=== PATIENT | male | born 1970 | race Caucasian/White ===

== ENCOUNTER 2018-02-23 18:45 | Inpatient (IN) ==
[2018-02-23] MEDS ORDERED: MethylPREDNISolone Sod Succinate Inj 125 MG/2 ML Vial IV.PUSH ONE (19:13)
--- NOTE | 2018-02-23 19:19 | ED ---
HPI General Chief complaint: Respiratory Symptoms Stated complaint: Chest Pain/SOB/Phy sent Time Seen by Provider: 02/23/18 19:09 History of Present Illness HPI narrative: 47-year-old male with history of COPD, metastatic lung cancer, hypercalcemia, history of DVT in the right lower extremity on Xarelto, presents with family, aunt who is his power of criminal defense attorney, for evaluation. For the past few weeks the patient has had worsening edema in his feet and a worsening cough. He recently completed a 10-day course of Cipro for upper respiratory infection. Today he was complaining of some substernal chest pain and this is what prompted evaluation. Symptoms are moderate with no obvious aggravating relieving factors. He has had no objective fevers. He does seem somewhat confused according to the aunt as well, she is concerned that his calcium level is high again. According to his power of criminal defense attorney and his aunt he is DNR/DNI. Oncologist is Dr. Christian, primary care physician is Dr. Gastelum. No other complaints. Related Data Home Medications Medication Instructions Recorded Confirmed ProAir HFA 2 puff INHALATION Q2-4H PRN 12/21/17 02/23/18 albuterol sulfate 1.25 mg INHALATION QID PRN 12/21/17 02/23/18 ondansetron HCl [Zofran] 4 mg PO TID PRN 12/21/17 02/23/18 oxycodone-acetaminophen [Percocet] 1 tab PO Q6H PRN 12/21/17 02/23/18 docusate sodium 100 mg PO BID 02/23/18 02/23/18 oxycodone-acetaminophen 1 tab PO Q4H PRN 02/23/18 02/23/18 budesonide-formoterol [Symbicort] 2 puff INHALATION Q12H 02/24/18 02/24/18 rivaroxaban [Xarelto] 10 mg PO DAILY 02/24/18 02/24/18 Allergies Allergy/AdvReac Type Severity Reaction Status Date / Time No Known Allergies Allergy Unverified 12/21/17 23:11 [facility] Medical History Medical History Anxiety (Acute) Emphysema lung (Acute) GERD (gastroesophageal reflux disease) (Acute) COPD (chronic obstructive pulmonary disease) (Acute) DVT (deep venous thrombosis) (Acute) Lung cancer (Acute) Port-A-Cath in place (Acute) Surgical History Surgical History H/O shoulder surgery (Acute) Family History Family History Other Alcohol abuse Depression Family history of cancer Hyperlipidemia Social History Social History Substance History: Past History (marijuana and narcotics) Second Hand Smoke Exposure: No Smoking Status: Former smoker Tobacco Type: Cigarettes Packs Per Day: 1 Cigarettes Per Day: 20.0 years: 30 How Often Do You Have a Drink Containing Alcohol: Never Recent Travel in [facility] within the Last 8 Weeks: No Recent Out of Country Travel within the Last 8 Weeks: No Immunization History Tetanus Immunization: <5 Years Exam Narrative Exam Narrative: GENERAL: This is a chronically ill-appearing male who is in no acute distress. SKIN: Warm and dry. HEAD: Atraumatic. Normocephalic. EYES: Pupils equal and round. No scleral icterus. No injection or drainage. ENT: No nasal bleeding or discharge. Mucous membranes pink and moist. NECK: Trachea midline. No JVD. CARDIOVASCULAR: Regular rate and rhythm. No murmur appreciated. RESPIRATORY: There is diffuse wheezing bilaterally with prolonged inspiratory and expiratory phases. GASTROINTESTINAL: Abdomen soft, non-tender, nondistended. Hepatic and splenic margins not palpable. MUSCULOSKELETAL: No obvious deformities. No clubbing. No cyanosis. 2-3+ pitting edema noted to both feet. NEUROLOGICAL: Awake and alert. No obvious cranial nerve deficits. Motor grossly within normal limits. Normal speech. Course Initial Documented Vital Signs Temperature 98.6 F 02/23/18 18:50 Pulse Rate 105 H 02/23/18 18:50 Respiratory Rate 30 H 02/23/18 18:50 Blood Pressure 92/55 L 02/23/18 18:50 Pulse Oximetry 100 02/23/18 18:50 Last Documented Vital Signs Temperature 97.8 F 02/25/18 00:00 Pulse Rate 100 H 02/25/18 00:00 Respiratory Rate 16 02/25/18 00:00 Blood Pressure 102/61 02/25/18 00:00 Pulse Oximetry 100 02/25/18 00:00 Medical Decision Making MDM Narrative Medical decision making narrative: The patient was placed on ECG monitoring pulse oximetry. Twelve-lead EKG was obtained. Lab work, chest x-ray, bilateral Doppler ultrasound, CT pulmonary angina gram ordered. The patient was given DuoNeb treatment and Solu-Medrol. Chest x-ray results reviewed, the patient was given vancomycin, azithromycin and Zosyn. CT pulmonary under [facility] is negative for PE. Ultrasounds were negative for PE. The patient has leukocytosis with WBC count of 15.9, 90% neutrophils, hypercalcemia with a calcium level of 12.9 1 L normal saline administered. The BNP is elevated at 1209. The patient will be admitted for further treatment. Medical Screen Exam Complete: Yes Emergency Medical Condition: Yes Differential Diagnosis Differential Diagnosis: Pneumonia, COPD exacerbation, pleural effusion, pulmonary edema, metastatic lung cancer, PE Lab Data Result diagrams: 02/25/18 06:15 02/23/18 19:54 Lab Results 02/23/18 02/23/18 02/23/18 Range/Units 19:54 19:54 19:54 WBC 15.7 H (4.0-11.0) th/mm3 RBC 3.47 L (4.50-5.90) mil/mm3 Hgb 8.4 L (13.0-17.0) gm/dL Hct 26.6 L (39.0-51.0) % MCV 76.6 L (80.0-100.0) fL MCH 24.2 L (27.0-34.0) pg MCHC 31.7 L (32.0-36.0) % RDW 20.2 H (11.6-17.2) % Plt Count 287 (150-450) th/mm3 MPV 7.6 (7.0-11.0) fL Neut % (Auto) 90.7 H (16.0-70.0) % Lymph % (Auto) 2.0 L (9.0-44.0) % [place] % (Auto) 6.9 (0.0-8.0) % Eos % (Auto) 0.1 (0.0-4.0) % Baso % (Auto) 0.3 (0.0-2.0) % Neut # (Auto) 14.2 H (1.8-7.7) th/mm3 Lymph # (Auto) 0.3 L (1.0-4.8) th/mm3 [place] # (Auto) 1.1 H (0.0-0.9) th/mm3 Eos # (Auto) 0.0 (0.0-0.4) th/mm3 Baso # (Auto) 0.1 (0.0-0.2) th/mm3 WBC Differential . Differential Comment Auto diff final PT 15.7 H (9.8-11.6) sec INR 1.6 Ratio APTT 85.6 H (23.4-31.7) sec Sodium 131 L (136-145) meq/L Potassium 4.5 (3.5-5.1) meq/L Chloride 95 L (98-107) meq/L Carbon Dioxide 26.4 (21.0-32.0) meq/L Anion Gap 10 (5-15) meq/L BUN 14 (7-18) mg/dL Creatinine 0.51 L (0.60-1.30) mg/dL Estimated GFR Greater than 89 (>89) mL/min Random Glucose 88 (74-106) mg/dL Lactic Acid (0.4-2.0) mmol/L Calcium 12.9 H* (8.5-10.1) mg/dL Prot Corrected Calcium (8.5-10.1) mg/dL Magnesium 2.0 (1.5-2.5) mg/dL Total Bilirubin 0.5 (0.2-1.0) mg/dL AST 44 H (15-37) U/L ALT 53 (12-78) U/L Alkaline Phosphatase 311 H (45-117) U/L Total Creatine Kinase 80 (39-308) U/L Troponin I 0.02 (0.02-0.05) ng/mL B-Natriuretic Peptide (0-100) pg/mL Total Protein 6.3 L (6.4-8.2) g/dL Albumin 1.8 L (3.4-5.0) g/dL Urine Color (Yellw/Straw) Urine Clarity (Clear) Urine pH (5.0-8.5) Ur Specific [place] (1.002-1.035) Urine Protein (Neg-Trace) mg/dL Urine Glucose (UA) (Negative) mg/dL Urine Ketones (Negative) mg/dL Urine Occult Blood (Negative) Urine Nitrate (Negative) Urine Bilirubin (Negative) Urine Urobilinogen (Less than 2) mg/dL Ur Leukocyte Esterase (Negative) Urine WBC (0-5) /hpf Hyaline Casts (0-3) /lpf Urine Mucus (Occasional) /lpf Micro UA Comment Ur Microscopic Review Urine Culture Comments 02/23/18 02/23/18 02/24/18 Range/Units 19:54 19:54 07:15 WBC (4.0-11.0) th/mm3 RBC (4.50-5.90) mil/mm3 Hgb (13.0-17.0) gm/dL Hct (39.0-51.0) % MCV (80.0-100.0) fL MCH (27.0-34.0) pg MCHC (32.0-36.0) % RDW (11.6-17.2) % Plt Count (150-450) th/mm3 MPV (7.0-11.0) fL Neut % (Auto) (16.0-70.0) % Lymph % (Auto) (9.0-44.0) % [place] % (Auto) (0.0-8.0) % Eos % (Auto) (0.0-4.0) % Baso % (Auto) (0.0-2.0) % Neut # (Auto) (1.8-7.7) th/mm3 Lymph # (Auto) (1.0-4.8) th/mm3 [place] # (Auto) (0.0-0.9) th/mm3 Eos # (Auto) (0.0-0.4) th/mm3 Baso # (Auto) (0.0-0.2) th/mm3 WBC Differential Differential Comment PT (9.8-11.6) sec INR Ratio APTT (23.4-31.7) sec Sodium (136-145) meq/L Potassium (3.5-5.1) meq/L Chloride (98-107) meq/L Carbon Dioxide (21.0-32.0) meq/L Anion Gap (5-15) meq/L BUN (7-18) mg/dL Creatinine (0.60-1.30) mg/dL Estimated GFR (>89) mL/min Random Glucose (74-106) mg/dL Lactic Acid 1.5 (0.4-2.0) mmol/L Calcium (8.5-10.1) mg/dL Prot Corrected Calcium (8.5-10.1) mg/dL Magnesium (1.5-2.5) mg/dL Total Bilirubin (0.2-1.0) mg/dL AST (15-37) U/L ALT (12-78) U/L Alkaline Phosphatase (45-117) U/L Total Creatine Kinase (39-308) U/L Troponin I (0.02-0.05) ng/mL B-Natriuretic Peptide 1209 H (0-100) pg/mL Total Protein (6.4-8.2) g/dL Albumin (3.4-5.0) g/dL Urine Color Straw (Yellw/Straw) Urine Clarity Clear (Clear) Urine pH 5.0 (5.0-8.5) Ur Specific [place] 1.011 (1.002-1.035) Urine Protein Negative (Neg-Trace) mg/dL Urine Glucose (UA) Negative (Negative) mg/dL Urine Ketones Negative (Negative) mg/dL Urine Occult Blood Negative (Negative) Urine Nitrate Negative (Negative) Urine Bilirubin Negative (Negative) Urine Urobilinogen Less than 2 (Less than 2) mg/dL Ur Leukocyte Esterase Negative (Negative) Urine WBC 1 (0-5) /hpf Hyaline Casts 11 (0-3) /lpf Urine Mucus Few H (Occasional) /lpf Micro UA Comment Culture not ind Ur Microscopic Review Not Reportable Urine Culture Comments Culture not ind 02/24/18 02/25/18 Range/Units 12:34 06:15 WBC 14.5 H (4.0-11.0) th/mm3 RBC 3.06 L (4.50-5.90) mil/mm3 Hgb 7.9 L (13.0-17.0) gm/dL Hct 23.5 L (39.0-51.0) % MCV 76.9 L (80.0-100.0) fL MCH 25.9 L (27.0-34.0) pg MCHC 33.7 (32.0-36.0) % RDW 21.1 H (11.6-17.2) % Plt Count 290 (150-450) th/mm3 MPV 7.4 (7.0-11.0) fL Neut % (Auto) 92.1 H (16.0-70.0) % Lymph % (Auto) 1.6 L (9.0-44.0) % [place] % (Auto) 6.1 (0.0-8.0) % Eos % (Auto) 0.1 (0.0-4.0) % Baso % (Auto) 0.1 (0.0-2.0) % Neut # (Auto) 13.3 H (1.8-7.7) th/mm3 Lymph # (Auto) 0.2 L (1.0-4.8) th/mm3 [place] # (Auto) 0.9 (0.0-0.9) th/mm3 Eos # (Auto) 0.0 (0.0-0.4) th/mm3 Baso # (Auto) 0.0 (0.0-0.2) th/mm3 WBC Differential . Differential Comment Auto diff final PT (9.8-11.6) sec INR Ratio APTT (23.4-31.7) sec Sodium (136-145) meq/L Potassium (3.5-5.1) meq/L Chloride (98-107) meq/L Carbon Dioxide (21.0-32.0) meq/L Anion Gap (5-15) meq/L BUN (7-18) mg/dL Creatinine (0.60-1.30) mg/dL Estimated GFR (>89) mL/min Random Glucose (74-106) mg/dL Lactic Acid (0.4-2.0) mmol/L Calcium (8.5-10.1) mg/dL Prot Corrected Calcium (8.5-10.1) mg/dL Magnesium (1.5-2.5) mg/dL Total Bilirubin (0.2-1.0) mg/dL AST (15-37) U/L ALT (12-78) U/L Alkaline Phosphatase (45-117) U/L Total Creatine Kinase (39-308) U/L Troponin I (0.02-0.05) ng/mL B-Natriuretic Peptide 755 H (0-100) pg/mL Total Protein (6.4-8.2) g/dL Albumin (3.4-5.0) g/dL Urine Color (Yellw/Straw) Urine Clarity (Clear) Urine pH (5.0-8.5) Ur Specific [place] (1.002-1.035) Urine Protein (Neg-Trace) mg/dL Urine Glucose (UA) (Negative) mg/dL Urine Ketones (Negative) mg/dL Urine Occult Blood (Negative) Urine Nitrate (Negative) Urine Bilirubin (Negative) Urine Urobilinogen (Less than 2) mg/dL Ur Leukocyte Esterase (Negative) Urine WBC (0-5) /hpf Hyaline Casts (0-3) /lpf Urine Mucus (Occasional) /lpf Micro UA Comment Ur Microscopic Review Urine Culture Comments Imaging Data Radiologist's impression: Chest X-Ray 02/23/18 19:12 CONCLUSION: 3.5 cm mass in the right lung and complete opacification of the left hemithorax , similar to prior CT 01/20/2018. Venous Doppler Study 02/23/18 19:12 CONCLUSION: 1. The study is negative for bilateral lower extremity deep venous thrombosis. Head CT 02/23/18 19:19 CONCLUSION: 1. Stable area of encephalomalacia involving the right frontal lobe. 2. No acute intracranial abnormality. . Chest CTA 02/23/18 21:06 CONCLUSION: 1. No pulmonary emboli. 2. Progression in the patient's metastatic disease involving the chest. 3. Suspected low-density mass arising from the pancreas only partially seen on this exam. 4. Left adrenal gland metastasis. 5. Bilateral pleural effusions which are stable. Discharge Plan Discharge Disposition Patient Disposition: 30 Still Patient Discharge Condition Condition: Stable Discharge Details Diagnosis: Pneumonia, Hypercalcemia, Sepsis, Elevated brain natriuretic peptide (BNP) level Physicians Team ED Provider: Kasia French ED Midlevel Provider: Pietro Marsh Primary Care Provider: Chepe Gastelum Attending Provider: Gabriela Dasilva Other Providers: Boo Christian ; Juarez Brown Status ED Status: Left Department Discharge Information Discharge Date/Time: 02/24/18 02:16
--- NOTE | 2018-02-23 19:47 | XR ---
EXAM DATE: 02/23/2018 7:28 PM EST AGE/SEX: 47 years / Male INDICATIONS: Cough, wheezing, shortness of breath and chest pain. CLINICAL DATA: This is the patient's initial encounter. Patient reports that signs and symptoms have been present for 3 days and indicates a pain score of 8/10. MEDICAL/SURGICAL HISTORY: Carcinoma, lung. Chronic obstructive pulmonary disease. . Infusaport . COMPARISON: [facility], RIBS LEFT MIN 3V W EXP CHEST, 12/22/2017. [facility], CT CHEST W/O CONTRAST, 8. . FINDINGS: There is complete opacification of the left hemithorax. In the lateral right lung, there is a 3.5 cm masslike opacity similar to recently performed on patient's CT. The right hemidiaphragm remains well delineated. Zfrtip-b-Zcko catheter tip projects over the cavoatrial junction. Osseous structures are grossly intact. CONCLUSION: 3.5 cm mass in the right lung and complete opacification of the left hemithorax, similar to prior CT 01/20/2018. Electronically signed by: Chucky Koo MD 02/23/2018 7:46 PM EST
[2018-02-23] MEDS ORDERED: Piperacil/Tazo 4.5 GM Premix 4.5 GM/100 ML BAG IV.SIG STA (19:56)
[2018-02-23] MEDS ORDERED: Vancomycin Inj 1,000 MG in Sodium Chlor 0.9% Inj 250 ML IV.SIG ONE (19:56)
[2018-02-23] MEDS ORDERED: Azithromycin Inj 500 MG in Sodium Chlor 0.9% Inj 250 ML IV.SIG STA (19:56)
--- NOTE | 2018-02-23 20:22 | CT ---
EXAM DATE: 02/23/2018 8:10 PM EST AGE/SEX: 47 years / Male INDICATIONS: Altered mental status. CLINICAL DATA: This is the patient's initial encounter. Patient reports that signs and symptoms have been present for 1 day and indicates a pain score of 0/10. MEDICAL/SURGICAL HISTORY: Carcinoma, lung. Chronic obstructive pulmonary disease. Deep venous thr ombosis. None. RADIATION DOSE: 35.45 CTDI (mGy) COMPARISON: [facility] [place], CT BRAIN W & W/O CONTRAST, 05/18/2015. . TECHNIQUE: CT of the head without contrast. Using automated exposure control and adjustment of the mA and/or kV according to patient size, radiation dose was kept as low as reasonably achievable to ob tain optimal diagnostic quality images. DICOM format image data is available electronically for revi ew and comparison. FINDINGS: Cerebrum: A focal area of decreased density involving the right frontal lobe cortex and underlying c ortical white matter is long-term stable. The ventricles are normal for age. No evidence of midline shift, mass lesion, hemorrhage or acute infarction. No extraaxial fluid collections are seen. Posterior Fossa: The cerebellum and brainstem are intact. The 4th ventricle is midline. The cerebe llopontine angle is unremarkable. Extracranial: The visualized portion of the orbits is intact. Skull: The calvaria is intact. No evidence of skull fracture. CONCLUSION: 1. Stable area of encephalomalacia involving the right frontal lobe. 2. No acute intracranial abnormality. . Electronically signed by: Chucky Tse MD 02/23/2018 8:20 PM EST
[2018-02-23 20:38] LABS: Baso # (Auto) 0.1 th/mm3 (0.0-0.2); Baso % (Auto) 0.3 % (0.0-2.0); Eos % (Auto) 0.1 % (0.0-4.0); Hematocrit 26.6 % (39.0-51.0); Hemoglobin 8.4 gm/dL (13.0-17.0); Lymph # (Auto) 0.3 th/mm3 (1.0-4.8); Mean Corpuscular HGB Conc 31.7 % (32.0-36.0); Mean Corpuscular Hemoglobin 24.2 pg (27.0-34.0); Mean Corpuscular Volume 76.6 fL (80.0-100.0); Mean Platelet Volume 7.6 fL (7.0-11.0); Mono # (Auto) 1.1 th/mm3 (0.0-0.9); Mono % (Auto) 6.9 % (0.0-8.0); Neut # (Auto) 14.2 th/mm3 (1.8-7.7); Neut % (Auto) 90.7 % (16.0-70.0); Platelet Count 287 th/mm3 (150-450); Red Blood Count 3.47 mil/mm3 (4.50-5.90); Red Cell Distribution Width 20.2 % (11.6-17.2); White Blood Count 15.7 th/mm3 (4.0-11.0)
[2018-02-23 20:48] LABS: Activated Partial Thrombo Time 85.6 sec (23.4-31.7); INR 1.6 Ratio; Prothrombin Time 15.7 sec (9.8-11.6)
[2018-02-23 21:00] LABS: Albumin 1.8 g/dL (3.4-5.0); Anion Gap 10 meq/L (5-15); Aspartate Aminotransferase 44 U/L (15-37); Blood Urea Nitrogen 14 mg/dL (7-18); Calcium 12.9 mg/dL (8.5-10.1); Carbon Dioxide 26.4 meq/L (21.0-32.0); Chloride 95 meq/L (98-107); Glomerular Filtration Rate Greater Than 89 mL/min (>89); Glucose,Random 88 mg/dL (74-106); Potassium 4.5 meq/L (3.5-5.1); Sodium 131 meq/L (136-145)
[2018-02-23 21:07] LABS: Alanine Aminotransferase 53 U/L (12-78); Alkaline Phosphatase 311 U/L (45-117); Creatine Kinase 80 U/L (39-308); Total Protein 6.3 g/dL (6.4-8.2); Troponin I 0.02 ng/mL (0.02-0.05)
[2018-02-23] MEDS ORDERED: Sod Chloride 0.9% Inj 1,000 ML IV.SIG SCH (21:15)
--- NOTE | 2018-02-23 21:34 | US ---
EXAM DATE: 02/23/2018 9:31 PM EST AGE/SEX: 47 years / Male INDICATIONS: Bilateral leg swelling. CLINICAL DATA: This is the patient's initial encounter. Patient reports that signs and symptoms have been present for 1 week and indicates a pain score of 3/10. MEDICAL/SURGICAL HISTORY: Chronic obstructive pulmonary disease. Deep venous thrombosis. Carc inoma, lung. . Port a catheter in place. COMPARISON: . TECHNIQUE: Venous ultrasound of both lower extremities was performed from the inguinal ligament to t he proximal calf. Real-time, color Doppler and spectral tracing, compression and augmentation techni ques were used. FINDINGS: Right Leg: Normal compression of the deep venous system from the inguinal region to the proximal arelis f. No echogenic clot is seen. Normal response of the venous system to augmentation and respiration. Left Leg: Normal compression of the deep venous system from the inguinal region to the proximal calf . No echogenic clot is seen. Normal response of the venous system to augmentation and respiration. Other: None. CONCLUSION: 1. The study is negative for bilateral lower extremity deep venous thrombosis. Electronically signed by: Chucky Koo MD 02/23/2018 9:32 PM EST
--- NOTE | 2018-02-23 22:03 | CT ---
EXAM DATE: 02/23/2018 9:52 PM EST AGE/SEX: 47 years / Male INDICATIONS: Stage 4 lung cancer. Evaluate for emboli. CLINICAL DATA: This is the patient's initial encounter. Patient reports that signs and symptoms have been present for 1 day and indicates a pain score of 5/10. MEDICAL/SURGICAL HISTORY: Carcinoma, lung. Chronic obstructive pulmonary disease. Metastatic dise ase. DVT . Power Port RADIATION DOSE: 21.29 CTDI (mGy) COMPARISON: [facility], CT CHEST W/O CONTRAST, 01/20/2018. . TECHNIQUE: Volumetric scanning was performed using a multi-row detector CT scanner during bolus infu kelly of 50 ml Omnipaque 350 (iohexol) nonionic water-soluble contrast as a single exam dose. The damaris a was post processed with a variety of visualization algorithms including full volume maximum intensi ty projection and sliding thin slab reformation. Using automated exposure control and adjustment of t he mA and/or kV according to patient size, radiation dose was kept as low as reasonably achievable to obtain optimal diagnostic quality images. DICOM format image data is available electronically for r eview and comparison. FINDINGS: Pulmonary Arteries: No filling defects are seen in the pulmonary arteries out to the subsegmental ve ssels. The left and right pulmonary arteries are normal in diameter. Lung: A large mass occupies the vast majority of the left hemithorax. This measures 13.9 x 12.2 x 11 .2 cm and is larger from the prior study proximally 1 month ago where it measured 12.2 x 11.2 x 11.3 cm. This mass circumferentially surrounds the left pulmonary artery causing some narrowing the pulmon janneth artery remains patent. The right upper lobe pulmonary mass is larger from the prior study. It cur rently measures 3.4 x 2.4 cm where previously measured 2.7 x 1.8 cm. Right lower lobe pulmonary nodul e measures 15 mm in diameter where previously measured 9 mm. Pronounced emphysematous changes within the visualized right lung.. Effusion: A small posterior layering pleural effusion on the right and a tiny pleural effusion on th e left. These are stable.. Mediastinum: No evidence of mediastinal or hilar adenopathy. Other: The visualized portions of the abdomen reveal a low-density masslike structure within the epi gastrium measuring 8.6 x 4.1 cm. This is only partially visualized on this study. It is felt to be ar ising from the pancreas. A 4.6 cm left adrenal gland mass consistent with a metastatic focus is noted . A small amount of ascitic fluid is seen within the visualized portions of the upper abdomen. The ax illa is unremarkable. CONCLUSION: 1. No pulmonary emboli. 2. Progression in the patient's metastatic disease involving the chest. 3. Suspected low-density mass arising from the pancreas only partially seen on this exam. 4. Left adrenal gland metastasis. 5. Bilateral pleural effusions which are stable. Electronically signed by: Chucky Tse MD 02/23/2018 10:01 PM EST
[2018-02-24] MEDS ORDERED: Bisacodyl 10 MG Supp RECTAL PRN (00:31)
[2018-02-24] MEDS ORDERED: Acetaminophen 325 MG Tablet PO PRN ×2 (00:31→01:04)
[2018-02-24] MEDS ORDERED: Morphine Inj 4 MG/ML Vial IV.PUSH PRN ×2 (01:04→10:01)
[2018-02-24] MEDS ORDERED: Naloxone Inj 0.4 MG/ML Vial IV.PUSH PRN (01:04)
[2018-02-24] MEDS ORDERED: Vancomycin Consult Pharmacy OTHER PRN (01:18)
[2018-02-24] MEDS: Sod Chloride 0.9% Inj 1,000 ML IV.CONT SCH ×5 (01:40→21:07)
--- NOTE | 2018-02-24 01:53 | P.HPFP ---
History of Present Illness Primary Care Physician: Chepe Gastelum MD Chief Complaint: Confusion and fatigue History of Present Illness: 47-year-old male with history of metastatic lung cancer, history of hypercalcemia, COPD, history of DVT presented to the emergency room for fatigue , confusion and productive cough. Patient is accompanied by his mother, aunt ( who is power of employee benefits attorney). Majority of history is provided by the aunt as the patient has difficulty speaking and feels very ill. Patient does answer questions appropriately when prompted. Patient has had several week history of progressive fatigue/confusion, worsening edema in his bilateral lower extremities, and worsening cough. Patient was seen by his PCP (Dr. Gastelum) and recently completed a 10-day course of Cipro for a suspected upper respiratory infection. His aunt states that his cough is only mildly improved and he continues to have green sputum production as well as wheezing and has requiring increased supplemental oxygen (up to 2-3 L). What prompted the family to bring him in today is that he complained of chest discomfort which is new for him. He had a fever of 102 2 weeks ago but has not had any objective fevers of late per family. - Diagnosis (1) Sepsis (2) Stage 4 lung cancer (3) Hypercalcemia (4) Pancreatic mass (5) Chronic pain (6) Elevated brain natriuretic peptide (BNP) level (7) COPD (chronic obstructive pulmonary disease) (8) History of DVT (deep vein thrombosis) (9) Nutrition, metabolism, and development symptoms Inpatient Certification: I certify that the inpatient services were ordered in accordance with Medicare regulations governing the order. This includes certification that hospital inpatient services are reasonable and necessary and in the case of services not specified as inpatient-only under 42 CFR 419.22(n), that they are appropriately provided as inpatient services in accordance to with the 2-midnight benchmark under 43 CFR 412.3(e) Estimated Total Length of Stay (Days): 3 Plans for Post Hospital Care: Home Review of Systems All other systems reviewed negative except as stated in HPI PMFSH - History History Provided By: Patient - Medical History Medical History: Medical History (Last Updated 02/24/18 @ 01:49 by Jackson Vargas MD, R2) COPD (chronic obstructive pulmonary disease) DVT (deep venous thrombosis) Lung cancer Port-A-Cath in place - Surgical History Surgical History: Surgical History (Last Updated 02/24/18 @ 01:49 by Jackson Vargas MD, R2) H/O shoulder surgery - Family History Family History: Family History (Last Updated 02/24/18 @ 02:04 by Jackson Vargas MD, R2) Other Alcohol abuse Depression Family history of cancer - Tobacco History Second Hand Smoke Exposure: Yes Tobacco Use In Past 30 Days: Yes Smoking Status: Never smoker Tobacco Type: Cigarettes - Alcohol History How Often Do You Have a Drink Containing Alcohol: Never - Substance Use History Substance History: No History of Abuse - Travel History Recent Travel in the [place] Within the Last 8 Weeks: No Recent Travel Out of the Country Within the Last 8 Weeks: No - Immunization History Tetanus Immunization: <5 Years Medications and Allergies Active Medications: Active Medications Acetaminophen (Tylenol) 650 mg PO Q4H PRN PRN Reason: Temp > 100.4 Acetaminophen (Tylenol) 650 mg PO Q6HR PRN PRN Reason: PAIN SCALE 1 TO 2 Al Hydroxide/Mg Hydroxide (Milk Of Magnesia Liq) 30 ml PO Q12H PRN PRN Reason: Mild Constipation Albuterol (Duoneb Neb (Prn)) 1 ampul NEB Q4HR NEB PRN PRN Reason: SHORTNESS OF BREATH Bisacodyl (Dulcolax Supp) 10 mg RECTAL DAILY PRN PRN Reason: SEVERE CONSITIPATION Budesonide/Formoterol Fumarate (Symbicort 160/4.5 Mcg Inh) 2 puff INH Q12H NBA Sodium Chloride (Ns Inj) 1,000 mls @ 100 mls/hr IV.CONT .Q10H NBA Zoledronic Acid 4 mg/ Sodium (Chloride) 155 mls @ 155 mls/hr IV.SIG ONCE ONE Stop: 02/24/18 02:14 Piperacillin/Tazobactam/Dextrose (Zosyn 4.5 Gm Premix) 4.5 gm in 100 mls @ 200 mls/hr IV.SIG Q8H NBA Azithromycin 500 mg/ Sodium (Chloride) 250 mls @ 250 mls/hr IV.SIG Q24H NBA Lactobacillus Acidophilus (Lactinex Pkt) 1 gm PO TID NBA Lactulose (Lactulose Liq) 30 ml PO DAILY PRN PRN Reason: SEVERE CONSITIPATION Morphine Sulfate (Morphine Inj) 2 mg IV.PUSH Q3H PRN PRN Reason: BREAKTHROUGH PAIN Naloxone HCl (Narcan Inj) 0.4 mg IV.PUSH UNSCH PRN PRN Reason: SEE LABEL COMMENTS Ondansetron HCl (Zofran Inj) 4 mg IV.PUSH Q6H PRN PRN Reason: NAUSEA OR VOMITING Oxycodone/Acetaminophen (Percocet 10/325 Mg) 1 tab PO Q6H PRN PRN Reason: PAIN SCALE 6 TO 10 Oxycodone/Acetaminophen (Percocet 5/325 Mg) 1 tab PO Q6H PRN PRN Reason: PAIN SCALE 3 TO 5 Pharmacy Profile Note (Vancomycin Consult Pharmacy) 1 each OTHER UNSCH PRN PRN Reason: Pharmacy to dose Rivaroxaban (Xarelto) 10 mg PO DAILY NBA Senna/Docusate Sodium (Donna-Colace) 1 tab PO BID NBA Sennosides (Senokot) 17.2 mg PO Q12H PRN PRN Reason: Moderate Constipation Allergies Allergy/AdvReac Type Severity Reaction Status Date / Time No Known Allergies Allergy Unverified 12/21/17 23:11 Home Medications Medication Instructions Recorded Confirmed Type ProAir HFA 2 puff INHALATION Q2-4H PRN 12/21/17 02/23/18 History albuterol sulfate 1.25 mg INHALATION QID PRN 12/21/17 02/23/18 History ondansetron HCl [Zofran] 4 mg PO TID PRN 12/21/17 02/23/18 History oxycodone-acetaminophen [Percocet] 1 tab PO Q6H PRN 12/21/17 02/23/18 History docusate sodium 100 mg PO BID 02/23/18 02/23/18 History oxycodone-acetaminophen 1 tab PO Q4H PRN 02/23/18 02/23/18 History budesonide-formoterol [Symbicort] 2 puff INHALATION Q12H 02/24/18 02/24/18 History rivaroxaban [Xarelto] 10 mg PO DAILY 02/24/18 02/24/18 History Exam Vital signs: Vital Signs 02/23/18 18:50 02/23/18 18:54 02/23/18 20:18 Temperature 98.6 F Pulse Rate 105 H 106 H 111 H Respiratory Rate 30 H 20 20 Blood Pressure 92/55 L 115/65 Pulse Oximetry 100 100 02/23/18 20:30 02/24/18 01:31 Temperature 97.9 F Pulse Rate 106 H Respiratory Rate 18 Blood Pressure 109/55 L Pulse Oximetry 96 100 Intake & Output 02/23/18 02/23/18 02/24/18 06:59 18:59 06:59 Intake Total 1600 / 1600 Balance 1600 / 1600 Weight 56.699 kg Intake: IV 1600 / 1600 Azithromycin Inj 500 MG In NS 250 / 250 Inj 250 ML @ 250 mls/hr IV.SIG STAT STA Rx#:[id number] Zosyn 4.5 GM Premix 4.5 gm In 100 / 100 100 ml @ 200 mls/hr IV.SIG STAT STA Rx#:[id number] NS Inj 1,000 ML @ 1000 mls/hr 1000 / 1000 IV.SIG BOLUS NBA Rx#:[id number] Vancomycin Inj 1,000 MG In NS 250 / 250 Inj 250 ML @ 250 mls/hr IV.SIG ONCE ONE Rx#:[id number] Narrative: GENERAL: Frail appearing male sitting upright in bed. Frequently coughing. Unable to elaborate but does answer questions appropriately SKIN: Warm and dry. HEAD: Atraumatic. Normocephalic. EYES: Pupils equal and round. No scleral icterus. No injection or drainage. ENT: No nasal bleeding or discharge. Mucous membranes pink and moist. NECK: Trachea midline. No JVD. CARDIOVASCULAR: Difficult to auscultate due to breath sounds but sounded regular RESPIRATORY: No accessory muscle use. Diffuse rhonchi transmitted throughout the lung van[place]. GASTROINTESTINAL: Abdomen mildly distended, nontender. Hepatic and splenic margins not palpable. MUSCULOSKELETAL: Extremities without clubbing, cyanosis. No obvious deformities. NEUROLOGICAL: Awake and alert. No obvious cranial nerve deficits. Motor grossly within normal limits. Five out of 5 muscle strength in the arms and legs. Normal speech. Results - Labs Result diagrams: 02/23/18 19:54 02/23/18 19:54 Abnormal lab results 02/23/18 02/23/18 02/23/18 Range/Units 19:54 19:54 19:54 WBC 15.7 H (4.0-11.0) th/mm3 RBC 3.47 L (4.50-5.90) mil/mm3 Hgb 8.4 L (13.0-17.0) gm/dL Hct 26.6 L (39.0-51.0) % MCV 76.6 L (80.0-100.0) fL MCH 24.2 L (27.0-34.0) pg MCHC 31.7 L (32.0-36.0) % RDW 20.2 H (11.6-17.2) % Neut % (Auto) 90.7 H (16.0-70.0) % Lymph % (Auto) 2.0 L (9.0-44.0) % Neut # (Auto) 14.2 H (1.8-7.7) th/mm3 Lymph # (Auto) 0.3 L (1.0-4.8) th/mm3 [place] # (Auto) 1.1 H (0.0-0.9) th/mm3 PT 15.7 H (9.8-11.6) sec APTT 85.6 H (23.4-31.7) sec Sodium 131 L (136-145) meq/L Chloride 95 L (98-107) meq/L Creatinine 0.51 L (0.60-1.30) mg/dL Calcium 12.9 H* (8.5-10.1) mg/dL AST 44 H (15-37) U/L Alkaline Phosphatase 311 H (45-117) U/L B-Natriuretic Peptide (0-100) pg/mL Total Protein 6.3 L (6.4-8.2) g/dL Albumin 1.8 L (3.4-5.0) g/dL 02/23/18 Range/Units 19:54 WBC (4.0-11.0) th/mm3 RBC (4.50-5.90) mil/mm3 Hgb (13.0-17.0) gm/dL Hct (39.0-51.0) % MCV (80.0-100.0) fL MCH (27.0-34.0) pg MCHC (32.0-36.0) % RDW (11.6-17.2) % Neut % (Auto) (16.0-70.0) % Lymph % (Auto) (9.0-44.0) % Neut # (Auto) (1.8-7.7) th/mm3 Lymph # (Auto) (1.0-4.8) th/mm3 [place] # (Auto) (0.0-0.9) th/mm3 PT (9.8-11.6) sec APTT (23.4-31.7) sec Sodium (136-145) meq/L Chloride (98-107) meq/L Creatinine (0.60-1.30) mg/dL Calcium (8.5-10.1) mg/dL AST (15-37) U/L Alkaline Phosphatase (45-117) U/L B-Natriuretic Peptide 1209 H (0-100) pg/mL Total Protein (6.4-8.2) g/dL Albumin (3.4-5.0) g/dL Short CBC 02/23/18 Range/Units 19:54 WBC 15.7 H (4.0-11.0) th/mm3 Hgb 8.4 L (13.0-17.0) gm/dL Hct 26.6 L (39.0-51.0) % Plt Count 287 (150-450) th/mm3 BMP 02/23/18 19:54 Sodium 131 L Potassium 4.5 Chloride 95 L Carbon Dioxide 26.4 BUN 14 Creatinine 0.51 L Calcium 12.9 H* Cardiac Enzymes 02/23/18 Range/Units 19:54 Total Creatine Kinase 80 (39-308) U/L Troponin I 0.02 (0.02-0.05) ng/mL Liver Function 02/23/18 Range/Units 19:54 Total Bilirubin 0.5 (0.2-1.0) mg/dL AST 44 H (15-37) U/L ALT 53 (12-78) U/L Alkaline Phosphatase 311 H (45-117) U/L Albumin 1.8 L (3.4-5.0) g/dL - Imaging Impressions Chest X-Ray 02/23/18 19:12 CONCLUSION: 3.5 cm mass in the right lung and complete opacification of the left hemithorax , similar to prior CT 01/20/2018. Venous Doppler Study 02/23/18 19:12 CONCLUSION: 1. The study is negative for bilateral lower extremity deep venous thrombosis. Head CT 02/23/18 19:19 CONCLUSION: 1. Stable area of encephalomalacia involving the right frontal lobe. 2. No acute intracranial abnormality. . Chest CTA 02/23/18 21:06 CONCLUSION: 1. No pulmonary emboli. 2. Progression in the patient's metastatic disease involving the chest. 3. Suspected low-density mass arising from the pancreas only partially seen on this exam. 4. Left adrenal gland metastasis. 5. Bilateral pleural effusions which are stable. Caprini VTE Risk Assessment Caprini VTE Risk Assessment: Moderate/High Risk (score >= 2) Caprini Risk Assessment Model: Point Value = 1 Point Value = 2 Point Value = 3 Point Value = 5 Age 41-60 Minor surgery BMI > 25 kg/m2 Swollen legs Varicose veins or History of unexplained or recurrent spontaneous Oral contraceptives or hormone replacement Sepsis (< 1 month) Serious lung disease, including pneumonia (< 1 month) Abnormal pulmonary function Acute myocardial infarction Congestive heart failure (< 1 month) History of inflammatory bowel disease Medical patient at bed rest Age 61-74 Arthroscopic surgery Major open surgery (> 45 min) Laparoscopic surgery (> 45 min) Malignancy Confined to bed (> 72 hours) Immobilizing plaster cast Central venous access Age >= 75 History of VTE Family history of VTE Factor V Leiden Prothrombin [id number] Lupus anticoagulant Anticardiolipin antibodies Elevated serum homocysteine Heparin-induced thrombocytopenia Other congenital or acquired thrombophilia Stroke (< 1 month) Elective arthroplasty Hip, pelvis, or leg fracture Acute spinal cord injury (< 1 month) Prophylaxis Regimen: Total Risk Factor Score Risk Level Prophylaxis Regimen 0-1 Low Early ambulation 2 Moderate Order ONE of the following: *Sequential Compression Device (SCD) *Heparin 5000 units SQ BID 3-4 Higher Order ONE of the following medications: *Heparin 5000 units SQ TID *Enoxaparin/Lovenox 40 mg SQ daily (WT < 150 kg, CrCl > 30 mL/min) *Enoxaparin/Lovenox 30 mg SQ daily (WT < 150 kg, CrCl > 10-29 mL/min) *Enoxaparin/Lovenox 30 mg SQ BID (WT < 150 kg, CrCl > 30 mL/min) AND/OR *Sequential Compression Device (SCD) 5 or more Highest Order ONE of the following medications: *Heparin 5000 units SQ TID (Preferred with Epidurals) *Enoxaparin/Lovenox 40 mg SQ daily (WT < 150 kg, CrCl > 30 mL/min) *Enoxaparin/Lovenox 30 mg SQ daily (WT < 150 kg, CrCl > 10-29 mL/min) *Enoxaparin/Lovenox 30 mg SQ BID (WT < 150 kg, CrCl > 30 mL/min) AND *Sequential Compression Device (SCD) Assessment and Plan - Assessment (1) Sepsis Code(s): A41.9 - Sepsis, unspecified organism Status: Acute Plan: Patient is septic on admission with tachycardia, leukocytosis WBC 15.7, left shift. Heart rate in the 100s Lactic acid 1.5 on admission Chest x-ray on admission with 3.5 cm mass in the right lung and complete opacification of the left hemithorax UA pending Blood cultures pending Patient received azithromycin, vancomycin and Zosyn in the emergency room to treat possible pneumonia Continuing antibiotics on admission Repeat CBC in the morning (2) Stage 4 lung cancer Code(s): C34.90 - Malignant neoplasm of unspecified part of unspecified bronchus or lung Status: Acute Plan: Known history of stage IV lung cancer. Patient is DNR CT on admission showed no pulmonary emboli, progression in his metastatic disease involving the chest CT head on admission showing stable area of encephalomalacia involving the right frontal lobe, no acute intracranial abnormalities Oncology consulted on admission May need to consider palliative consult (3) Hypercalcemia Code(s): E83.52 - Hypercalcemia Status: Acute Plan: Patient with a history of hypercalcemia secondary to metastatic cancer Patient with confusion, constipation, peripheral edema Calcium of 12.9 falls into the moderate category Historically has been treated with zoledronic acid Received 1 L normal saline bolus in the ED We will continue normal saline at 100 mL/h, will consider higher rate if not for his pulmonary disease Ordering zoledronic acid In the setting of his peripheral edema, increased oxygen demand and elevated BNP - ordering Lasix 40 mg IV x1 Repeat CMP in the morning (4) Pancreatic mass Code(s): K86.9 - Disease of pancreas, unspecified Status: Acute Plan: CTA was ordered to evaluate for possible emboli and incidentally found a low density mass arising from the pancreas it was only partially seen May need to consider further imaging pending the clinical course (5) Chronic pain Code(s): G89.29 - Other chronic pain Status: Acute Plan: Patient has a history of chronic pain secondary to his metastatic lung cancer Takes Percocet at home Continuing Percocet pain scale with IV morphine for breakthrough pain (6) Elevated brain natriuretic peptide (BNP) level Code(s): R79.89 - Other specified abnormal findings of blood chemistry Status : Acute Plan: Elevated BNP on admission of 1209 Patient has no known history of CHF but has significant pulmonary pathology with his metastatic lung cancer Ordering Lasix 40mg IV x1 Repeat BNP in the morning (7) COPD (chronic obstructive pulmonary disease) Code(s): J44.9 - Chronic obstructive pulmonary disease, unspecified Status: Acute Plan: Known history of COPD Received 1 dose of Solu-Medrol 125 mg IV once in the ED Uses Symbicort, albuterol as needed at home Continuing Symbicort, DuoNeb's every 4 hours as needed, albuterol nebs every 2 hours as needed (8) History of DVT (deep vein thrombosis) Code(s): Z86.718 - Personal history of other venous thrombosis and embolism Status: Acute Plan: Known history of DVT Oncologist recently decrease his Xarelto from 20 mg to 10 mg p.o. daily Patient with bilateral lower extremity edema on admission, venous Doppler was negative for DVT Continuing Xarelto 10 mg p.o. daily (9) Nutrition, metabolism, and development symptoms Code(s): R63.8 - Other symptoms and signs concerning food and fluid intake Status: Acute Plan: Regular diet Xarelto for DVT prophylaxis Zofran as needed for nausea - Assessment and Plan 47-year-old male with a history of stage IV lung cancer, history of hypercalcemia, chronic pain, COPD and history of DVT presented to the emergency room with confusion, fatigue, weakness and shortness of breath. Patient is septic on admission with a suspected source of pneumonia. Blood cultures pending. Started on azithromycin, vancomycin and Zosyn on admission. Patient also found to be hypercalcemic on admission. Treating with IV fluids and zoledronic acid as well as 1 dose of Lasix. Consulting oncology on admission
[2018-02-24] MEDS: Budesonide-Formoterol 160/4.5 MCG 6 GM Inhaler INH SCH ×2 (01:55→14:07)
[2018-02-24] MEDS ORDERED: Vancomycin Inj 500 MG in Sodium Chlor 0.9% Inj 100 ML IV.SIG ONE (04:00)
[2018-02-24] MEDS: Piperacil/Tazo 4.5 GM Premix 4.5 GM/100 ML BAG IV.SIG SCH ×3 (04:31→21:05)
[2018-02-24 07:42] LABS: Bilirubin,Urine Negative (Negative); Clarity,Urine Clear (Clear); Color,Urine Straw (Yellw/Straw); Glucose,Urine (UA) Negative (Negative); Hyaline Casts,Urine 11 /lpf (0-3); Leukocyte Esterase,Urine Negative (Negative); Mucus,Urine Few /lpf (Occasional); Nitrite,Urine Negative (Negative); Specific Gravity,Urine 1.011 (1.002-1.035)
[2018-02-24] MEDS ORDERED: Zoledronic Acid Inj 4 MG in Sodium Chlor 0.9% Inj 150 ML IV.SIG ONE (08:00)
[2018-02-24] MEDS: Rivaroxaban 10 MG Tablet PO SCH (09:34)
--- NOTE | 2018-02-24 11:01 | P.CONPAL ---
Consult Service: Palliative Care Requesting Physician: Ray Martini Reason for Consult: a. To assist with evaluation and management of symptoms including: Pain and dyspnea b. To assist medical decision maker(s) with: better understanding of current medical conditions; weighing benefits/burdens of medical treatment options; making medical treatment decisions. Primary Care Provider: Chepe Gastelum MD History of Present Illness History of Present Illness: This is a 47-year-old male who was brought to the emergency room by his aunt who is his power of claims attorney. Prior to coming to the emergency room he was having substernal chest pain, also reports of worsening cough and edema in his lower extremities. 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 At that time he was found to have multiple satellite pulmonary nodules, direct invasion of of the tumor into the mediastinum as well as the hilar region, left-sided lung mass was wrapped around the main bronchus and vascular structures. He was also found to have lesions on the liver suspicious for metastatic disease. . * May 2015 He was initially treated by Dr. Carey Carrillo. Per Dr. Carrillo records, original diagnosis was poorly differentiated squamous cell carcinoma of the lung , and was planned for palliative systemic chemotherapy followed by consolidative radiation to manage his large central left lung mass which was encircling the left main bronchus. * January 2016 patient was not having any response to carboplatin and Taxol, had no response to second line treatment of Nivolumab, and had further progression of the disease. It was recommended that he follow-up with his thoracic oncology expert at [facility] * Patient had pericardial window done at [facility] 02/07/16 and was also found to have DVT. * April 2016, CT thorax and abdomen revealed 1.4 cm subpleural left apical nodule, pleural effusion, and a 2 cm periaortic lymph node and lesion in the right liver. At that time he was under consideration for further treatment, required a new biopsy to confirm malignancy, but was unable to undergo biopsy secondary to inability to access an area where tissue could be obtained. * August 2016 CAT scan shows near resolution of large primary tumor that was radiated with palliative dose of radiation with decrease in size of multiple other metastatic lesions. He was recommended for follow-up every 3 months. * As of December 2017, patient was found to have recurrence of disease, enlarging pericardial mass measuring 2.7 cm, a mass situated between the aorta and pulmonary artery 2.3 cm, another pericardial mass measuring 4.7 cm, left pericardial mass, loculated collection of left pericardial effusion, mass in the left hilum measuring 9.5 cm occluding the left upper lobe of the bronchus, posterior epicardial mass measuring 2.5 cm, enlarging cystic mass in the gastrohepatic region measuring 9 cm, and enlarging left retroperitoneal mass measuring 3.7 cm. He has had ongoing malignant hypercalcemia.. Current ED course: CXR essentially unchanged, 3.5 cm mass in the right lung and complete opacification of the left hemithorax. Venous Doppler study unremarkable. Head CT unremarkable. Chest CTA remarkable for stable bilateral pleural effusions, negative for PE, progression of metastatic disease in the chest, suspected low-density mass arising from the pancreas, left adrenal gland metastasis. * Labs: WBC 15.7, hemoglobin 8.4, hematocrit 26.6, platelets 287, PT/INR 15.7/ 1.6 APTT 85.7, sodium 131 potassium 4.5, chloride carbon dioxide 26.4, BUN 14, creatinine 0.51, GFR 89, glucose 88, lactic acid 1.5, calcium 12.9, protein corrected calcium pending, BNP 1209, protein 6.3, albumin 1.8, AST 44, ALT 53, alkaline phosphatase 311 Additional history: Patient was seen in the emergency room in December for hypercalcemia, was brought in by his aunt who apparently was very upset with staff and was making care difficult. At that time, and had advised they were goals were comfort oriented, they were seeking homeopathic treatments. Patient eventually left AMA without being treated. Palliative care was consulted to assist with symptom management and goals of care. Patient seen and examined in the emergency room. No family at bedside. He is initially dyspneic, restless, and agitated but recovers after several minutes. He reports "I was having an attack." He seems to be mostly oriented, however answers some questions with delayed responses and sometimes nonsensical answers. He is able to report majority of his prior treatments for cancer. He reports he does not want any further treatment, "I am ready to go be with God, I am tired of suffering." Explored plans for future treatment, likelihood of inability to start those treatments. Patient gets quite irritable, reports that a family member/visitor is at fault for his current sickness. He reports he does not feel that antibiotics are treating his symptoms. He reports continues to cough up green sputum. He is requiring higher flow oxygen (2-3 L) on a continuous basis versus as needed. Function/Cognitive Trajectory: Patient has been living with his aunt who helps provide care for him. Patient has been progressively weak over the past few months secondary to disease progression, worsening dyspnea, current upper respiratory infection. Per brain imaging patient also has some encephalomalacia. Given severity of his dyspnea, ongoing disease progression, it is likely he will likely be incapacitated at some point. At this time he remains capacitated but would be best supported by his aunt and decision making. At this time, no healthcare surrogate or proxy paperwork on file. Patient verbalizes that he would want his aunt to make decisions for him. Review of Systems Constitutional: Reports fatigue, Reports fever(s), Reports lack of energy, Reports weakness, Reports weight loss Eyes: Denies change in vision Ears, Nose, Mouth, and Throat: Denies abnormal hearing, Denies neck pain, Denies tongue swelling Cardiovascular: Reports chest pain, Reports fast heart rate, Reports rapid, pounding, or irregular heartbeat, Reports shortness of breath Respiratory: Reports change in phlegm color, Reports chest congestion, Reports cough, Reports coughing up blood, Reports excessive phlegm production, Reports pain with cough, Reports shortness of breath, Reports wheezing Gastrointestinal: Denies nausea, Denies vomiting Genitourinary: Denies urinary urgency Musculoskeletal: Reports decreased muscle mass, Denies deformity, Denies joint pain Skin/Breast: Denies rash, Denies sores, Denies wounds Neurologic: Reports confusion Psychiatric: Reports anxiety, Reports confusion, Reports irritability Endocrine: Denies cold intolerance, Denies heat intolerance Hematologic/Lymphatic: Reports easy bleeding, Reports easy bruising (on Xeralto) Allergic/Immunologic: Reports wheezing, Denies GI upset with certain foods PMFSH - History History Provided By: Patient, Family Member - Medical History Medical History: Medical History (Last Updated 02/24/18 @ 11:11 by RASHMI Barber) Anxiety Emphysema lung GERD (gastroesophageal reflux disease) COPD (chronic obstructive pulmonary disease) DVT (deep venous thrombosis) Lung cancer Port-A-Cath in place - Surgical History Surgical History: Surgical History (Last Updated 02/24/18 @ 01:49 by Jackson Vargas MD, R2) H/O shoulder surgery - Family History Family History: Family History (Last Updated 02/24/18 @ 11:08 by RASHMI Barber) Other Alcohol abuse Depression Family history of cancer Hyperlipidemia - Social History I have reviewed the patient's Social History: Yes - Tobacco History Second Hand Smoke Exposure: No Tobacco Use In Past 30 Days: Yes Smoking Status: Former smoker Tobacco Type: Cigarettes Packs Per Day: 1 years: 30 - Alcohol History How Often Do You Have a Drink Containing Alcohol: Never - Substance Use History Substance History: Past History (marijuana and narcotics) - Travel History Recent Travel in the [place] Within the Last 8 Weeks: No Recent Travel Out of the Country Within the Last 8 Weeks: No - Immunization History Tetanus Immunization: <5 Years Medications and Allergies Active Medications: Active Medications Acetaminophen (Tylenol) 650 mg PO Q4H PRN PRN Reason: Temp > 100.4 Acetaminophen (Tylenol) 650 mg PO Q6HR PRN PRN Reason: PAIN SCALE 1 TO 2 Al Hydroxide/Mg Hydroxide (Milk Of Jarad Liremberto) 30 ml PO Q12H PRN PRN Reason: Mild Constipation Albuterol (Albuterol Neb (Prn)) 2.5 mg NEB Q2HR NEB PRN PRN Reason: SHORTNESS OF BREATH Albuterol (Duoneb Neb (Santana)) 1 ampul NEB Q4HR NEB SANTANA Last Admin: 02/24/18 07:50 Dose: 1 ampul Bisacodyl (Dulcolax Supp) 10 mg RECTAL DAILY PRN PRN Reason: SEVERE CONSITIPATION Budesonide/Formoterol Fumarate (Symbicort 160/4.5 Mcg Inh) 2 puff INH Q12H [facility] Last Admin: 02/24/18 01:55 Dose: 2 puff Furosemide (Lasix Inj) 40 mg IV.PUSH BID@0900,1800 [facility] Sodium Chloride (Ns Inj) 1,000 mls @ 100 mls/hr IV.CONT .Q10H [facility] Last Admin: 02/24/18 01:40 Dose: 100 mls/hr Piperacillin/Tazobactam/Dextrose (Zosyn 4.5 Gm Premix) 4.5 gm in 100 mls @ 200 mls/hr IV.SIG Q8H [facility] Last Infusion: 02/24/18 05:55 Dose: Infused Azithromycin 500 mg/ Sodium (Chloride) 250 mls @ 250 mls/hr IV.SIG Q24H [facility] Sodium Chloride (Ns Inj) 1,000 mls @ 100 mls/hr IV.CONT .Q10H [facility] Lactobacillus Acidophilus (Lactinex Pkt) 1 gm PO TID [facility] Last Admin: 02/24/18 09:34 Dose: 1 gm Lactulose (Lactulose Liq) 30 ml PO DAILY PRN PRN Reason: SEVERE CONSITIPATION Morphine Sulfate (Morphine Inj) 1 mg IV.PUSH Q3H PRN PRN Reason: Shortness of Breath/Pain Naloxone HCl (Narcan Inj) 0.4 mg IV.PUSH UNSCH PRN PRN Reason: SEE LABEL COMMENTS Ondansetron HCl (Zofran Inj) 4 mg IV.PUSH Q6H PRN PRN Reason: NAUSEA OR VOMITING Oxycodone/Acetaminophen (Percocet 10/325 Mg) 1 tab PO Q6H PRN PRN Reason: PAIN SCALE 6 TO 10 Oxycodone/Acetaminophen (Percocet 5/325 Mg) 1 tab PO Q6H PRN PRN Reason: PAIN SCALE 3 TO 5 Pharmacy Profile Note (Vancomycin Consult Pharmacy) 1 each OTHER UNSCH PRN PRN Reason: Pharmacy to dose Prednisone (Deltasone) 50 mg PO DAILY [facility] Rivaroxaban (Xarelto) 10 mg PO DAILY [facility] Last Admin: 02/24/18 09:34 Dose: 10 mg Senna/Docusate Sodium (Donna-Colace) 1 tab PO BID [facility] Sennosides (Senokot) 17.2 mg PO Q12H PRN PRN Reason: Moderate Constipation Allergies Allergy/AdvReac Type Severity Reaction Status Date / Time No Known Allergies Allergy Unverified 12/21/17 23:11 Home Medications Medication Instructions Recorded Confirmed Type ProAir HFA 2 puff INHALATION Q2-4H PRN 12/21/17 02/23/18 History albuterol sulfate 1.25 mg INHALATION QID PRN 12/21/17 02/23/18 History ondansetron HCl [Zofran] 4 mg PO TID PRN 12/21/17 02/23/18 History oxycodone-acetaminophen [Percocet] 1 tab PO Q6H PRN 12/21/17 02/23/18 History docusate sodium 100 mg PO BID 02/23/18 02/23/18 History oxycodone-acetaminophen 1 tab PO Q4H PRN 02/23/18 02/23/18 History budesonide-formoterol [Symbicort] 2 puff INHALATION Q12H 02/24/18 02/24/18 History rivaroxaban [Xarelto] 10 mg PO DAILY 02/24/18 02/24/18 History Advance Directives Living Will: No Physical Exam Vital Signs: Vital Signs - 24 hr 02/23/18 18:50 02/23/18 18:54 02/23/18 20:18 Temperature 98.6 F Pulse Rate 105 H 106 H 111 H Respiratory Rate 30 H 20 20 Blood Pressure 92/55 L 115/65 Pulse Oximetry 100 100 02/23/18 20:30 02/24/18 01:31 02/24/18 03:05 Temperature 97.9 F Pulse Rate 106 H 100 H Respiratory Rate 18 22 Blood Pressure 109/55 L Pulse Oximetry 96 100 96 02/24/18 07:37 02/24/18 07:51 Temperature 97.4 F L Pulse Rate 96 H 101 H Respiratory Rate 20 20 Blood Pressure 84/53 L Pulse Oximetry 100 96 I&O: Intake & Output 02/22/18 02/23/18 02/24/18 02/25/18 06:59 06:59 06:59 06:59 Intake Total 1700 / 1700 100 / 100 Balance 1700 / 1700 100 / 100 Weight 56.699 kg Physical Exam: CONSTITUTIONAL/GENERAL: Frail cachectic male, dyspneic with audible wheezes. TUBES/LINES/DRAINS: Peripheral IV SKIN: No jaundice, rashes, or lesions. Ecchymoses on upper extremities. No wounds seen anteriorly. Skin temperature appropriate. Not diaphoretic. HEAD: Atraumatic. Normocephalic. EYES: Pupils equal and round and reactive. Extraocular motions intact. No scleral icterus. No injection or drainage. Fundi not examined. ENT: Hearing grossly normal. Nose without bleeding or purulent drainage. Throat without visible erythema, exudates, masses, or lesions. NECK: Trachea midline. Supple, nontender. No palpable thyroid enlargement or nodularity. CARDIOVASCULAR: Regular rate and rhythm without murmurs, gallops, or rubs. No JVD. Peripheral pulses symmetric. RESPIRATORY/CHEST: Breath sounds auscultated in right lower lobe, posterior only. Use of accessory muscles GASTROINTESTINAL: Abdomen soft, non-tender, nondistended. No hepato-splenomegaly , or palpable masses. No guarding. Bowel sounds present. GENITOURINARY: Without palpable bladder distension. MUSCULOSKELETAL: Lower extremity edema. Use of accessory muscles with respirations. LYMPHATICS: No palpable cervical or supraclavicular adenopathy. NEUROLOGICAL: Awake and alert. Motor and sensory grossly within normal limits. Follows commands. Has some delayed responses to questions. Somewhat irritable.. Moves all extremities. PSYCHIATRIC: Irritable, anxiety Diagnostic Tests Laboratory: Laboratory Results - last 72 hr 02/23/18 02/23/18 02/23/18 19:54 19:54 19:54 WBC 15.7 H RBC 3.47 L Hgb 8.4 L Hct 26.6 L MCV 76.6 L MCH 24.2 L MCHC 31.7 L RDW 20.2 H Plt Count 287 MPV 7.6 Neut % (Auto) 90.7 H Lymph % (Auto) 2.0 L Ballard % (Auto) 6.9 Eos % (Auto) 0.1 Baso % (Auto) 0.3 Neut # (Auto) 14.2 H Lymph # (Auto) 0.3 L Ballard # (Auto) 1.1 H Eos # (Auto) 0.0 Baso # (Auto) 0.1 WBC Differential . Differential Comment Auto diff final PT 15.7 H INR 1.6 APTT 85.6 H Sodium 131 L Potassium 4.5 Chloride 95 L Carbon Dioxide 26.4 Anion Gap 10 BUN 14 Creatinine 0.51 L Estimated GFR Greater than 89 Random Glucose 88 Lactic Acid Calcium 12.9 H* Prot Corrected Calcium Magnesium 2.0 Total Bilirubin 0.5 AST 44 H ALT 53 Alkaline Phosphatase 311 H Total Creatine Kinase 80 Troponin I 0.02 B-Natriuretic Peptide Total Protein 6.3 L Albumin 1.8 L Urine Color Urine Clarity Urine pH Ur Specific [place] Urine Protein Urine Glucose (UA) Urine Ketones Urine Occult Blood Urine Nitrate Urine Bilirubin Urine Urobilinogen Ur Leukocyte Esterase Urine WBC Hyaline Casts Urine Mucus Micro UA Comment Ur Microscopic Review Urine Culture Comments 02/23/18 02/23/18 02/24/18 19:54 19:54 07:15 WBC RBC Hgb Hct MCV MCH MCHC RDW Plt Count MPV Neut % (Auto) Lymph % (Auto) Ballard % (Auto) Eos % (Auto) Baso % (Auto) Neut # (Auto) Lymph # (Auto) Ballard # (Auto) Eos # (Auto) Baso # (Auto) WBC Differential Differential Comment PT INR APTT Sodium Potassium Chloride Carbon Dioxide Anion Gap BUN Creatinine Estimated GFR Random Glucose Lactic Acid 1.5 Calcium Prot Corrected Calcium Magnesium Total Bilirubin AST ALT Alkaline Phosphatase Total Creatine Kinase Troponin I B-Natriuretic Peptide 1209 H Total Protein Albumin Urine Color Straw Urine Clarity Clear Urine pH 5.0 Ur Specific [place] 1.011 Urine Protein Negative Urine Glucose (UA) Negative Urine Ketones Negative Urine Occult Blood Negative Urine Nitrate Negative Urine Bilirubin Negative Urine Urobilinogen Less than 2 Ur Leukocyte Esterase Negative Urine WBC 1 Hyaline Casts 11 Urine Mucus Few H Micro UA Comment Culture not ind Ur Microscopic Review Not Reportable Urine Culture Comments Culture not ind Result Diagrams: 02/25/18 06:15 02/25/18 06:15 Microbiology: Microbiology 02/23/18 19:54 Aerobic Blood Culture - Preliminary Blood - Peripheral No growth in 1 day Anaerobic Blood Culture - Preliminary No growth in 1 day 02/23/18 19:54 Aerobic Blood Culture - Preliminary Blood - Peripheral No growth in 1 day Anaerobic Blood Culture - Preliminary No growth in 1 day Imaging: Impressions Chest X-Ray 02/23/18 19:12 CONCLUSION: 3.5 cm mass in the right lung and complete opacification of the left hemithorax , similar to prior CT 01/20/2018. Venous Doppler Study 02/23/18 19:12 CONCLUSION: 1. The study is negative for bilateral lower extremity deep venous thrombosis. Head CT 02/23/18 19:19 CONCLUSION: 1. Stable area of encephalomalacia involving the right frontal lobe. 2. No acute intracranial abnormality. . Chest CTA 02/23/18 21:06 CONCLUSION: 1. No pulmonary emboli. 2. Progression in the patient's metastatic disease involving the chest. 3. Suspected low-density mass arising from the pancreas only partially seen on this exam. 4. Left adrenal gland metastasis. 5. Bilateral pleural effusions which are stable. Patient/Family Conference Present at Family Conference: Spoke with aunt via phone Family Conference Location: Telephone Issues Discussed: * Palliative care role, purpose, approach * Additional medical, psychosocial, and spiritual history * Patients general health, functional status, and cognitive changes in the months leading up to the current hospitalization * Patient/family understanding of the current medical problems * Patient/family understanding of prognosis * Patients goals of care as best understood from advance directives and/or conversations and/or values * Current medical treatment options and benefits/burdens of those options * Likely scenarios comparing ongoing aggressive care with a transition to comfort measures only * Questions answered to the best of my ability * Palliative care contact information provided * Code status, DNR * Receptive to hospice visit, consult placed Assessment and Plan - Symptom Scale (1) Pain 0-10 Scale: Unable to quantify (2) Dyspnea 0-10 Scale: Unable to quantify (3) Weakness 0-10 Scale: Unable to quantify Pertinent Non-Medical Issues: Psychosocial: Patient was living with his aunt prior to coming to the hospital. She and her are his main caregivers. Aunt reports she is power of claims attorney, she will bring paperwork to the hospital. Spiritual: God plays an important role in the patient's life, he states he is ready to go be with God. Legal: Patient appears capacitated to make his own decisions at this time, however is best supported by his aunt to assist in decision making. Aunt to bring power of claims attorney paperwork to the hospital. Ethical issues impacting care: None Important Contacts: AuntIgnacia: [phone] (cell) [phone] (home) Prognosis: Given patient's poor functional status, numerous thoracic nodules and metastasis , poor response to previous treatments, poor functional status , weight loss, worsening respiratory status, and current respiratory infection. Patient likely will continue to decline. Patient and his aunt both state comfort oriented goals. Patient has signed DNR. He states "I am dying, I know that." Briefly explored hospice with aunt, she is receptive to visit for information. Code Status: No Code DNR Plan: Legal decision maker: Patient is capacitated to make his own decision however often defers to his aunt who is reportedly POA. There is no paperwork on file at this time, she states she will bring copies to the hospital this evening. Goals: Appear to be somewhat comfort oriented at this time, receptive to hospice visit for information. Patient reports he wants to at home. Hospice to follow-up, consult placed CODE STATUS: DNR SYMPTOMS: --Dyspnea secondary to pleural effusions, numerous lung masses, emphysema in the right lung space. Is somewhat dyspneic initially, however recovered after several minutes. Aunt is resistant to patient receiving morphine for shortness of breath. We will need to reassess and readdress in the near future when she is available. She reports oxycodone was effective in both pain and shortness of breath when he was at home --Pain secondary to disease process. Patient has numerous thoracic masses. Initially presented with some substernal chest pain likely due to mediastinal masses. Currently denies any pain. We will continue to reassess. Palliative care will continue to follow during hospital course as condition evolves, to assist patient/decision-maker with understanding of medical conditions, weighing benefits/burdens of treatment options, for clarification of goals of treatment. Additionally will assist with any symptoms of palliative concern This is a 47-year-old male with widely metastatic squamous cell carcinoma of the left lung, with metastases to the mediastinum, pericardial mass, epicardial mass, left hilum. He has failed multiple treatments, and has had recurrence. He and his aunt both state comfort oriented goals. Briefly explored hospice, they are receptive to visit from hospice representative government relations to discuss services. Appreciation Thank you for the opportunity to participate in the care of Derrick Vigil. Attestation Attestation: To help prompt me to consider important information that might be impacting today's encounter and assessment, information from prior notes written by myself or my colleagues may have been "brought forward" into today's note. My signature on this note, however, is an attestation that I personally performed the exam, history, and/or decision-making noted today, and, unless otherwise indicated, the interactions with patient, family, and staff as well as the review of records all occurred today. I also attest that the listed assessment and stated plan reflect my best clinical judgment today based on the combination of historical information, prior notes, and today's exam/ interactions. When time spent is documented, it refers only to time spent today by the signer, or if indicated, combined time spent today by collaborating physician/nurse practitioner.
[2018-02-24] MEDS: Senna/Docusate Sodium 8.6/50 MG Tablet PO SCH ×2 (11:05→21:06)
--- NOTE | 2018-02-24 11:38 | ECG ---
Date Performed: 02/23/2018 Time Performed: 22:17:31 PTAGE: 47 years EKG: SINUS TACHYCARDIA POSSIBLE LEFT ATRIAL ENLARGEMENT LOW QRS VOLTAGE IN EXTREMITY LEADS ST DE VIATION AND MODERATE T-WAVE ABNORMALITY, CONSIDER LATERAL ISCHEMIA ABNORMAL ECG NO PREVIOUS TRACING DOCTOR: Suhas Treadwell Interpretating Date/Time 02/24/2018 11:35:48
--- NOTE | 2018-02-24 15:30 | P.PNFP ---
Subjective Interval history: Patient seen and examined this morning by medical team. Patient currently in mild respiratory distress on 3 L nasal cannula. He is able to communicate with medical team and short, abbreviated sentences and is oriented with proper judgment. We briefly discussed his history. Patient states that he feels "slightly "better since being admitted to the hospital. Continues to be short of breath does state that it is worsened if he lies flat. We discussed thoroughly his goals of care which she is agreeable to palliative care consult at this time. We also discussed the possibility of hospice consult, but he declined at that time. He was on to state that his pain is adequately controlled and has no other complaints at this time. <Ray Martini H - 02/24/18 18:22> Results - Labs Result diagrams: 02/25/18 06:15 02/25/18 06:15 <Gabriela Dasilva M - 02/25/18 10:46> Abnormal lab results 02/24/18 02/25/18 02/25/18 Range/Units 12:34 06:15 06:15 WBC 14.5 H (4.0-11.0) th/mm3 RBC 3.06 L (4.50-5.90) mil/mm3 Hgb 7.9 L (13.0-17.0) gm/dL Hct 23.5 L (39.0-51.0) % MCV 76.9 L (80.0-100.0) fL MCH 25.9 L (27.0-34.0) pg RDW 21.1 H (11.6-17.2) % Neut % (Auto) 92.1 H (16.0-70.0) % Lymph % (Auto) 1.6 L (9.0-44.0) % Neut # (Auto) 13.3 H (1.8-7.7) th/mm3 Lymph # (Auto) 0.2 L (1.0-4.8) th/mm3 BUN 19 H (7-18) mg/dL Random Glucose 114 H (74-106) mg/dL Calcium 11.4 H D (8.5-10.1) mg/dL Alkaline Phosphatase 255 H (45-117) U/L B-Natriuretic Peptide 755 H (0-100) pg/mL Total Protein 6.1 L (6.4-8.2) g/dL Albumin 1.8 L (3.4-5.0) g/dL Short CBC 02/25/18 Range/Units 06:15 WBC 14.5 H (4.0-11.0) th/mm3 Hgb 7.9 L (13.0-17.0) gm/dL Hct 23.5 L (39.0-51.0) % Plt Count 290 (150-450) th/mm3 BMP 02/25/18 06:15 Sodium 136 Potassium 4.4 Chloride 100 Carbon Dioxide 27.3 BUN 19 H Creatinine 0.60 Calcium 11.4 H D Liver Function 02/25/18 Range/Units 06:15 Total Bilirubin 0.4 (0.2-1.0) mg/dL AST 37 (15-37) U/L ALT 52 (12-78) U/L Alkaline Phosphatase 255 H (45-117) U/L Albumin 1.8 L (3.4-5.0) g/dL <Gabriela Dasilva - 02/25/18 10:46> Abnormal lab results 02/23/18 02/23/18 02/23/18 Range/Units 19:54 19:54 19:54 WBC 15.7 H (4.0-11.0) th/mm3 RBC 3.47 L (4.50-5.90) mil/mm3 Hgb 8.4 L (13.0-17.0) gm/dL Hct 26.6 L (39.0-51.0) % MCV 76.6 L (80.0-100.0) fL MCH 24.2 L (27.0-34.0) pg MCHC 31.7 L (32.0-36.0) % RDW 20.2 H (11.6-17.2) % Neut % (Auto) 90.7 H (16.0-70.0) % Lymph % (Auto) 2.0 L (9.0-44.0) % Neut # (Auto) 14.2 H (1.8-7.7) th/mm3 Lymph # (Auto) 0.3 L (1.0-4.8) th/mm3 [place] # (Auto) 1.1 H (0.0-0.9) th/mm3 PT 15.7 H (9.8-11.6) sec APTT 85.6 H (23.4-31.7) sec Sodium 131 L (136-145) meq/L Chloride 95 L (98-107) meq/L Creatinine 0.51 L (0.60-1.30) mg/dL Calcium 12.9 H* (8.5-10.1) mg/dL AST 44 H (15-37) U/L Alkaline Phosphatase 311 H (45-117) U/L B-Natriuretic Peptide (0-100) pg/mL Total Protein 6.3 L (6.4-8.2) g/dL Albumin 1.8 L (3.4-5.0) g/dL Urine Mucus (Occasional) /lpf 02/23/18 02/24/18 02/24/18 Range/Units 19:54 07:15 12:34 WBC (4.0-11.0) th/mm3 RBC (4.50-5.90) mil/mm3 Hgb (13.0-17.0) gm/dL Hct (39.0-51.0) % MCV (80.0-100.0) fL MCH (27.0-34.0) pg MCHC (32.0-36.0) % RDW (11.6-17.2) % Neut % (Auto) (16.0-70.0) % Lymph % (Auto) (9.0-44.0) % Neut # (Auto) (1.8-7.7) th/mm3 Lymph # (Auto) (1.0-4.8) th/mm3 [place] # (Auto) (0.0-0.9) th/mm3 PT (9.8-11.6) sec APTT (23.4-31.7) sec Sodium (136-145) meq/L Chloride (98-107) meq/L Creatinine (0.60-1.30) mg/dL Calcium (8.5-10.1) mg/dL AST (15-37) U/L Alkaline Phosphatase (45-117) U/L B-Natriuretic Peptide 1209 H 755 H (0-100) pg/mL Total Protein (6.4-8.2) g/dL Albumin (3.4-5.0) g/dL Urine Mucus Few H (Occasional) /lpf Short CBC 02/23/18 Range/Units 19:54 WBC 15.7 H (4.0-11.0) th/mm3 Hgb 8.4 L (13.0-17.0) gm/dL Hct 26.6 L (39.0-51.0) % Plt Count 287 (150-450) th/mm3 BMP 02/23/18 19:54 Sodium 131 L Potassium 4.5 Chloride 95 L Carbon Dioxide 26.4 BUN 14 Creatinine 0.51 L Calcium 12.9 H* Cardiac Enzymes 02/23/18 Range/Units 19:54 Total Creatine Kinase 80 (39-308) U/L Troponin I 0.02 (0.02-0.05) ng/mL Liver Function 02/23/18 Range/Units 19:54 Total Bilirubin 0.5 (0.2-1.0) mg/dL AST 44 H (15-37) U/L ALT 53 (12-78) U/L Alkaline Phosphatase 311 H (45-117) U/L Albumin 1.8 L (3.4-5.0) g/dL Urine 02/24/18 Range/Units 07:15 Urine Color Straw (Yellw/Straw) Urine Clarity Clear (Clear) Urine pH 5.0 (5.0-8.5) Ur Specific [place] 1.011 (1.002-1.035) Urine Protein Negative (Neg-Trace) mg/dL Urine Glucose (UA) Negative (Negative) mg/dL <Ray Martini H - 02/24/18 15:30> - Imaging Impressions Chest X-Ray 02/23/18 19:12 CONCLUSION: 3.5 cm mass in the right lung and complete opacification of the left hemithorax , similar to prior CT 01/20/2018. Venous Doppler Study 02/23/18 19:12 CONCLUSION: 1. The study is negative for bilateral lower extremity deep venous thrombosis. Head CT 02/23/18 19:19 CONCLUSION: 1. Stable area of encephalomalacia involving the right frontal lobe. 2. No acute intracranial abnormality. . Chest CTA 02/23/18 21:06 CONCLUSION: 1. No pulmonary emboli. 2. Progression in the patient's metastatic disease involving the chest. 3. Suspected low-density mass arising from the pancreas only partially seen on this exam. 4. Left adrenal gland metastasis. 5. Bilateral pleural effusions which are stable. <Ray Martini H - 02/24/18 15:30> Physical Exam Vital signs: Vital Signs 02/24/18 11:29 02/24/18 14:10 02/24/18 15:51 Temperature 98.6 F Pulse Rate 77 104 H 104 H Respiratory Rate 18 20 20 Blood Pressure 91/54 L Pulse Oximetry 98 02/24/18 17:36 02/24/18 20:00 02/24/18 21:22 Temperature 98.5 F 97.4 F L Pulse Rate 102 H 100 H 103 H Respiratory Rate 18 16 18 Blood Pressure 94/57 L 90/55 L Pulse Oximetry 99 99 02/24/18 23:37 02/25/18 00:00 02/25/18 08:00 Temperature 97.8 F 97.4 F L Pulse Rate 100 H 100 H 92 H Respiratory Rate 24 16 20 Blood Pressure 102/61 88/55 L Pulse Oximetry 100 100 02/25/18 09:35 02/25/18 10:40 Temperature Pulse Rate Respiratory Rate Blood Pressure 82/55 L 98/60 L Pulse Oximetry Intake & Output 02/24/18 02/25/18 02/25/18 18:59 06:59 18:59 Intake Total 2105 / 2105 2780 / 2780 400 / 400 Balance 2105 / 2105 2780 / 2780 400 / 400 Weight 56.6 kg Intake: IV 2105 / 2105 2300 / 2300 400 / 400 NS Inj 1,000 ML @ 100 mls/hr IV 1500 / 1500 1600 / 1600 400 / 400 .CONT .Q10H NBA Rx#:[id number] Azithromycin Inj 500 MG In NS 250 / 250 Inj 250 ML @ 250 mls/hr IV.SIG Q24H NBA Rx#:[id number] Zosyn 4.5 GM Premix 4.5 gm In 100 / 100 200 / 200 100 ml @ 200 mls/hr IV.SIG Q8H NBA Rx#:[id number] Vancomycin Inj 1,000 MG In NS 250 / 250 250 / 250 Inj 250 ML @ 250 mls/hr IV.SIG Q12H NBA Rx#:[id number] Vancomycin Inj 500 MG In NS Inj 100 / 100 100 ML @ 200 mls/hr IV.SIG ONCE ONE Rx#:[id number] Zometa Inj 4 MG In NS Inj 150 155 / 155 ML @ 155 mls/hr IV.SIG ONCE ONE Rx#:[id number] Oral 480 / 480 Other: # Voids 2 Date of Last Bowel Movement 02/23/18 # Bowel Movements 2 <Gabriela Dasilva M - 02/25/18 10:46> Vital Signs 02/23/18 18:50 02/23/18 18:54 02/23/18 20:18 Temperature 98.6 F Pulse Rate 105 H 106 H 111 H Respiratory Rate 30 H 20 20 Blood Pressure 92/55 L 115/65 Pulse Oximetry 100 100 02/23/18 20:30 02/24/18 01:31 02/24/18 03:05 Temperature 97.9 F Pulse Rate 106 H 100 H Respiratory Rate 18 22 Blood Pressure 109/55 L Pulse Oximetry 96 100 96 02/24/18 07:37 02/24/18 07:51 02/24/18 11:29 Temperature 97.4 F L Pulse Rate 96 H 101 H 77 Respiratory Rate 20 20 18 Blood Pressure 84/53 L Pulse Oximetry 100 96 02/24/18 14:10 Temperature 98.6 F Pulse Rate 104 H Respiratory Rate 20 Blood Pressure 91/54 L Pulse Oximetry 98 Intake & Output 02/23/18 02/24/18 02/24/18 18:59 06:59 18:59 Intake Total 1700 / 1700 855 / 855 Balance 1700 / 1700 855 / 855 Weight 56.699 kg 56.699 kg Intake: IV 1700 / 1700 855 / 855 NS Inj 1,000 ML @ 100 mls/hr IV 500 / 500 .CONT .Q10H NBA Rx#:[id number] Azithromycin Inj 500 MG In NS 250 / 250 Inj 250 ML @ 250 mls/hr IV.SIG STAT STA Rx#:[id number] Zosyn 4.5 GM Premix 4.5 gm In 200 / 200 100 / 100 100 ml @ 200 mls/hr IV.SIG Q8H NBA Rx#:[id number] NS Inj 1,000 ML @ 1000 mls/hr 1000 / 1000 IV.SIG BOLUS NBA Rx#:[id number] Vancomycin Inj 1,000 MG In NS 250 / 250 Inj 250 ML @ 250 mls/hr IV.SIG ONCE ONE Rx#:[id number] Vancomycin Inj 500 MG In NS Inj 100 / 100 100 ML @ 200 mls/hr IV.SIG ONCE ONE Rx#:[id number] Zometa Inj 4 MG In NS Inj 150 155 / 155 ML @ 155 mls/hr IV.SIG ONCE ONE Rx#:[id number] Other: Date of Last Bowel Movement 02/23/18 Weight On Admission 56.699 kg <Ray Martini H - 02/24/18 15:30> Narrative: GENERAL: Frail, older than his apparent age appearing male lying in bed eating breakfast in mild respiratory distress. SKIN: Warm and dry. No rash. HEENT: Atraumatic, normocephalic with extraocular motions intact. No rhinorrhea. No visible lymphadenopathy or jugulovenous distension appreciated. CARDIOVASCULAR: Tachycardic rate and regular rhythm with possible S3. No obvious murmur. RESPIRATORY: Completely absent breath sounds to the left lung. Poor aeration of right lung with obvious wheezes/crackles. Patient in mild respiratory distress currently patient only able to communicate in short sentences while using his accessory muscles and belly breathing. GASTROINTESTINAL: Abdomen soft, non-tender, nondistended with positive bowel sounds. No masses appreciated. MUSCULOSKELETAL: No cyanosis or calf tenderness. 2-3+ pitting edema bilaterally on the lower extremities. NEURO/PSYCH: Afocal. Awake, alert, and oriented x3. Normal speech and judgement. <Ray Martini H - 02/24/18 19:37> Assessment and Plan - Assessment (1) Pneumonia Code(s): J18.9 - Pneumonia, unspecified organism Status: Acute (2) Sepsis Code(s): A41.9 - Sepsis, unspecified organism Status: Acute (3) Stage 4 lung cancer Code(s): C34.90 - Malignant neoplasm of unspecified part of unspecified bronchus or lung Status: Acute (4) Dyspnea Code(s): R06.00 - Dyspnea, unspecified Status: Acute (5) Hypercalcemia Code(s): E83.52 - Hypercalcemia Status: Acute (6) Pancreatic mass Code(s): K86.9 - Disease of pancreas, unspecified Status: Acute (7) Chronic pain Code(s): G89.29 - Other chronic pain Status: Acute (8) Elevated brain natriuretic peptide (BNP) level Code(s): R79.89 - Other specified abnormal findings of blood chemistry Status : Acute (9) COPD (chronic obstructive pulmonary disease) Code(s): J44.9 - Chronic obstructive pulmonary disease, unspecified Status: Acute (10) History of DVT (deep vein thrombosis) Code(s): Z86.718 - Personal history of other venous thrombosis and embolism Status: Acute (11) Hypoalbuminemia Code(s): E88.09 - Other disorders of plasma-protein metabolism, not elsewhere classified Status: Acute (12) Nutrition, metabolism, and development symptoms Code(s): R63.8 - Other symptoms and signs concerning food and fluid intake Status: Acute <Gabriela Dasilva - 02/25/18 10:46> (1) Pneumonia Code(s): J18.9 - Pneumonia, unspecified organism Status: Acute Plan: Critically ill patient admitted meeting sepsis criteria with possible site of infection being pneumonia versus bronchial obstructive pneumonia secondary to metastatic disease. Per chart review patient has been chronically hypotensive in office since August/2017. CBC 02/23/18: White blood cell count 15.7 with 90.7% neutrophils Lactic acid: 1.5 UA: Negative Chest x-ray: 3.5 cm mass in the right lung and complete opacification of the left hemithorax similar to prior CT on 01/20/18. Chest CTA: No pulmonary emboli, progression in metastatic disease involving the chest, suspected low density mass arising from the pancreas only seen partially on exam, left adrenal gland metastasis, bilateral pleural effusions ( stable) Blood cultures: Pending Medications: Vancomycin 1 g twice daily (03/25/18), pharmacy consulted for assistance Zosyn 4.5 g every 8 hours (03/25/18) Azithromycin 500 mg daily (03/25/18) Normal saline at 100 mL/h (2) Sepsis Code(s): A41.9 - Sepsis, unspecified organism Status: Acute Plan: Patient admitted meeting sepsis criteria with tachycardia, leukocytosis with suspected site of infection being a possible pneumonia. Plan as above (3) Stage 4 lung cancer Code(s): C34.90 - Malignant neoplasm of unspecified part of unspecified bronchus or lung Status: Acute Plan: Patient with known stage IV lung cancer. Discussed patient's goals of care with thorough education on DNR/DNI of which patient is agreeable to. DNR form completed and placed on chart. Chest CTA: No pulmonary emboli, progression in metastatic disease involving the chest, suspected low density mass arising from the pancreas only seen partially on exam, left adrenal gland metastasis, bilateral pleural effusions ( stable) CT head: Stable area of encephalomalacia in the right frontal lobe, otherwise no acute abnormality Hematology oncology consulted Palliative care consulted (4) Dyspnea Code(s): R06.00 - Dyspnea, unspecified Status: Acute Plan: Patient with dyspnea requiring 3 L nasal cannula. Unclear etiology at this time due to multiple factors including but not limited to tumor burden, possible pneumonia, possible heart failure secondary to metastatic disease/ primary failure. Imaging as above Nasal cannula as needed Currently treating for possible infectious source with vancomycin, Zosyn, and azithromycin Patient requiring IV fluids with Lasix at this time due to hypercalcemia (5) Hypercalcemia Code(s): E83.52 - Hypercalcemia Status: Acute Plan: Patient with hypercalcemia of malignancy with previous hospitalizations due to hypercalcemia CMP: Calcium 12.9 (as high as 13.1 on 02/08/18) Medications: Normal saline at 100 mL/h Lasix 40 mg twice daily Zoledronic acid ordered (6) Pancreatic mass Code(s): K86.9 - Disease of pancreas, unspecified Status: Acute Plan: Patient with metastatic disease found to have new pancreatic mass CT as above (7) Chronic pain Code(s): G89.29 - Other chronic pain Status: Acute Plan: Patient has a history of chronic pain secondary to his metastatic lung cancer Takes Percocet at home Continuing Percocet pain scale with IV morphine for breakthrough pain Patient with chronic pain secondary to metastatic disease tumor burden Medications: Continue home Percocet Morphine as needed for breakthrough pain/shortness of breath (8) Elevated brain natriuretic peptide (BNP) level Code(s): R79.89 - Other specified abnormal findings of blood chemistry Status : Acute Plan: Elevated BNP on admission of 1209 Patient has no known history of CHF but has significant pulmonary pathology with his metastatic lung cancer Ordering Lasix 40mg IV x1 Repeat BNP in the morning Patient with elevated BNP on admission without diagnosis of previous CHF. BNP likely elevated due to metastatic disease. Management as above (9) COPD (chronic obstructive pulmonary disease) Code(s): J44.9 - Chronic obstructive pulmonary disease, unspecified Status: Acute Plan: Patient with history of COPD Medications: Solu-Medrol 125 mg IV once in the ED Prednisone 50 mg daily Continue Symbicort Duo nebs scheduled every 4 hours with albuterol nebs as needed every 2 hours (10) History of DVT (deep vein thrombosis) Code(s): Z86.718 - Personal history of other venous thrombosis and embolism Status: Acute Plan: Known history of DVT Oncologist recently decrease his Xarelto from 20 mg to 10 mg p.o. daily Patient with bilateral lower extremity edema on admission, venous Doppler was negative for DVT Continuing Xarelto 10 mg p.o. daily Patient with history of DVT with recent decrease in Xarelto from 20-10 mg daily per oncologist CTA as above Lower extremity venous Doppler negative for DVT Medications: Continue Xarelto 10 mg daily (11) Hypoalbuminemia Code(s): E88.09 - Other disorders of plasma-protein metabolism, not elsewhere classified Status: Acute Plan: Patient found to have hypoalbuminemia with 2-3+ edema likely secondary to nutritional deficiency. CMP: Albumin 1.8 (2.3-2.8 previous baseline) Regular diet as tolerated Caloric supplements to be added to diet (12) Nutrition, metabolism, and development symptoms Code(s): R63.8 - Other symptoms and signs concerning food and fluid intake Status: Acute Plan: Diet: Regular diet as tolerated Electrolytes: Hypocalcemia as above, continue to monitor Fluids: Normal saline at 100 mL/h for hypercalcemia treatment Prophylaxis: Percocet/morphine as needed for pain, morphine as needed for shortness of breath, albuterol/DuoNeb nebulizer treatments as needed for shortness of breath, lactobacillus daily, constipation protocol DVT prophylaxis: Anticoagulated on Xarelto 10 mg daily per oncology <Ray Martini - 02/24/18 18:42> - Assessment and Plan 47-year-old male with a history of stage IV lung cancer, history of hypercalcemia, chronic pain, COPD and history of DVT presented to the emergency room with confusion, fatigue, weakness and shortness of breath. Patient is septic on admission with a suspected source of pneumonia. He was started on azithromycin, vancomycin and Zosyn on admission. Patient also found to be hypercalcemic and was treated with IV fluids, lasix bid, and zoledronic acid. Palliative care and hematology-oncology consulted <Ray Martini - 02/24/18 19:37> - Attending Attestation The exam, history, and the medical decision-making described in the above note were completed with the assistance of the resident physician. I reviewed and agree with the findings presented. I attest that I had a [id number] encounter with the patient on the same day, and personally performed and documented my assessment and findings in the medical record. he is able to make decisions and knows he is very end stage with his cancer. he wants comfort care only and to go home if possible but his Aunt has not wanted hospice. will continue to address this as he cannot have any more cancer treatments <Gabriela Dasilva - 02/25/18 10:46>
[2018-02-24] MEDS: Vancomycin Inj 1,000 MG in Sodium Chlor 0.9% Inj 250 ML IV.SIG SCH (16:08)
[2018-02-24] MEDS ORDERED: Azithromycin Inj 500 MG in Sodium Chlor 0.9% Inj 250 ML IV.SIG SCH (20:00)
--- NOTE | 2018-02-24 23:34 | MB ---
cc: Boo Christian MD DATE: 02/24/2018 REASON FOR CONSULTATION: Hypercalcemia and progressive non-small cell lung cancer. PATIENT PROFILE: The patient is single. He lives with his aunt. He stopped smoking a year ago and had smoked a pack of cigarettes per day for 30 years. He has no children. When he was well, he did maintenance. HISTORY OF PRESENT ILLNESS: The patient is a 47-year-old male whose history dates back to May 2015 when he was found to have an 8.5 cm mass in the left perihilar region involving the mediastinum as well as multiple satellite lesions involving the lung. He was found to have a squamous cell carcinoma of the lung. He was treated with 6 cycles of carboplatin and Taxol completed in September 2015. He developed progressive disease and was treated with nivolumab. In January 2016, he required a pericardial window. He received palliative radiation to the left lung and mediastinum completed in February 2016 and following this went to the [facility]. He has received radiation to the chest on at least 2 occasions. He developed progressive disease in the left chest and was treated with nivolumab for a second time. In fact, several weeks ago, I gave him nivolumab reluctantly. He wanted to try one more time and I felt that he probably had progressive disease at the time of his treatment. I told him that if he did not respond, I would not give him any more therapy as he had failed extensive radiation, chemotherapy and immunotherapy. He has a history of deep vein thrombosis and for this reason takes Xarelto. He has had severe recurrent hypercalcemia related to his squamous cell cancer. He was hospitalized this time because of increasing confusion and shortness of breath. He underwent a number of studies, which include a chest CTA on 02/23/2018. There is no evidence of pulmonary emboli. There is progression in the patient's metastatic disease involving the left hemithorax, now measuring 13.9 x 12.2 x 11.2 cm. There is a low density mass arising from the pancreas. There is left adrenal metastases and bilateral effusions. These are compared with the films of 01/20/2018. He was also found to be anemic with a hemoglobin of 8.4, white count 15,000, and platelets of 287,000. He has hypercalcemia with a calcium of 12.9 and an albumin of 1.8. He was given Zometa this morning. He is feeling a little better. He is less short of breath. PAST SURGICAL HISTORY: 1. Bronchoscopy with endobronchial biopsy May 2015. 2. CT-guided biopsy of left lung mass May 2015. 3. Infusaport placement for pericardial window 02/07/2016. PAST MEDICAL HISTORY: Diagnosis of squamous cell carcinoma of the lung, now stage IV, treated with chemotherapy, radiation therapy, and immunotherapy with nivolumab. ALLERGIES: NO KNOWN ALLERGIES. FAMILY HISTORY: His parents are alive. His 2 brothers and 1 sister are alive. REVIEW OF SYSTEMS: Progressive weakness, fatigue, confusion. No problems with vision or hearing. No bruising. No adenopathy. No breast masses. He is short of breath at rest. He has discomfort in the left chest area. He has nausea, poor appetite, constipation. He has polyuria. He has some joint pain. No skin problems. He has lightheadedness, difficulty concentrating, generalized weakness. He has depression and anxiety. PHYSICAL EXAMINATION: GENERAL: Reveals a chronically ill-appearing gentleman. VITAL SIGNS: Blood pressure is 100/60, respiratory rate is 20, pulse is 100, afebrile, O2 saturation 99% on 3 liters. HEENT: Head is normocephalic. Sclerae and conjunctivae normal. Oropharynx unremarkable. NECK: No adenopathy. HEART: Regular rate and rhythm. LUNGS: Left lung sounds markedly absent. Right sounds, decreased at the bases. There is rhonchi bilaterally. ABDOMEN: Without hepatosplenomegaly. EXTREMITIES: +1 edema bilaterally. MUSCULOSKELETAL: No bone pain. NEUROLOGIC: Generalized but not focal weakness. LABORATORY DATA: Additional studies include a CT of the brain on 02/23/2018 shows stable areas of encephalomalacia involving the right frontal lobe. Lower extremity ultrasounds are negative for clot. MEDICATIONS: His current medicines are Zithromax, Symbicort, Lasix, lactulose, morphine p.r.n., Zosyn, prednisone, Xarelto 10 mg a day. ASSESSMENT: The patient is a 47-year-old male. He has progressive squamous cell carcinoma of the lung with hypercalcemia. He has failed chemotherapy, multiple radiation treatments and nivolumab. There are no further treatments available, which are likely to help him. I do not think he is a candidate for additional chemotherapy. RECOMMENDATIONS: 1. I spoke to him about CPR. He does not want CPR and this has already been written for, 2. He spoke with hospice this morning, but declined participation. I spoke with him about hospice. I believe it is appropriate and the quality of his life will be better with hospice. He is agreeable. 3. Hypercalcemia. Would recommend continuing the IV fluid and expect that it will take about 2 days for the Zometa to correct his hypercalcemia. Hopefully, he will be able to go home in about 2 or 3 days. Thank you very much for the consult. MD YOKASTA Ochoa/sv , 10:24 PM , 10:38 PM MTDIrena
[2018-02-25] MEDS: Budesonide-Formoterol 160/4.5 MCG 6 GM Inhaler INH SCH ×2 (00:02→12:42)
[2018-02-25] MEDS: oxyCODONE/Acetaminophen 10/325 Tablet PO PRN ×4 (00:02→18:56)
[2018-02-25] MEDS: Piperacil/Tazo 4.5 GM Premix 4.5 GM/100 ML BAG IV.SIG SCH (03:39)
[2018-02-25] MEDS: Vancomycin Inj 1,000 MG in Sodium Chlor 0.9% Inj 250 ML IV.SIG SCH (03:39)
[2018-02-25] MEDS: Sod Chloride 0.9% Inj 1,000 ML IV.CONT SCH ×5 (05:57→17:36)
[2018-02-25 06:35] LABS: Baso % (Auto) 0.1 % (0.0-2.0); Eos % (Auto) 0.1 % (0.0-4.0); Hematocrit 23.5 % (39.0-51.0); Hemoglobin 7.9 gm/dL (13.0-17.0); Lymph # (Auto) 0.2 th/mm3 (1.0-4.8); Lymph % (Auto) 1.6 % (9.0-44.0); Mean Corpuscular HGB Conc 33.7 % (32.0-36.0); Mean Corpuscular Hemoglobin 25.9 pg (27.0-34.0); Mean Corpuscular Volume 76.9 fL (80.0-100.0); Mean Platelet Volume 7.4 fL (7.0-11.0); Mono # (Auto) 0.9 th/mm3 (0.0-0.9); Mono % (Auto) 6.1 % (0.0-8.0); Neut # (Auto) 13.3 th/mm3 (1.8-7.7); Neut % (Auto) 92.1 % (16.0-70.0); Platelet Count 290 th/mm3 (150-450); Red Blood Count 3.06 mil/mm3 (4.50-5.90); Red Cell Distribution Width 21.1 % (11.6-17.2); White Blood Count 14.5 th/mm3 (4.0-11.0)
[2018-02-25 07:05] LABS: Alanine Aminotransferase 52 U/L (12-78); Albumin 1.8 g/dL (3.4-5.0); Alkaline Phosphatase 255 U/L (45-117); Anion Gap 9 meq/L (5-15); Aspartate Aminotransferase 37 U/L (15-37); Blood Urea Nitrogen 19 mg/dL (7-18); Calcium 11.4 mg/dL (8.5-10.1); Carbon Dioxide 27.3 meq/L (21.0-32.0); Chloride 100 meq/L (98-107); Glomerular Filtration Rate Greater Than 89 mL/min (>89); Glucose,Random 114 mg/dL (74-106); Potassium 4.4 meq/L (3.5-5.1); Sodium 136 meq/L (136-145); Total Protein 6.1 g/dL (6.4-8.2)
--- NOTE | 2018-02-25 08:49 | P.PNFP ---
Subjective Interval history: Patient seen and examined by medical team this morning. Overnight, patient remained hypotensive which is his baseline per chart review. His nighttime Lasix was held due to hypotension. Otherwise there were no acute events. Patient is very fatigued this morning and is awakened from sleep multiple times during interview. We again briefly discussed the possibility of hospice which she is open to at this time. He currently has no complaints and states that his pain is well controlled. He continues to require 3 L nasal cannula oxygen, but his respiratory effort has improved since admission. Otherwise he has no acute complaints and all questions were answered. Medical team then called the patient's POA, Ignacia Torres [phone], to discuss patient's care and possibility of hospice placement. She states that her goals are to care for the patient "as best as possible." She is agreeable to discussing hospice placement at this time, but has multiple questions. We discussed the possibility of continuing IV fluids, antibiotics, and steroid therapy as she believes all of these are improving his health. We thoroughly discussed that his condition is critical and that these measures show only slight symptomatic improvement and the patient continues to deteriorate. She states that she is aware of this and all questions were answered. She is open to discussing hospice placement at home versus care center with the hospice team later today. She states that she plans on returning to the hospital and discussing the patient's care with the hospice care team at that time. <Ray Martini H - 02/25/18 11:32> Results - Labs Result diagrams: 02/26/18 06:50 02/26/18 06:50 <Gabriela Dasilva M - 03/01/18 09:36> Abnormal lab results 02/24/18 02/25/18 02/25/18 Range/Units 12:34 06:15 06:15 WBC 14.5 H (4.0-11.0) th/mm3 RBC 3.06 L (4.50-5.90) mil/mm3 Hgb 7.9 L (13.0-17.0) gm/dL Hct 23.5 L (39.0-51.0) % MCV 76.9 L (80.0-100.0) fL MCH 25.9 L (27.0-34.0) pg RDW 21.1 H (11.6-17.2) % Neut % (Auto) 92.1 H (16.0-70.0) % Lymph % (Auto) 1.6 L (9.0-44.0) % Neut # (Auto) 13.3 H (1.8-7.7) th/mm3 Lymph # (Auto) 0.2 L (1.0-4.8) th/mm3 BUN 19 H (7-18) mg/dL Random Glucose 114 H (74-106) mg/dL Calcium 11.4 H D (8.5-10.1) mg/dL Alkaline Phosphatase 255 H (45-117) U/L B-Natriuretic Peptide 755 H (0-100) pg/mL Total Protein 6.1 L (6.4-8.2) g/dL Albumin 1.8 L (3.4-5.0) g/dL Short CBC 02/25/18 Range/Units 06:15 WBC 14.5 H (4.0-11.0) th/mm3 Hgb 7.9 L (13.0-17.0) gm/dL Hct 23.5 L (39.0-51.0) % Plt Count 290 (150-450) th/mm3 BMP 02/25/18 06:15 Sodium 136 Potassium 4.4 Chloride 100 Carbon Dioxide 27.3 BUN 19 H Creatinine 0.60 Calcium 11.4 H D Liver Function 02/25/18 Range/Units 06:15 Total Bilirubin 0.4 (0.2-1.0) mg/dL AST 37 (15-37) U/L ALT 52 (12-78) U/L Alkaline Phosphatase 255 H (45-117) U/L Albumin 1.8 L (3.4-5.0) g/dL <Ray Martini H - 02/25/18 08:49> Physical Exam Vital signs: Vital Signs 02/28/18 20:00 03/01/18 00:00 03/01/18 01:23 Temperature 97.3 F L 97.2 F L Pulse Rate 94 H 95 H 96 H Respiratory Rate 18 18 20 Blood Pressure 113/57 L 94/59 L Pulse Oximetry 100 99 98 03/01/18 08:00 Temperature 97.6 F Pulse Rate 95 H Respiratory Rate 15 Blood Pressure 91/58 L Pulse Oximetry 98 Intake & Output 02/28/18 03/01/18 03/01/18 18:59 06:59 18:59 Intake Total 1700 / 1700 480 / 480 Balance 1700 / 1700 480 / 480 Weight 69.5 kg Intake: IV 1000 / 1000 NS Inj 1,000 ML @ 100 mls/hr IV 1000 / 1000 .CONT .Q10H [facility] Rx#:[id number] Oral 700 / 700 480 / 480 Other: # Voids 2 3 <Gabriela Dasilva M - 03/01/18 09:36> Vital Signs 02/24/18 11:29 02/24/18 14:10 02/24/18 15:51 Temperature 98.6 F Pulse Rate 77 104 H 104 H Respiratory Rate 18 20 20 Blood Pressure 91/54 L Pulse Oximetry 98 02/24/18 17:36 02/24/18 20:00 02/24/18 21:22 Temperature 98.5 F 97.4 F L Pulse Rate 102 H 100 H 103 H Respiratory Rate 18 16 18 Blood Pressure 94/57 L 90/55 L Pulse Oximetry 99 99 02/24/18 23:37 02/25/18 00:00 Temperature 97.8 F Pulse Rate 100 H 100 H Respiratory Rate 24 16 Blood Pressure 102/61 Pulse Oximetry 100 Intake & Output 02/24/18 02/25/18 02/25/18 18:59 06:59 18:59 Intake Total 2105 / 2105 2780 / 2780 Balance 2105 / 2105 2780 / 2780 Weight 56.6 kg Intake: IV 2105 / 2105 2300 / 2300 NS Inj 1,000 ML @ 100 mls/hr IV 1500 / 1500 1600 / 1600 .CONT .Q10H [facility] Rx#:[id number] Azithromycin Inj 500 MG In NS 250 / 250 Inj 250 ML @ 250 mls/hr IV.SIG Q24H [facility] Rx#:[id number] Zosyn 4.5 GM Premix 4.5 gm In 100 / 100 200 / 200 100 ml @ 200 mls/hr IV.SIG Q8H [facility] Rx#:[id number] Vancomycin Inj 1,000 MG In NS 250 / 250 250 / 250 Inj 250 ML @ 250 mls/hr IV.SIG Q12H NBA Rx#:[id number] Vancomycin Inj 500 MG In NS Inj 100 / 100 100 ML @ 200 mls/hr IV.SIG ONCE ONE Rx#:[id number] Zometa Inj 4 MG In NS Inj 150 155 / 155 ML @ 155 mls/hr IV.SIG ONCE ONE Rx#:[id number] Oral 480 / 480 Other: # Voids 2 Date of Last Bowel Movement 02/23/18 # Bowel Movements 2 <Ray Martini H - 02/25/18 08:49> Narrative: GENERAL: Frail, older than his apparent age appearing male lying in bed asleep upon entering the room mild respiratory distress, however is slightly improved from SKIN: Warm and dry. No rash. HEENT: Atraumatic, normocephalic with extraocular motions intact. No rhinorrhea. No visible lymphadenopathy or jugulovenous distension appreciated. CARDIOVASCULAR: Tachycardic rate and regular rhythm with possible S3. No obvious murmur. RESPIRATORY: Completely absent breath sounds to the left lung. Poor aeration of right lung with obvious wheezes/crackles. Patient in mild respiratory distress currently patient only able to communicate in short sentences. Overall patient's respiratory rate has decreased, however he remains in slight distress. GASTROINTESTINAL: Abdomen soft, non-tender, nondistended with positive bowel sounds. No masses appreciated. MUSCULOSKELETAL: No cyanosis or calf tenderness. 2+ pitting edema bilaterally on the lower extremities at the ankle, improved from previous exams. NEURO/PSYCH: Afocal. Awake, alert, and oriented x3. Patient frequently falls asleep during interview and appears weaker from previous exam. When patient does communicate he displays normal judgment and speech. <Ray Martini H - 02/25/18 11:32> Assessment and Plan - Assessment (1) Pneumonia Code(s): J18.9 - Pneumonia, unspecified organism Status: Acute (2) Sepsis Code(s): A41.9 - Sepsis, unspecified organism Status: Acute (3) Stage 4 lung cancer Code(s): C34.90 - Malignant neoplasm of unspecified part of unspecified bronchus or lung Status: Acute (4) Dyspnea Code(s): R06.00 - Dyspnea, unspecified Status: Acute (5) Hypercalcemia Code(s): E83.52 - Hypercalcemia Status: Acute (6) Pancreatic mass Code(s): K86.9 - Disease of pancreas, unspecified Status: Acute (7) Chronic pain Code(s): G89.29 - Other chronic pain Status: Acute (8) Elevated brain natriuretic peptide (BNP) level Code(s): R79.89 - Other specified abnormal findings of blood chemistry Status : Acute (9) COPD (chronic obstructive pulmonary disease) Code(s): J44.9 - Chronic obstructive pulmonary disease, unspecified Status: Acute (10) History of DVT (deep vein thrombosis) Code(s): Z86.718 - Personal history of other venous thrombosis and embolism Status: Acute (11) Hypoalbuminemia Code(s): E88.09 - Other disorders of plasma-protein metabolism, not elsewhere classified Status: Acute (12) Nutrition, metabolism, and development symptoms Code(s): R63.8 - Other symptoms and signs concerning food and fluid intake Status: Acute <Gabriela Dasilva - 03/01/18 09:36> (1) Pneumonia Code(s): J18.9 - Pneumonia, unspecified organism Status: Acute Plan: Critically ill patient admitted meeting sepsis criteria with possible site of infection being pneumonia versus bronchial obstructive pneumonia secondary to metastatic disease. Per chart review patient has been chronically hypotensive in office since August/2017. Plan to discontinue IV antibiotic at this time as patient's blood cultures are negative for 48 hours with goals of care transitioning to comfort measures at this time. CBC 02/23/18: White blood cell count 15.7 with 90.7% neutrophils CBC 02/24/18: WBC 14.5 with 92% neutrophils Lactic acid: 1.5 UA: Negative Chest x-ray: 3.5 cm mass in the right lung and complete opacification of the left hemithorax similar to prior CT on 01/20/18. Chest CTA: No pulmonary emboli, progression in metastatic disease involving the chest, suspected low density mass arising from the pancreas only seen partially on exam, left adrenal gland metastasis, bilateral pleural effusions ( stable) Blood cultures: Negative to date -Sputum cultures: Pending Medications: Vancomycin 1 g twice daily (04/25/1810), pharmacy consulted for assistance Zosyn 4.5 g every 8 hours (02/23/1811/14/18) Azithromycin 500 mg daily (02/23/18), plan to treat for a total of 5 days Levaquin 750 mg daily (02/24/18), plan to treat for a total of 14 days Normal saline at 100 mL/h (2) Sepsis Code(s): A41.9 - Sepsis, unspecified organism Status: Acute Plan: Patient admitted meeting sepsis criteria with tachycardia, tachypnea, and leukocytosis with suspected site of infection being a possible pneumonia. Plan as above (3) Stage 4 lung cancer Code(s): C34.90 - Malignant neoplasm of unspecified part of unspecified bronchus or lung Status: Acute Plan: Patient with known stage IV lung cancer. Discussed patient's goals of care with thorough education on DNR/DNI of which patient is agreeable to. DNR form completed and placed on chart. Chest CTA: No pulmonary emboli, progression in metastatic disease involving the chest, suspected low density mass arising from the pancreas only seen partially on exam, left adrenal gland metastasis, bilateral pleural effusions ( stable) CT head: Stable area of encephalomalacia in the right frontal lobe, otherwise no acute abnormality Hematology oncology consulted Palliative care consulted Per discussion with patient and POA, agreeable to hospice consult at this time. Discussed with hospice care team planned family meeting this afternoon. (4) Dyspnea Code(s): R06.00 - Dyspnea, unspecified Status: Acute Plan: Patient with dyspnea requiring 3 L nasal cannula. Unclear etiology at this time due to multiple factors including but not limited to tumor burden, possible pneumonia, possible heart failure secondary to metastatic disease/ primary failure. Imaging as above Nasal cannula as needed Currently treating for possible infectious source with Levaquin and azithromycin Patient requiring IV fluids with Lasix at this time due to hypercalcemia, Lasix held overnight 02/24/18 due to hypotension (5) Hypercalcemia Code(s): E83.52 - Hypercalcemia Status: Acute Plan: Patient with hypercalcemia of malignancy with previous hospitalizations due to hypercalcemia CMP: Calcium 12.9 (as high as 13.1 on 02/08/18) BMP: Calcium decreased to 11.4 Medications: Normal saline at 100 mL/h Lasix 40 mg twice daily, held 02/24/18 due to hypotension Zoledronic acid ordered (6) Pancreatic mass Code(s): K86.9 - Disease of pancreas, unspecified Status: Acute Plan: Patient with metastatic disease found to have new pancreatic mass CT as above (7) Chronic pain Code(s): G89.29 - Other chronic pain Status: Acute Plan: Patient has a history of chronic pain secondary to his metastatic lung cancer Takes Percocet at home Continuing Percocet pain scale with IV morphine for breakthrough pain Patient with chronic pain secondary to metastatic disease tumor burden Medications: Continue home Percocet Morphine as needed for breakthrough pain/shortness of breath (8) Elevated brain natriuretic peptide (BNP) level Code(s): R79.89 - Other specified abnormal findings of blood chemistry Status : Acute Plan: Elevated BNP on admission of 1209 Patient has no known history of CHF but has significant pulmonary pathology with his metastatic lung cancer Ordering Lasix 40mg IV x1 Repeat BNP in the morning Patient with elevated BNP on admission without diagnosis of previous CHF. BNP likely elevated due to metastatic disease. Management as above (9) COPD (chronic obstructive pulmonary disease) Code(s): J44.9 - Chronic obstructive pulmonary disease, unspecified Status: Acute Plan: Patient with history of COPD Medications: Solu-Medrol 125 mg IV once in the ED Prednisone 50 mg daily Continue Symbicort Duo nebs scheduled every 4 hours with albuterol nebs as needed every 2 hours Azithromycin and Levaquin as above (10) History of DVT (deep vein thrombosis) Code(s): Z86.718 - Personal history of other venous thrombosis and embolism Status: Acute Plan: Known history of DVT Oncologist recently decrease his Xarelto from 20 mg to 10 mg p.o. daily Patient with bilateral lower extremity edema on admission, venous Doppler was negative for DVT Continuing Xarelto 10 mg p.o. daily Patient with history of DVT with recent decrease in Xarelto from 20-10 mg daily per oncologist CTA as above Lower extremity venous Doppler negative for DVT Medications: Continue Xarelto 10 mg daily (11) Hypoalbuminemia Code(s): E88.09 - Other disorders of plasma-protein metabolism, not elsewhere classified Status: Acute Plan: Patient found to have hypoalbuminemia with 2-3+ edema likely secondary to nutritional deficiency. CMP: Albumin 1.8 (2.3-2.8 previous baseline) Regular diet as tolerated Caloric supplements to be added to diet (12) Nutrition, metabolism, and development symptoms Code(s): R63.8 - Other symptoms and signs concerning food and fluid intake Status: Acute Plan: Diet: Regular diet as tolerated with boost supplementation Electrolytes: Hypocalcemia as above, continue to monitor Fluids: Normal saline at 100 mL/h for hypercalcemia treatment Prophylaxis: Percocet/morphine as needed for pain, morphine as needed for shortness of breath, albuterol/DuoNeb nebulizer treatments as needed for shortness of breath, lactobacillus daily, constipation protocol DVT prophylaxis: Anticoagulated on Xarelto 10 mg daily per oncology <Ray Martini - 02/25/18 11:59> - Assessment and Plan 47-year-old male with a history of stage IV lung cancer, history of hypercalcemia, chronic pain, COPD and history of DVT presented to the emergency room with confusion, fatigue, weakness and shortness of breath. Patient is septic on admission with a suspected source of pneumonia. He was started on azithromycin, vancomycin and Zosyn on admission. Patient also found to be hypercalcemic and was treated with IV fluids, lasix bid, and zoledronic acid. Oncology was consulted and believes that the patient is not a candidate for further treatments as he has failed multiple chemotherapy and radiation treatments. Palliative care was consulted who recommended hospice, as did the oncology service. <Ray Martini - 02/25/18 11:32> - Attending Attestation The exam, history, and the medical decision-making described in the above note were completed with the assistance of the resident physician. I reviewed and agree with the findings presented. I attest that I had a [id number] encounter with the patient on the same day, and personally performed and documented my assessment and findings in the medical record. talking to pt and family about hospice <Gabriela Dasilva - 03/01/18 09:36>
[2018-02-25] MEDS: Senna/Docusate Sodium 8.6/50 MG Tablet PO SCH ×2 (09:09→20:28)
[2018-02-25] MEDS: Rivaroxaban 10 MG Tablet PO SCH (09:09)
[2018-02-25] MEDS: Azithromycin 250 MG Tablet PO SCH (12:43)
[2018-02-25] MEDS: levoFLOXacin 750 MG Tablet PO SCH (12:43)
[2018-02-25] MEDS ORDERED: Pharmacy Ordered Lab Info OTHER ONE (14:45)
--- NOTE | 2018-02-25 19:57 | P.PNONC ---
Subjective Interval history: He is doing better. He is less short of breath and comfortable. Objective Vital Signs/Intake & Output: Vital Signs 02/24/18 20:00 02/24/18 21:22 02/24/18 23:37 Temperature 97.4 F L Pulse Rate 100 H 103 H 100 H Respiratory Rate 16 18 24 Blood Pressure 90/55 L Pulse Oximetry 99 99 02/25/18 00:00 02/25/18 08:00 02/25/18 09:09 Temperature 97.8 F 97.4 F L Pulse Rate 100 H 92 H Respiratory Rate 16 20 Blood Pressure 102/61 88/55 L Pulse Oximetry 100 100 100 02/25/18 09:35 02/25/18 10:40 02/25/18 12:00 Temperature 97.2 F L Pulse Rate 98 H Respiratory Rate 20 Blood Pressure 82/55 L 98/60 L 94/55 L Pulse Oximetry 99 02/25/18 12:05 02/25/18 16:00 Temperature 97.2 F L Pulse Rate 98 H 91 H Respiratory Rate 22 20 Blood Pressure 92/53 L Pulse Oximetry 99 99 Intake & Output 02/25/18 02/25/18 02/26/18 06:59 18:59 06:59 Intake Total 2780 / 2780 1482 / 1482 Balance 2780 / 2780 1482 / 1482 Weight 56.6 kg Intake: IV 2300 / 2300 1002 / 1002 NS Inj 1,000 ML @ 100 mls/hr IV 1600 / 1600 1002 / 1002 .CONT .Q10H [facility] Rx#:[id number] Azithromycin Inj 500 MG In NS 250 / 250 Inj 250 ML @ 250 mls/hr IV.SIG Q24H [facility] Rx#:[id number] Zosyn 4.5 GM Premix 4.5 gm In 200 / 200 100 ml @ 200 mls/hr IV.SIG Q8H [facility] Rx#:[id number] Vancomycin Inj 1,000 MG In NS 250 / 250 Inj 250 ML @ 250 mls/hr IV.SIG Q12H [facility] Rx#:[id number] Oral 480 / 480 480 / 480 Other: # Voids 2 Date of Last Bowel Movement 02/23/18 02/24/18 # Bowel Movements 2 Result Diagrams: 02/25/18 06:15 02/25/18 06:15 Laboratory Results: Laboratory Results - last 24 hr 02/25/18 02/25/18 06:15 06:15 WBC 14.5 H RBC 3.06 L Hgb 7.9 L Hct 23.5 L MCV 76.9 L MCH 25.9 L MCHC 33.7 RDW 21.1 H Plt Count 290 MPV 7.4 Neut % (Auto) 92.1 H Lymph % (Auto) 1.6 L [place] % (Auto) 6.1 Eos % (Auto) 0.1 Baso % (Auto) 0.1 Neut # (Auto) 13.3 H Lymph # (Auto) 0.2 L [place] # (Auto) 0.9 Eos # (Auto) 0.0 Baso # (Auto) 0.0 WBC Differential . Differential Comment Auto diff final Sodium 136 Potassium 4.4 Chloride 100 Carbon Dioxide 27.3 Anion Gap 9 BUN 19 H Creatinine 0.60 Estimated GFR Greater than 89 Random Glucose 114 H Calcium 11.4 H D Total Bilirubin 0.4 AST 37 ALT 52 Alkaline Phosphatase 255 H Total Protein 6.1 L Albumin 1.8 L Culture Results: Microbiology 02/25/18 06:20 Gram Stain - Final Sputum - Expectorated Sputum 02/23/18 19:54 Aerobic Blood Culture - Preliminary Blood - Peripheral No growth in 2 days Anaerobic Blood Culture - Preliminary No growth in 2 days 02/23/18 19:54 Aerobic Blood Culture - Preliminary Blood - Peripheral No growth in 2 days Anaerobic Blood Culture - Preliminary No growth in 2 days Medications: Active Medications Generic Name Dose Route Start Last Admin Trade Name Freq PRN Reason Stop Dose Admin Albuterol 1 ampul 02/24/18 07:30 02/25/18 16:23 Duoneb Neb ([facility]ana) NEB Not Given Q4HR NEB SANTANA Azithromycin 500 mg 02/25/18 13:00 02/25/18 12:43 Zithromax PO 500 mg DAILY SANTANA Administration Budesonide/Formoterol Fumarate 2 puff 02/24/18 01:00 02/25/18 12:42 Symbicort 160/4.5 Mcg Inh INH 2 puff Q12H SANTANA Administration Furosemide 40 mg 02/24/18 18:00 02/25/18 17:31 Lasix Inj IV.PUSH 40 mg BID@0900,1800 SANTANA Administration Sodium Chloride 1,000 mls @ 100 mls/hr 02/24/18 01:11 02/25/18 17:36 Ns Inj IV.CONT Not Given .Q10H SANTANA Sodium Chloride 1,000 mls @ 100 mls/hr 02/24/18 10:15 02/25/18 17:32 Ns Inj IV.CONT 100 mls/hr .Q10H S[facility]ANA Administration Lactobacillus Acidophilus 1 gm 02/24/18 09:00 02/25/18 17:31 Lactinex Pkt PO 1 gm TID SANTANA Administration Levofloxacin 750 mg 02/25/18 13:00 02/25/18 12:43 Levaquin PO 750 mg DAILY SANTANA Administration Morphine Sulfate 1 mg 02/24/18 10:01 02/24/18 11:13 Morphine Inj IV.PUSH 1 mg Q3H PRN Administration Shortness of Breath/Pain Oxycodone/Acetaminophen 1 tab 02/24/18 01:04 02/25/18 18:56 Percocet 10/325 Mg PO 1 tab Q6H PRN Administration PAIN SCALE 6 TO 10 Prednisone 50 mg 02/24/18 10:15 02/25/18 09:09 Deltasone PO 50 mg DAILY SANTANA Administration Rivaroxaban 10 mg 02/24/18 09:00 02/25/18 09:09 Xarelto PO 10 mg DAILY SANTANA Administration Senna/Docusate Sodium 1 tab 02/24/18 09:00 02/25/18 09:09 Donna-Colace PO 1 tab BID SANTANA Administration Objective Remarks: GENERAL: More comfortable and peaceful. Not short of breath at rest SKIN: Warm and dry. HEAD: Normocephalic. EYES: No scleral icterus. No injection or drainage. NECK: Supple, trachea midline. No JVD or lymphadenopathy. LYMPHATIC: No adenopathy. CARDIOVASCULAR: Regular rate and rhythm without murmurs. RESPIRATORY: Wheezes less. Markedly decreased breath sounds left lung and right base GASTROINTESTINAL: Abdomen soft, non-tender, nondistended. EXTREMITIES: +1 edema MUSCULOSKELETAL: Muscle wasting NEUROLOGICAL: No obvious focal deficit. Awake, alert, and oriented x3. PSYCHIATRIC: Appropriate mood and affect; insight and judgment normal. Assessment/Plan - Plan He is more alert and comfortable since he was treated for hypercalcemia, given antibiotics and steroids. I spoke with his mother as well as Ignacia who has been his wallpaper cleaner. They are interested in the care center at [facility] and Ignacia feels that this would serve him well as she is not sure that she can provide for all his needs at home. He seems to be willing to pursue this. Under the circumstances it would be reasonable to send him to the care center. I would recommend a course of oral antibiotics and continued steroid use with prednisone 10-20 mg a day indefinitely as this seems to help with his breathing , wheezing and appetite. He may want to have his hypercalcemia treated again. One could use Zometa or Aredia with the latter being readily available, effective and less costly if this is an issue.
[2018-02-26] MEDS: oxyCODONE/Acetaminophen 10/325 Tablet PO PRN ×4 (00:35→19:11)
[2018-02-26] MEDS: Budesonide-Formoterol 160/4.5 MCG 6 GM Inhaler INH SCH ×2 (00:38→12:09)
[2018-02-26] MEDS: Sod Chloride 0.9% Inj 1,000 ML IV.CONT SCH ×4 (04:18→17:00)
[2018-02-26 07:19] LABS: Hematocrit 24.7 % (39.0-51.0); Hemoglobin 7.9 gm/dL (13.0-17.0); Lymph # (Auto) 0.4 th/mm3 (1.0-4.8); Lymph % (Auto) 3.7 % (9.0-44.0); Mean Corpuscular HGB Conc 31.8 % (32.0-36.0); Mean Corpuscular Hemoglobin 25.1 pg (27.0-34.0); Mean Corpuscular Volume 78.9 fL (80.0-100.0); Mean Platelet Volume 7.4 fL (7.0-11.0); Mono # (Auto) 0.7 th/mm3 (0.0-0.9); Mono % (Auto) 6.6 % (0.0-8.0); Neut # (Auto) 9.6 th/mm3 (1.8-7.7); Neut % (Auto) 89.7 % (16.0-70.0); Platelet Count 272 th/mm3 (150-450); Red Blood Count 3.13 mil/mm3 (4.50-5.90); Red Cell Distribution Width 21.3 % (11.6-17.2); White Blood Count 10.7 th/mm3 (4.0-11.0)
[2018-02-26 07:45] LABS: Anion Gap 8 meq/L (5-15); Blood Urea Nitrogen 18 mg/dL (7-18); Calcium 10.4 mg/dL (8.5-10.1); Chloride 101 meq/L (98-107); Glomerular Filtration Rate Greater Than 89 mL/min (>89); Glucose,Random 85 mg/dL (74-106); Potassium 3.6 meq/L (3.5-5.1); Sodium 138 meq/L (136-145)
--- NOTE | 2018-02-26 09:02 | P.PNONC ---
Subjective Interval history: Patient feeling for the most part well. He is looking forward to going to the hospice care center. I explained to him he will have the opportunity of going outside of the building as there is a sitting area. He understands a have medicines to keep him more comfortable. His caregiver Ignacia was present and she is very supportive of the decision. Objective Vital Signs/Intake & Output: Vital Signs 02/25/18 09:09 02/25/18 09:35 02/25/18 10:40 Temperature Pulse Rate Respiratory Rate Blood Pressure 82/55 L 98/60 L Pulse Oximetry 100 02/25/18 12:00 02/25/18 12:05 02/25/18 16:00 Temperature 97.2 F L 97.2 F L Pulse Rate 98 H 98 H 91 H Respiratory Rate 20 22 20 Blood Pressure 94/55 L 92/53 L Pulse Oximetry 99 99 99 02/25/18 20:00 02/25/18 21:36 02/26/18 00:00 Temperature 97.1 F L 97.2 F L Pulse Rate 98 H 90 101 H Respiratory Rate 14 17 14 Blood Pressure 92/54 L 98/49 L Pulse Oximetry 99 98 99 02/26/18 03:43 02/26/18 04:46 02/26/18 04:51 Temperature 97.7 F Pulse Rate 95 H 66 Respiratory Rate 14 19 Blood Pressure 89/52 L Pulse Oximetry 100 97 02/26/18 08:00 02/26/18 08:29 Temperature 97.5 F L Pulse Rate 99 H 98 H Respiratory Rate 18 16 Blood Pressure 89/56 L Pulse Oximetry 100 93 L Intake & Output 02/25/18 02/26/18 02/26/18 18:59 06:59 18:59 Intake Total 1482 / 1482 1000 / 1000 Balance 1482 / 1482 1000 / 1000 Weight 62.9 kg Intake: IV 1002 / 1002 1000 / 1000 NS Inj 1,000 ML @ 100 mls/hr IV 1002 / 1002 1000 / 1000 .CONT .Q10H [facility] Rx#:[id number] Oral 480 / 480 Other: # Voids 1 Date of Last Bowel Movement 02/24/18 02/25/18 Result Diagrams: 02/26/18 06:50 02/26/18 06:50 Laboratory Results: Laboratory Results - last 24 hr 02/26/18 02/26/18 06:50 06:50 WBC 10.7 RBC 3.13 L Hgb 7.9 L Hct 24.7 L MCV 78.9 L MCH 25.1 L MCHC 31.8 L RDW 21.3 H Plt Count 272 MPV 7.4 Neut % (Auto) 89.7 H Lymph % (Auto) 3.7 L Vernon % (Auto) 6.6 Eos % (Auto) 0.0 Baso % (Auto) 0.0 Neut # (Auto) 9.6 H Lymph # (Auto) 0.4 L Vernon # (Auto) 0.7 Eos # (Auto) 0.0 Baso # (Auto) 0.0 WBC Differential . Differential Comment Auto diff final Sodium 138 Potassium 3.6 D Chloride 101 Carbon Dioxide 29.0 Anion Gap 8 BUN 18 Creatinine 0.55 L Estimated GFR Greater than 89 Random Glucose 85 Calcium 10.4 H D Culture Results: Microbiology 02/25/18 06:20 Gram Stain - Final Sputum - Expectorated Sputum 02/23/18 19:54 Aerobic Blood Culture - Preliminary Blood - Peripheral No growth in 2 days Anaerobic Blood Culture - Preliminary No growth in 2 days 02/23/18 19:54 Aerobic Blood Culture - Preliminary Blood - Peripheral No growth in 2 days Anaerobic Blood Culture - Preliminary No growth in 2 days Medications: Active Medications Generic Name Dose Route Start Last Admin Trade Name Freq PRN Reason Stop Dose Admin Albuterol 2.5 mg 02/24/18 05:30 02/26/18 04:42 Albuterol Neb (Prn) NEB 2.5 mg Q2HR NEB PRN Administration SHORTNESS OF BREATH Albuterol 1 ampul 02/24/18 07:30 02/26/18 08:27 Duoneb Neb ([facility]) NEB 1 ampul Q4HR NEB [facility] Administration Azithromycin 500 mg 02/25/18 13:00 02/25/18 12:43 Zithromax PO 500 mg DAILY [facility] Administration Budesonide/Formoterol Fumarate 2 puff 02/24/18 01:00 02/26/18 00:38 Symbicort 160/4.5 Mcg Inh INH 2 puff Q12H [facility] Administration Furosemide 40 mg 02/24/18 18:00 02/25/18 17:31 Lasix Inj IV.PUSH 40 mg BID@0900,1800 [facility] Administration Sodium Chloride 1,000 mls @ 100 mls/hr 02/24/18 01:11 02/26/18 04:18 Ns Inj IV.CONT 100 mls/hr .Q10H [facility] Administration Sodium Chloride 1,000 mls @ 100 mls/hr 02/24/18 10:15 02/26/18 04:50 Ns Inj IV.CONT Not Given .Q10H [facility] Lactobacillus Acidophilus 1 gm 02/24/18 09:00 02/25/18 17:31 Lactinex Pkt PO 1 gm TID [facility] Administration Levofloxacin 750 mg 02/25/18 13:00 02/25/18 12:43 Levaquin PO 750 mg DAILY [facility] Administration Morphine Sulfate 1 mg 02/24/18 10:01 02/24/18 11:13 Morphine Inj IV.PUSH 1 mg Q3H PRN Administration Shortness of Breath/Pain Oxycodone/Acetaminophen 1 tab 02/24/18 01:04 02/26/18 06:44 Percocet 10/325 Mg PO 1 tab Q6H PRN Administration PAIN SCALE 6 TO 10 Prednisone 50 mg 02/24/18 10:15 02/25/18 09:09 Deltasone PO 50 mg DAILY [facility] Administration Rivaroxaban 10 mg 02/24/18 09:00 02/25/18 09:09 Xarelto PO 10 mg DAILY [facility] Administration Senna/Docusate Sodium 1 tab 02/24/18 09:00 02/25/18 20:28 Donna-Colace PO Not Given BID [facility] Objective Remarks: GENERAL: Chronically ill but comfortable at rest SKIN: Warm and dry. HEAD: Normocephalic. EYES: No scleral icterus. No injection or drainage. NECK: Supple, trachea midline. No JVD or lymphadenopathy. LYMPHATIC: No adenopathy. CARDIOVASCULAR: Regular rate and rhythm without murmurs. RESPIRATORY: Absent sounds left lung decreased sounds right base, rhonchi on expiration GASTROINTESTINAL: Abdomen soft, non-tender, nondistended. EXTREMITIES: +1 edema, improved since admission. MUSCULOSKELETAL: Poor muscle tone NEUROLOGICAL: No obvious focal deficit. Awake, alert, and oriented x3. PSYCHIATRIC: Appropriate mood and affect; insight and judgment normal. Assessment/Plan - Plan He is more alert and comfortable since he was treated for hypercalcemia, given antibiotics and steroids. I spoke with his mother as well as Ignacia who has been his grit removal operator. Everyone is agreeable with the care center in [place]. Under the circumstances it would be reasonable to send him to the care center. I would recommend a course of oral antibiotics and continued steroid use with prednisone 10-20 mg a day indefinitely as this seems to help with his breathing , wheezing and appetite. He may want to have his hypercalcemia treated again. One could use Zometa or Aredia with the latter being readily available, effective and less costly if this is an issue. I spoke with Dr. Martini who is his primary care physician. The plan will be to transfer to the [facility] care center when a bed is available. I very much appreciate all the help that has been extended to my patient during this hospitalization.
[2018-02-26] MEDS: Rivaroxaban 10 MG Tablet PO SCH (09:23)
[2018-02-26] MEDS: Azithromycin 250 MG Tablet PO SCH (09:23)
[2018-02-26] MEDS: levoFLOXacin 750 MG Tablet PO SCH (09:25)
[2018-02-26] MEDS: Senna/Docusate Sodium 8.6/50 MG Tablet PO SCH ×2 (09:25→20:42)
--- NOTE | 2018-02-26 10:55 | P.PNFP ---
Subjective Interval history: Patient seen and examined this morning by medical team.. Patient remains hypotensive with mild respiratory distress. He is now requiring 4 L of nasal cannula oxygen. Overall patient does look more 80s and is currently eating breakfast during interview and exam which is an improvement per patient's report. His POA, Ignacia Torres, was at the bedside. Medical team had thorough discussion of transition to hospice care with patient and his POA. They are both in agreement at this time and feel that it will be best for him. Medical team discussed patient's case with Dr. Christian, oncology, who agrees. Currently patient has no acute complaints. Medical team contacted hospice care team to be notified of patient's desire for discharge to hospice care center. <Ray Martini H - 02/26/18 10:55> Results - Labs Result diagrams: 02/26/18 06:50 02/26/18 06:50 <Gabriela Dasilva - 03/01/18 09:40> Abnormal lab results 02/26/18 02/26/18 Range/Units 06:50 06:50 RBC 3.13 L (4.50-5.90) mil/mm3 Hgb 7.9 L (13.0-17.0) gm/dL Hct 24.7 L (39.0-51.0) % MCV 78.9 L (80.0-100.0) fL MCH 25.1 L (27.0-34.0) pg MCHC 31.8 L (32.0-36.0) % RDW 21.3 H (11.6-17.2) % Neut % (Auto) 89.7 H (16.0-70.0) % Lymph % (Auto) 3.7 L (9.0-44.0) % Neut # (Auto) 9.6 H (1.8-7.7) th/mm3 Lymph # (Auto) 0.4 L (1.0-4.8) th/mm3 Creatinine 0.55 L (0.60-1.30) mg/dL Calcium 10.4 H D (8.5-10.1) mg/dL Short CBC 02/26/18 Range/Units 06:50 WBC 10.7 (4.0-11.0) th/mm3 Hgb 7.9 L (13.0-17.0) gm/dL Hct 24.7 L (39.0-51.0) % Plt Count 272 (150-450) th/mm3 BMP 02/26/18 06:50 Sodium 138 Potassium 3.6 D Chloride 101 Carbon Dioxide 29.0 BUN 18 Creatinine 0.55 L Calcium 10.4 H D <ViniRay H - 02/26/18 10:55> Physical Exam Vital signs: Vital Signs 02/28/18 20:00 03/01/18 00:00 03/01/18 01:23 Temperature 97.3 F L 97.2 F L Pulse Rate 94 H 95 H 96 H Respiratory Rate 18 18 20 Blood Pressure 113/57 L 94/59 L Pulse Oximetry 100 99 98 03/01/18 08:00 Temperature 97.6 F Pulse Rate 95 H Respiratory Rate 15 Blood Pressure 91/58 L Pulse Oximetry 98 Intake & Output 02/28/18 03/01/18 03/01/18 18:59 06:59 18:59 Intake Total 1700 / 1700 480 / 480 Balance 1700 / 1700 480 / 480 Weight 69.5 kg Intake: IV 1000 / 1000 NS Inj 1,000 ML @ 100 mls/hr IV 1000 / 1000 .CONT .Q10H [facility] Rx#:[id number] Oral 700 / 700 480 / 480 Other: # Voids 2 3 <Gabriela Dasilva M - 03/01/18 09:40> Vital Signs 02/25/18 12:00 02/25/18 12:05 02/25/18 16:00 Temperature 97.2 F L 97.2 F L Pulse Rate 98 H 98 H 91 H Respiratory Rate 20 22 20 Blood Pressure 94/55 L 92/53 L Pulse Oximetry 99 99 99 02/25/18 20:00 02/25/18 21:36 02/26/18 00:00 Temperature 97.1 F L 97.2 F L Pulse Rate 98 H 90 101 H Respiratory Rate 14 17 14 Blood Pressure 92/54 L 98/49 L Pulse Oximetry 99 98 99 02/26/18 03:43 02/26/18 04:46 02/26/18 04:51 Temperature 97.7 F Pulse Rate 95 H 66 Respiratory Rate 14 19 Blood Pressure 89/52 L Pulse Oximetry 100 97 02/26/18 08:00 02/26/18 08:29 Temperature 97.5 F L Pulse Rate 99 H 98 H Respiratory Rate 18 16 Blood Pressure 89/56 L Pulse Oximetry 100 93 L Intake & Output 02/25/18 02/26/18 02/26/18 18:59 06:59 18:59 Intake Total 1482 / 1482 1000 / 1000 Balance 1482 / 1482 1000 / 1000 Weight 62.9 kg Intake: IV 1002 / 1002 1000 / 1000 NS Inj 1,000 ML @ 100 mls/hr IV 1002 / 1002 1000 / 1000 .CONT .Q10H [facility] Rx#:[id number] Oral 480 / 480 Other: # Voids 1 Date of Last Bowel Movement 02/24/18 02/25/18 <Ray Martini H - 02/26/18 10:55> Narrative: GENERAL: Frail, older than his apparent age appearing male sitting up in bed eating breakfast in mild respiratory distress. Patient's aunt/POA, Ignacia Torres, at the bedside. SKIN: Cool and dry. No rash. HEENT: Atraumatic, normocephalic with extraocular motions intact. No rhinorrhea. No visible lymphadenopathy or jugulovenous distension appreciated. CARDIOVASCULAR: Tachycardic rate and regular rhythm with possible S3. No obvious murmur. RESPIRATORY: Completely absent breath sounds to the left lung. Slightly improved aeration of right lung with continued wheezes/crackles. Patient in mild respiratory distress currently patient only able to communicate in short sentences. Overall patient's respiratory rate has decreased, however he remains in slight distress. Currently requiring 4 L nasal cane GASTROINTESTINAL: Abdomen soft, non-tender, nondistended with positive bowel sounds. No masses appreciated. MUSCULOSKELETAL: No cyanosis or calf tenderness. 2+ pitting edema bilaterally on the lower extremities (right greater than left). NEURO/PSYCH: Afocal. Awake, alert, and oriented x3. Slowed, but normal speech and judgment. <Ray Martini H - 02/26/18 10:55> Assessment and Plan - Assessment (1) Pneumonia Code(s): J18.9 - Pneumonia, unspecified organism Status: Acute (2) Sepsis Code(s): A41.9 - Sepsis, unspecified organism Status: Acute (3) Stage 4 lung cancer Code(s): C34.90 - Malignant neoplasm of unspecified part of unspecified bronchus or lung Status: Acute (4) Dyspnea Code(s): R06.00 - Dyspnea, unspecified Status: Acute (5) Hypercalcemia Code(s): E83.52 - Hypercalcemia Status: Acute (6) Pancreatic mass Code(s): K86.9 - Disease of pancreas, unspecified Status: Acute (7) Chronic pain Code(s): G89.29 - Other chronic pain Status: Acute (8) Elevated brain natriuretic peptide (BNP) level Code(s): R79.89 - Other specified abnormal findings of blood chemistry Status : Acute (9) COPD (chronic obstructive pulmonary disease) Code(s): J44.9 - Chronic obstructive pulmonary disease, unspecified Status: Acute (10) History of DVT (deep vein thrombosis) Code(s): Z86.718 - Personal history of other venous thrombosis and embolism Status: Acute (11) Hypoalbuminemia Code(s): E88.09 - Other disorders of plasma-protein metabolism, not elsewhere classified Status: Acute (12) Nutrition, metabolism, and development symptoms Code(s): R63.8 - Other symptoms and signs concerning food and fluid intake Status: Acute <Gabriela Dasilva - 03/01/18 09:40> (1) Pneumonia Code(s): J18.9 - Pneumonia, unspecified organism Status: Acute Plan: Critically ill patient admitted meeting sepsis criteria with possible site of infection being pneumonia versus bronchial obstructive pneumonia secondary to metastatic disease. Per chart review patient has been chronically hypotensive in office since August/2017. Plan to discontinue IV antibiotic at this time as patient's blood cultures are negative for 48 hours with goals of care transitioning to comfort measures at this time. CBC 02/23/18: White blood cell count 15.7 with 90.7% neutrophils CBC 02/24/18: WBC 14.5 with 92% neutrophils Lactic acid: 1.5 UA: Negative Chest x-ray: 3.5 cm mass in the right lung and complete opacification of the left hemithorax similar to prior CT on 01/20/18. Chest CTA: No pulmonary emboli, progression in metastatic disease involving the chest, suspected low density mass arising from the pancreas only seen partially on exam, left adrenal gland metastasis, bilateral pleural effusions ( stable) Blood cultures: Negative to date -Sputum cultures: Gram stain showing budding yeast with pseudohyphae with moderate white blood cells Medications: Vancomycin 1 g twice daily (04/25/1810), pharmacy consulted for assistance Zosyn 4.5 g every 8 hours (02/23/1811/14/18) Azithromycin 500 mg daily (02/23/1811/18/18), plan to treat for a total of 5 days Levaquin 750 mg daily (02/24/1811/27/18), plan to treat for a total of 14 days Normal saline at 100 mL/h Diflucan 400 mg daily for 14 days to cover for yeast in his sputum culture (2) Sepsis Code(s): A41.9 - Sepsis, unspecified organism Status: Acute Plan: Patient admitted meeting sepsis criteria with tachycardia, tachypnea, and leukocytosis with suspected site of infection being a possible pneumonia. Plan as above (3) Stage 4 lung cancer Code(s): C34.90 - Malignant neoplasm of unspecified part of unspecified bronchus or lung Status: Acute Plan: Patient with known stage IV lung cancer. Discussed patient's goals of care with thorough education on DNR/DNI of which patient is agreeable to. DNR form completed and placed on chart. Chest CTA: No pulmonary emboli, progression in metastatic disease involving the chest, suspected low density mass arising from the pancreas only seen partially on exam, left adrenal gland metastasis, bilateral pleural effusions ( stable) CT head: Stable area of encephalomalacia in the right frontal lobe, otherwise no acute abnormality Hematology oncology consulted Palliative care consulted Per discussion with patient and POA, agreeable to hospice consult at this time. Hospice contacted and is aware patients and POA's desires for discharge to hospice care center. (4) Dyspnea Code(s): R06.00 - Dyspnea, unspecified Status: Acute Plan: Patient with dyspnea requiring 3 L nasal cannula. Unclear etiology at this time due to multiple factors including but not limited to tumor burden, possible pneumonia, possible heart failure secondary to metastatic disease/ primary failure. Imaging as above Nasal cannula as needed Currently treating for possible infectious source with Levaquin and azithromycin Patient requiring IV fluids with Lasix at this time due to hypercalcemia, Lasix held overnight 02/24/18 due to hypotension (5) Hypercalcemia Code(s): E83.52 - Hypercalcemia Status: Acute Plan: Patient with hypercalcemia of malignancy with previous hospitalizations due to hypercalcemia CMP: Calcium 12.9 (as high as 13.1 on 02/08/18) BMP: Calcium decreased to 10.4 Medications: Normal saline at 100 mL/h Lasix 40 mg twice daily, held 02/24/18 due to hypotension Zoledronic acid ordered 02/23/18 Discussed with oncology for treatment who recommends use of Zometa or Aredia at hospice care center should treatment be required (6) Pancreatic mass Code(s): K86.9 - Disease of pancreas, unspecified Status: Acute Plan: Patient with metastatic disease found to have new pancreatic mass CT as above (7) Chronic pain Code(s): G89.29 - Other chronic pain Status: Acute Plan: Patient has a history of chronic pain secondary to his metastatic lung cancer Takes Percocet at home Continuing Percocet pain scale with IV morphine for breakthrough pain Patient with chronic pain secondary to metastatic disease tumor burden Medications: Continue home Percocet Morphine as needed for breakthrough pain/shortness of breath (8) Elevated brain natriuretic peptide (BNP) level Code(s): R79.89 - Other specified abnormal findings of blood chemistry Status : Acute Plan: Elevated BNP on admission of 1209 Patient has no known history of CHF but has significant pulmonary pathology with his metastatic lung cancer Ordering Lasix 40mg IV x1 Repeat BNP in the morning Patient with elevated BNP on admission without diagnosis of previous CHF. BNP likely elevated due to metastatic disease. Management as above (9) COPD (chronic obstructive pulmonary disease) Code(s): J44.9 - Chronic obstructive pulmonary disease, unspecified Status: Acute Plan: Patient with history of COPD Medications: Solu-Medrol 125 mg IV once in the ED Prednisone 50 mg daily Continue Symbicort Duo nebs scheduled every 4 hours with albuterol nebs as needed every 2 hours Azithromycin and Levaquin as above Acapella ordered Mucomyst 4 times daily to assist with congestion (10) History of DVT (deep vein thrombosis) Code(s): Z86.718 - Personal history of other venous thrombosis and embolism Status: Acute Plan: Known history of DVT Oncologist recently decrease his Xarelto from 20 mg to 10 mg p.o. daily Patient with bilateral lower extremity edema on admission, venous Doppler was negative for DVT Continuing Xarelto 10 mg p.o. daily Patient with history of DVT with recent decrease in Xarelto from 20-10 mg daily per oncologist CTA as above Lower extremity venous Doppler negative for DVT Medications: Continue Xarelto 10 mg daily (11) Hypoalbuminemia Code(s): E88.09 - Other disorders of plasma-protein metabolism, not elsewhere classified Status: Acute Plan: Patient found to have hypoalbuminemia with 2-3+ edema likely secondary to nutritional deficiency. CMP: Albumin 1.8 (2.3-2.8 previous baseline) Regular diet as tolerated Caloric supplements to be added to diet (12) Nutrition, metabolism, and development symptoms Code(s): R63.8 - Other symptoms and signs concerning food and fluid intake Status: Acute Plan: Diet: Regular diet as tolerated with boost supplementation Electrolytes: Hypocalcemia as above, continue to monitor Fluids: Normal saline at 100 mL/h for hypercalcemia treatment Prophylaxis: Percocet/morphine as needed for pain, morphine as needed for shortness of breath, albuterol/DuoNeb nebulizer treatments as needed for shortness of breath, lactobacillus daily, constipation protocol DVT prophylaxis: Anticoagulated on Xarelto 10 mg daily per oncology <Ray Martini H - 02/26/18 13:40> - Assessment and Plan 47-year-old male with a history of stage IV lung cancer, history of hypercalcemia, chronic pain, COPD and history of DVT presented to the emergency room with confusion, fatigue, weakness and shortness of breath. Patient is septic on admission with a suspected source of pneumonia. He was started on azithromycin, vancomycin and Zosyn on admission. He was then transition to oral Levaquin after 48 hours of being afebrile with negative blood cultures. Patient also found to be hypercalcemic and was treated with IV fluids, lasix bid , and zoledronic acid. Oncology was consulted and believes that the patient is not a candidate for further treatments as he has failed multiple chemotherapy and radiation treatments. Palliative care was consulted who recommended hospice , as did the oncology service. <Ray Martini H - 02/26/18 10:55> - Attending Attestation The exam, history, and the medical decision-making described in the above note were completed with the assistance of the resident physician. I reviewed and agree with the findings presented. I attest that I had a [id number] encounter with the patient on the same day, and personally performed and documented my assessment and findings in the medical record. he can respond to steroids and increase his overall condition <Gabriela Dasilva - 03/01/18 09:40>
--- NOTE | 2018-02-26 14:00 | P.DIET ---
Nutritional Evaluation Type of nutrition evaluation: initial Nutrition screening: Weight Loss > 10 lbs Subjective Subjective Comments: Nursing Admission Screening: recent wt loss due to Cancer Objective - Diagnosis hypercalcemia - Objective Body Weight Used for Calculations: Actual (56.7 kg) Energy Needs - Lower Range (kCal/kg): 33 Energy Needs - Upper Range (kCal/kg): 38 Lower Limit kCal/kg (kCals): 1,871 Upper Limit kCal/kg (kCals): 2,155 Lower Limit Protein Factor (Grams per Kg): 1.1 Upper Limit Protein Factor (Grams per Kg): 1.4 Lower Protein Needs (Protein): 62 Upper Protein Needs (Protein): 79 Dietitian Reviewed in Medical Record: Current diet, Curent medications, Intake & Output, Labs, Medical history Diet Order: Regular Oral Diet Intake Amount: Fair 50-75% Objective Comments: PMH includes: Anxiety, COPD, Emphysema, DVT, GERD, Lung Cancer -Stage IV Assessment Assessment: Pt is at nutritional risk r/t recent unintentional wt loss. Pt w/Stage IV Lung Cancer. Plan for pt to transition to hospice care. MD order for Boost supplement TID. Ensure is Boost "in-house" equivalent supplement here. Dietitian to follow as needed. Recommendations: 1. Plan for pt to transition to hospice care 2. MD order for Boost supplement TID: Ensure is Boost "in-house" equivalent supplement here 3. Dietitian to follow as needed
[2018-02-27] MEDS: oxyCODONE/Acetaminophen 10/325 Tablet PO PRN ×4 (00:47→20:22)
[2018-02-27] MEDS: Budesonide-Formoterol 160/4.5 MCG 6 GM Inhaler INH SCH ×2 (00:50→12:43)
[2018-02-27] MEDS: Sod Chloride 0.9% Inj 1,000 ML IV.CONT SCH ×6 (00:53→20:21)
[2018-02-27] MEDS: Rivaroxaban 10 MG Tablet PO SCH (08:48)
[2018-02-27] MEDS: levoFLOXacin 750 MG Tablet PO SCH (08:48)
[2018-02-27] MEDS: Senna/Docusate Sodium 8.6/50 MG Tablet PO SCH ×2 (08:48→20:22)
[2018-02-27] MEDS: Azithromycin 250 MG Tablet PO SCH (08:48)
--- NOTE | 2018-02-27 09:28 | P.PNFP ---
Subjective Interval history: Patient was seen and examined this morning. He has no acute concerns. Duonebs help with air hunger when it occurs. Tolerating ambulation with assistance to bathroom. Aunt has been looking at hospice facilities and will hopefully make decision today regarding hospice discharge. <Valery King L - 02/27/18 09:28> Results - Labs Result diagrams: 02/26/18 06:50 02/26/18 06:50 <Gabriela Dasilva M - 03/01/18 09:43> Physical Exam Vital signs: Vital Signs 02/28/18 20:00 03/01/18 00:00 03/01/18 01:23 Temperature 97.3 F L 97.2 F L Pulse Rate 94 H 95 H 96 H Respiratory Rate 18 18 20 Blood Pressure 113/57 L 94/59 L Pulse Oximetry 100 99 98 03/01/18 08:00 Temperature 97.6 F Pulse Rate 95 H Respiratory Rate 15 Blood Pressure 91/58 L Pulse Oximetry 98 Intake & Output 02/28/18 03/01/18 03/01/18 18:59 06:59 18:59 Intake Total 1700 / 1700 480 / 480 1000 / 1000 Balance 1700 / 1700 480 / 480 1000 / 1000 Weight 69.5 kg Intake: IV 1000 / 1000 1000 / 1000 NS Inj 1,000 ML @ 100 mls/hr IV 1000 / 1000 1000 / 1000 .CONT .Q10H [facility] Rx#:[id number] Oral 700 / 700 480 / 480 Other: # Voids 2 3 <Gabriela Dasilva M - 03/01/18 09:43> Vital Signs 02/26/18 11:33 02/26/18 11:56 02/26/18 16:00 Temperature 98.2 F 97.4 F L Pulse Rate 109 H 104 H 97 H Respiratory Rate 20 18 18 Blood Pressure 88/54 L 83/53 L Pulse Oximetry 99 99 02/26/18 16:30 02/26/18 21:02 02/26/18 21:16 Temperature Pulse Rate 93 H Respiratory Rate 18 18 Blood Pressure Pulse Oximetry 98 02/27/18 00:00 02/27/18 00:48 02/27/18 04:16 Temperature 97.1 F L Pulse Rate 97 H 90 98 H Respiratory Rate 20 20 20 Blood Pressure 87/50 L Pulse Oximetry 99 02/27/18 08:00 Temperature 97.7 F Pulse Rate 104 H Respiratory Rate 19 Blood Pressure 88/51 L Pulse Oximetry 99 Intake & Output 02/26/18 02/27/18 02/27/18 18:59 06:59 18:59 Intake Total 1720 / 1720 1000 / 1000 Output Total 350 / 350 Balance 1370 / 1370 1000 / 1000 Weight 69 kg Intake: IV 1000 / 1000 1000 / 1000 NS Inj 1,000 ML @ 100 mls/hr IV 1000 / 1000 1000 / 1000 .CONT .Q10H [facility] Rx#:[id number] Oral 720 / 720 Output: Urine 350 / 350 Other: # Voids 2 Date of Last Bowel Movement 02/25/18 # Bowel Movements 0 <FernandoValery L - 02/27/18 09:28> Narrative: GENERAL: Frail, older than his apparent age appearing male sitting up in bed receiving breathing treatment. Tachypneic moderately but otherwise appears comfortable. Male relative at bedside assisting patient with needs. SKIN: Cool and dry. No rash. HEENT: Atraumatic, normocephalic with extraocular motions intact. No rhinorrhea. No visible lymphadenopathy or JVD appreciated. CARDIOVASCULAR: Tachycardic rate and regular rhythm with possible S3. No obvious murmur. RESPIRATORY: Completely absent breath sounds to the left lung. Slightly improved aeration of right lung with continued wheezes/crackles. Patient in mild respiratory distress currently patient only able to communicate in short sentences. Overall patient's respiratory rate has decreased, however he remains in slight distress. Currently requiring 4 L nasal cannula GASTROINTESTINAL: Abdomen soft, non-tender, nondistended with positive bowel sounds. No masses appreciated. MUSCULOSKELETAL: No cyanosis or calf tenderness. 2+ pitting edema bilaterally on the lower extremities (right greater than left), nontender. NEURO/PSYCH: Afocal. Awake, alert, and oriented x3. Slowed, but normal speech and judgment. <Valery King - 02/27/18 09:28> Assessment and Plan - Assessment (1) Pneumonia Code(s): J18.9 - Pneumonia, unspecified organism Status: Acute (2) Sepsis Code(s): A41.9 - Sepsis, unspecified organism Status: Acute (3) Stage 4 lung cancer Code(s): C34.90 - Malignant neoplasm of unspecified part of unspecified bronchus or lung Status: Acute (4) Dyspnea Code(s): R06.00 - Dyspnea, unspecified Status: Acute (5) Hypercalcemia Code(s): E83.52 - Hypercalcemia Status: Acute (6) Pancreatic mass Code(s): K86.9 - Disease of pancreas, unspecified Status: Acute (7) Chronic pain Code(s): G89.29 - Other chronic pain Status: Acute (8) Elevated brain natriuretic peptide (BNP) level Code(s): R79.89 - Other specified abnormal findings of blood chemistry Status : Acute (9) COPD (chronic obstructive pulmonary disease) Code(s): J44.9 - Chronic obstructive pulmonary disease, unspecified Status: Acute (10) History of DVT (deep vein thrombosis) Code(s): Z86.718 - Personal history of other venous thrombosis and embolism Status: Acute (11) Hypoalbuminemia Code(s): E88.09 - Other disorders of plasma-protein metabolism, not elsewhere classified Status: Acute (12) Nutrition, metabolism, and development symptoms Code(s): R63.8 - Other symptoms and signs concerning food and fluid intake Status: Acute <Gabriela Dasilva Aamir - 03/01/18 09:43> (1) Pneumonia Code(s): J18.9 - Pneumonia, unspecified organism Status: Acute Plan: Critically ill patient admitted meeting sepsis criteria with possible site of infection being pneumonia versus bronchial obstructive pneumonia secondary to metastatic disease. Per chart review patient has been chronically hypotensive in office since August/2017. Plan to discontinue IV antibiotic at this time as patient's blood cultures are negative for 48 hours with goals of care transitioning to comfort measures at this time. CBC 02/23/18: White blood cell count 15.7 with 90.7% neutrophils CBC 02/24/18: WBC 14.5 with 92% neutrophils Lactic acid: 1.5 UA: Negative Chest x-ray: 3.5 cm mass in the right lung and complete opacification of the left hemithorax similar to prior CT on 01/20/18. Chest CTA: No pulmonary emboli, progression in metastatic disease involving the chest, suspected low density mass arising from the pancreas only seen partially on exam, left adrenal gland metastasis, bilateral pleural effusions ( stable) Blood cultures: Negative to date -Sputum cultures: Gram stain showing budding yeast with pseudohyphae with moderate white blood cells Medications: Vancomycin 1 g twice daily (04/25/1810), pharmacy consulted for assistance Zosyn 4.5 g every 8 hours (02/23/1811/14/18) Azithromycin 500 mg daily (02/23/1811/18/18), plan to treat for a total of 5 days Levaquin 750 mg daily (02/24/1811/27/18), plan to treat for a total of 14 days Normal saline at 100 mL/h Diflucan 400 mg daily for 14 days to cover for yeast in his sputum culture (2) Sepsis Code(s): A41.9 - Sepsis, unspecified organism Status: Acute Plan: Patient admitted meeting sepsis criteria with tachycardia, tachypnea, and leukocytosis with suspected site of infection being a possible pneumonia. Plan as above (3) Stage 4 lung cancer Code(s): C34.90 - Malignant neoplasm of unspecified part of unspecified bronchus or lung Status: Acute Plan: Patient with known stage IV lung cancer. Discussed patient's goals of care with thorough education on DNR/DNI of which patient is agreeable to. DNR form completed and placed on chart. Chest CTA: No pulmonary emboli, progression in metastatic disease involving the chest, suspected low density mass arising from the pancreas only seen partially on exam, left adrenal gland metastasis, bilateral pleural effusions ( stable) CT head: Stable area of encephalomalacia in the right frontal lobe, otherwise no acute abnormality Hematology oncology consulted Palliative care consulted Hospice consulted 02/26 with aunt who is POA reviewing facilities near home for patient, expect discharge to hospice soon (possibly 02/27) (4) Dyspnea Code(s): R06.00 - Dyspnea, unspecified Status: Acute Plan: Patient with dyspnea requiring 3 L nasal cannula. Unclear etiology at this time due to multiple factors including but not limited to tumor burden, possible pneumonia, possible heart failure secondary to metastatic disease/ primary failure. Imaging as above Nasal cannula as needed Currently treating for possible infectious source with Levaquin and azithromycin (start date 02/25/18) Patient requiring IV fluids with Lasix at this time due to hypercalcemia, with calcium noted to have improved on labs 02/26. Lasix held overnight 02/24/18 due to hypotension (5) Hypercalcemia Code(s): E83.52 - Hypercalcemia Status: Acute Plan: Patient with hypercalcemia of malignancy with previous hospitalizations due to hypercalcemia Calcium 10.4 (as high as 13.1 on 02/08/18) Medications: Normal saline at 100 mL/h Lasix 40 mg twice daily, held 02/24/18 due to hypotension Zoledronic acid ordered 02/23/18 Discussed with oncology for treatment who recommends use of Zometa or Aredia at hospice care center should treatment be required (6) Pancreatic mass Code(s): K86.9 - Disease of pancreas, unspecified Status: Acute Plan: Patient with metastatic disease found to have new pancreatic mass CT as above (7) Chronic pain Code(s): G89.29 - Other chronic pain Status: Acute Plan: Patient has a history of chronic pain secondary to his metastatic lung cancer Takes Percocet at home Continuing Percocet pain scale with IV morphine for breakthrough pain Patient with chronic pain secondary to metastatic disease tumor burden Medications: Continue home Percocet Morphine as needed for breakthrough pain/shortness of breath (8) Elevated brain natriuretic peptide (BNP) level Code(s): R79.89 - Other specified abnormal findings of blood chemistry Status : Acute Plan: Elevated BNP on admission of 1209 Patient has no known history of CHF but has significant pulmonary pathology with his metastatic lung cancer Ordering Lasix 40mg IV x1 Repeat BNP 755 on 02/24 Patient with elevated BNP on admission without diagnosis of previous CHF. BNP likely elevated due to metastatic disease. Management as above (9) COPD (chronic obstructive pulmonary disease) Code(s): J44.9 - Chronic obstructive pulmonary disease, unspecified Status: Acute Plan: Patient with history of COPD Medications: Solu-Medrol 125 mg IV once in the ED Prednisone 50 mg daily Continue Symbicort Duo nebs scheduled every 4 hours with albuterol nebs as needed every 2 hours Azithromycin and Levaquin as above Acapella ordered Mucomyst 4 times daily to assist with congestion (10) History of DVT (deep vein thrombosis) Code(s): Z86.718 - Personal history of other venous thrombosis and embolism Status: Acute Plan: Known history of DVT Oncologist recently decrease his Xarelto from 20 mg to 10 mg p.o. daily Patient with bilateral lower extremity edema on admission, venous Doppler was negative for DVT Continuing Xarelto 10 mg p.o. daily Patient with history of DVT with recent decrease in Xarelto from 20-10 mg daily per oncologist CTA as above Lower extremity venous Doppler negative for DVT Medications: Continue Xarelto 10 mg daily (11) Hypoalbuminemia Code(s): E88.09 - Other disorders of plasma-protein metabolism, not elsewhere classified Status: Acute Plan: Patient found to have hypoalbuminemia with 2-3+ edema likely secondary to nutritional deficiency. CMP: Albumin 1.8 (2.3-2.8 previous baseline) Regular diet as tolerated Caloric supplements to be added to diet (12) Nutrition, metabolism, and development symptoms Code(s): R63.8 - Other symptoms and signs concerning food and fluid intake Status: Acute Plan: Diet: Regular diet as tolerated with boost supplementation Electrolytes: Hypocalcemia as above, continue to monitor Fluids: Normal saline at 100 mL/h for hypercalcemia treatment Prophylaxis: Percocet/morphine as needed for pain, morphine as needed for shortness of breath, albuterol/DuoNeb nebulizer treatments as needed for shortness of breath, lactobacillus daily, constipation protocol DVT prophylaxis: Anticoagulated on Xarelto 10 mg daily per oncology <Valery King - 02/27/18 09:18> - Assessment and Plan 47-year-old male with a history of stage IV lung cancer, history of hypercalcemia, chronic pain, COPD and history of DVT presented to the emergency room with confusion, fatigue, weakness and shortness of breath. Patient is septic on admission with a suspected source of pneumonia. He was started on azithromycin, vancomycin and Zosyn on admission. He was then transition to oral Levaquin after 48 hours of being afebrile with negative blood cultures. Patient also found to be hypercalcemic and was treated with IV fluids, lasix bid , and zoledronic acid. Oncology was consulted and believes that the patient is not a candidate for further treatments as he has failed multiple chemotherapy and radiation treatments. Palliative care was consulted who recommended hospice , as did the oncology service. Hospice consulted 02/26/18 and expect discharge to inpatient facility on or around 02/27/18. <Valery King - 02/27/18 09:28> Discussed Condition With: Dr. Gabriela Dasilva, attending physician <Valery King - 02/27/18 09:28> - Attending Attestation The exam, history, and the medical decision-making described in the above note were completed with the assistance of the resident physician. I reviewed and agree with the findings presented. I attest that I had a [id number] encounter with the patient on the same day, and personally performed and documented my assessment and findings in the medical record. will put in his discharge as he is ready for hospice <Gabriela Dasilva - 03/01/18 09:43>
[2018-02-28] MEDS: oxyCODONE/Acetaminophen 10/325 Tablet PO PRN ×4 (02:18→20:58)
[2018-02-28] MEDS: Budesonide-Formoterol 160/4.5 MCG 6 GM Inhaler INH SCH ×2 (02:19→12:58)
[2018-02-28] MEDS: Sod Chloride 0.9% Inj 1,000 ML IV.CONT SCH ×4 (04:27→17:30)
[2018-02-28] MEDS: levoFLOXacin 750 MG Tablet PO SCH (08:36)
[2018-02-28] MEDS: Senna/Docusate Sodium 8.6/50 MG Tablet PO SCH ×2 (08:36→20:17)
[2018-02-28] MEDS: Rivaroxaban 10 MG Tablet PO SCH (08:36)
[2018-02-28] MEDS: Azithromycin 250 MG Tablet PO SCH (08:36)
--- NOTE | 2018-02-28 09:16 | P.PNFP ---
Subjective Interval history: Patient was seen and examined this morning. No acute overnight events reported. Symptoms stable. Per patient's uncle, new plan is to transition to home hospice and then transfer to [facility] in the coming days (bed availability concerns). Questions answered. <Valery King L - 02/28/18 09:44> Results - Labs Result diagrams: 02/26/18 06:50 02/26/18 06:50 <Gabriela Dasilva M - 03/01/18 09:47> Physical Exam Vital signs: Vital Signs 02/28/18 20:00 03/01/18 00:00 03/01/18 01:23 Temperature 97.3 F L 97.2 F L Pulse Rate 94 H 95 H 96 H Respiratory Rate 18 18 20 Blood Pressure 113/57 L 94/59 L Pulse Oximetry 100 99 98 03/01/18 08:00 Temperature 97.6 F Pulse Rate 95 H Respiratory Rate 15 Blood Pressure 91/58 L Pulse Oximetry 98 Intake & Output 02/28/18 03/01/18 03/01/18 18:59 06:59 18:59 Intake Total 1700 / 1700 480 / 480 1000 / 1000 Balance 1700 / 1700 480 / 480 1000 / 1000 Weight 69.5 kg Intake: IV 1000 / 1000 1000 / 1000 NS Inj 1,000 ML @ 100 mls/hr IV 1000 / 1000 1000 / 1000 .CONT .Q10H NBA Rx#:[id number] Oral 700 / 700 480 / 480 Other: # Voids 2 3 <Gabriela Dasilva M - 03/01/18 09:47> Vital Signs 02/27/18 11:32 02/27/18 15:43 02/27/18 19:17 Temperature Pulse Rate 102 H Respiratory Rate 18 14 Blood Pressure Pulse Oximetry 93 L 02/27/18 20:00 02/28/18 00:00 02/28/18 07:23 Temperature 97.2 F L 97.1 F L Pulse Rate 107 H 97 H 96 H Respiratory Rate 20 18 16 Blood Pressure 102/58 L 87/51 L Pulse Oximetry 100 98 100 02/28/18 08:00 Temperature 98.1 F Pulse Rate 95 H Respiratory Rate 18 Blood Pressure 86/53 L Pulse Oximetry 97 Intake & Output 02/27/18 02/28/18 02/28/18 18:59 06:59 18:59 Intake Total 1600 / 1600 1999 Output Total 600 / 600 Balance 1600 / 1600 1400 / 1400 Weight 69.5 kg Intake: IV 1000 / 1000 1999 NS Inj 1,000 ML @ 100 mls/hr IV 1000 / 1000 1999 .CONT .Q10H NBA Rx#:[id number] Oral 600 / 600 Output: Urine 600 / 600 Other: # Voids 4 1 <Valery King - 02/28/18 09:15> Narrative: GENERAL: Frail, older than his apparent age appearing male sitting up in bed receiving breathing treatment. Tachypneic moderately but otherwise appears comfortable. Male relative at bedside assisting patient with needs. SKIN: Cool and dry. No rash. HEENT: Atraumatic, normocephalic with extraocular motions intact. No rhinorrhea. No visible lymphadenopathy or JVD appreciated. CARDIOVASCULAR: Tachycardic rate and regular rhythm with possible S3. No obvious murmur. RESPIRATORY: Completely absent breath sounds to the left lung. Slightly improved aeration of right lung with continued wheezes/crackles. Patient in mild respiratory distress currently patient only able to communicate in short sentences. Overall patient's respiratory rate has decreased, however he remains in slight distress. Currently requiring 4 L nasal cannula GASTROINTESTINAL: Abdomen soft, non-tender, nondistended with positive bowel sounds. No masses appreciated. MUSCULOSKELETAL: No cyanosis or calf tenderness. 2+ pitting edema bilaterally on the lower extremities (right greater than left), nontender. NEURO/PSYCH: Afocal. Awake, alert, and oriented x3. Slowed, but normal speech and judgment. <Valery King L - 02/28/18 09:15> Assessment and Plan - Assessment (1) Pneumonia Code(s): J18.9 - Pneumonia, unspecified organism Status: Acute (2) Sepsis Code(s): A41.9 - Sepsis, unspecified organism Status: Acute (3) Stage 4 lung cancer Code(s): C34.90 - Malignant neoplasm of unspecified part of unspecified bronchus or lung Status: Acute (4) Dyspnea Code(s): R06.00 - Dyspnea, unspecified Status: Acute (5) Hypercalcemia Code(s): E83.52 - Hypercalcemia Status: Acute (6) Pancreatic mass Code(s): K86.9 - Disease of pancreas, unspecified Status: Acute (7) Chronic pain Code(s): G89.29 - Other chronic pain Status: Acute (8) Elevated brain natriuretic peptide (BNP) level Code(s): R79.89 - Other specified abnormal findings of blood chemistry Status : Acute (9) COPD (chronic obstructive pulmonary disease) Code(s): J44.9 - Chronic obstructive pulmonary disease, unspecified Status: Acute (10) History of DVT (deep vein thrombosis) Code(s): Z86.718 - Personal history of other venous thrombosis and embolism Status: Acute (11) Hypoalbuminemia Code(s): E88.09 - Other disorders of plasma-protein metabolism, not elsewhere classified Status: Acute (12) Nutrition, metabolism, and development symptoms Code(s): R63.8 - Other symptoms and signs concerning food and fluid intake Status: Acute <Gabriela Dasilva - 03/01/18 09:47> (1) Pneumonia Code(s): J18.9 - Pneumonia, unspecified organism Status: Acute Plan: Critically ill patient admitted meeting sepsis criteria with possible site of infection being pneumonia versus bronchial obstructive pneumonia secondary to metastatic disease. Per chart review patient has been chronically hypotensive in office since August/2017. Plan to discontinue IV antibiotic at this time as patient's blood cultures are negative for 48 hours with goals of care transitioning to comfort measures at this time. CBC 02/23/18: White blood cell count 15.7 with 90.7% neutrophils CBC 02/24/18: WBC 14.5 with 92% neutrophils Lactic acid: 1.5 UA: Negative Chest x-ray: 3.5 cm mass in the right lung and complete opacification of the left hemithorax similar to prior CT on 01/20/18. Chest CTA: No pulmonary emboli, progression in metastatic disease involving the chest, suspected low density mass arising from the pancreas only seen partially on exam, left adrenal gland metastasis, bilateral pleural effusions ( stable) Blood cultures: Negative to date -Sputum cultures: Gram stain showing budding yeast with pseudohyphae with moderate white blood cells Medications: Vancomycin 1 g twice daily (04/25/1810), pharmacy consulted for assistance Zosyn 4.5 g every 8 hours (02/23/1811/14/18) Azithromycin 500 mg daily (02/23/1811/18/18), plan to treat for a total of 5 days Levaquin 750 mg daily (02/24/1811/27/18), plan to treat for a total of 14 days Normal saline at 100 mL/h Diflucan 400 mg daily for 14 days to cover for yeast in his sputum culture (2) Sepsis Code(s): A41.9 - Sepsis, unspecified organism Status: Acute Plan: Patient admitted meeting sepsis criteria with tachycardia, tachypnea, and leukocytosis with suspected site of infection being a possible pneumonia. Plan as above (3) Stage 4 lung cancer Code(s): C34.90 - Malignant neoplasm of unspecified part of unspecified bronchus or lung Status: Acute Plan: Patient with known stage IV lung cancer. Discussed patient's goals of care with thorough education on DNR/DNI of which patient is agreeable to. DNR form completed and placed on chart. Chest CTA: No pulmonary emboli, progression in metastatic disease involving the chest, suspected low density mass arising from the pancreas only seen partially on exam, left adrenal gland metastasis, bilateral pleural effusions ( stable) CT head: Stable area of encephalomalacia in the right frontal lobe, otherwise no acute abnormality Hematology oncology consulted Palliative care consulted Hospice consulted 02/26 with aunt who is POA reviewing facilities near home for patient, expect discharge to hospice soon (possibly 02/27) (4) Dyspnea Code(s): R06.00 - Dyspnea, unspecified Status: Acute Plan: Patient with dyspnea requiring 3 L nasal cannula. Unclear etiology at this time due to multiple factors including but not limited to tumor burden, possible pneumonia, possible heart failure secondary to metastatic disease/ primary failure. Imaging as above Nasal cannula as needed Currently treating for possible infectious source with Levaquin and azithromycin (start date 02/25/18) Patient requiring IV fluids with Lasix at this time due to hypercalcemia, with calcium noted to have improved on labs 02/26. Lasix held overnight 02/24/18 due to hypotension (5) Hypercalcemia Code(s): E83.52 - Hypercalcemia Status: Acute Plan: Patient with hypercalcemia of malignancy with previous hospitalizations due to hypercalcemia Calcium 10.4 (as high as 13.1 on 02/08/18) Medications: Normal saline at 100 mL/h Lasix 40 mg twice daily, held 02/24/18 due to hypotension Zoledronic acid ordered 02/23/18 Discussed with oncology for treatment who recommends use of Zometa or Aredia at hospice care center should treatment be required (6) Pancreatic mass Code(s): K86.9 - Disease of pancreas, unspecified Status: Acute Plan: Patient with metastatic disease found to have new pancreatic mass CT as above (7) Chronic pain Code(s): G89.29 - Other chronic pain Status: Acute Plan: Patient has a history of chronic pain secondary to his metastatic lung cancer Takes Percocet at home Continuing Percocet pain scale with IV morphine for breakthrough pain Patient with chronic pain secondary to metastatic disease tumor burden Medications: Continue home Percocet Morphine as needed for breakthrough pain/shortness of breath (8) Elevated brain natriuretic peptide (BNP) level Code(s): R79.89 - Other specified abnormal findings of blood chemistry Status : Acute Plan: Elevated BNP on admission of 1209 Patient has no known history of CHF but has significant pulmonary pathology with his metastatic lung cancer Ordering Lasix 40mg IV x1 Repeat BNP 755 on 02/24 Patient with elevated BNP on admission without diagnosis of previous CHF. BNP likely elevated due to metastatic disease. Management as above (9) COPD (chronic obstructive pulmonary disease) Code(s): J44.9 - Chronic obstructive pulmonary disease, unspecified Status: Acute Plan: Patient with history of COPD Medications: Solu-Medrol 125 mg IV once in the ED Prednisone 50 mg daily Continue Symbicort Duo nebs scheduled every 4 hours with albuterol nebs as needed every 2 hours Azithromycin and Levaquin as above Acapella ordered Mucomyst 4 times daily to assist with congestion (10) History of DVT (deep vein thrombosis) Code(s): Z86.718 - Personal history of other venous thrombosis and embolism Status: Acute Plan: Known history of DVT Oncologist recently decrease his Xarelto from 20 mg to 10 mg p.o. daily Patient with bilateral lower extremity edema on admission, venous Doppler was negative for DVT Continuing Xarelto 10 mg p.o. daily Patient with history of DVT with recent decrease in Xarelto from 20-10 mg daily per oncologist CTA as above Lower extremity venous Doppler negative for DVT Medications: Continue Xarelto 10 mg daily (11) Hypoalbuminemia Code(s): E88.09 - Other disorders of plasma-protein metabolism, not elsewhere classified Status: Acute Plan: Patient found to have hypoalbuminemia with 2-3+ edema likely secondary to nutritional deficiency. CMP: Albumin 1.8 (2.3-2.8 previous baseline) Regular diet as tolerated Caloric supplements to be added to diet (12) Nutrition, metabolism, and development symptoms Code(s): R63.8 - Other symptoms and signs concerning food and fluid intake Status: Acute Plan: Diet: Regular diet as tolerated with boost supplementation Electrolytes: Hypocalcemia as above, continue to monitor Fluids: Normal saline at 100 mL/h for hypercalcemia treatment Prophylaxis: Percocet/morphine as needed for pain, morphine as needed for shortness of breath, albuterol/DuoNeb nebulizer treatments as needed for shortness of breath, lactobacillus daily, constipation protocol DVT prophylaxis: Anticoagulated on Xarelto 10 mg daily per oncology <Valery King - 02/28/18 09:43> - Assessment and Plan 47-year-old male with a history of stage IV lung cancer, history of hypercalcemia, chronic pain, COPD and history of DVT presented to the emergency room with confusion, fatigue, weakness and shortness of breath. Admit date 02/23. LE doppler studies negative for DVT. Head CT showing no acute changes. Chest CTA negative for PE, notable for lung mass with mets to pancreas and left adrenal, along with bilateral pleural effusions. Patient is septic on admission with a suspected source of pneumonia. He was started on azithromycin, vancomycin and Zosyn on admission. He was then transition to oral Levaquin after 48 hours of being afebrile with negative blood cultures. Patient also found to be hypercalcemic and was treated with IV fluids, Lasix bid, and zoledronic acid. Oncology was consulted and believes that the patient is not a candidate for further treatments as he has failed multiple chemotherapy and radiation treatments. Apartment Groundskeeper recommended added Boost supplementation to diet. Palliative care was consulted who recommended hospice, as did the oncology service. Hospice consulted 02/26/18 and expect discharge to inpatient facility on or around 02/27/18. <Valery King - 02/28/18 09:15> - Attending Attestation The exam, history, and the medical decision-making described in the above note were completed with the assistance of the resident physician. I reviewed and agree with the findings presented. I attest that I had a [id number] encounter with the patient on the same day, and personally performed and documented my assessment and findings in the medical record. his Aunt is wavering about hospice and has been uncertain about it <Gabriela Dasilva - 03/01/18 09:47>
--- NOTE | 2018-02-28 09:46 | P.DS ---
Date of admission: 02/23/18 23:39 Primary care physician: Chepe Gastelum MD Attending physician on discharge: Gabriela Dasilva Anticipated date of discharge: 02/28/18 Brief History from admission: 47-year-old male with history of metastatic lung cancer, history of hypercalcemia, COPD, history of DVT presented to the emergency room for fatigue , confusion and productive cough. Patient is accompanied by his mother, aunt ( who is power of gis mapping technician). Majority of history is provided by the aunt as the patient has difficulty speaking and feels very ill. Patient does answer questions appropriately when prompted. Patient has had several week history of progressive fatigue/confusion, worsening edema in his bilateral lower extremities, and worsening cough. Patient was seen by his PCP (Dr. Gastelum) and recently completed a 10-day course of Cipro for a suspected upper respiratory infection. His aunt states that his cough is only mildly improved and he continues to have green sputum production as well as wheezing and has requiring increased supplemental oxygen (up to 2-3 L). What prompted the family to bring him in today is that he complained of chest discomfort which is new for him. He had a fever of 102 2 weeks ago but has not had any objective fevers of late per family. Patient update on day of discharge: Patient was seen and examined this morning. No acute overnight events reported. Symptoms stable. Per patient's uncle, new plan is to transition to home hospice and then transfer to [facility] facility in the coming days (bed availability concerns). Questions answered. DS: Diagnosis - Discharge Diagnosis (1) Pneumonia Status: Acute (2) Sepsis Status: Acute (3) Stage 4 lung cancer Status: Acute (4) Dyspnea Status: Acute (5) Hypercalcemia Status: Acute (6) Pancreatic mass Status: Acute (7) Chronic pain Status: Acute (8) Elevated brain natriuretic peptide (BNP) level Status: Acute (9) COPD (chronic obstructive pulmonary disease) Status: Acute (10) History of DVT (deep vein thrombosis) Status: Acute (11) Hypoalbuminemia Status: Acute (12) Nutrition, metabolism, and development symptoms Status: Acute DS: Summary Hospital Course: 47-year-old male with a history of stage IV lung cancer, history of hypercalcemia, chronic pain, COPD and history of DVT presented to the emergency room with confusion, fatigue, weakness and shortness of breath. Admit date 02/23. LE doppler studies negative for DVT. Head CT showing no acute changes. Chest CTA negative for PE, notable for lung mass with mets to pancreas and left adrenal, along with bilateral pleural effusions. Patient is septic on admission with a suspected source of pneumonia. He was started on azithromycin, vancomycin and Zosyn on admission. He was then transition to oral Levaquin after 48 hours of being afebrile with negative blood cultures. Patient also found to be hypercalcemic and was treated with IV fluids, Lasix bid, and zoledronic acid. Oncology was consulted and believes that the patient is not a candidate for further treatments as he has failed multiple chemotherapy and radiation treatments. Professor Of Environmental Science recommended added Boost supplementation to diet. Palliative care was consulted who recommended hospice, as did the oncology service. Hospice consulted 02/26/18 and expect discharge to inpatient facility on or around 02/27/18. - Time Spent with Patient Total time spent providing and/or coordinating discharge services: Less than 30 minutes - Quality: AMI Clinical Trial Participant: No - Quality: Stroke Symptom Onset Unknown: No - Quality: VTE Deep Vein Thrombosis/Pulmonary Embolism Present on Admission: No Exam Vital signs: Vital Signs 02/27/18 11:32 02/27/18 15:43 02/27/18 19:17 Temperature Pulse Rate 102 H Respiratory Rate 18 14 Blood Pressure Pulse Oximetry 93 L 02/27/18 20:00 02/28/18 00:00 02/28/18 07:23 Temperature 97.2 F L 97.1 F L Pulse Rate 107 H 97 H 96 H Respiratory Rate 20 18 16 Blood Pressure 102/58 L 87/51 L Pulse Oximetry 100 98 100 02/28/18 08:00 Temperature 98.1 F Pulse Rate 95 H Respiratory Rate 18 Blood Pressure 86/53 L Pulse Oximetry 97 Intake & Output 02/27/18 02/28/18 02/28/18 18:59 06:59 18:59 Intake Total 1600 / 1600 1999 / 1999 Output Total 600 / 600 Balance 1600 / 1600 1400 / 1400 Weight 69.5 kg Intake: IV 1000 / 1000 1999 / 1999 NS Inj 1,000 ML @ 100 mls/hr IV 1000 / 1000 1999 / 1999 .CONT .Q10H NBA Rx#:[id number] Oral 600 / 600 Output: Urine 600 / 600 Other: # Voids 4 1 Narrative: GENERAL: Frail, older than his apparent age appearing male sitting up in bed receiving breathing treatment. Tachypneic moderately but otherwise appears comfortable. Male relative at bedside assisting patient with needs. SKIN: Cool and dry. No rash. HEENT: Atraumatic, normocephalic with extraocular motions intact. No rhinorrhea. No visible lymphadenopathy or JVD appreciated. CARDIOVASCULAR: Tachycardic rate and regular rhythm with possible S3. No obvious murmur. RESPIRATORY: Completely absent breath sounds to the left lung. Slightly improved aeration of right lung with continued wheezes/crackles. Patient in mild respiratory distress currently patient only able to communicate in short sentences. Overall patient's respiratory rate has decreased, however he remains in slight distress. Currently requiring 4 L nasal cannula GASTROINTESTINAL: Abdomen soft, non-tender, nondistended with positive bowel sounds. No masses appreciated. MUSCULOSKELETAL: No cyanosis or calf tenderness. 2+ pitting edema bilaterally on the lower extremities (right greater than left), nontender. NEURO/PSYCH: Afocal. Awake, alert, and oriented x3. Slowed, but normal speech and judgment. Results Procedures completed during hospitalization: None Pending studies at discharge: None Labs on day of discharge: Preliminary micro results at discharge 02/23/18 19:54 Aerobic Blood Culture - Preliminary Blood - Peripheral No growth in 4 days Anaerobic Blood Culture - Preliminary No growth in 4 days 02/23/18 19:54 Aerobic Blood Culture - Preliminary Blood - Peripheral No growth in 4 days Anaerobic Blood Culture - Preliminary No growth in 4 days - Impressions ITS Impressions Chest X-Ray 02/23/18 19:12 CONCLUSION: 3.5 cm mass in the right lung and complete opacification of the left hemithorax , similar to prior CT 01/20/2018. Venous Doppler Study 02/23/18 19:12 CONCLUSION: 1. The study is negative for bilateral lower extremity deep venous thrombosis. Head CT 02/23/18 19:19 CONCLUSION: 1. Stable area of encephalomalacia involving the right frontal lobe. 2. No acute intracranial abnormality. . Chest CTA 02/23/18 21:06 CONCLUSION: 1. No pulmonary emboli. 2. Progression in the patient's metastatic disease involving the chest. 3. Suspected low-density mass arising from the pancreas only partially seen on this exam. 4. Left adrenal gland metastasis. 5. Bilateral pleural effusions which are stable. Discharge Plan - Discharge Disposition Patient Disposition: [facility] Hospice/Med Facility - Discharge Condition Condition: Stable - Discharge Order Discharge Orders: Discharge Order (Routine); Ordered 02/27/18 Ordered By: Gabriela Dasilva - Discharge Details Anticipated Discharge Date: 02/27/18 Discharge Comment: Discharge to home with hospice vs inpatient hospice facility - Physicians Team Primary Care Provider: Chepe Gastelum Attending Provider: Gabriela Dasilva Other Providers: Boo Christian MD ; Juarez Brown MD
[2018-03-01] MEDS: Budesonide-Formoterol 160/4.5 MCG 6 GM Inhaler INH SCH (01:13)
[2018-03-01] MEDS: Sod Chloride 0.9% Inj 1,000 ML IV.CONT SCH ×5 (01:19→12:32)
[2018-03-01] MEDS: oxyCODONE/Acetaminophen 10/325 Tablet PO PRN ×2 (03:04→09:55)
[2018-03-01 08:58] VITALS: TEMP 97.6
[2018-03-01] MEDS: levoFLOXacin 750 MG Tablet PO SCH (09:27)
[2018-03-01] MEDS: Senna/Docusate Sodium 8.6/50 MG Tablet PO SCH (09:32)
[2018-03-01] MEDS: Rivaroxaban 10 MG Tablet PO SCH (09:32)
[2018-03-01] MEDS: Azithromycin 250 MG Tablet PO SCH (09:32)
--- NOTE | 2018-03-01 09:50 | P.PNFP ---
Subjective Interval history: Patient seen and examined this morning by medical team. No acute events overnight per nursing staff. Patient is accompanied by his uncle during interview and informs medical team that both the patient and his POA/Aunt, Ignacia Torres, are deferring hospice at this time. They plan on being discharged home for Thanksgiving and then consulting hospice shortly after. We thoroughly discussed that they may consult the hospice care team at any time and that there will likely be availability at the care center when that time comes. Both the patient and his uncle stated they understood and all questions were answered. Patient states he has no acute complaints at this time. <Ray Martini H - 03/01/18 12:18> Results - Labs Result diagrams: 02/26/18 06:50 02/26/18 06:50 <Gabriela Dasilva M - 03/02/18 09:33> Physical Exam Vital signs: Vital Signs 03/01/18 10:48 03/01/18 12:00 03/01/18 12:03 Temperature 97.6 F Pulse Rate 115 H 113 H Respiratory Rate 20 16 Blood Pressure 128/76 Pulse Oximetry 85 L Pulse Oximetry [Resting on Room Air] 82 L Pulse Oximetry [Resting with Oxygen] 100 Intake & Output 03/01/18 03/02/18 03/02/18 18:59 06:59 18:59 Intake Total 1300 / 1300 Balance 1300 / 1300 Intake: IV 1300 / 1300 NS Inj 1,000 ML @ 100 mls/hr IV 1300 / 1300 .CONT .Q10H [facility] Rx#:[id number] Other: Date of Last Bowel Movement 02/28/18 <Gabriela Dasilva M - 03/02/18 09:33> Vital Signs 02/28/18 20:00 03/01/18 00:00 03/01/18 01:23 Temperature 97.3 F L 97.2 F L Pulse Rate 94 H 95 H 96 H Respiratory Rate 18 18 20 Blood Pressure 113/57 L 94/59 L Pulse Oximetry 100 99 98 03/01/18 08:00 Temperature 97.6 F Pulse Rate 95 H Respiratory Rate 15 Blood Pressure 91/58 L Pulse Oximetry 98 Intake & Output 02/28/18 03/01/18 03/01/18 18:59 06:59 18:59 Intake Total 1700 / 1700 480 / 480 1000 / 1000 Balance 1700 / 1700 480 / 480 1000 / 1000 Weight 69.5 kg Intake: IV 1000 / 1000 1000 / 1000 NS Inj 1,000 ML @ 100 mls/hr IV 1000 / 1000 1000 / 1000 .CONT .Q10H [facility] Rx#:[id number] Oral 700 / 700 480 / 480 Other: # Voids 2 3 <Ray Martini H - 03/01/18 09:50> Narrative: GENERAL: Frail, older than his apparent age appearing male sitting up in his chair watching television with his uncle at the bedside. Patient in mild respiratory distress with 4 L of nasal oxygen applied. SKIN: Cool and dry. No rash. HEENT: Atraumatic, normocephalic with extraocular motions intact. No rhinorrhea. No visible lymphadenopathy or JVD appreciated. CARDIOVASCULAR: Tachycardic rate and regular rhythm with possible S3. No obvious murmur. RESPIRATORY: Completely absent breath sounds to the left lung. Continued wheezes/crackles of the R lung. Patient in mild respiratory distress currently patient only able to communicate in short sentences. Overall patient's respiratory rate has decreased, however he remains in slight distress. Currently requiring 4 L nasal cannula GASTROINTESTINAL: Abdomen non-tender, nondistended with positive bowel sounds. No masses appreciated. MUSCULOSKELETAL: No cyanosis or calf tenderness. 2+ pitting edema bilaterally on the lower extremities (right greater than left; baseline), nontender. NEURO/PSYCH: Afocal. Awake, alert, and oriented x3. Slowed, but normal speech and judgment. <Ray Martini H - 03/01/18 12:18> Assessment and Plan - Assessment (1) Pneumonia Code(s): J18.9 - Pneumonia, unspecified organism Status: Acute (2) Sepsis Code(s): A41.9 - Sepsis, unspecified organism Status: Resolved (3) Stage 4 lung cancer Code(s): C34.90 - Malignant neoplasm of unspecified part of unspecified bronchus or lung Status: Acute (4) Dyspnea Code(s): R06.00 - Dyspnea, unspecified Status: Acute (5) Hypercalcemia Code(s): E83.52 - Hypercalcemia Status: Acute (6) Pancreatic mass Code(s): K86.9 - Disease of pancreas, unspecified Status: Acute (7) Chronic pain Code(s): G89.29 - Other chronic pain Status: Acute (8) Elevated brain natriuretic peptide (BNP) level Code(s): R79.89 - Other specified abnormal findings of blood chemistry Status : Acute (9) COPD (chronic obstructive pulmonary disease) Code(s): J44.9 - Chronic obstructive pulmonary disease, unspecified Status: Acute (10) History of DVT (deep vein thrombosis) Code(s): Z86.718 - Personal history of other venous thrombosis and embolism Status: Acute (11) Hypoalbuminemia Code(s): E88.09 - Other disorders of plasma-protein metabolism, not elsewhere classified Status: Acute (12) Nutrition, metabolism, and development symptoms Code(s): R63.8 - Other symptoms and signs concerning food and fluid intake Status: Acute <Gabriela Dasilva Aamir - 03/02/18 09:33> (1) Pneumonia Code(s): J18.9 - Pneumonia, unspecified organism Status: Acute Plan: Critically ill patient admitted meeting sepsis criteria with possible site of infection being pneumonia versus bronchial obstructive pneumonia secondary to metastatic disease. Per chart review patient has been chronically hypotensive in office since August/2017. Plan to discontinue IV antibiotic at this time as patient's blood cultures are negative for 48 hours with goals of care transitioning to comfort measures at this time. CBC 02/23/18: White blood cell count 15.7 with 90.7% neutrophils CBC 02/24/18: WBC 14.5 with 92% neutrophils Lactic acid: 1.5 UA: Negative Chest x-ray: 3.5 cm mass in the right lung and complete opacification of the left hemithorax similar to prior CT on 01/20/18. Chest CTA: No pulmonary emboli, progression in metastatic disease involving the chest, suspected low density mass arising from the pancreas only seen partially on exam, left adrenal gland metastasis, bilateral pleural effusions ( stable) Blood cultures: Negative to date -Sputum cultures: Gram stain showing budding yeast with pseudohyphae with moderate white blood cells Medications: Vancomycin 1 g twice daily (04/25/1810), pharmacy consulted for assistance Zosyn 4.5 g every 8 hours (02/23/1811/14/18) Azithromycin 500 mg daily (02/23/1811/18/18), plan to treat for a total of 5 days Levaquin 750 mg daily (02/24/1811/22/18), plan to treat for a total of 10 days Diflucan 400 mg daily for 10 (03/04/18) days to cover for yeast in his sputum culture (2) Sepsis Code(s): A41.9 - Sepsis, unspecified organism Status: Resolved Plan: Patient admitted meeting sepsis criteria with tachycardia, tachypnea, and leukocytosis with suspected site of infection being a possible pneumonia. Plan as above (3) Stage 4 lung cancer Code(s): C34.90 - Malignant neoplasm of unspecified part of unspecified bronchus or lung Status: Acute Plan: Patient with known stage IV lung cancer. Discussed patient's goals of care with thorough education on DNR/DNI of which patient is agreeable to. DNR form completed and placed on chart. Chest CTA: No pulmonary emboli, progression in metastatic disease involving the chest, suspected low density mass arising from the pancreas only seen partially on exam, left adrenal gland metastasis, bilateral pleural effusions ( stable) CT head: Stable area of encephalomalacia in the right frontal lobe, otherwise no acute abnormality Hematology oncology consulted Palliative care consulted Hospice consulted 02/26 with aunt who is POA reviewing facilities near home for patient On 03/01/18, patient and family informed medical team the desire to be discharged home for Thanksgi and then will consult hospice care team for continued care shortly after the holiday (4) Dyspnea Code(s): R06.00 - Dyspnea, unspecified Status: Acute Plan: Patient with dyspnea requiring 3 L nasal cannula. Unclear etiology at this time due to multiple factors including but not limited to tumor burden, possible pneumonia, possible heart failure secondary to metastatic disease/ primary failure. Imaging as above Nasal cannula as needed Currently treating for possible infectious source with Levaquin and azithromycin (start date 02/25/18) Patient requiring IV fluids with Lasix at this time due to hypercalcemia, with calcium noted to have improved on labs 02/26. Lasix held overnight 02/24/18 due to hypotension Discontinue Lasix and IV fluid upon discharge Home walk test ordered for high flow nasal oxygen as needed (5) Hypercalcemia Code(s): E83.52 - Hypercalcemia Status: Acute Plan: Patient with hypercalcemia of malignancy with previous hospitalizations due to hypercalcemia Calcium 10.4 (as high as 13.1 on 02/08/18) Medications: Normal saline at 100 mL/h Lasix 40 mg twice daily, held 02/24/18 due to hypotension Zoledronic acid ordered 02/23/18 Discussed with oncology for treatment who recommends use of Zometa or Aredia at hospice care center should treatment be required (6) Pancreatic mass Code(s): K86.9 - Disease of pancreas, unspecified Status: Acute Plan: Patient with metastatic disease found to have new pancreatic mass CT as above (7) Chronic pain Code(s): G89.29 - Other chronic pain Status: Acute Plan: Patient has a history of chronic pain secondary to his metastatic lung cancer Takes Percocet at home Continuing Percocet pain scale with IV morphine for breakthrough pain Patient with chronic pain secondary to metastatic disease tumor burden Medications: Continue home Percocet Morphine as needed for breakthrough pain/shortness of breath (8) Elevated brain natriuretic peptide (BNP) level Code(s): R79.89 - Other specified abnormal findings of blood chemistry Status : Acute Plan: Elevated BNP on admission of 1209 Patient has no known history of CHF but has significant pulmonary pathology with his metastatic lung cancer Ordering Lasix 40mg IV x1 Repeat BNP 755 on 02/24 Patient with elevated BNP on admission without diagnosis of previous CHF. BNP likely elevated due to metastatic disease. Management as above (9) COPD (chronic obstructive pulmonary disease) Code(s): J44.9 - Chronic obstructive pulmonary disease, unspecified Status: Acute Plan: Patient with history of COPD Medications: Solu-Medrol 125 mg IV once in the ED Prednisone 50 mg daily Continue Symbicort Duo nebs scheduled every 4 hours with albuterol nebs as needed every 2 hours Azithromycin and Levaquin as above Acapella ordered Mucomyst 4 times daily to assist with congestion (10) History of DVT (deep vein thrombosis) Code(s): Z86.718 - Personal history of other venous thrombosis and embolism Status: Acute Plan: Known history of DVT Oncologist recently decrease his Xarelto from 20 mg to 10 mg p.o. daily Patient with bilateral lower extremity edema on admission, venous Doppler was negative for DVT Continuing Xarelto 10 mg p.o. daily Patient with history of DVT with recent decrease in Xarelto from 20-10 mg daily per oncologist CTA as above Lower extremity venous Doppler negative for DVT Medications: Continue Xarelto 10 mg daily (11) Hypoalbuminemia Code(s): E88.09 - Other disorders of plasma-protein metabolism, not elsewhere classified Status: Acute Plan: Patient found to have hypoalbuminemia with 2-3+ edema likely secondary to nutritional deficiency. CMP: Albumin 1.8 (2.3-2.8 previous baseline) Regular diet as tolerated Caloric supplements to be added to diet (12) Nutrition, metabolism, and development symptoms Code(s): R63.8 - Other symptoms and signs concerning food and fluid intake Status: Acute Plan: Diet: Regular diet as tolerated with boost supplementation Electrolytes: Hypocalcemia as above, continue to monitor Fluids: Normal saline at 100 mL/h for hypercalcemia treatment Prophylaxis: Percocet/morphine as needed for pain, morphine as needed for shortness of breath, albuterol/DuoNeb nebulizer treatments as needed for shortness of breath, lactobacillus daily, constipation protocol DVT prophylaxis: Anticoagulated on Xarelto 10 mg daily per oncology <Ray Martini H - 03/01/18 11:56> - Assessment and Plan 47-year-old male with a history of stage IV lung cancer, history of hypercalcemia, chronic pain, COPD and history of DVT presented to the emergency room with confusion, fatigue, weakness and shortness of breath. Admit date 02/23. LE doppler studies negative for DVT. Head CT showing no acute changes. Chest CTA negative for PE, notable for lung mass with mets to pancreas and left adrenal, along with bilateral pleural effusions. Patient is septic on admission with a suspected source of pneumonia. He was started on azithromycin, vancomycin and Zosyn on admission. He was then transition to oral Levaquin after 48 hours of being afebrile with negative blood cultures. Patient also found to be hypercalcemic and was treated with IV fluids, Lasix bid, and zoledronic acid. Oncology was consulted and believes that the patient is not a candidate for further treatments as he has failed multiple chemotherapy and radiation treatments. Drug Safety Assistant recommended added Boost supplementation to diet. Palliative care was consulted who recommended hospice, as did the oncology service. Hospice consulted 02/26/18 and expect discharge to inpatient facility on or around 02/27/18. Patient and family has decided to defer hospice care until after the hol. Per their report, they plan on consulting hospice for continued care shortly after the holiday with likely transport to care facility versus home hospice. Patient to follow-up with PCP within 1 week. Patient to continue fluconazole, levofloxacin for 3 days (10- day treatment) as well as prednisone 50 mg daily. Otherwise all home medications continued upon discharge. <Ray Martini H - 03/01/18 12:18> Discussed Condition With: Dr. Dasilva <Ray Martini H - 03/01/18 12:18> - Attending Attestation The exam, history, and the medical decision-making described in the above note were completed with the assistance of the resident physician. I reviewed and agree with the findings presented. I attest that I had a [id number] encounter with the patient on the same day, and personally performed and documented my assessment and findings in the medical record. some difficulty with deciding placement. his Aunt is not quite ready for hospice <Gabriela Dasilva M - 03/02/18 09:33> Progress Note: Quality - AMI Clinical Trial Participant: No <Ray Martini H - 03/01/18 09:50>
[2018-03-01 13:19] VITALS: BP 128/76; PULSE 113; RESP 16; O2SAT 85
== END 2018-03-01 14:44 | disposition home or self-care (01) ==
LOC: NEPE 18:45 → NEDA 23:39 → NEPFCDU 02-24 02:08 → N07 02-24 19:17
PROVIDERS: ADMIT Family Medicine; ATTEND Family Medicine

== ENCOUNTER 2018-03-19 13:14 | Inpatient (IN) ==
[2018-03-19 13:38] LABS: ABG Base Excess -1.1 mmol/L (-2-2); ABG PCO2 47 mmHg (38-42); ABG PO2 275 mmHg (61-120)
[2018-03-19] MEDS ORDERED: MethylPREDNISolone Sod Succinate Inj 125 MG/2 ML Vial IV.PUSH ONE (13:41)
--- NOTE | 2018-03-19 13:41 | ED ---
HPI General Chief Complaint: Shortness of Breath/Dyspnea Stated Complaint: Emergent Time Seen by Provider: 03/19/18 13:20 Source: family (pt's father at bedside) and EMS Mode of arrival: EMS Limitations: no limitations History of Present Illness Patient is a 47-year-old male with history of progressive non-small cell lung cancer, currently followed up with Dr. Carrillo in the office. Patient presents to the emergency room with complaints of syncopal episode as well as shortness of breath. Dad reports that patient was fine all morning, reports that this afternoon, he was sitting in his chair and he passed out. Patient did not have any trauma to his head or neck. Dad reports that this morning, patient was feeling fine and was talking. Reports that he had a syncopal episode and began to complain of shortness of breath. Dad reports that patient was passed out for only a few minutes and was able to come to. Patient does use 5 L of oxygen nasal cannula at all times, reports concerns as his pulse ox dropped to 82% on 5 L and his heart rate went to 175. When EMS arrived on scene, patient was found to be in A. fib with RVR, they did give him 20 mg of IV Cardizem. Dad also reports that patient is currently being followed at the [facility] [place]. He completed radiation to his chest on 2 occasions, he has also received palliative radiation to his left lung and mediastinum which is completed February 2016. Patient has failed extensive radiation, chemotherapy as well as immunotherapy. Per prior records, patient has a history of DVT which is why take Xarelto. Patient this time request to be full code -he has signed a DNR in the past and wants to rescind this. Related Data Home Medications Medication Instructions Recorded Confirmed albuterol sulfate 1.25 mg INHALATION QID PRN 12/21/17 03/19/18 oxycodone-acetaminophen 1 tab PO Q4H PRN 02/23/18 03/19/18 budesonide-formoterol [Symbicort] 2 puff INHALATION Q12H 02/24/18 03/19/18 rivaroxaban [Xarelto] 10 mg PO DAILY 02/24/18 03/19/18 albuterol sulfate [ProAir HFA] 2 puff INHALATION Q4-6H PRN 03/19/18 03/19/18 Previous Rx's Medication Instructions Recorded prednisone 50 mg PO DAILY #30 tab 03/01/18 Allergies Allergy/AdvReac Type Severity Reaction Status Date / Time No Known Allergies Allergy Unverified 12/21/17 23:11 Review of Systems ROS: all other systems reviewed are negative FOR[facility]LY [facility] Medical History Medical History Anxiety (Acute) COPD (chronic obstructive pulmonary disease) (Acute) DVT (deep venous thrombosis) (Acute) Edema of both legs (Acute) Emphysema lung (Acute) GERD (gastroesophageal reflux disease) (Acute) Lung cancer (Acute) Pericarditis (Acute) Port-A-Cath in place (Acute) Surgical History Surgical History H/O shoulder surgery (Acute) History of lung surgery (Acute) Family History Family History Other Alcohol abuse Depression Family history of cancer Hyperlipidemia Social History Social History Substance History: No History of Abuse Second Hand Smoke Exposure: No Smoking Status: Former smoker Tobacco Type: Cigarettes Packs Per Day: 1 Cigarettes Per Day: 20.0 years: 30 How Often Do You Have a Drink Containing Alcohol: Never Recent Travel in [facility] within the Last 8 Weeks: No Recent Out of Country Travel within the Last 8 Weeks: No Immunization History Tetanus Immunization: Unsure Exam Narrative Exam Narrative: GENERAL: Moderate distress SKIN: Focused skin assessment warm/dry. HEAD: Atraumatic. Normocephalic. EYES: Pupils equal and round. No scleral icterus. No injection or drainage. ENT: No nasal bleeding or discharge. Mucous membranes pink and moist. NECK: Trachea midline. No JVD. CARDIOVASCULAR: Tachycardia. No murmur appreciated. RESPIRATORY: No accessory muscle use. Clear to auscultation. Breath sounds equal bilaterally. GASTROINTESTINAL: Abdomen soft, non-tender, nondistended. Hepatic and splenic margins not palpable. MUSCULOSKELETAL: No obvious deformities. No clubbing. No cyanosis. +3 pitting edema to b/l lower extremity. NEUROLOGICAL: Awake and alert. No obvious cranial nerve deficits. Motor grossly within normal limits. Normal speech. PSYCHIATRIC: Appropriate mood and affect; insight and judgment normal. Procedures Intubation Time Out Performed: Yes Sedative: etomidate Mg Given: 20 Paralytic: succinylcholine Mg Given: 100 Laryngoscope: other (CMAC 4.0) ET Tube Size: 8 ET Tube Uncuffed: Yes Tube Secured Depth (cm): 25 Tube Secured Location: teeth Tube Placement Confirmation: visualized tube passing through cords, equal breath sounds bilaterally, no breath sounds over epigastrium and confirmation by capnometry Patient Tolerated Procedure: well Intubation Complications: none Course Initial Documented Vital Signs Temperature 99.1 F 03/19/18 13:20 Pulse Rate 154 H 03/19/18 13:20 Respiratory Rate 28 H 03/19/18 13:20 Blood Pressure 125/69 03/19/18 13:20 Pulse Oximetry 68 L 03/19/18 13:20 Last Documented Vital Signs Temperature 99.1 F 03/19/18 13:20 Pulse Rate 126 H 03/19/18 15:33 Respiratory Rate 16 03/19/18 15:33 Blood Pressure 122/81 03/19/18 15:33 Pulse Oximetry 99 03/19/18 15:33 Critical Care Time Critical Care Time: Yes Total Critical Care Time: 45 Attestation: Aggregate critical care time was 45 minutes. Time to perform other separately billable procedures was not included in the critical care time. My time did not include minutes spent treating any other patients simultaneously or on activities that did not directly contribute to the patient's treatment. The services I provided to this patient were to treat and/or prevent clinically significant deterioration that could result in: , decompensation, deterioration I provided critical care services requiring my management, as noted below: Chart data review, documentation time, medication orders and management, vital sign assessments/reviewing monitor data, ordering and reviewing lab tests, ordering and interpreting/reviewing x-rays and diagnostic studies, care of the patient and discussion of the patient with the admitting physicians. Medical Decision Making MDM Narrative Medical decision making narrative: During the course of the patients emergency department visit, the patients history, examination, and differential diagnosis were reviewed with the patient. The patient was placed on a cosmetic sales assistant with oximetry and frequent blood pressure monitoring. The patient had an IV access obtained and blood work sent for analysis. Patient was placed on BiPAP due to his hypoxia. An ABG was ordered. Patient is actively wheezing, will give him steroids as well as neb treatments. The patients laboratory studies were reviewed and remarkable for WBC 10.9, hemoglobin 7.9, hematocrit 25.4, platelets 326 Sodium 131, potassium 4.1, BUN 15, creatinine 0.71, TSH 3.7 PH 7.33, PCO2 47, PO2 275 on a nonrebreather. X-ray of the chest shows a stable chest x-ray with near complete opacifications of the left hemithorax with left lung loss, stable right midlung pulmonary mass. cta was ordered to rule out pe - he did have a CTA on February 23, 2018 which showed no pulmonary emboli but did show progression of patient's metastatic disease involving the chest. Patient had a repeat syncopal episode while in the emergency room, it only lasted for a few minutes. Patient is currently an atrial flutter rhythm, patient was given 50 mg of IV Cardizem, he will be started on Cardizem drip. He will be given aspirin. Patient also with a lactate of 3.7, he has been pancultured, he has been given this of Zosyn as well as vancomycin. Patient will require admission to the hospital for further evaluation. Patient began to desat after he was taken off the BiPAP as he cannot tolerate the BiPAP anymore. Patient currently in A. fib with RVR, he was given a dose of Cardizem 15 mg, Cardizem drip was ordered. I talked to patient as well as his father about intubation as patient does appear very tired. Patient reports that he is tired and requested to be intubated Patient was intubated using 8.0 ET tube. After intubation, patient was stable, heart rate in the 110s case reviewed with Dr. Spangler who accepts pt to service Medical Screen Exam Complete: Yes Emergency Medical Condition: Yes Differential Diagnosis Differential Diagnosis: Hypercapnic respiratory failure, COPD exacerbation, pneumonia, electrolyte abnormality, A. fib with RVR, ACS, arrhythmia Lab Data Lab results reviewed: Yes I reviewed the patient's lab results. Result diagrams: 03/19/18 13:35 03/19/18 13:35 Lab Results 03/19/18 03/19/18 03/19/18 Range/Units 13:29 13:35 13:35 WBC 10.9 (4.0-11.0) th/mm3 RBC 3.23 L (4.50-5.90) mil/mm3 Hgb 7.9 L (13.0-17.0) gm/dL Hct 25.4 L (39.0-51.0) % MCV 78.8 L (80.0-100.0) fL MCH 24.4 L (27.0-34.0) pg MCHC 31.0 L (32.0-36.0) % RDW 21.6 H (11.6-17.2) % Plt Count 326 (150-450) th/mm3 MPV 7.1 (7.0-11.0) fL Neut % (Auto) 87.0 H (16.0-70.0) % Lymph % (Auto) 5.3 L (9.0-44.0) % [place] % (Auto) 7.6 (0.0-8.0) % Eos % (Auto) 0.1 (0.0-4.0) % Baso % (Auto) 0.0 (0.0-2.0) % Neut # (Auto) 9.4 H (1.8-7.7) th/mm3 Lymph # (Auto) 0.6 L (1.0-4.8) th/mm3 [place] # (Auto) 0.8 (0.0-0.9) th/mm3 Eos # (Auto) 0.0 (0.0-0.4) th/mm3 Baso # (Auto) 0.0 (0.0-0.2) th/mm3 WBC Differential . Differential Comment Auto diff final PT 15.5 H (9.8-11.6) sec INR 1.5 Ratio APTT 24.2 (23.4-31.7) sec Puncture Site Left radial Patient Temperature 98.6 O2 Saturation 98 (90-100) % ABG pH 7.33 L (7.380-7.420) ABG pCO2 47 H (38-42) mmHg ABG pO2 275 H (61-120) mmHg ABG HCO3 24 (22-26) mmol/L ABG O2 Content 12.8 (12.0-20.0) Vol % ABG Base Excess -1.1 (-2-2) mmol/L ABG Methemoglobin 0.3 (0-2) % Kimo Test Present Hemoglobin 8.8 L (12.0-16.0) G/DL Carboxyhemoglobin 1.6 (0-4) % O2 Delivery Device Non-rebreathing mask Liter Flow 15.00 L/M Inspired O2 100 % Critical Value No Sodium (136-145) meq/L Potassium (3.5-5.1) meq/L Chloride (98-107) meq/L Carbon Dioxide (21.0-32.0) meq/L Anion Gap (5-15) meq/L BUN (7-18) mg/dL Creatinine (0.60-1.30) mg/dL Estimated GFR (>89) mL/min POC Glucose (68-110) mg/dl Random Glucose (74-106) mg/dL Lactic Acid (0.4-2.0) mmol/L Calcium (8.5-10.1) mg/dL Magnesium (1.5-2.5) mg/dL Total Bilirubin (0.2-1.0) mg/dL AST (15-37) U/L ALT (12-78) U/L Alkaline Phosphatase (45-117) U/L Total Creatine Kinase (39-308) U/L Troponin I (0.02-0.05) ng/mL Total Protein (6.4-8.2) g/dL Albumin (3.4-5.0) g/dL 03/19/18 03/19/18 03/19/18 Range/Units 13:35 13:35 13:42 WBC (4.0-11.0) th/mm3 RBC (4.50-5.90) mil/mm3 Hgb (13.0-17.0) gm/dL Hct (39.0-51.0) % MCV (80.0-100.0) fL MCH (27.0-34.0) pg MCHC (32.0-36.0) % RDW (11.6-17.2) % Plt Count (150-450) th/mm3 MPV (7.0-11.0) fL Neut % (Auto) (16.0-70.0) % Lymph % (Auto) (9.0-44.0) % [place] % (Auto) (0.0-8.0) % Eos % (Auto) (0.0-4.0) % Baso % (Auto) (0.0-2.0) % Neut # (Auto) (1.8-7.7) th/mm3 Lymph # (Auto) (1.0-4.8) th/mm3 [place] # (Auto) (0.0-0.9) th/mm3 Eos # (Auto) (0.0-0.4) th/mm3 Baso # (Auto) (0.0-0.2) th/mm3 WBC Differential Differential Comment PT (9.8-11.6) sec INR Ratio APTT (23.4-31.7) sec Puncture Site Patient Temperature O2 Saturation (90-100) % ABG pH (7.380-7.420) ABG pCO2 (38-42) mmHg ABG pO2 (61-120) mmHg ABG HCO3 (22-26) mmol/L ABG O2 Content (12.0-20.0) Vol % ABG Base Excess (-2-2) mmol/L ABG Methemoglobin (0-2) % Kimo Test Hemoglobin (12.0-16.0) G/DL Carboxyhemoglobin (0-4) % O2 Delivery Device Liter Flow L/M Inspired O2 % Critical Value Sodium 131 L (136-145) meq/L Potassium 4.1 (3.5-5.1) meq/L Chloride 99 (98-107) meq/L Carbon Dioxide 25.9 (21.0-32.0) meq/L Anion Gap 6 (5-15) meq/L BUN 15 (7-18) mg/dL Creatinine 0.71 (0.60-1.30) mg/dL Estimated GFR Greater than 89 (>89) mL/min POC Glucose 131 H (68-110) mg/dl Random Glucose 124 H (74-106) mg/dL Lactic Acid 3.7 H (0.4-2.0) mmol/L Calcium 11.5 H (8.5-10.1) mg/dL Magnesium 2.4 (1.5-2.5) mg/dL Total Bilirubin 0.6 (0.2-1.0) mg/dL AST 24 (15-37) U/L ALT 53 (12-78) U/L Alkaline Phosphatase 293 H (45-117) U/L Total Creatine Kinase 100 (39-308) U/L Troponin I 0.04 (0.02-0.05) ng/mL Total Protein 6.4 (6.4-8.2) g/dL Albumin 1.9 L (3.4-5.0) g/dL Imaging Data Attestation: I personally reviewed and interpreted this imaging study as follows : Radiologist's impression: Chest X-Ray 03/19/18 13:27 CONCLUSION: 1. Stable chest x-ray with near complete opacification left hemithorax with left lung volume loss. 2. Stable right midlung zone pulmonary mass. ECG Data EKG Prior to Arrival: Yes Attestation: I personally reviewed and interpreted this ECG as follows: Interpretation: EKG at 1319 shows atrial tachycardia at 135 bpm, QT/QTc 243/322 Discharge Plan Discharge Disposition Patient Disposition: ED Admit(ED Internal Use Only) Discharge Condition Condition: Critical Discharge Details Diagnosis: A-fib, Hypoxia, COPD with acute exacerbation, Acidosis, lactic Physicians Team ED Provider: Tayla Lizarraga Primary Care Provider: Chepe Gastelum Rxs /Orders / Referrals /Forms Prescriptions: No Action albuterol sulfate 1.25 mg/3 mL Solution For Nebulization 1.25 mg INHALATION QID PRN (Reason: Shortness Of Breath Or Wheezing) RF: 0 oxycodone-acetaminophen 10-325 mg Tablet 1 tab PO Q4H PRN (Reason: Pain) RF: 0 budesonide-formoterol [Symbicort] 160-4.5 mcg/actuation Hfa Aerosol Inhaler 2 puff INHALATION Q12H RF: 0 rivaroxaban [Xarelto] 10 mg Tablet 10 mg PO DAILY RF: 0 prednisone 50 mg Tablet 50 mg PO DAILY Qty: 30 RF: 0 albuterol sulfate [ProAir HFA] 90 mcg/actuation Hfa Aerosol Inhaler 2 puff INHALATION Q4-6H PRN (Reason: Shortness Of Breath) RF: 0 Status ED Status: With Doctor
[2018-03-19 13:54] LABS: Eos % (Auto) 0.1 % (0.0-4.0); Hematocrit 25.4 % (39.0-51.0); Hemoglobin 7.9 gm/dL (13.0-17.0); Lymph # (Auto) 0.6 th/mm3 (1.0-4.8); Lymph % (Auto) 5.3 % (9.0-44.0); Mean Corpuscular Hemoglobin 24.4 pg (27.0-34.0); Mean Corpuscular Volume 78.8 fL (80.0-100.0); Mean Platelet Volume 7.1 fL (7.0-11.0); Mono # (Auto) 0.8 th/mm3 (0.0-0.9); Mono % (Auto) 7.6 % (0.0-8.0); Neut # (Auto) 9.4 th/mm3 (1.8-7.7); Platelet Count 326 th/mm3 (150-450); Red Blood Count 3.23 mil/mm3 (4.50-5.90); Red Cell Distribution Width 21.6 % (11.6-17.2); White Blood Count 10.9 th/mm3 (4.0-11.0)
[2018-03-19] MEDS ORDERED: Sodium Chlor 0.9% Inj 500 ML IV.SIG SCH ×2 (14:00→15:00)
[2018-03-19 14:02] LABS: Activated Partial Thrombo Time 24.2 sec (23.4-31.7); INR 1.5 Ratio; Prothrombin Time 15.5 sec (9.8-11.6)
[2018-03-19 14:07] LABS: Albumin 1.9 g/dL (3.4-5.0); Anion Gap 6 meq/L (5-15); Aspartate Aminotransferase 24 U/L (15-37); Blood Urea Nitrogen 15 mg/dL (7-18); Calcium 11.5 mg/dL (8.5-10.1); Carbon Dioxide 25.9 meq/L (21.0-32.0); Chloride 99 meq/L (98-107); Glomerular Filtration Rate Greater Than 89 mL/min (>89); Glucose,Random 124 mg/dL (74-106); Magnesium 2.4 mg/dL (1.5-2.5); Potassium 4.1 meq/L (3.5-5.1); Sodium 131 meq/L (136-145)
[2018-03-19 14:09] LABS: Alanine Aminotransferase 53 U/L (12-78)
[2018-03-19 14:12] LABS: Alkaline Phosphatase 293 U/L (45-117); Total Protein 6.4 g/dL (6.4-8.2); Troponin I 0.04 ng/mL (0.02-0.05)
[2018-03-19 14:15] LABS: Creatine Kinase 100 U/L (39-308)
--- NOTE | 2018-03-19 14:25 | XR ---
EXAM DATE: 03/19/2018 2:14 PM EST AGE/SEX: 47 years / Male INDICATIONS: Shortness of breath and tachycardia. CLINICAL DATA: This is the patient's initial encounter. Patient reports that signs and symptoms have been present for 1 day and indicates a pain score of Nonresponsive. MEDICAL/SURGICAL HISTORY: . Chronic obstructive pulmonary disease. Deep venous thrombosis. Carc inoma, lung. . Infusaport. COMPARISON: [facility] [place], CTA PULMONARY W CONTRAST W 3D, 02/23/2018. [facility] [place], CHEST 1V SINGLE AP, 02/23/2018 . . FINDINGS: Portable AP view of the chest demonstrates near complete opacification of the left hemithorax with si gns of volume loss including elevated left hemidiaphragm and leftward shift of the trachea. Cardiac s ilhouette size is obscured but is not grossly enlarged. Right chest wall [id number] remains presen t. There is stable right midlung zone airspace opacity. No pneumothorax is identified. The bones and soft tissues demonstrate no acute abnormality. CONCLUSION: 1. Stable chest x-ray with near complete opacification left hemithorax with left lung volume loss. 2. Stable right midlung zone pulmonary mass. Electronically signed by: Carlos Pop MD 03/19/2018 2:24 PM EST
[2018-03-19] MEDS ORDERED: Adenosine Inj 6 MG/2 ML Syringe IV.PUSH ONE (14:31)
[2018-03-19] MEDS ORDERED: Piperacil/Tazo 3.375 GM Premix 50 ML IV.SIG ONE (14:40)
[2018-03-19] MEDS ORDERED: Vancomycin Inj 1,000 MG in Sodium Chlor 0.9% Inj 250 ML IV.SIG ONE (14:40)
[2018-03-19] MEDS ORDERED: Etomidate Inj 40 MG/20 ML Vial IV.PUSH ONE (15:13)
[2018-03-19] MEDS ORDERED: Propofol 1000 mg/100 ml Inj 1,000 MG/100 ML BOTTLE ONE (15:23)
[2018-03-19] MEDS ORDERED: Succinylcholine Inj 100 MG/5 ML Syringe IV.PUSH ONE (15:24)
[2018-03-19] MEDS ORDERED: Etomidate Inj 20 MG/10 ML Ampul IV.PUSH ONE (15:24)
[2018-03-19] MEDS: Propofol 1000 mg/100 ml Inj 1,000 MG/100 ML BOTTLE IV.CONT PRN ×2 (15:30→21:21)
[2018-03-19] MEDS: dilTIAZem Inj 125 MG in Sodium Chlor 0.9% Inj 100 ML IV.CONT PRN (15:35)
[2018-03-19] MEDS ORDERED: Bisacodyl 10 MG Supp RECTAL PRN (16:02)
--- NOTE | 2018-03-19 16:09 | CT ---
EXAM DATE: 03/19/2018 4:04 PM EST AGE/SEX: 47 years / Male INDICATIONS: Syncopal episode, altered mental status. CLINICAL DATA: This is the patient's initial encounter. Patient reports that signs and symptoms have been present for 1 day and indicates a pain score of Nonresponsive. MEDICAL/SURGICAL HISTORY: Carcinoma, lung. Deep venous thrombosis. Chronic obstructive pulmonary disease. . Left lung removed. RADIATION DOSE: 66.34 CTDI (mGy) ; Patient motion [place] [facility] [place]. . TECHNIQUE: CT of the head without contrast. Using automated exposure control and adjustment of the mA and/or kV according to patient size, radiation dose was kept as low as reasonably achievable to ob tain optimal diagnostic quality images. DICOM format image data is available electronically for revi ew and comparison. FINDINGS: Cerebrum: The ventricles are normal for age. No evidence of midline shift, mass lesion, hemorrhage or acute infarction. No extraaxial fluid collections are seen. Minimal periventricular ischemic delgado ges with encephalomalacia right frontal lobe. Posterior Fossa: The cerebellum and brainstem are intact. The 4th ventricle is midline. The cerebe llopontine angle is unremarkable. Extracranial: The visualized portion of the orbits is intact. Skull: The calvaria is intact. No evidence of skull fracture. CONCLUSION: 1. Stable CT scan of the head without contrast with minimal periventricular presumed ischemic change s and encephalomalacia right frontal lobe. . Electronically signed by: Matt Eldridge MD 03/19/2018 4:08 PM EST
--- NOTE | 2018-03-19 16:17 | CT ---
EXAM DATE: 03/19/2018 4:08 PM EST AGE/SEX: 47 years / Male INDICATIONS: Shortness of breath, then became unresponsive. CLINICAL DATA: This is the patient's initial encounter. Patient reports that signs and symptoms have been present for 1 day and indicates a pain score of Nonresponsive. MEDICAL/SURGICAL HISTORY: Carcinoma, lung. Chronic obstructive pulmonary disease. Deep venous thr ombosis. Pericarditis. . Left lung removed. RADIATION DOSE: 9.78 CTDI (mGy) COMPARISON: [facility], CTA PULMONARY W CONTRAST W 3D, 02/23/2018. . TECHNIQUE: Volumetric scanning was performed using a multi-row detector CT scanner during bolus infu kelly of 73 ml Omnipaque 350 (iohexol) nonionic water-soluble contrast as a single exam dose. The damaris a was post processed with a variety of visualization algorithms including full volume maximum intensi ty projection and sliding thin slab reformation. Using automated exposure control and adjustment of t he mA and/or kV according to patient size, radiation dose was kept as low as reasonably achievable to obtain optimal diagnostic quality images. DICOM format image data is available electronically for r eview and comparison. FINDINGS: There is near complete opacification of the left hemithorax combination of drowned lung, tumor in the fluid. There is no pulmonary emboli. Large right pleural effusion is evident. ET tube is in good pos ition. Enlarging parenchymal mass is seen anteriorly in the right lung. There is no pericardial effus ion. Left adrenal metastasis is again noted. Low-density mass is again seen arising from the head of the pancreas pancreas with progression but po tirso evaluated on today's exam. CONCLUSION: 1. Negative for central pulmonary emboli 2. Noted complete opacification of the left hemithorax. There is direct invasion of the mediastinum from apparent tumor. This Tumor is compressing the right ventricle Electronically signed by: Matt Eldridge MD 03/19/2018 4:16 PM EST
--- NOTE | 2018-03-19 16:40 | XR ---
EXAM DATE: 03/19/2018 4:33 PM EST AGE/SEX: 47 years / Male INDICATIONS: ET tube/OG tube placement CLINICAL DATA: This is the patient's initial encounter. Patient reports that signs and symptoms have been present for 1 day and indicates a pain score of Nonresponsive. MEDICAL/SURGICAL HISTORY: . Chronic obstructive pulmonary disease. Deep venous thrombosis. Carc inoma, lung. . Infusaport COMPARISON: [facility], CHEST 1V SINGLE AP, 03/19/2018. . FINDINGS: The endotracheal tube, nasogastric tube are in good position. There is a right-sided infusion port ca theter in good position. There is near complete opacification of the left lung. Left hemidiaphragm is markedly elevated. There is some airspace disease right midlung zone. There is diffuse pulmonary vas cular congestion. Marked osteoarthritis right shoulder. CONCLUSION: ET tube and NG tube both in good position. Again near-complete opacification left hemithorax with a l arge pleural effusion and volume loss. Diffuse perihilar vascular congestion with a stable infiltrate right midlung zone Electronically signed by: Suhas Law MD 03/19/2018 4:39 PM EST
[2018-03-19 16:45] LABS: Bilirubin,Urine Negative (Negative); Clarity,Urine Cloudy (Clear); Glucose,Urine (UA) 50 mg/dL (Negative); Hyaline Casts,Urine 15 /lpf (0-3); Leukocyte Esterase,Urine Negative (Negative); Mucus,Urine Few /lpf (Occasional); Nitrite,Urine Negative (Negative); Specific Gravity,Urine 1.021 (1.002-1.035); Squamous Epithelial Cell,Urine 1 /hpf (0-5)
[2018-03-19 16:52] LABS: Color,Urine Yellow (Yellw/Straw)
--- NOTE | 2018-03-19 17:01 | P.HPCC ---
History of Present Illness Service: ICU Primary Care Physician: Chepe Gastelum MD Chief Complaint: Dyspnea History of Present Illness: This is a 47-year-old male that earlier this afternoon at home had increasing shortness of breath and a syncopal episode. Of note the patient is normally on 5 L nasal cannula but as he became short of breath O2 saturation remained in the 80s heart rate was in the 170s when EMS arrived. The patient received 20 mg of Cardizem IV and was placed on BiPAP and transported to [facility] emergency room. Upon arrival the patient was noted to still be in what appeared to be A. fib RVR and received 15 mg Cardizem IV and was placed on a Cardizem drip. In the ED ,the patient was noted to have 2 additional syncopal episodes and increased work of breathing and tiring out. The patient requested to be intubated. Of note ,the patient's past medical history is significant for non-small cell carcinoma being followed by Dr. Lorena green the patient subsequently has metastatic disease and failed palliative radiation 02/26/2018 on hospital discharge the patient had agreed to hospice care and was looking forward to it,however today the patient changed CODE STATUS from DNR to full code in the emergency room. The patient's past medical history is significant for stage IV lung cancer, pancreatic mass, hypercalcemia, COPD, and a history of DVT currently on Xarelto. Critical care medicine was consulted. - Diagnosis (1) Pleural effusion (2) Protein-calorie malnutrition (3) Hypoxia (4) Lung cancer (5) Lactic acid blood increased (6) COPD exacerbation (7) Atrial fibrillation with RVR Inpatient Certification: I certify that the inpatient services were ordered in accordance with Medicare regulations governing the order. This includes certification that hospital inpatient services are reasonable and necessary and in the case of services not specified as inpatient-only under 42 CFR 419.22(n), that they are appropriately provided as inpatient services in accordance to with the 2-midnight benchmark under 43 CFR 412.3(e) Estimated Total Length of Stay (Days): 5 Plans for Post Hospital Care: Not yet determined Review of Systems unobtainable due to endotracheal tube PMFSH - History History Provided By: Patient - Medical History Medical History: Medical History (Last Reviewed 03/19/18 @ 13:40 by Tayla Lizarraga) Edema of both legs Pericarditis Anxiety COPD (chronic obstructive pulmonary disease) DVT (deep venous thrombosis) Emphysema lung GERD (gastroesophageal reflux disease) Lung cancer Port-A-Cath in place - Surgical History Surgical History: Surgical History (Last Reviewed 03/19/18 @ 13:40 by Tayla Lizarraga) History of lung surgery H/O shoulder surgery - Family History Family History: Family History (Last Reviewed 03/19/18 @ 13:40 by Tayla Lizarraga) Other Alcohol abuse Depression Family history of cancer Hyperlipidemia - Tobacco History Second Hand Smoke Exposure: No Smoking Status: Former smoker Tobacco Type: Cigarettes Packs Per Day: 1 years: 30 - Alcohol History How Often Do You Have a Drink Containing Alcohol: Never - Substance Use History Substance History: No History of Abuse - Travel History Recent Travel in the [place] Within the Last 8 Weeks: No Recent Travel Out of the Country Within the Last 8 Weeks: No - Immunization History Tetanus Immunization: Unsure Medications and Allergies Active Medications: Active Medications Al Hydroxide/Mg Hydroxide (Milk Of [place] Liq) 30 ml PO Q12H PRN PRN Reason: Mild Constipation Albuterol (Duoneb Neb (Santana)) 1 ampul NEB Q4HR NEB SANTANA Albuterol (Duoneb Neb (Prn)) 1 ampul NEB Q2HR NEB PRN PRN Reason: SHORTNESS OF BREATH Bisacodyl (Dulcolax Supp) 10 mg RECTAL DAILY PRN PRN Reason: SEVERE CONSITIPATION Chlorhexidine Gluconate (Peridex 0.12% Oral Kit) 15 ml OROPHARYNG BID@0800, 2000 [facility] Chlorhexidine Gluconate (Chlorhexidine 2% Cloth) 3 pack TOPICAL DAILY@0400 SANTANA Stop: 03/25/18 03:59 Chlorhexidine Gluconate (Chlorhexidine 2% Cloth) 3 pack TOPICAL DAILY@0400 PRN PRN Reason: Extra cloth needed Stop: 03/25/18 03:59 Famotidine (Pepcid) 20 mg PO BID [facility] Famotidine (Pepcid Pf Inj) 20 mg IV.PUSH Q12HR [facility] Diltiazem HCl 125 mg/ Sodium (Chloride) 125 mls @ 5 mls/hr IV.CONT TITRATE PRN ; Protocol PRN Reason: Per Protocol Last Admin: 03/19/18 15:35 Dose: 5 mg/hr, 5 mls/hr Propofol (Diprivan 1000 Mg/100 Ml Inj) 1,000 mg in 100 mls @ 2.041 mls/hr IV.CONT TITRATE PRN; Protocol PRN Reason: Per Protocol Last Titration: 03/19/18 16:16 Dose: 15 mcg/kg/min, 6.12 mls/hr Sodium Chloride (Ns Inj) 1,000 mls @ 84 mls/hr IV.CONT .[id number] SANTANA Lactulose (Lactulose Liq) 30 ml PO DAILY PRN PRN Reason: SEVERE CONSITIPATION Miscellaneous Medication () 1 each OROPHARYNG 0000,0400,1200,1600 SANTANA Ondansetron HCl (Zofran Inj) 4 mg IV.PUSH Q6H PRN PRN Reason: NAUSEA OR VOMITING Senna/Docusate Sodium (Donna-Colace) 1 tab PO BID SANTANA Sennosides (Senokot) 17.2 mg PO Q12H PRN PRN Reason: Moderate Constipation Sodium Chloride (Ns Flush) 2 ml IV.FLUSH BID SANTANA Sodium Chloride (Ns Flush) 2 ml IV.FLUSH UNSCH PRN PRN Reason: FLUSH AFTER USING IV ACCESS Allergies Allergy/AdvReac Type Severity Reaction Status Date / Time No Known Allergies Allergy Unverified 12/21/17 23:11 Home Medications Medication Instructions Recorded Confirmed Type albuterol sulfate 1.25 mg INHALATION QID PRN 12/21/17 03/19/18 History oxycodone-acetaminophen 1 tab PO Q4H PRN 02/23/18 03/19/18 History budesonide-formoterol [Symbicort] 2 puff INHALATION Q12H 02/24/18 03/19/18 History rivaroxaban [Xarelto] 10 mg PO DAILY 02/24/18 03/19/18 History albuterol sulfate [ProAir HFA] 2 puff INHALATION Q4-6H PRN 03/19/18 03/19/18 History Results - Labs CBC & Chem 7: 03/19/18 13:35 03/19/18 13:35 Labs: Short CBC 03/19/18 Range/Units 13:35 WBC 10.9 (4.0-11.0) th/mm3 Hgb 7.9 L (13.0-17.0) gm/dL Hct 25.4 L (39.0-51.0) % Plt Count 326 (150-450) th/mm3 BMP 03/19/18 13:35 Sodium 131 L Potassium 4.1 Chloride 99 Carbon Dioxide 25.9 BUN 15 Creatinine 0.71 Calcium 11.5 H Cardiac Enzymes 03/19/18 Range/Units 13:35 Total Creatine Kinase 100 (39-308) U/L Troponin I 0.04 (0.02-0.05) ng/mL Liver Function 03/19/18 Range/Units 13:35 Total Bilirubin 0.6 (0.2-1.0) mg/dL AST 24 (15-37) U/L ALT 53 (12-78) U/L Alkaline Phosphatase 293 H (45-117) U/L Albumin 1.9 L (3.4-5.0) g/dL Urine 03/19/18 Range/Units 16:00 Urine Color Yellow (Yellw/Straw) Urine Clarity Cloudy H (Clear) Urine pH 6.0 (5.0-8.5) Ur Specific [place] 1.021 (1.002-1.035) Urine Protein 100 H (Neg-Trace) mg/dL Urine Glucose (UA) 50 (Negative) mg/dL - Imaging Impressions Chest CTA 03/19/18 13:27 CONCLUSION: 1. Negative for central pulmonary emboli 2. Noted complete opacification of the left hemithorax. There is direct invasion of the mediastinum from apparent tumor. This Tumor is compressing the right ventricle Chest X-Ray 03/19/18 13:27 CONCLUSION: 1. Stable chest x-ray with near complete opacification left hemithorax with left lung volume loss. 2. Stable right midlung zone pulmonary mass. Chest X-Ray 03/19/18 15:24 CONCLUSION: ET tube and NG tube both in good position. Again near-complete opacification left hemithorax with a large pleural effusion and volume loss. Diffuse perihilar vascular congestion with a stable infiltrate right midlung zone Head CT 03/19/18 15:35 CONCLUSION: 1. Stable CT scan of the head without contrast with minimal periventricular presumed ischemic changes and encephalomalacia right frontal lobe. . Exam Vital signs: Vital Signs 03/19/18 13:20 03/19/18 13:30 03/19/18 13:35 Temperature 99.1 F Pulse Rate 154 H 154 H 154 H Respiratory Rate 28 H 24 Blood Pressure 125/69 125/69 Pulse Oximetry 68 L 100 100 03/19/18 13:40 03/19/18 13:54 03/19/18 13:55 Temperature Pulse Rate 126 H 156 H Respiratory Rate Blood Pressure 104/59 L Pulse Oximetry 100 100 100 03/19/18 13:56 03/19/18 14:00 03/19/18 14:11 Temperature Pulse Rate 114 H 154 H 156 H Respiratory Rate 35 H Blood Pressure 92/59 L Pulse Oximetry 100 100 03/19/18 14:35 03/19/18 14:43 03/19/18 15:15 Temperature Pulse Rate 150 H 112 H 93 H Respiratory Rate 26 H Blood Pressure 95/54 L 92/51 L 127/56 L Pulse Oximetry 99 95 80 L 03/19/18 15:20 03/19/18 15:33 03/19/18 15:53 Temperature Pulse Rate 126 H 126 H 111 H Respiratory Rate 18 16 Blood Pressure 122/69 122/81 103/58 L Pulse Oximetry 100 99 03/19/18 16:16 03/19/18 16:44 Temperature Pulse Rate 113 H Respiratory Rate 16 25 H Blood Pressure 104/61 Pulse Oximetry 99 97 Intake & Output 03/18/18 03/19/18 03/19/18 18:59 06:59 18:59 Intake Total 550 / 550 Balance 550 / 550 Weight 68.039 kg Intake: IV 550 / 550 Zosyn 3.375 GM Premix 50 ML @ 50 / 50 100 mls/hr IV.SIG ONCE ONE Rx#: [id number] NS Inj 500 ML @ 1000 mls/hr IV. 500 / 500 SIG BOLUS SANTANA Rx#:[id number] - Constitutional chronically ill appearing - Routine HEENT Exam Head: Present: normocephalic Eye: Present: PERRL ENT: Present: mucous membranes moist, dentition normal, nares patent, external ear normal - Routine Respiratory Exam Present: patient mechanically ventilated, decreased breath sounds - Routine Cardiovascular Exam Present: S1, S2, irregularly irregular - Routine Abdominal Exam Present: soft, normoactive bowel sounds - Routine Extremities Exam Present: full ROM, pulses intact - Routine Skin Exam Present: intact, normal turgor Caprini VTE Risk Assessment Caprini VTE Risk Assessment: No/Low Risk (score <= 1) VTE Pharmacological Exception Reason: Coagulopathy,INR elevated Caprini Risk Assessment Model: Point Value = 1 Point Value = 2 Point Value = 3 Point Value = 5 Age 41-60 Minor surgery BMI > 25 kg/m2 Swollen legs Varicose veins or History of unexplained or recurrent spontaneous Oral contraceptives or hormone replacement Sepsis (< 1 month) Serious lung disease, including pneumonia (< 1 month) Abnormal pulmonary function Acute myocardial infarction Congestive heart failure (< 1 month) History of inflammatory bowel disease Medical patient at bed rest Age 61-74 Arthroscopic surgery Major open surgery (> 45 min) Laparoscopic surgery (> 45 min) Malignancy Confined to bed (> 72 hours) Immobilizing plaster cast Central venous access Age >= 75 History of VTE Family history of VTE Factor V Leiden Prothrombin [id number] Lupus anticoagulant Anticardiolipin antibodies Elevated serum homocysteine Heparin-induced thrombocytopenia Other congenital or acquired thrombophilia Stroke (< 1 month) Elective arthroplasty Hip, pelvis, or leg fracture Acute spinal cord injury (< 1 month) Prophylaxis Regimen: Total Risk Factor Score Risk Level Prophylaxis Regimen 0-1 Low Early ambulation 2 Moderate Order ONE of the following: *Sequential Compression Device (SCD) *Heparin 5000 units SQ BID 3-4 Higher Order ONE of the following medications: *Heparin 5000 units SQ TID *Enoxaparin/Lovenox 40 mg SQ daily (WT < 150 kg, CrCl > 30 mL/min) *Enoxaparin/Lovenox 30 mg SQ daily (WT < 150 kg, CrCl > 10-29 mL/min) *Enoxaparin/Lovenox 30 mg SQ BID (WT < 150 kg, CrCl > 30 mL/min) AND/OR *Sequential Compression Device (SCD) 5 or more Highest Order ONE of the following medications: *Heparin 5000 units SQ TID (Preferred with Epidurals) *Enoxaparin/Lovenox 40 mg SQ daily (WT < 150 kg, CrCl > 30 mL/min) *Enoxaparin/Lovenox 30 mg SQ daily (WT < 150 kg, CrCl > 10-29 mL/min) *Enoxaparin/Lovenox 30 mg SQ BID (WT < 150 kg, CrCl > 30 mL/min) AND *Sequential Compression Device (SCD) Assessment and Plan - Problem List (1) Pleural effusion Code(s): J90 - Pleural effusion, not elsewhere classified Status: Acute (2) Protein-calorie malnutrition Code(s): E46 - Unspecified protein-calorie malnutrition Status: Acute (3) Hypoxia Code(s): R09.02 - Hypoxemia Status: Acute (4) Lung cancer Code(s): C34.90 - Malignant neoplasm of unspecified part of unspecified bronchus or lung Status: Acute (5) Lactic acid blood increased Code(s): R79.89 - Other specified abnormal findings of blood chemistry Status : Acute (6) COPD exacerbation Code(s): J44.1 - Chronic obstructive pulmonary disease with (acute) exacerbation Status: Acute (7) Atrial fibrillation with RVR Code(s): I48.91 - Unspecified atrial fibrillation Status: Acute - Assessment and Plan Plan: Assessment: This is a 47-year old male with metastatic non-small cell carcinoma with metastasis, per review of CT imaging now with mediastinal tumor invasion, and compression of tumor on the right ventricle. The patient was recently discharged 02/26 2018 to hospice. Upon entering the emergency room today the patient changed CODE STATUS from DNR to full code and required emergent intubation. The patient is noted to have a very large right pleural effusion in addition to the above-stated comorbidities. The patient is critically ill. Prognosis is poor. Admit to ICU. Plan by systems: Neurologic: Pain Continue fentanyl and propofol infusions to maintain ventilator synchrony and analgesia Neuro checks per ICU protocol Daily sedation vacation Tylenol 650 mg every 6 hours as needed for pain Respiratory: Acute hypoxemic respiratory failure Metastatic lung cancer Large right pleural effusion COPD exacerbation Stage IV non-small cell lung cancer with metastasis S/P XRT Patient emergently intubated in the ED Follow-up chest x-ray Duo nebs every 4 hours scheduled ABG-7.29/52/386/24/-1, increased respiratory rate Patient has large right pleural effusion which will need thoracentesis or possible pigtail placement for malignant effusion. Patient chronically on Xarelto, last taken today. Planned reversal with Andexx (coagulation factor X a reversal ) unavailable at the hospital at this time. patient is oxygenation stable at this time. Patient will require reversal of Xarelto for placement of thoracostomy tube/and/or thoracentesis. Will require reversal with coagulation factors (PCC). Cardiovascular: Mediastinal tumor invasion Metastatic tumor compression right ventricle History of DVT A. fib RVR Obtain EKG Obtain echo Noted port right chest-we will utilize for access Maintain MAP > 65mmHG-patient may require vasopressors secondary to compression on right ventricle Continue Cardizem infusion 03/19 chest x-raydiffuse perihilar vascular congestion with a stable infiltrate right midlung 03/19 CT angiogram-negative for pulmonary embolus. Direct invasion of mediastinum from tumor. Tumor is compressing the right ventricle appear near complete opacification of left hemothorax combination with drown lung tumor in the fluid. Large right pleural effusion is evident team parenchymal mass seen anterior in the right lung. Left adrenal metastasis. Renal: Insert Major -- Strict I/Os FEN/GI: Hyponatremia Pancreatic mass Adrenal mass Maintain n.p.o. status for now Monitor BMP Place OG tube Heme/ID: Anemia of chronic disease Lactic acidemia Begin normal saline IV 84 cc an hour Obtain blood sputum and urine cultures Began prophylactic antibiotics vancomycin ,Zosyn and Zithromax Consult Ynkw-Ahd-dlsxxsug physician Dr. Carrillo Endocrine: Hyperglycemia critically illness Glucose monitoring per ICU protocol -- SSI Prophylaxis: GI Prophylaxis Famotidine DVT Prophylaxis -- SCDs. No pharmacological prophylaxis indicated at this time peer patient is normally on Xarelto at home secondary to history of DVT patient will need/ require invasive procedures Lines: Peripheral IVs providing adequate access. Right port cath in situ. Central line if indicated Dispo: My billing statement This patient remains critically ill with one or more organ systems which are or may become a threat to life. I have spent in excess of 58 minutes discontinuously in the care and management of this patient. This time is exclusive of procedures, and includes, but is not limited to, evaluation of the patient, review of the medical record, discussions with family, consultants, nursing staff, or respiratory therapy, and documentation in the medical record. This patient has multiple comorbidities with multiorgan dysfunction. He is at risk for decompensation or . Palliative care medicine has been consulted. Code Status: Full Discussed Condition With: JAVA MANAGER at bedside
[2018-03-19] MEDS: Sod Chloride 0.9% Inj 1,000 ML IV.CONT SCH (17:20)
[2018-03-19 17:21] LABS: ABG PCO2 53 mmHg (38-42); ABG PO2 386 mmHG (61-120)
[2018-03-19] MEDS: fentaNYL 10 mcg/mL Premix Drip 2,500 MCG/250 ML BAG IV.SIG PRN (17:57)
[2018-03-19] MEDS ORDERED: Vancomycin Consult Pharmacy OTHER PRN (18:01)
--- NOTE | 2018-03-19 18:12 | P.PNPAL ---
Upon review of [facility] records, the patient was NOT discharged home with hospice, notes indicate family elected to go home without hospice upon DC from [place] on 03/01/18. Hospice made contact again on 03/05/18 and family reported patient was "doing better and will call when they need hospice. " Family requested no follow up calls from hospice. Palliative care was consulted on this patient, will complete formal palliative care consult on Thursday03/22/18 as goals have been established, pt elected FULL CODE and is now on [facility].
[2018-03-19] MEDS: MethylPREDNISolone Sod Succinate Inj 40 MG/ML Vial IV.PUSH SCH ×2 (18:39→22:35)
[2018-03-19] MEDS ORDERED: Famotidine PF Inj 20 MG/2 ML Vial IV.PUSH SCH (21:00)
[2018-03-19] MEDS: Famotidine PF Inj 20 MG/2 ML Vial IV.PUSH SCH (21:24)
[2018-03-19] MEDS: Chlorhexidine 0.12% Oral Kit 15 ML UDC OROPHARYNG SCH (21:28)
[2018-03-19] MEDS: Azithromycin Inj 250 MG in Sodium Chlor 0.9% Inj 250 ML IV.SIG SCH (21:28)
[2018-03-19] MEDS: Senna/Docusate Sodium 8.6/50 MG Tablet PO SCH (21:29)
[2018-03-19] MEDS: Piperacil/Tazo 3.375 GM Premix 50 ML IV.SIG SCH (21:29)
[2018-03-19] MEDS: Famotidine 20 MG Tablet PO SCH (22:33)
--- NOTE | 2018-03-19 22:55 | MB ---
cc: Boo Christian MD DATE: 03/19/2018 PATIENT PROFILE: The patient is a 47-year-old male. He is single. He lives with his aunt Ignacia, who has looked after him for the past several years. He stopped smoking a year ago and smoked a pack of cigarettes per day for 30 years. He has no children. When he was well, he did maintenance work. HISTORY OF PRESENT ILLNESS: The patient is a 47-year-old male whose history dates back to 05/2015 when he was found to have an 8.5 cm mass in the left perihilar region involving the mediastinum as well as multiple satellite lesions. A diagnosis of squamous cell cancer of the lung was made. He was treated with 6 cycles of carboplatin and Taxol completed in 09/2015. He developed progressive disease and was treated with nivolumab, which is immunotherapy. In 01/2016, he required a pericardial window. He received radiation to the left lung and mediastinum completed in 02/2016. Following this, he went to the [facility] and received additional radiation as well as nivolumab. Several months ago, he had received further nivolumab and it became clear that he had progressive disease. He was not a candidate for additional surgery, radiation, chemotherapy, immunotherapy, or targeted therapy. He has a history of venous thrombosis and takes Xarelto 15 mg a day. He was recently hospitalized and had evidence of progression of the tumor with a 14 cm mass in the left lung, a low density mass in the pancreas, bilateral effusions, and a left adrenal metastases. At the time of hospitalization, it appeared that he would be going to the [facility]. He elected not to and he returned home. Prior to discharge from the hospital, I spoke to him about cardiopulmonary resuscitation and he decided that he did not want to be put on a ventilator or be resuscitated at the end of life. He was relatively stable at home and then developed acute respiratory failure and tachycardia. He was brought to [facility]. When seen in the emergency room, he changed his status in terms of his cardiopulmonary resuscitation and was intubated. I am now seeing him in the ICU. He was intubated and is currently on a ventilator. He is sedated. He had a CTA of the thorax performed on 03/19/2018. He now has a moderately large right pleural effusion. There is an enlarging mass in the right lung. He has extensive tumor occupying most of the left hemithorax. He has drowned lung with effusion and mass in the left lung. The tumor on the CTA was noted to directly invade the mediastinum and was compressing the right ventricle. LABORATORY TESTS: On 03/19/2018, hemoglobin 7.9, white count 10,900, platelets 226,000. Calcium is 11.5 with an albumin of 1.9 indicating recurrent hypercalcemia. Alkaline phosphatase is 293. PAST SURGICAL HISTORY: 1. Bronchoscopy with endobronchial biopsy 05/2015. 2. CT-guided biopsy of left lung mass. 3. Infusaport placement and pericardial window. PAST MEDICAL HISTORY: Stage IV squamous cell carcinoma of the lung, status post chemotherapy, radiation therapy, and immunotherapy with nivolumab. venous thrombolic disease MEDICATIONS PRIOR TO ADMISSION: Included 1. Xarelto 10 mg a day. 2. Prednisone. 3. Acetaminophen. 4. Percocet 10/325. 5. Albuterol. ALLERGIES: NO KNOWN ALLERGIES. FAMILY HISTORY: Noncontributory. PHYSICAL EXAMINATION: GENERAL: terminally ill male. He is on a ventilator. VITAL SIGNS: Blood pressure 90/57, respiratory rate is 28, pulse 100, afebrile. HEENT: Normocephalic. Sclerae and conjunctivae were normal. NECK: No adenopathy. HEART: Regular rhythm. LUNGS: Left lung: No breath sounds. Right lung: Diminished sounds. ABDOMEN: I believe liver is 3-4 cm below right costal margin. EXTREMITIES: Plus 1 edema. MUSCULOSKELETAL: Muscle wasting. NEUROLOGIC: Can move all extremities, but heavily sedated. ASSESSMENT AND PLAN: The patient is a 47-year-old male. He has a squamous cell cancer of the left lung. He has end-stage disease. He has progression of disease in the right lung with an enlarging mass and pleural effusion. The left lung is nonfunctional with tumor and effusion. He has compression of the right ventricle. He has a history of venous thromboembolic disease for which he takes Xarelto 10 mg a day. Until today, he wanted no cardiopulmonary resuscitation. When he arrived at the ER he became anxious and fearful and revoked his code status. RECOMMENDATIONS: I spent a great deal of time with Ignacia, who has the power of senior attorney and has lovingly looked after him for the past several years. The plan is that an attempt will be made to extubate him. If this is not successful, then rather than leave him on the ventilator to linger until , she will make the decision to remove him from the ventilator and provide comfort measures. The family will have several days to get a handle on how likely it is that he will be successfully extubated. Palliative care will return Thursday. There is consideration to doing a right thoracentesis. It would not be helpful to do a thoracentesis on the left side as there is primarily tumor. A right thoracentesis might provide transient benefit and, if it appears that this is going to result in extubation, then it would be reasonable. If it is not likely to result in extubation, then I would not recommend it. He has been taking Xarelto 10 mg a day. He did not take Xarelto today, Thursday. When he has been off Xarelto for 48 hours, it should be safe to do whatever procedure is necessary. In the meantime, would continue to keep him comfortable. Even if he is extubated, he has very little time remaining. I spoke with Ignacia. If he is extubated, she is agreeable with hospice and trying to limit this man's suffering. I cannot prolong his life by treating his cancer. I contacted Jaz Coleman from palliative care and hospice and spoke to her this evening. She will return Thursday. I spoke to Ignacia about not doing cardiac resuscitation should his heart stop and she will make a decision. MD YOKASTA Ochoa/tricia , 09:10 PM , 09:26 PM [facility]
[2018-03-19] MEDS: Oral Hygiene Kit OROPHARYNG SCH (23:15)
[2018-03-20] MEDS: Piperacil/Tazo 3.375 GM Premix 50 ML IV.SIG SCH ×4 (02:13→20:27)
[2018-03-20] MEDS: Oral Hygiene Kit OROPHARYNG SCH ×4 (03:42→23:51)
[2018-03-20] MEDS: Chlorhexidine Gluconate 2% 1 Pack (2 Cloths) TOPICAL SCH (03:42)
[2018-03-20] MEDS: Vancomycin Inj 1,000 MG in Sodium Chlor 0.9% Inj 250 ML IV.SIG SCH ×2 (03:42→16:18)
[2018-03-20] MEDS ORDERED: Chlorhexidine Gluconate 2% 1 Pack (2 Cloths) TOPICAL PRN (04:00)
[2018-03-20] MEDS: MethylPREDNISolone Sod Succinate Inj 40 MG/ML Vial IV.PUSH SCH ×3 (05:20→23:51)
[2018-03-20] MEDS: Sod Chloride 0.9% Inj 1,000 ML IV.CONT SCH ×2 (05:24→17:46)
[2018-03-20 05:27] LABS: Hematocrit 26.4 % (39.0-51.0); Hemoglobin 8.1 gm/dL (13.0-17.0); Lymph # (Auto) 0.1 th/mm3 (1.0-4.8); Lymph % (Auto) 1.1 % (9.0-44.0); Mean Corpuscular Volume 78.3 fL (80.0-100.0); Mean Platelet Volume 7.5 fL (7.0-11.0); Mono # (Auto) 0.6 th/mm3 (0.0-0.9); Neut # (Auto) 11.6 th/mm3 (1.8-7.7); Neut % (Auto) 93.9 % (16.0-70.0); Platelet Count 334 th/mm3 (150-450); Red Blood Count 3.37 mil/mm3 (4.50-5.90); Red Cell Distribution Width 21.6 % (11.6-17.2); White Blood Count 12.4 th/mm3 (4.0-11.0)
[2018-03-20 05:30] LABS: Mean Corpuscular HGB Conc 30.6 % (32.0-36.0)
[2018-03-20 06:02] LABS: Anion Gap 9 meq/L (5-15); Blood Urea Nitrogen 18 mg/dL (7-18); Calcium 10.5 mg/dL (8.5-10.1); Carbon Dioxide 26.1 meq/L (21.0-32.0); Chloride 102 meq/L (98-107); Glomerular Filtration Rate Greater Than 89 mL/min (>89); Glucose,Random 124 mg/dL (74-106); Magnesium 2.4 mg/dL (1.5-2.5); Phosphorus 3.2 mg/dL (2.5-4.9); Potassium 4.7 meq/L (3.5-5.1); Sodium 137 meq/L (136-145)
--- NOTE | 2018-03-20 06:58 | P.PNCC ---
Subjective Subjective Remarks/Hospital Course: This is a 47-year-old male that earlier this afternoon at home had increasing shortness of breath and a syncopal episode. Of note the patient is normally on 5 L nasal cannula but as he became short of breath O2 saturation remained in the 80s heart rate was in the 170s when EMS arrived. The patient received 20 mg of Cardizem IV and was placed on BiPAP and transported to [facility] emergency room. Upon arrival the patient was noted to still be in what appeared to be A. fib RVR and received 15 mg Cardizem IV and was placed on a Cardizem drip. In the ED ,the patient was noted to have 2 additional syncopal episodes and increased work of breathing and tiring out. The patient requested to be intubated. Of note ,the patient's past medical history is significant for non-small cell carcinoma being followed by Dr. Lorena green the patient subsequently has metastatic disease and failed palliative radiation 02/26/2018 on hospital discharge the patient had agreed to hospice care and was looking forward to it,however today the patient changed CODE STATUS from DNR to full code in the emergency room. The patient's past medical history is significant for stage IV lung cancer, pancreatic mass, hypercalcemia, COPD, and a history of DVT currently on Xarelto. Critical care medicine was consulted. 03/20: Patient remains intubated sedated. CT scan reviewed and discussed with on Ignacia. I explained to her only benefit of draining the right large effusion would be this may help him wean off the ventilator. His overall condition is terminal with tumor appearing to be invading mediastinum and compressing the right ventricle. Objective Vital Signs / I&O: Vital Signs 03/19/18 13:20 03/19/18 13:30 03/19/18 13:35 Temperature 99.1 F Pulse Rate 154 H 154 H 154 H Respiratory Rate 28 H 24 Blood Pressure 125/69 125/69 Pulse Oximetry 68 L 100 100 03/19/18 13:40 03/19/18 13:54 03/19/18 13:55 Temperature Pulse Rate 126 H 156 H Respiratory Rate Blood Pressure 104/59 L Pulse Oximetry 100 100 100 03/19/18 13:56 03/19/18 14:00 03/19/18 14:11 Temperature Pulse Rate 114 H 154 H 156 H Respiratory Rate 35 H Blood Pressure 92/59 L Pulse Oximetry 100 100 03/19/18 14:35 03/19/18 14:43 03/19/18 15:15 Temperature Pulse Rate 150 H 112 H 93 H Respiratory Rate 26 H Blood Pressure 95/54 L 92/51 L 127/56 L Pulse Oximetry 99 95 80 L 03/19/18 15:20 03/19/18 15:33 03/19/18 15:53 Temperature Pulse Rate 126 H 126 H 111 H Respiratory Rate 16 16 Blood Pressure 122/69 122/81 103/58 L Pulse Oximetry 100 99 03/19/18 16:16 03/19/18 16:44 03/19/18 17:00 Temperature 98.3 F Pulse Rate 113 H 100 H Respiratory Rate 16 25 H 28 H Blood Pressure 104/61 90/57 L Pulse Oximetry 99 97 98 03/19/18 20:00 03/19/18 20:10 03/19/18 20:15 Temperature 97.6 F Pulse Rate 88 87 Respiratory Rate 20 20 Blood Pressure 88/54 L Pulse Oximetry 100 100 100 03/19/18 20:20 03/19/18 20:30 03/19/18 20:45 Temperature Pulse Rate 89 90 90 Respiratory Rate 20 19 18 Blood Pressure 90/57 L 91/56 L Pulse Oximetry 100 100 03/19/18 21:00 03/19/18 21:15 03/19/18 21:30 Temperature Pulse Rate 90 90 91 H Respiratory Rate 15 17 18 Blood Pressure 89/56 L 93/58 L 89/54 L Pulse Oximetry 100 100 99 03/19/18 21:45 03/19/18 22:00 03/19/18 22:15 Temperature Pulse Rate 90 88 88 Respiratory Rate 17 15 15 Blood Pressure 89/56 L 84/56 L 80/54 L Pulse Oximetry 100 100 100 03/19/18 22:22 03/19/18 22:30 03/19/18 22:40 Temperature Pulse Rate 88 87 Respiratory Rate 15 13 20 Blood Pressure 81/53 L 82/51 L Pulse Oximetry 100 100 100 03/19/18 22:45 03/19/18 22:47 03/19/18 23:00 Temperature Pulse Rate 87 87 87 Respiratory Rate 13 11 L 16 Blood Pressure 80/53 L 82/54 L 83/54 L Pulse Oximetry 100 100 100 12/07/18 23:06 03/19/18 23:15 03/19/18 23:30 Temperature Pulse Rate 86 86 Respiratory Rate 16 16 Blood Pressure 80/52 L 80/52 L Pulse Oximetry 100 100 100 03/19/18 23:31 03/19/18 23:40 03/19/18 23:45 Temperature Pulse Rate 86 87 87 Respiratory Rate 15 20 17 Blood Pressure 81/52 L 86/55 L Pulse Oximetry 100 100 03/20/18 00:00 03/20/18 00:15 03/20/18 00:30 Temperature 97.9 F Pulse Rate 86 87 87 Respiratory Rate 18 15 16 Blood Pressure 84/54 L 83/54 L 84/55 L Pulse Oximetry 100 100 100 03/20/18 00:45 03/20/18 00:50 03/20/18 00:55 Temperature Pulse Rate 86 86 86 Respiratory Rate 15 18 15 Blood Pressure 83/52 L 79/52 L 85/56 L Pulse Oximetry 100 100 100 03/20/18 01:00 03/20/18 01:15 03/20/18 01:25 Temperature Pulse Rate 86 87 Respiratory Rate 16 17 18 Blood Pressure 85/53 L 83/53 L Pulse Oximetry 100 100 100 03/20/18 01:30 03/20/18 01:45 03/20/18 02:00 Temperature Pulse Rate 86 86 89 Respiratory Rate 17 20 15 Blood Pressure 86/55 L 87/55 L 94/58 L Pulse Oximetry 100 100 100 03/20/18 02:15 03/20/18 02:30 03/20/18 02:45 Temperature Pulse Rate 87 89 91 H Respiratory Rate 16 17 17 Blood Pressure 91/57 L 92/55 L 87/51 L Pulse Oximetry 100 100 98 03/20/18 03:00 03/20/18 03:15 03/20/18 03:30 Temperature Pulse Rate 90 90 90 Respiratory Rate 15 15 16 Blood Pressure 91/55 L 90/54 L 91/59 L Pulse Oximetry 99 99 99 03/20/18 03:45 03/20/18 03:58 03/20/18 04:00 Temperature 98.2 F Pulse Rate 90 111 H 113 H Respiratory Rate 16 30 H 17 Blood Pressure 92/54 L 123/76 Pulse Oximetry 99 100 03/20/18 04:13 03/20/18 04:15 03/20/18 04:30 Temperature Pulse Rate 105 H 105 H 101 H Respiratory Rate 24 25 H 24 Blood Pressure 104/66 105/65 97/60 L Pulse Oximetry 97 96 95 03/20/18 04:39 03/20/18 04:45 03/20/18 05:00 Temperature Pulse Rate 101 H 103 H Respiratory Rate 20 22 19 Blood Pressure 97/61 L 98/59 L Pulse Oximetry 99 95 94 L 03/20/18 05:15 03/20/18 05:30 03/20/18 05:45 Temperature Pulse Rate 105 H 105 H 106 H Respiratory Rate 24 19 20 Blood Pressure 98/62 L 98/63 L 96/63 L Pulse Oximetry 94 L 93 L 93 L 03/20/18 06:00 Temperature Pulse Rate 106 H Respiratory Rate 20 Blood Pressure 98/64 L Pulse Oximetry 93 L Intake & Output 03/19/18 03/19/18 03/20/18 06:59 18:59 06:59 Intake Total 550 / 550 1400 / 1400 Output Total 550 / 550 Balance 550 / 550 850 / 850 Weight 68.039 kg 70 kg Intake: IV 550 / 550 1400 / 1400 Diprivan 1000 mg/100 ml Inj 1, 100 / 100 000 mg In 100 ml @ 5 MCG/KG/MIN 2.041 mls/hr IV.CONT TITRATE PRN Rx#:[id number] NS Inj 1,000 ML @ 84 mls/hr IV. 1000 / 1000 CONT .[id number] NBA Rx#:[id number] Azithromycin Inj 250 MG In NS 250 / 250 Inj 250 ML @ 250 mls/hr IV.SIG Q24H NBA Rx#:[id number] Zosyn 3.375 GM Premix 50 ML @ 50 / 50 50 / 50 100 mls/hr IV.SIG Q6H NBA Rx#: [id number] NS Inj 500 ML @ 1000 mls/hr IV. 500 / 500 SIG BOLUS NBA Rx#:[id number] Output: Urine Amount (Catheter) 550 / 550 Indwelling Urethral Catheter 550 / 550 Other: # Bowel Movements 0 Result Diagrams: 03/20/18 05:10 03/20/18 05:10 Objective Remarks: - Constitutional chronically ill appearing, intubated sedated on the vent - Routine HEENT Exam Head: normocephalic Eye: PERRL ENT: Orotracheally intubated - Routine Respiratory Exam Present: patient mechanically ventilated, decreased breath sounds bilaterally with coarse rhonchi bilaterally. Breath sounds are markedly diminished on the left - Routine Cardiovascular Exam Present: S1, S2, irregularly irregular - Routine Abdominal Exam Present: soft, normoactive bowel sounds - Routine Extremities Exam Present: pulses intact - Routine Skin Exam Present: intact, normal turgor - Neuro: Intubated sedated for ventilator synchrony. On sedation lightening moves all 4 extremities appears to have no focal deficits Assessment and Plan - Problem List (1) Pleural effusion Code(s): J90 - Pleural effusion, not elsewhere classified Status: Acute (2) Protein-calorie malnutrition Code(s): E46 - Unspecified protein-calorie malnutrition Status: Acute (3) Hypoxia Code(s): R09.02 - Hypoxemia Status: Acute (4) Lung cancer Code(s): C34.90 - Malignant neoplasm of unspecified part of unspecified bronchus or lung Status: Acute (5) Lactic acid blood increased Code(s): R79.89 - Other specified abnormal findings of blood chemistry Status : Acute (6) COPD exacerbation Code(s): J44.1 - Chronic obstructive pulmonary disease with (acute) exacerbation Status: Acute (7) Atrial fibrillation with RVR Code(s): I48.91 - Unspecified atrial fibrillation Status: Acute - Assessment and Plan Plan: Assessment: This is a 47-year old male with metastatic non-small cell carcinoma with metastasis, per review of CT imaging now with mediastinal tumor invasion, and compression of tumor on the right ventricle. The patient was recently discharged 02/26 2018 to hospice. Upon entering the emergency room today the patient changed CODE STATUS from DNR to full code and required emergent intubation. The patient is noted to have a very large right pleural effusion in addition to the above-stated comorbidities. The patient is critically ill. Prognosis is poor. Admit to ICU. Plan by systems: Neurologic: Pain Continue fentanyl and propofol infusions to maintain ventilator synchrony and analgesia Neuro checks per ICU protocol Daily sedation vacation Tylenol 650 mg every 6 hours as needed for pain Respiratory: Acute hypoxemic respiratory failure Metastatic lung cancer Large right pleural effusion COPD exacerbation Stage IV non-small cell lung cancer with metastasis S/P XRT Patient emergently intubated in the ED Follow-up chest x-ray Duo nebs every 4 hours scheduled ABG-7.29/52/386/24/-1, increased respiratory rate Patient has large right pleural effusion which will need pigtail placement for malignant effusion. Patient chronically on Xarelto, last taken 03/18. If family agreeable will proceed with right pigtail today I explained to POA aunt Ignacia that only benefit of draining is a possibility of weaning of the ventilator, we will not change overall prognosis Cardiovascular: Mediastinal tumor invasion Metastatic tumor compression right ventricle History of DVT A. fib RVR F/U echo Noted port right chest-utilize for access Maintain MAP > 65mmH Cardizem infusion for rate control 03/19 chest x-raydiffuse perihilar vascular congestion with a stable infiltrate right midlung 03/19 CT angiogram-negative for pulmonary embolus. Direct invasion of mediastinum from tumor. Tumor is compressing the right ventricle appear near complete opacification of left hemothorax combination with drown lung tumor in the fluid. Large right pleural effusion is evident team parenchymal mass seen anterior in the right lung. Left adrenal metastasis. Renal: - Strict I/Os FEN/GI: Hyponatremia Pancreatic mass Adrenal mass Maintain n.p.o. status for now Monitor BMP OG tube Heme/ID: Anemia of chronic disease Lactic acidemia Begin normal saline IV 84 cc an hour Obtain blood sputum and urine cultures Began prophylactic antibiotics vancomycin ,Zosyn and Zithromax Heme-Onc-Dr. Christian Endocrine: Hyperglycemia critically illness Glucose monitoring per ICU protocol -- SSI Prophylaxis: GI Prophylaxis Famotidine DVT Prophylaxis -- SCDs. No pharmacological prophylaxis indicated at this time as patient may need invasive procedures Lines: Peripheral IVs providing adequate access. Right port cath in situ. Central line if indicated Dispo: My billing statement This patient remains critically ill with one or more organ systems which are or may become a threat to life. I have spent in excess of 40 minutes discontinuously in the care and management of this patient. This time is exclusive of procedures, and includes, but is not limited to, evaluation of the patient, review of the medical record, discussions with family, consultants, nursing staff, or respiratory therapy, and documentation in the medical record. This patient has multiple comorbidities with multiorgan dysfunction. He is at risk for decompensation or . His tumor is invading the mediastinum compressing the right ventricle. He is at risk of imminent despite full supportive care. Draining the right pleural effusion may temporarily help weaning Code Status: ALT CODE INTUBATION ONLY Discussed Condition With: Ignacia (aunt) who is POA and bedside RN
[2018-03-20] MEDS: Famotidine PF Inj 20 MG/2 ML Vial IV.PUSH SCH ×2 (08:36→20:27)
[2018-03-20] MEDS: Chlorhexidine 0.12% Oral Kit 15 ML UDC OROPHARYNG SCH ×2 (08:38→20:25)
[2018-03-20] MEDS: Senna/Docusate Sodium 8.6/50 MG Tablet PO SCH ×2 (08:38→20:27)
[2018-03-20] MEDS: Famotidine 20 MG Tablet PO SCH ×2 (08:39→20:27)
[2018-03-20] MEDS: Propofol 1000 mg/100 ml Inj 1,000 MG/100 ML BOTTLE IV.CONT PRN ×2 (12:19→20:28)
[2018-03-20] MEDS: dilTIAZem Inj 125 MG in Sodium Chlor 0.9% Inj 100 ML IV.CONT PRN ×2 (13:29→13:30)
--- NOTE | 2018-03-20 13:50 | P.PCN ---
Date of procedure: 03/20/18 Pre-op diagnosis: Acute hypoxia, large right pl effusion Post-op diagnosis: same Procedure: Right pigtail chest tube placement, ultrasound-guided Details of procedure: Consent obtained. The patient was laid in left lateral decubitus position. The lateral chest wall was cleaned with ChloraPrep twice. Regional sterile drapes were applied. 1% lidocaine was used for local anesthesia and injected into the subcutaneous and deep muscle tissues at the site marked by ultrasound. A 0.25 cm skin incision was made with a scalpel blade. Insertion needle was placed angled superiorly and posteriorly and the insertion needle was entered into the pleural space superior to the rib and straw colored pleural fluid was obtained. Guidewire was placed and track was dilated. A size 10 Estonian chest tube was inserted into the pleural cavity using Seldinger technique with initial output of approximately 1050 mL of clear straw-colored pleural fluid. 3.0 silk was used to to secure the chest tube along with StayFix fixation device. The chest tube was connected to a Pleur-evac drainage system via vinyl connecting tube. Postprocedure chest x-ray is pending Anesthesia: local Surgeon: Chidi Gonzalez Estimated blood loss (mL): 1 Pathology: other Condition: critical Disposition: ICU (Fluid studies)
[2018-03-20] MEDS ORDERED: Albumin Human 25% Inj 100 ML IV.SIG ONE (14:00)
--- NOTE | 2018-03-20 14:15 | XR ---
EXAM DATE: 03/20/2018 2:08 PM EST AGE/SEX: 47 years / Male INDICATIONS: S/P right sided chest tube placement. CLINICAL DATA: This is the patient's initial encounter. Patient reports that signs and symptoms have been present for 1 day and indicates a pain score of Nonresponsive. MEDICAL/SURGICAL HISTORY: . Chronic obstructive pulmonary disease. Deep venous thrombosis. Carc inoma, lung. . Infusaport . COMPARISON: [facility] – [place], CHEST 1V SINGLE AP, 03/19/2018. . FINDINGS: Portable supine AP view of the chest demonstrates near complete opacification of the left hemithorax, unchanged from the prior study. ETT and nasogastric tube remain present. Right chest tube is been pl aced and tip is located medially in the right mid hemithorax. Some of the hazy opacity previously pre sent on the right has resolved. There is a stable consolidative mass in the peripheral right midlung zone. No pneumothorax is identified. CONCLUSION: 1. Right chest tube is in place with tip in the medial right hemithorax. No pneumothorax is present. There is decreased right pleural-based opacity likely representing decreased pleural fluid. 2. Stable near-complete opacification left hemithorax and stable right peripheral midlung zone mass. Electronically signed by: Carlos Pop MD 03/20/2018 2:14 PM EST
[2018-03-20] MEDS: fentaNYL 10 mcg/mL Premix Drip 2,500 MCG/250 ML BAG IV.SIG PRN (15:00)
[2018-03-20 16:30] LABS: RBC,Pleural Fluid 390 /mm3 (0-0)
[2018-03-20 16:32] LABS: Lymphocytes,Pleural Fluid 40 %; Mesothelial,Pleural Fluid 18 %; Neutrophils,Pleural Fluid 42 %
[2018-03-20 16:36] LABS: Total Protein,Pleural Fluid 2.1 gm/dL
[2018-03-20] MEDS: Azithromycin Inj 250 MG in Sodium Chlor 0.9% Inj 250 ML IV.SIG SCH (20:24)
--- NOTE | 2018-03-20 21:12 | ECG ---
Date Performed: 03/19/2018 Time Performed: 14:36:43 PTAGE: 47 years EKG: ATRIAL FIBRILLATION WITH RAPID VENTRICULAR RESPONSE BASELINE ARTIFACT NONSPECIFIC T WAVE CH ANGES Compared to previous tracing, atrial fibrillation is new ABNORMAL ECG PREVIOUS TRACING : 03/19/2018 14.34 DOCTOR: Michael Pinedo Interpretating Date/Time 03/20/2018 21:11:43
--- NOTE | 2018-03-20 21:12 | ECG ---
Date Performed: 03/19/2018 Time Performed: 13:19:01 PTAGE: 47 years EKG: ATRIAL FIBRILLATION WITH RAPID VENTRICULAR RESPONSE BASELINE ARTIFACT NONSPECIFIC T WAVE CH ANGES Since the previous tracing, no significant change noted ABNORMAL ECG PREVIOUS TRACING : 02/23/2018 22.17 DOCTOR: Michael Pinedo Interpretating Date/Time 03/20/2018 21:12:01
[2018-03-21] MEDS ORDERED: Pharmacy Ordered Lab Info OTHER ONE (03:45)
[2018-03-21] MEDS: Piperacil/Tazo 3.375 GM Premix 50 ML IV.SIG SCH ×4 (04:33→22:01)
[2018-03-21] MEDS: Oral Hygiene Kit OROPHARYNG SCH ×3 (04:34→17:24)
[2018-03-21] MEDS: Chlorhexidine Gluconate 2% 1 Pack (2 Cloths) TOPICAL SCH (04:34)
--- NOTE | 2018-03-21 04:50 | XR ---
EXAM DATE: 03/21/2018 4:39 AM EST AGE/SEX: 47 years / Male INDICATIONS: Shortness of breath, possible pulmonary disease. CLINICAL DATA: This is the patient's subsequent encounter. Patient reports that signs and symptoms h ave been present for 3 days and indicates a pain score of Nonresponsive. MEDICAL/SURGICAL HISTORY: Chronic obstructive pulmonary disease. Deep venous thrombosis. Carc inoma, lung. . [id number]. [place] [facility] [place]. . FINDINGS: There is complete opacification of the left hemithorax. Endotracheal tube and enteric tube are again noted. Right-sided portacatheter is seen. There is a stable opacity in the right midlung laterally an d patchy airspace disease is seen at the right base. Right-sided chest tube is noted. CONCLUSION: Stable appearance of the chest. Electronically signed by: Jake Persaud MD 03/21/2018 4:48 AM EST
[2018-03-21 05:05] LABS: Hematocrit 25.6 % (39.0-51.0); Hemoglobin 8.1 gm/dL (13.0-17.0); Mean Corpuscular HGB Conc 31.4 % (32.0-36.0); Mean Corpuscular Hemoglobin 24.1 pg (27.0-34.0); Mean Corpuscular Volume 76.6 fL (80.0-100.0); Mean Platelet Volume 7.5 fL (7.0-11.0); Platelet Count 366 th/mm3 (150-450); Red Blood Count 3.34 mil/mm3 (4.50-5.90); Red Cell Distribution Width 21.1 % (11.6-17.2); White Blood Count 12.5 th/mm3 (4.0-11.0)
[2018-03-21 05:44] LABS: Alanine Aminotransferase 1228 U/L (12-78); Albumin 1.8 g/dL (3.4-5.0); Alkaline Phosphatase 195 U/L (45-117); Anion Gap 10 meq/L (5-15); Aspartate Aminotransferase 793 U/L (15-37); Blood Urea Nitrogen 31 mg/dL (7-18); Calcium 9.4 mg/dL (8.5-10.1); Carbon Dioxide 22.7 meq/L (21.0-32.0); Chloride 104 meq/L (98-107); Glomerular Filtration Rate 78 mL/min (>89); Glucose,Random 148 mg/dL (74-106); Magnesium 2.4 mg/dL (1.5-2.5); Potassium 4.8 meq/L (3.5-5.1); Sodium 137 meq/L (136-145); Total Protein 5.9 g/dL (6.4-8.2)
[2018-03-21] MEDS: Vancomycin Inj 1,000 MG in Sodium Chlor 0.9% Inj 250 ML IV.SIG SCH ×2 (06:18→17:40)
[2018-03-21] MEDS: Sod Chloride 0.9% Inj 1,000 ML IV.CONT SCH ×2 (06:19→18:58)
[2018-03-21] MEDS: MethylPREDNISolone Sod Succinate Inj 40 MG/ML Vial IV.PUSH SCH ×3 (06:20→22:01)
[2018-03-21] MEDS: Famotidine PF Inj 20 MG/2 ML Vial IV.PUSH SCH (08:21)
[2018-03-21] MEDS: Senna/Docusate Sodium 8.6/50 MG Tablet PO SCH ×2 (08:21→22:02)
[2018-03-21] MEDS: Chlorhexidine 0.12% Oral Kit 15 ML UDC OROPHARYNG SCH ×2 (08:22→22:02)
[2018-03-21] MEDS: Famotidine 20 MG Tablet PO SCH (09:31)
[2018-03-21] MEDS: Propofol 1000 mg/100 ml Inj 1,000 MG/100 ML BOTTLE IV.CONT PRN ×2 (10:00→20:00)
--- NOTE | 2018-03-21 11:58 | P.PNCC ---
Subjective Subjective Remarks/Hospital Course: This is a 47-year-old male that earlier this afternoon at home had increasing shortness of breath and a syncopal episode. Of note the patient is normally on 5 L nasal cannula but as he became short of breath O2 saturation remained in the 80s heart rate was in the 170s when EMS arrived. The patient received 20 mg of Cardizem IV and was placed on BiPAP and transported to [facility] emergency room. Upon arrival the patient was noted to still be in what appeared to be A. fib RVR and received 15 mg Cardizem IV and was placed on a Cardizem drip. In the ED ,the patient was noted to have 2 additional syncopal episodes and increased work of breathing and tiring out. The patient requested to be intubated. Of note ,the patient's past medical history is significant for non-small cell carcinoma being followed by Dr. Lorena green the patient subsequently has metastatic disease and failed palliative radiation 02/26/2018 on hospital discharge the patient had agreed to hospice care and was looking forward to it,however today the patient changed CODE STATUS from DNR to full code in the emergency room. The patient's past medical history is significant for stage IV lung cancer, pancreatic mass, hypercalcemia, COPD, and a history of DVT currently on Xarelto. Critical care medicine was consulted. 03/20: Patient remains intubated sedated. CT scan reviewed and discussed with on Ignacia. I explained to her only benefit of draining the right large effusion would be this may help him wean off the ventilator. His overall condition is terminal with tumor appearing to be invading mediastinum and compressing the right ventricle. Subjective 03/21: Currently resting in bed in no acute distress. Attempting to wean off ventilator. Currently afebrile. Noted elevated transaminases. Right-sided pigtail catheter with 1375 cc output Objective Vital Signs / I&O: Vital Signs 03/20/18 12:00 03/20/18 14:50 03/20/18 15:00 Temperature Pulse Rate 96 H 78 79 Respiratory Rate 10 L 17 16 Blood Pressure 93/52 L 97/56 L Pulse Oximetry 97 100 03/20/18 15:05 03/20/18 15:10 03/20/18 15:15 Temperature Pulse Rate 79 80 80 Respiratory Rate 9 L 8 L 10 L Blood Pressure 98/56 L 99/55 L 98/55 L Pulse Oximetry 100 100 100 03/20/18 15:20 03/20/18 15:25 03/20/18 15:26 Temperature Pulse Rate 80 81 Respiratory Rate 12 10 L 16 Blood Pressure 98/55 L 97/55 L Pulse Oximetry 100 100 100 03/20/18 15:30 03/20/18 15:35 03/20/18 15:40 Temperature Pulse Rate 83 82 83 Respiratory Rate 11 L 8 L 10 L Blood Pressure 97/55 L 100/56 L 97/52 L Pulse Oximetry 100 100 100 03/20/18 15:45 03/20/18 15:50 03/20/18 15:55 Temperature Pulse Rate 83 82 83 Respiratory Rate 9 L 9 L 9 L Blood Pressure 95/53 L 96/55 L 94/54 L Pulse Oximetry 100 100 100 03/20/18 16:00 03/20/18 16:05 03/20/18 16:10 Temperature Pulse Rate 83 83 84 Respiratory Rate 11 L 8 L 10 L Blood Pressure 95/53 L 96/54 L 96/55 L Pulse Oximetry 100 100 100 03/20/18 16:15 03/20/18 16:20 03/20/18 16:25 Temperature Pulse Rate 83 83 83 Respiratory Rate 13 11 L 9 L Blood Pressure 95/56 L 95/53 L 96/55 L Pulse Oximetry 100 100 100 03/20/18 16:30 03/20/18 16:35 03/20/18 16:40 Temperature Pulse Rate 83 83 82 Respiratory Rate 14 15 14 Blood Pressure 96/54 L 96/56 L 95/54 L Pulse Oximetry 100 100 100 03/20/18 16:45 03/20/18 16:50 03/20/18 16:55 Temperature Pulse Rate 83 83 83 Respiratory Rate 14 17 15 Blood Pressure 92/55 L 97/56 L 98/57 L Pulse Oximetry 100 100 100 03/20/18 17:00 03/20/18 17:05 03/20/18 17:10 Temperature Pulse Rate 83 82 83 Respiratory Rate 14 12 13 Blood Pressure 96/58 L 98/55 L 96/58 L Pulse Oximetry 100 100 100 03/20/18 17:15 03/20/18 17:20 03/20/18 17:25 Temperature Pulse Rate 84 83 82 Respiratory Rate 10 L 15 15 Blood Pressure 95/54 L 96/57 L 98/55 L Pulse Oximetry 100 100 100 03/20/18 17:30 03/20/18 17:35 03/20/18 17:40 Temperature Pulse Rate 82 82 82 Respiratory Rate 15 14 14 Blood Pressure 96/56 L 94/54 L 94/53 L Pulse Oximetry 100 100 100 03/20/18 17:45 03/20/18 17:50 03/20/18 17:55 Temperature Pulse Rate 84 83 84 Respiratory Rate 14 12 11 L Blood Pressure 95/56 L 95/56 L 97/55 L Pulse Oximetry 100 100 100 03/20/18 18:00 03/20/18 18:05 03/20/18 18:10 Temperature Pulse Rate 84 83 83 Respiratory Rate 15 15 15 Blood Pressure 98/55 L 99/55 L 98/57 L Pulse Oximetry 100 100 100 03/20/18 18:15 03/20/18 18:20 03/20/18 18:25 Temperature Pulse Rate 83 83 83 Respiratory Rate 17 15 15 Blood Pressure 97/54 L 95/54 L 96/58 L Pulse Oximetry 100 100 100 03/20/18 18:30 03/20/18 18:35 03/20/18 18:40 Temperature Pulse Rate 83 84 84 Respiratory Rate 15 15 16 Blood Pressure 92/55 L 93/56 L 97/54 L Pulse Oximetry 100 100 100 03/20/18 18:45 03/20/18 18:50 03/20/18 18:55 Temperature Pulse Rate 84 85 85 Respiratory Rate 14 16 14 Blood Pressure 95/56 L 96/56 L 98/58 L Pulse Oximetry 100 100 100 03/20/18 19:00 03/20/18 19:05 03/20/18 19:10 Temperature Pulse Rate 85 85 84 Respiratory Rate 15 11 L 14 Blood Pressure 97/54 L 93/54 L 97/57 L Pulse Oximetry 100 100 100 03/20/18 19:15 03/20/18 19:20 03/20/18 19:25 Temperature Pulse Rate 84 84 84 Respiratory Rate 15 Blood Pressure 99/55 L 99/57 L 97/55 L Pulse Oximetry 100 100 100 03/20/18 19:28 03/20/18 19:30 03/20/18 19:32 Temperature Pulse Rate 84 84 Respiratory Rate 18 18 Blood Pressure 100/56 L Pulse Oximetry 100 100 03/20/18 19:35 03/20/18 19:40 03/20/18 19:45 Temperature Pulse Rate 85 86 86 Respiratory Rate Blood Pressure 101/62 95/57 L 94/53 L Pulse Oximetry 100 100 100 03/20/18 19:50 03/20/18 19:55 03/20/18 20:00 Temperature 98.2 F Pulse Rate 87 88 90 Respiratory Rate Blood Pressure 96/56 L 95/57 L 95/55 L Pulse Oximetry 100 100 100 03/20/18 20:05 03/20/18 20:10 03/20/18 20:15 Temperature Pulse Rate 90 89 89 Respiratory Rate Blood Pressure 95/54 L 94/55 L 95/56 L Pulse Oximetry 100 100 100 03/20/18 20:20 03/20/18 20:25 03/20/18 20:30 Temperature Pulse Rate 89 90 89 Respiratory Rate Blood Pressure 94/55 L 95/55 L 97/59 L Pulse Oximetry 100 100 100 03/20/18 20:35 03/20/18 20:45 03/20/18 21:00 Temperature Pulse Rate 89 90 89 Respiratory Rate Blood Pressure 95/53 L 95/55 L 96/57 L Pulse Oximetry 100 100 100 03/20/18 21:15 03/20/18 21:30 03/20/18 21:45 Temperature Pulse Rate 91 H 92 H 92 H Respiratory Rate Blood Pressure 95/56 L 91/58 L 96/57 L Pulse Oximetry 100 99 98 03/20/18 22:00 03/20/18 22:15 03/20/18 22:30 Temperature Pulse Rate 91 H 91 H 92 H Respiratory Rate Blood Pressure 95/60 L 87/53 L 91/57 L Pulse Oximetry 98 95 96 03/20/18 22:45 03/20/18 23:00 03/20/18 23:10 Temperature Pulse Rate 91 H 89 88 Respiratory Rate 19 Blood Pressure 89/58 L 92/55 L Pulse Oximetry 98 98 03/20/18 23:15 03/20/18 23:30 03/20/18 23:45 Temperature Pulse Rate 87 90 91 H Respiratory Rate Blood Pressure 90/55 L 92/58 L 91/54 L Pulse Oximetry 100 100 100 03/21/18 00:00 03/21/18 00:05 03/21/18 00:15 Temperature 97.7 F Pulse Rate 92 H 93 H Respiratory Rate 18 Blood Pressure 92/56 L 92/54 L Pulse Oximetry 100 99 100 03/21/18 00:30 03/21/18 00:45 03/21/18 01:00 Temperature Pulse Rate 93 H 92 H 92 H Respiratory Rate Blood Pressure 93/56 L 93/56 L 93/57 L Pulse Oximetry 100 100 100 03/21/18 01:15 03/21/18 01:30 03/21/18 01:55 Temperature Pulse Rate 92 H 91 H 91 H Respiratory Rate Blood Pressure 94/58 L 101/61 96/59 L Pulse Oximetry 100 100 100 03/21/18 02:00 03/21/18 02:15 03/21/18 02:30 Temperature Pulse Rate 91 H 91 H 90 Respiratory Rate Blood Pressure 96/57 L 95/56 L 95/56 L Pulse Oximetry 100 100 100 03/21/18 02:45 03/21/18 02:55 03/21/18 03:00 Temperature Pulse Rate 90 90 89 Respiratory Rate 17 18 Blood Pressure 94/57 L 99/59 L Pulse Oximetry 100 100 100 03/21/18 03:15 03/21/18 03:30 03/21/18 03:45 Temperature Pulse Rate 92 H 93 H 96 H Respiratory Rate Blood Pressure 99/56 L 98/59 L 97/60 L Pulse Oximetry 100 100 100 03/21/18 04:00 03/21/18 04:15 03/21/18 04:30 Temperature 98.0 F Pulse Rate 94 H 95 H 101 H Respiratory Rate Blood Pressure 97/59 L 97/56 L 96/58 L Pulse Oximetry 100 99 89 L 03/21/18 04:45 03/21/18 05:00 03/21/18 05:15 Temperature Pulse Rate 104 H 107 H 107 H Respiratory Rate Blood Pressure 99/61 L 98/65 L 97/60 L Pulse Oximetry 90 L 90 L 90 L 03/21/18 05:30 03/21/18 05:45 03/21/18 06:00 Temperature Pulse Rate 106 H 105 H 104 H Respiratory Rate Blood Pressure 91/56 L 95/58 L 99/59 L Pulse Oximetry 94 L 94 L 95 03/21/18 06:15 03/21/18 06:30 03/21/18 06:45 Temperature Pulse Rate 102 H 100 H 98 H Respiratory Rate Blood Pressure 96/60 L 98/60 L 96/59 L Pulse Oximetry 100 100 100 03/21/18 07:00 03/21/18 07:15 03/21/18 07:30 Temperature Pulse Rate 98 H 99 H 98 H Respiratory Rate Blood Pressure 98/59 L 97/59 L 96/59 L Pulse Oximetry 100 100 100 03/21/18 07:45 03/21/18 07:50 03/21/18 08:00 Temperature Pulse Rate 97 H 99 H 101 H Respiratory Rate 20 Blood Pressure 96/58 L 98/61 L Pulse Oximetry 100 99 96 03/21/18 08:15 03/21/18 08:30 03/21/18 08:45 Temperature Pulse Rate 107 H 104 H 104 H Respiratory Rate Blood Pressure 99/62 L 99/60 L 98/61 L Pulse Oximetry 96 99 100 03/21/18 09:00 03/21/18 09:15 03/21/18 09:30 Temperature Pulse Rate 108 H 112 H 112 H Respiratory Rate Blood Pressure 100/64 99/67 L 97/66 L Pulse Oximetry 92 L 91 L 92 L 03/21/18 09:45 03/21/18 11:07 Temperature Pulse Rate 112 H 105 H Respiratory Rate 20 Blood Pressure 96/60 L Pulse Oximetry 94 L 100 Intake & Output 03/20/18 03/21/18 03/21/18 18:59 06:59 18:59 Intake Total 2450 / 2450 1650 / 1650 300 / 300 Output Total 1325 / 1325 270 / 270 Balance 1125 / 1125 1380 / 1380 300 / 300 Weight 73 kg Intake: IV 2450 / 2450 1650 / 1650 300 / 300 Diprivan 1000 mg/100 ml Inj 1, 100 / 100 000 mg In 100 ml @ 5 MCG/KG/MIN 2.041 mls/hr IV.CONT TITRATE PRN Rx#:[id number] NS Inj 1,000 ML @ 84 mls/hr IV. 1000 / 1000 1000 / 1000 CONT .[id number] [facility] Rx#:[id number] Cardizem Inj 125 MG In NS Inj 250 / 250 100 ML @ 5 MG/HR 5 mls/hr IV. CONT TITRATE PRN Rx#:[id number] Flexbumin 25% Inj 100 ML @ 60 100 / 100 mls/hr IV.SIG NOW ONE Rx#: [id number] Azithromycin Inj 250 MG In NS 250 / 250 Inj 250 ML @ 250 mls/hr IV.SIG Q24H [facility] Rx#:[id number] Levophed-Dextrose 4 mg/250 ml 250 / 250 Drip 4 mg In 250 ml @ 2 MCG/MIN 7.5 mls/hr IV.SIG TITRATE PRN Rx#:[id number] Zosyn 3.375 GM Premix 50 ML @ 100 / 100 50 / 50 50 / 50 100 mls/hr IV.SIG Q6H [facility] Rx#: [id number] Vancomycin Inj 1,000 MG In NS 500 / 500 250 / 250 Inj 250 ML @ 250 mls/hr IV.SIG Q12H [facility] Rx#:[id number] fentaNYL 10 mcg/mL Premix Drip 250 / 250 2,500 mcg In 250 ml @ 50 MCG/HR 5 mls/hr IV.SIG TITRATE PRN Rx #:[id number] Output: Urine Amount (Catheter) 225 / 225 0 / 0 Condom 0 / 0 Indwelling Urethral Catheter 225 / 225 0 / 0 Chest Tube Drainage 1100 / 1100 270 / 270 Right Anterior 1100 / 1100 270 / 270 Other: # Bowel Movements 0 Result Diagrams: 03/21/18 04:41 03/21/18 04:41 Other Results: Microbiology 03/19/18 13:30 Blood - Peripheral Aerobic Blood Culture - Preliminary Staphylococcus epidermidis 03/19/18 13:30 Blood - Peripheral Anaerobic Blood Culture - Preliminary No growth in 2 days 03/19/18 13:35 Blood - Peripheral Aerobic Blood Culture - Preliminary No growth in 2 days 03/19/18 13:35 Blood - Peripheral Anaerobic Blood Culture - Preliminary No growth in 2 days 03/19/18 16:00 Catheterized Urine Urine Culture - Final No growth in 48 hours 03/19/18 17:00 Sputum - Tracheal Aspirate Gram Stain - Final 03/19/18 17:00 Sputum - Tracheal Aspirate Sputum Culture - Preliminary Rare growth normal respiratory jose at 24 hours 03/19/18 16:00 Urine - Catheterized Urine Streptococcus pneumoniae Antigen ( M - Final Presumptive negative for streptococcus pneumoniae antigen, suggesting no current or recent infection. Infection due to Streptococcus pneumoniae cannot be ruled out since the antigen present in the sample may be below the detection limit of the test. 03/19/18 16:00 Urine - Catheterized Urine Legionella Antigen - Final Presumptive negative for Legionella pneumophila serogroup 1 antigen in urine, suggesting no recent or recurrent infection. Infection due to Legionella cannot be ruled out since other serogroups and species may cause disease, antigen may not be present in urine in early infection, and the level of antigen present in the urine may be below the detection limit of the test. 03/19/18 13:45 Nasal Wash Influenza Types A,B Antigen - Final Negative for FLU A and B antigen Infection due to influenza A or B cannot be ruled out since the antigen present in the sample may be below the detection limit of the test. Imaging: Chest CTA 03/19/18 13:27 CONCLUSION: 1. Negative for central pulmonary emboli 2. Noted complete opacification of the left hemithorax. There is direct invasion of the mediastinum from apparent tumor. This Tumor is compressing the right ventricle Chest X-Ray 03/19/18 13:27 CONCLUSION: 1. Stable chest x-ray with near complete opacification left hemithorax with left lung volume loss. 2. Stable right midlung zone pulmonary mass. Chest X-Ray 03/19/18 15:24 CONCLUSION: ET tube and NG tube both in good position. Again near-complete opacification left hemithorax with a large pleural effusion and volume loss. Diffuse perihilar vascular congestion with a stable infiltrate right midlung zone Head CT 03/19/18 15:35 CONCLUSION: 1. Stable CT scan of the head without contrast with minimal periventricular presumed ischemic changes and encephalomalacia right frontal lobe. . Chest X-Ray 03/20/18 00:00 CONCLUSION: 1. Right chest tube is in place with tip in the medial right hemithorax. No pneumothorax is present. There is decreased right pleural-based opacity likely representing decreased pleural fluid. 2. Stable near-complete opacification left hemithorax and stable right peripheral midlung zone mass. Chest X-Ray 03/21/18 06:00 CONCLUSION: Stable appearance of the chest. Objective Remarks: Constitutional 47-year-old chronically ill appearing male, intubated sedated on the [facility] Exam Head: normocephalic Eye: PERRL ENT: Orotracheally intubated Respiratory Exam patient mechanically ventilated, decreased breath sounds bilaterally with coarse rhonchi bilaterally. Breath sounds are markedly diminished on the left Cardiovascular Exam No murmur present: S1, S2, irregularly irregular Abdominal Exam soft, normoactive bowel sounds Extremities Exam Present: pulses intact Skin Exam Present: intact, normal turgor Neuro: Intubated sedated for ventilator synchrony. On sedation lightening moves all 4 extremities appears to have no focal deficits Assessment and Plan - Problem List (1) Pleural effusion Code(s): J90 - Pleural effusion, not elsewhere classified Status: Acute (2) Protein-calorie malnutrition Code(s): E46 - Unspecified protein-calorie malnutrition Status: Acute (3) Hypoxia Code(s): R09.02 - Hypoxemia Status: Acute (4) Lung cancer Code(s): C34.90 - Malignant neoplasm of unspecified part of unspecified bronchus or lung Status: Acute (5) Lactic acid blood increased Code(s): R79.89 - Other specified abnormal findings of blood chemistry Status : Acute (6) COPD exacerbation Code(s): J44.1 - Chronic obstructive pulmonary disease with (acute) exacerbation Status: Acute (7) Atrial fibrillation with RVR Code(s): I48.91 - Unspecified atrial fibrillation Status: Acute - Assessment and Plan Plan: Neuro/Psych: Chronic malignant pain Continue fentanyl and propofol infusions to maintain ventilator synchrony and analgesia Neuro checks per ICU protocol Daily sedation vacation Holding 650 mg every 6 hours as needed for fever with elevated transaminases Respiratory: Acute hypoxemic respiratory failure Metastatic lung cancer Large right pleural effusion COPD exacerbation Stage IV non-small cell lung cancer with metastasis S/P XRT Patient emergently intubated in the ED Follow-up chest x-ray PRVC ventilation Ventilator bundle Head of bed at 30 degrees Albuterol/ipratropium aerosols every 4 hours scheduled with albuterol aerosols every 2 hours as needed Patient has large right pleural effusion status post pigtail placement for malignant effusion 03/20. I explained to POA aunt Ignacia that only benefit of draining is a possibility of weaning of the ventilator, we will not change overall prognosis Cardiovascular: Mediastinal tumor invasion Metastatic tumor compression right ventricle History of DVT A. fib RVR F/U echo pending 03/21 Noted port right chest-utilize for access Maintain MAP > 65mmH Cardizem infusion for rate control 03/19 chest x-raydiffuse perihilar vascular congestion with a stable infiltrate right midlung 03/19 CT angiogram-negative for pulmonary embolus. Direct invasion of mediastinum from tumor. Tumor is compressing the right ventricle appear near complete opacification of left hemothorax combination with drown lung tumor in the fluid. Large right pleural effusion is evident team parenchymal mass seen anterior in the right lung. Left adrenal metastasis. Renal: - Strict I/Os FEN/GI: Hyponatremia Pancreatic mass Adrenal mass Elevated transaminases Hypoalbuminemia Start tube feedings with neutral hep goal 50 cc an hour Monitor BMP OG tube Lansoprazole for GI prophylaxis Heme/ID: Anemia of chronic disease/microcytic Leukocytosis Lactic acidemia Chronic rivaroxaban use Squamous cell carcinoma of the lung Continue normal saline IV 84 cc an hour Follow-up blood sputum and urine cultures Began prophylactic antibiotics vancomycin , piperacillin/tazobactam and azithromycin Heme-Onc-Dr. Christian Continue with Lorazepam 10 mg daily Endocrine: Hyperglycemia critically illness Glucose monitoring per ICU protocol -- SSI Prophylaxis: GI Prophylaxis Lansoprazole DVT Prophylaxis -- SCDs. No pharmacological prophylaxis indicated at this time as patient may need invasive procedures Lines: Peripheral IVs providing adequate access. Right port cath in situ. Central line if indicated Level 3 follow-up (2) Protein-calorie malnutrition Qualifiers: Protein-calorie malnutrition severity: unspecified severity Qualified Code(s) : E46 - Unspecified protein-calorie malnutrition (4) Lung cancer Qualifiers: Laterality: right Lung location: unspecified part of lung Qualified Code(s) : C34.91 - Malignant neoplasm of unspecified part of right bronchus or lung
--- NOTE | 2018-03-21 14:37 | P.DIET ---
Nutritional Evaluation Type of nutrition evaluation: initial Nutrition consult regarding: Tube Feeding Screening comments: 03/21 TF review Objective - Diagnosis vent dependent respiratory failure - Objective Body Mass Index: 24.5 % IBW: 104 (IBW = 154lb) Body Weight Used for Calculations: Actual Energy Needs - Lower Range (kCal/kg): 28 Energy Needs - Upper Range (kCal/kg): 32 Lower Limit kCal/kg (kCals): 2,044 Upper Limit kCal/kg (kCals): 2,336 Lower Limit Protein Factor (Grams per Kg): 1.0 Upper Limit Protein Factor (Grams per Kg): 1.2 Lower Protein Needs (Protein): 73 Upper Protein Needs (Protein): 88 Dietitian Reviewed in Medical Record: Current diet, Curent medications, Intake & Output, Labs, Medical history Diet Order: TF'ing Objective Comments: PMH: COPd, DVT, edema, emphysema, GERD, pericarditis Labs: POC glucose 124 124 148, AST 793, ALT 1228 Assessment Assessment: Pt intubated, sedated, on mech vent. Pts TF currently on hold, w/ goal rate of Nutrihep @ 50mL/hr per MD. RD to recommend to increase TF'ing goal rate to Nutrihep @ 60mL/hr to provide 2160kcal, 58g of protein, 1094mL of free water to best meet pts assessed needs. Plan to restart TF when medically appropriate. Continue to monitor TF tolerance. Labs reviewed, dietitian following. Recommendations: 1. RD to recommend to increase TF'ing goal rate to Nutrihep @ 60mL/hr to best meet pts assessed needs 2. Plan to restart TF when medically appropriate 3. Continue to monitor TF tolerance 4. Dietitian following Dietitian to Monitor: Lab values, Renal labs, Liver enzymes, Intake & Output, Tube feeding tolerance, Medical course
[2018-03-21] MEDS: Budesonide-Formoterol 160/4.5 MCG 6 GM Inhaler INH SCH (15:33)
[2018-03-21] MEDS: Artificial Tears Opth Drops 15 ML Bottle EACH EYE SCH (15:34)
[2018-03-21] MEDS: Azithromycin Inj 250 MG in Sodium Chlor 0.9% Inj 250 ML IV.SIG SCH (19:57)
[2018-03-22] MEDS: Oral Hygiene Kit OROPHARYNG SCH ×4 (04:34→18:10)
[2018-03-22] MEDS: Piperacil/Tazo 3.375 GM Premix 50 ML IV.SIG SCH ×4 (04:34→20:39)
[2018-03-22] MEDS: Propofol 1000 mg/100 ml Inj 1,000 MG/100 ML BOTTLE IV.CONT PRN ×2 (04:35→13:32)
[2018-03-22] MEDS: Vancomycin Inj 1,000 MG in Sodium Chlor 0.9% Inj 250 ML IV.SIG SCH ×2 (04:35→15:24)
--- NOTE | 2018-03-22 05:00 | XR ---
EXAM DATE: 03/22/2018 4:44 AM EST AGE/SEX: 47 years / Male INDICATIONS: Shortness of breath, possible pulmonary disease. CLINICAL DATA: This is the patient's subsequent encounter. Patient reports that signs and symptoms h ave been present for 4 - 6 days and indicates a pain score of Nonresponsive. MEDICAL/SURGICAL HISTORY: Chronic obstructive pulmonary disease. Deep venous thrombosis. Carc inoma, lung. . [id number]. COMPARISON: 03/21/2018. FINDINGS: Near complete opacification of the left hemithorax again seen. Endotracheal tube, nasogastric tube, r ight-sided [id number] remain in place. Mild patchy opacity at the right lower lung zone and conflu ent rounded opacity in the right lateral midlung zone. Cardiac silhouette is enlarged but unchanged. No evidence of the thorax. CONCLUSION: No significant interval change with near complete opacification of left hemithorax and patchy opacity on the right including confluent rounded opacity in the lateral right midlung. Electronically signed by: William Georges MD 03/22/2018 4:59 AM EST
[2018-03-22 05:49] LABS: Baso % (Auto) 0.1 % (0.0-2.0); Hematocrit 25.3 % (39.0-51.0); Lymph # (Auto) 0.1 th/mm3 (1.0-4.8); Lymph % (Auto) 0.9 % (9.0-44.0); Mean Corpuscular HGB Conc 31.9 % (32.0-36.0); Mean Corpuscular Hemoglobin 24.4 pg (27.0-34.0); Mean Corpuscular Volume 76.5 fL (80.0-100.0); Mean Platelet Volume 7.2 fL (7.0-11.0); Mono # (Auto) 1.1 th/mm3 (0.0-0.9); Mono % (Auto) 8.6 % (0.0-8.0); Neut # (Auto) 11.6 th/mm3 (1.8-7.7); Neut % (Auto) 90.4 % (16.0-70.0); Platelet Count 305 th/mm3 (150-450); Red Cell Distribution Width 21.6 % (11.6-17.2); White Blood Count 12.8 th/mm3 (4.0-11.0)
[2018-03-22 06:07] LABS: Activated Partial Thrombo Time 29.2 sec (23.4-31.7); INR 1.5 Ratio; Prothrombin Time 15.4 sec (9.8-11.6)
[2018-03-22 06:31] LABS: Alanine Aminotransferase 1163 U/L (12-78); Albumin 1.7 g/dL (3.4-5.0); Alkaline Phosphatase 204 U/L (45-117); Anion Gap 11 meq/L (5-15); Aspartate Aminotransferase 494 U/L (15-37); Blood Urea Nitrogen 44 mg/dL (7-18); Calcium 9.2 mg/dL (8.5-10.1); Carbon Dioxide 20.9 meq/L (21.0-32.0); Chloride 105 meq/L (98-107); Glomerular Filtration Rate 68 mL/min (>89); Glucose,Random 203 mg/dL (74-106); Lipase 85 U/L (73-393); Magnesium 2.6 mg/dL (1.5-2.5); Phosphorus 3.6 mg/dL (2.5-4.9); Sodium 137 meq/L (136-145); Thyroid Stimulating Hormone 0.848 uIU/mL (0.358-3.740); Total Protein 5.7 g/dL (6.4-8.2)
[2018-03-22 06:34] LABS: Troponin I 4.89 ng/mL (0.02-0.05)
[2018-03-22] MEDS: Budesonide-Formoterol 160/4.5 MCG 6 GM Inhaler INH SCH ×3 (07:48→19:38)
[2018-03-22] MEDS: Chlorhexidine Gluconate 2% 1 Pack (2 Cloths) TOPICAL SCH (07:49)
[2018-03-22] MEDS: Artificial Tears Opth Drops 15 ML Bottle EACH EYE SCH ×3 (07:49→20:40)
[2018-03-22] MEDS: Sod Chloride 0.9% Inj 1,000 ML IV.CONT SCH ×2 (07:51→09:05)
[2018-03-22] MEDS: Rivaroxaban 10 MG Tablet PO SCH (09:02)
[2018-03-22] MEDS: Senna/Docusate Sodium 8.6/50 MG Tablet PO SCH ×2 (09:02→20:40)
[2018-03-22] MEDS: Chlorhexidine 0.12% Oral Kit 15 ML UDC OROPHARYNG SCH ×2 (09:03→20:39)
--- NOTE | 2018-03-22 09:55 | P.PNCC ---
Subjective Subjective Remarks/Hospital Course: This is a 47-year-old male that earlier this afternoon at home had increasing shortness of breath and a syncopal episode. Of note the patient is normally on 5 L nasal cannula but as he became short of breath O2 saturation remained in the 80s heart rate was in the 170s when EMS arrived. The patient received 20 mg of Cardizem IV and was placed on BiPAP and transported to [facility] emergency room. Upon arrival the patient was noted to still be in what appeared to be A. fib RVR and received 15 mg Cardizem IV and was placed on a Cardizem drip. In the ED ,the patient was noted to have 2 additional syncopal episodes and increased work of breathing and tiring out. The patient requested to be intubated. Of note ,the patient's past medical history is significant for non-small cell carcinoma being followed by Dr. Lorena green the patient subsequently has metastatic disease and failed palliative radiation 02/26/2018 on hospital discharge the patient had agreed to hospice care and was looking forward to it,however today the patient changed CODE STATUS from DNR to full code in the emergency room. The patient's past medical history is significant for stage IV lung cancer, pancreatic mass, hypercalcemia, COPD, and a history of DVT currently on Xarelto. Critical care medicine was consulted. 03/20: Patient remains intubated sedated. CT scan reviewed and discussed with on Ignacia. I explained to her only benefit of draining the right large effusion would be this may help him wean off the ventilator. His overall condition is terminal with tumor appearing to be invading mediastinum and compressing the right ventricle. 03/21: Currently resting in bed in no acute distress. Attempting to wean off ventilator. Currently afebrile. Noted elevated transaminases. Right-sided pigtail catheter with 1375 cc output Subjective 03/22: Low-grade temperatures overnight. Will attempt CPAP trial today. Remains on low-dose norepinephrine drip. Off diltiazem drip. Objective Vital Signs / I&O: Vital Signs 03/21/18 10:00 03/21/18 10:15 03/21/18 10:30 Temperature Pulse Rate 110 H 109 H 106 H Respiratory Rate Blood Pressure 93/61 L 96/62 L 95/58 L Pulse Oximetry 97 99 100 03/21/18 10:45 03/21/18 11:00 03/21/18 11:07 Temperature Pulse Rate 102 H 105 H 105 H Respiratory Rate 20 Blood Pressure 87/56 L 89/55 L Pulse Oximetry 100 100 100 03/21/18 11:15 03/21/18 11:30 03/21/18 11:45 Temperature Pulse Rate 105 H 105 H 105 H Respiratory Rate Blood Pressure 91/57 L 91/59 L 90/56 L Pulse Oximetry 98 98 98 03/21/18 12:00 03/21/18 12:15 03/21/18 12:30 Temperature Pulse Rate 105 H 104 H 103 H Respiratory Rate Blood Pressure 92/58 L 92/56 L 90/56 L Pulse Oximetry 98 98 98 03/21/18 12:45 03/21/18 13:00 03/21/18 13:15 Temperature Pulse Rate 102 H 101 H 100 H Respiratory Rate Blood Pressure 90/55 L 91/58 L 89/58 L Pulse Oximetry 99 99 98 03/21/18 13:30 03/21/18 13:45 03/21/18 14:00 Temperature Pulse Rate 99 H 99 H 99 H Respiratory Rate Blood Pressure 89/56 L 90/57 L 90/58 L Pulse Oximetry 99 99 99 03/21/18 14:15 03/21/18 14:30 03/21/18 14:33 Temperature Pulse Rate 100 H 99 H 98 H Respiratory Rate 16 Blood Pressure 88/56 L 89/55 L Pulse Oximetry 99 99 99 03/21/18 14:45 03/21/18 15:00 03/21/18 15:15 Temperature Pulse Rate 97 H 97 H 98 H Respiratory Rate Blood Pressure 90/57 L 89/56 L 92/57 L Pulse Oximetry 99 99 99 03/21/18 15:30 03/21/18 15:45 03/21/18 16:00 Temperature Pulse Rate 97 H 96 H 96 H Respiratory Rate Blood Pressure 91/54 L 91/57 L 91/56 L Pulse Oximetry 100 100 100 03/21/18 16:15 03/21/18 16:30 03/21/18 16:45 Temperature Pulse Rate 96 H 96 H 96 H Respiratory Rate Blood Pressure 92/59 L 91/57 L 93/60 L Pulse Oximetry 100 99 99 03/21/18 17:00 03/21/18 17:15 03/21/18 17:30 Temperature Pulse Rate 97 H 100 H 98 H Respiratory Rate Blood Pressure 94/60 L 92/61 L 94/60 L Pulse Oximetry 99 99 100 03/21/18 18:00 03/21/18 18:15 03/21/18 18:30 Temperature 98.4 F Pulse Rate 98 H 98 H 99 H Respiratory Rate Blood Pressure 97/63 L 95/61 L 95/64 L Pulse Oximetry 100 100 100 03/21/18 18:45 03/21/18 19:00 03/21/18 19:15 Temperature 98.1 F Pulse Rate 98 H 98 H 97 H Respiratory Rate 16 Blood Pressure 93/63 L 93/61 L 95/64 L Pulse Oximetry 100 100 100 03/21/18 19:29 03/21/18 19:30 03/21/18 19:45 Temperature Pulse Rate 96 H 96 H 94 H Respiratory Rate 17 Blood Pressure 99/65 L 97/61 L Pulse Oximetry 100 100 100 03/21/18 20:00 03/21/18 20:15 03/21/18 20:30 Temperature Pulse Rate 92 H 91 H 93 H Respiratory Rate 16 Blood Pressure 90/56 L 95/61 L 87/55 L Pulse Oximetry 100 100 100 03/21/18 20:45 03/21/18 21:00 03/21/18 21:15 Temperature Pulse Rate 93 H 94 H 96 H Respiratory Rate 16 Blood Pressure 86/57 L 86/58 L 81/58 L Pulse Oximetry 100 100 100 03/21/18 21:30 03/21/18 21:45 03/21/18 22:00 Temperature Pulse Rate 94 H 93 H 92 H Respiratory Rate Blood Pressure 86/59 L 88/58 L 88/56 L Pulse Oximetry 100 100 100 03/21/18 22:15 03/21/18 22:30 03/21/18 22:45 Temperature Pulse Rate 90 87 87 Respiratory Rate Blood Pressure 91/59 L 87/56 L 88/57 L Pulse Oximetry 100 100 100 03/21/18 23:00 03/21/18 23:05 03/21/18 23:15 Temperature Pulse Rate 88 88 90 Respiratory Rate 16 Blood Pressure 89/56 L 89/57 L Pulse Oximetry 100 100 100 03/21/18 23:30 03/21/18 23:45 03/22/18 00:00 Temperature Pulse Rate 86 86 87 Respiratory Rate Blood Pressure 88/55 L 87/55 L 88/56 L Pulse Oximetry 100 100 100 03/22/18 00:15 03/22/18 00:30 03/22/18 00:45 Temperature Pulse Rate 86 85 84 Respiratory Rate Blood Pressure 90/57 L 90/56 L 91/58 L Pulse Oximetry 100 100 100 03/22/18 01:00 03/22/18 01:15 03/22/18 01:30 Temperature Pulse Rate 83 84 84 Respiratory Rate Blood Pressure 90/57 L 92/57 L 93/58 L Pulse Oximetry 100 100 100 03/22/18 01:45 03/22/18 02:00 03/22/18 02:15 Temperature Pulse Rate 83 82 82 Respiratory Rate 16 Blood Pressure 93/58 L 92/58 L 91/57 L Pulse Oximetry 100 100 100 03/22/18 02:30 03/22/18 02:45 03/22/18 02:53 Temperature Pulse Rate 83 83 83 Respiratory Rate 16 Blood Pressure 91/57 L 92/58 L Pulse Oximetry 99 100 03/22/18 03:00 03/22/18 03:15 03/22/18 03:26 Temperature Pulse Rate 82 82 Respiratory Rate 16 Blood Pressure 91/58 L 92/58 L Pulse Oximetry 100 100 100 03/22/18 03:30 03/22/18 03:45 03/22/18 04:00 Temperature Pulse Rate 83 85 87 Respiratory Rate Blood Pressure 91/58 L 92/59 L 93/59 L Pulse Oximetry 100 99 99 03/22/18 04:15 03/22/18 04:30 03/22/18 04:45 Temperature Pulse Rate 87 87 87 Respiratory Rate Blood Pressure 95/61 L 96/61 L 105/63 Pulse Oximetry 100 98 100 03/22/18 05:00 03/22/18 05:15 03/22/18 05:30 Temperature Pulse Rate 94 H 91 H 90 Respiratory Rate Blood Pressure 91/60 L 92/63 L 90/60 L Pulse Oximetry 94 L 100 100 03/22/18 05:45 03/22/18 06:00 03/22/18 06:15 Temperature Pulse Rate 91 H 91 H 93 H Respiratory Rate Blood Pressure 81/52 L 99/62 L 98/65 L Pulse Oximetry 100 100 100 03/22/18 06:30 03/22/18 06:45 03/22/18 07:00 Temperature Pulse Rate 96 H 95 H 93 H Respiratory Rate Blood Pressure 98/64 L 97/65 L 96/63 L Pulse Oximetry 100 100 100 03/22/18 07:15 03/22/18 07:58 Temperature Pulse Rate 93 H 96 H Respiratory Rate 18 Blood Pressure 93/62 L Pulse Oximetry 100 100 Intake & Output 03/21/18 03/22/18 03/22/18 18:59 06:59 18:59 Intake Total 1750 / 1750 1022 / 1022 1550 / 1550 Output Total 1160 / 1160 1000 / 1000 Balance 590 / 590 22 / 22 1550 / 1550 Weight 73 kg Intake: IV 1750 / 1750 500 / 500 1550 / 1550 Diprivan 1000 mg/100 ml Inj 1, 100 / 100 200 / 200 000 mg In 100 ml @ 5 MCG/KG/MIN 2.041 mls/hr IV.CONT TITRATE PRN Rx#:[id number] NS Inj 1,000 ML @ 84 mls/hr IV. 1000 / 1000 1000 / 1000 CONT .[id number] NBA Rx#:[id number] Azithromycin Inj 250 MG In NS 250 / 250 Inj 250 ML @ 250 mls/hr IV.SIG Q24H NBA Rx#:[id number] Levophed-Dextrose 4 mg/250 ml 250 / 250 Drip 4 mg In 250 ml @ 2 MCG/MIN 7.5 mls/hr IV.SIG TITRATE PRN Rx#:[id number] Zosyn 3.375 GM Premix 50 ML @ 150 / 150 50 / 50 50 / 50 100 mls/hr IV.SIG Q6H NBA Rx#: [id number] Vancomycin Inj 1,000 MG In NS 500 / 500 250 / 250 Inj 250 ML @ 250 mls/hr IV.SIG Q12H NBA Rx#:[id number] Tube Feeding 153 / 153 Other 369 / 369 Output: Urine 650 / 650 Urine Amount (Catheter) 1000 / 1000 Straight 1000 / 1000 Chest Tube Drainage 160 / 160 350 / 350 Right Anterior 160 / 160 350 / 350 Other: # Bowel Movements 0 Result Diagrams: 03/22/18 05:40 03/22/18 05:40 Other Results: Microbiology 03/19/18 13:30 Blood - Peripheral Aerobic Blood Culture - Preliminary Staphylococcus epidermidis 03/19/18 13:30 Blood - Peripheral Anaerobic Blood Culture - Preliminary No growth in 2 days 03/20/18 14:15 Fluid - Pleural fluid Gram Stain - Final 03/20/18 14:15 Fluid - Pleural fluid Body Fluid Culture - Preliminary No growth in 24 hours 03/20/18 14:15 Fluid - Pleural fluid Fungal Smear - Final No fungal elements seen 03/19/18 17:00 Sputum - Tracheal Aspirate Gram Stain - Final 03/19/18 17:00 Sputum - Tracheal Aspirate Sputum Culture - Preliminary gram negative rods 03/19/18 13:35 Blood - Peripheral Aerobic Blood Culture - Preliminary No growth in 2 days 03/19/18 13:35 Blood - Peripheral Anaerobic Blood Culture - Preliminary No growth in 2 days 03/19/18 16:00 Catheterized Urine Urine Culture - Final No growth in 48 hours 03/19/18 16:00 Urine - Catheterized Urine Streptococcus pneumoniae Antigen ( M - Final Presumptive negative for streptococcus pneumoniae antigen, suggesting no current or recent infection. Infection due to Streptococcus pneumoniae cannot be ruled out since the antigen present in the sample may be below the detection limit of the test. 03/19/18 16:00 Urine - Catheterized Urine Legionella Antigen - Final Presumptive negative for Legionella pneumophila serogroup 1 antigen in urine, suggesting no recent or recurrent infection. Infection due to Legionella cannot be ruled out since other serogroups and species may cause disease, antigen may not be present in urine in early infection, and the level of antigen present in the urine may be below the detection limit of the test. 03/19/18 13:45 Nasal Wash Influenza Types A,B Antigen - Final Negative for FLU A and B antigen Infection due to influenza A or B cannot be ruled out since the antigen present in the sample may be below the detection limit of the test. Imaging: Chest CTA 03/19/18 13:27 CONCLUSION: 1. Negative for central pulmonary emboli 2. Noted complete opacification of the left hemithorax. There is direct invasion of the mediastinum from apparent tumor. This Tumor is compressing the right ventricle Chest X-Ray 03/19/18 13:27 CONCLUSION: 1. Stable chest x-ray with near complete opacification left hemithorax with left lung volume loss. 2. Stable right midlung zone pulmonary mass. Chest X-Ray 03/19/18 15:24 CONCLUSION: ET tube and NG tube both in good position. Again near-complete opacification left hemithorax with a large pleural effusion and volume loss. Diffuse perihilar vascular congestion with a stable infiltrate right midlung zone Head CT 03/19/18 15:35 CONCLUSION: 1. Stable CT scan of the head without contrast with minimal periventricular presumed ischemic changes and encephalomalacia right frontal lobe. . Chest X-Ray 03/20/18 00:00 CONCLUSION: 1. Right chest tube is in place with tip in the medial right hemithorax. No pneumothorax is present. There is decreased right pleural-based opacity likely representing decreased pleural fluid. 2. Stable near-complete opacification left hemithorax and stable right peripheral midlung zone mass. Chest X-Ray 03/21/18 06:00 CONCLUSION: Stable appearance of the chest. Chest X-Ray 03/22/18 06:00 CONCLUSION: No significant interval change with near complete opacification of left hemithorax and patchy opacity on the right including confluent rounded opacity in the lateral right midlung. Objective Remarks: Constitutional 47-year-old chronically ill appearing male, intubated sedated on the [facility] Exam Head: normocephalic Eye: PERRL ENT: Orotracheally intubated Respiratory Exam patient mechanically ventilated, decreased breath sounds bilaterally with coarse rhonchi bilaterally. Breath sounds are markedly diminished on the left Cardiovascular Exam No murmur present: S1, S2, irregularly irregular Abdominal Exam soft, normoactive bowel sounds Extremities Exam Present: pulses intact Skin Exam Present: intact, normal turgor Neuro: Intubated sedated for ventilator synchrony. On sedation lightening moves all 4 extremities appears to have no focal deficits Assessment and Plan - Problem List (1) Pleural effusion Code(s): J90 - Pleural effusion, not elsewhere classified Status: Acute (2) Protein-calorie malnutrition Code(s): E46 - Unspecified protein-calorie malnutrition Status: Acute (3) Hypoxia Code(s): R09.02 - Hypoxemia Status: Acute (4) Lung cancer Code(s): C34.90 - Malignant neoplasm of unspecified part of unspecified bronchus or lung Status: Acute (5) Lactic acid blood increased Code(s): R79.89 - Other specified abnormal findings of blood chemistry Status : Acute (6) COPD exacerbation Code(s): J44.1 - Chronic obstructive pulmonary disease with (acute) exacerbation Status: Acute (7) Atrial fibrillation with RVR Code(s): I48.91 - Unspecified atrial fibrillation Status: Acute - Assessment and Plan Plan: Neuro/Psych: Chronic malignant pain Continue fentanyl currently 100 mcg an hour and propofol infusions currently at 20 mg/kg/min to maintain ventilator synchrony and analgesia Neuro checks per ICU protocol Daily sedation vacation Holding 650 mg every 6 hours as needed for fever with elevated transaminases Respiratory: Acute hypoxemic respiratory failure Metastatic lung cancer Large right pleural effusion COPD exacerbation Stage IV non-small cell lung cancer with metastasis S/P XRT Patient emergently intubated in the ED Follow-up chest x-ray PRVC ventilation Ventilator bundle Head of bed at 30 degrees Albuterol/ipratropium aerosols every 4 hours scheduled with albuterol aerosols every 2 hours as needed Patient has large right pleural effusion status post pigtail placement for malignant effusion 03/20. I explained to POA aunt Ignacia that only benefit of draining is a possibility of weaning of the ventilator, we will not change overall prognosis CPap trials daily Cardiovascular: Mediastinal tumor invasion Metastatic tumor compression right ventricle History of DVT A. fib RVR F/U echo pending 03/21 Norepinephrine gtt at 1 mcg/min maintain MAP > 65 mmHg Noted port right chest-utilize for access Maintain MAP > 65mmH Cardizem infusion for rate control 03/19 chest x-raydiffuse perihilar vascular congestion with a stable infiltrate right midlung 03/19 CT angiogram-negative for pulmonary embolus. Direct invasion of mediastinum from tumor. Tumor is compressing the right ventricle appear near complete opacification of left hemothorax combination with drown lung tumor in the fluid. Large right pleural effusion is evident team parenchymal mass seen anterior in the right lung. Left adrenal metastasis. Renal: - Strict I/Os FEN/GI: Hyponatremia Pancreatic mass Adrenal mass Elevated transaminases Hypoalbuminemia Start tube feedings with neutral hep goal 60 cc an hour Monitor BMP OG tube Lansoprazole for GI prophylaxis Heme/ID: Anemia of chronic disease/microcytic Leukocytosis Lactic acidemia Chronic rivaroxaban use Squamous cell carcinoma of the lung Continue normal saline IV 84 cc an hour Follow-up blood sputum and urine cultures Began prophylactic antibiotics vancomycin , piperacillin/tazobactam and azithromycin Heme-Onc-Dr. Christian Continue with Lorazepam 10 mg daily Endocrine: Hyperglycemia critically illness Glucose monitoring per ICU protocol -- SSI Prophylaxis: GI Prophylaxis Lansoprazole DVT Prophylaxis -- SCDs. Rivaroxaban will provide pharmacological prophylaxis Lines: Peripheral IVs providing adequate access. Right port cath in situ. Central line if indicated Level 3 follow-up (2) Protein-calorie malnutrition Qualifiers: Protein-calorie malnutrition severity: unspecified severity Qualified Code(s) : E46 - Unspecified protein-calorie malnutrition (4) Lung cancer Qualifiers: Laterality: right Lung location: unspecified part of lung Qualified Code(s) : C34.91 - Malignant neoplasm of unspecified part of right bronchus or lung
[2018-03-22] MEDS: MethylPREDNISolone Sod Succinate Inj 40 MG/ML Vial IV.PUSH SCH ×3 (12:21→21:14)
[2018-03-22] MEDS: fentaNYL 10 mcg/mL Premix Drip 2,500 MCG/250 ML BAG IV.SIG PRN (15:26)
--- NOTE | 2018-03-22 17:40 | P.CONPAL ---
Consult Service: Palliative Care Requesting Physician: Nohelia Spangler Reason for Consult: a. To assist with evaluation and management of symptoms including: dyspnea, pain. b. To assist medical decision maker(s) with: better understanding of current medical conditions; weighing benefits/burdens of medical treatment options; making medical treatment decisions. Primary Care Provider: Chepe Gastelum MD History of Present Illness History of Present Illness: Mr. Vigil is an unfortunate 47 year odl male with past medical history of stage IV squamous cell carcinoma of the lung, oxygen dependent 5 L at home continuous, hypercalcemia and DVT on Xarelto. Patient was found to have an 8.5 cm mass in the left perihilar region involving the mediastinum as well as multiple satellite lesions in May 2015, biopsy confirmed squamous cell carcinoma of the lung. He was treated with 6 cycles of Taxol and carboplatin chemotherapy until September 2015. He developed progressive disease was treated with immunotherapy. In 01/2016 he required pericardial window. He also received radiation to the left lung and mediastinum completed February 2016. He then went to [facility] where he received additional radiation as well as nivolumab immunotherapy. Despite ongoing therapy patient had progressive disease. He was deemed not to be a candidate for additional surgery , radiation, chemotherapy, immunotherapy or targeted therapy. Patient was previously hospitalized 02/23/18-03/01/18 with hypercalcemia, SIRS. He was found to have disease progression with 14cm left lung mass, mass in the pancreas, bilateral effusions and left adrenal metastasis. Palliative care was consulted and patient elected DNR and was planning for DC home with hospice. However patient was feeling well enough that he went home without hospice support. Patient and family requested that [facility] stop following because he was "doing better." Patient presented to [facility] emergency department on 03/19/18 when he developed respiratory distress, syncopal episode. Family reported he passed out for a few minutes and came to. Upon EMS arrival patient rescinded his DNR. Patient was emergently intubated and placed on mechanical ventilation. Initial test results revealed: * WBC 10.9, hemoglobin 7.9, hematocrit 25.4, platelet count 326, neutrophil 87% * Sodium 131, potassium 4.1, chloride 99, carbon dioxide 25.9, anion gap 6, BUN 15, creatinine 0.71, GFR greater than 89, glucose 124 * Lactic acid 3.7 * Total bilirubin 0.6, AST 24, ALT 53, alkaline phosphatase 293 * Total creatine kinase 100, troponin 0.04 * Total protein 6.4, albumin 1.9 * CTA-negative for central pulmonary emboli, complete opacification of left hemithorax, direct invasion of the mediastinum from apparent tumor, tumor compressing the right ventricle. * Chest x-ray-near complete opacification left hemithorax with left lung volume loss, stable right midlung zone pulmonary mass. * CT head-stable CT head with minimal periventricular presumed ischemic changes and encephalomalacia right frontal lobe. * Sputum culture - capnocytophaga species. Patient was admitted to ICU with mets lung cancer, respiratory failure. Palliative care was consulted to assist with further clarification of goals of medical treatment. Discussed case with Dr. Christian on 03/19/18. Patient seen and examined in ICU. No family present. Discussed with nurse and Dr. Wiley. Spoke with aunt, medical POA via telephone. Medical update provided. I explained patient is not expected to survive this hospitalization. Reviewed test results, cardiac and respiratory issues. Patient continues to have episodes of desaturation despite increasing oxygen on vent. Hypotensive despite pressors, tachycardic. We talked about options of continued aggressive care vs continued mech vent with no further escalation of care vs transition to comfort with compassionate withdrawal of life support. She "wants patient to be comfortable," though is having a hard time committing to comfort measures. She verbalizes understanding that he is dying and that we can not fix his heart or lungs due to worsening cancer. She is going to think about "things" and let me know if she makes any further decisions. Palliative care number provided. Review of Systems unobtainable due to endotracheal tube, unobtainable due to mental status PMFSH - History History Provided By: Patient - Medical History Medical History: Medical History (Last Reviewed 03/22/18 @ 08:17 by Dhiraj Gayle) Edema of both legs Pericarditis Anxiety COPD (chronic obstructive pulmonary disease) DVT (deep venous thrombosis) Emphysema lung GERD (gastroesophageal reflux disease) Lung cancer Port-A-Cath in place - Surgical History Surgical History: Surgical History (Last Reviewed 03/22/18 @ 17:44 by Kathy Coleman) History of lung surgery H/O shoulder surgery Port-A-Cath in place - Family History Family History: Family History (Last Reviewed 03/19/18 @ 13:40 by Tayla Lizarraga) Other Alcohol abuse Depression Family history of cancer Hyperlipidemia - Social History I have reviewed the patient's Social History: Yes - Tobacco History Second Hand Smoke Exposure: No Smoking Status: Former smoker Tobacco Type: Cigarettes Packs Per Day: 1 years: 30 - Alcohol History How Often Do You Have a Drink Containing Alcohol: Never - Substance Use History Substance History: No History of Abuse - Travel History Recent Travel in the [place] Within the Last 8 Weeks: No Recent Travel Out of the Country Within the Last 8 Weeks: No - Immunization History Tetanus Immunization: Unsure Medications and Allergies Active Medications: Active Medications Al Hydroxide/Mg Hydroxide (Milk Of Jarad Liq) 30 ml PO Q12H PRN PRN Reason: Mild Constipation Albuterol (Duoneb Neb (Santana)) 1 ampul NEB Q4HR NEB [facility] Last Admin: 03/22/18 15:36 Dose: 1 ampul Albuterol (Albuterol Neb (Prn)) 2.5 mg NEB Q2HR NEB PRN PRN Reason: DYSPNEA Artificial Tears (Tears Naturale Opth Drops) 1 drop EACH EYE Q8H [facility] Last Admin: 03/22/18 13:32 Dose: 1 drop Bisacodyl (Dulcolax Supp) 10 mg RECTAL DAILY PRN PRN Reason: SEVERE CONSITIPATION Budesonide/Formoterol Fumarate (Symbicort 160/4.5 Mcg Inh) 2 puff INH Q12HR [facility] Last Admin: 03/22/18 09:03 Dose: Not Given Chlorhexidine Gluconate (Peridex 0.12% Oral Kit) 15 ml OROPHARYNG BID@0800, 2000 [facility] Last Admin: 03/22/18 09:03 Dose: 15 ml Chlorhexidine Gluconate (Chlorhexidine 2% Cloth) 3 pack TOPICAL DAILY@0400 [facility] Stop: 03/25/18 03:59 Last Admin: 03/22/18 07:49 Dose: 3 pack Chlorhexidine Gluconate (Chlorhexidine 2% Cloth) 3 pack TOPICAL DAILY@0400 PRN PRN Reason: Extra cloth needed Stop: 03/25/18 03:59 Propofol (Diprivan 1000 Mg/100 Ml Inj) 1,000 mg in 100 mls @ 2.041 mls/hr IV.CONT TITRATE PRN; Protocol PRN Reason: Per Protocol Last Admin: 03/22/18 13:32 Dose: 30 mcg/kg/min, 12.25 mls/hr Sodium Chloride (Ns Inj) 1,000 mls @ 84 mls/hr IV.CONT .[id number] [facility] Last Infusion: 03/22/18 09:00 Dose: Infused Fentanyl (Fentanyl 10 Mcg/Ml Premix Drip) 2,500 mcg in 250 mls @ 5 mls/hr IV.SIG TITRATE PRN; Protocol PRN Reason: Per Protocol Last Admin: 03/22/18 15:26 Dose: 200 mcg/hr, 20 mls/hr Piperacillin/Tazobactam/Dextrose (Zosyn 3.375 Gm Premix) 50 mls @ 100 mls/hr IV.SIG Q6H [facility] Last Admin: 03/22/18 15:25 Dose: 50 mls/hr Azithromycin 250 mg/ Sodium (Chloride) 250 mls @ 250 mls/hr IV.SIG Q24H [facility] Last Infusion: 03/22/18 07:00 Dose: Infused Vancomycin HCl 1,000 mg/ (Sodium Chloride) 250 mls @ 250 mls/hr IV.SIG Q12H [facility] Last Admin: 03/22/18 15:24 Dose: 250 mls/hr Norepinephrine Bitartrate (Levophed-Dextrose 4 Mg/250 Ml Drip) 4 mg in 250 mls @ 7.5 mls/hr IV.SIG TITRATE PRN; Protocol PRN Reason: Per Protocol Last Titration: 03/22/18 15:30 Dose: 10 mcg/min, 37.5 mls/hr Lactulose (Lactulose Liq) 30 ml PO DAILY PRN PRN Reason: SEVERE CONSITIPATION Lansoprazole (Prevacid Solutab) 30 mg NG/OG DAILY [facility] Last Admin: 03/22/18 09:02 Dose: 30 mg Methylprednisolone Sodium Succinate (Solumedrol Inj) 40 mg IV.PUSH Q8HR [facility] Last Admin: 03/22/18 13:32 Dose: 40 mg Miscellaneous Information ([facility] Ordered Lab Info) 0 each OTHER ONCE ONE Stop: 03/23/18 03:46 Miscellaneous Medication () 1 each OROPHARYNG 0000,0400,1200,1600 [facility] Last Admin: 03/22/18 12:21 Dose: 1 each Ondansetron HCl (Zofran Inj) 4 mg IV.PUSH Q6H PRN PRN Reason: NAUSEA OR VOMITING Pharmacy Profile Note (Vancomycin Consult Pharmacy) 1 each OTHER UNSCH PRN PRN Reason: Pharmacy to dose Rivaroxaban (Xarelto) 10 mg PO DAILY [facility] Last Admin: 03/22/18 09:02 Dose: 10 mg Senna/Docusate Sodium (Donna-Colace) 1 tab PO BID [facility] Last Admin: 03/22/18 09:02 Dose: 1 tab Sennosides (Senokot) 17.2 mg PO Q12H PRN PRN Reason: Moderate Constipation Sodium Chloride (Ns Flush) 2 ml IV.FLUSH BID [facility] Last Admin: 03/22/18 09:03 Dose: 2 ml Sodium Chloride (Ns Flush) 2 ml IV.FLUSH UNSCH PRN PRN Reason: FLUSH AFTER USING IV ACCESS Terbutaline Sulfate (Brethine Inj) 1 mg SQ UNSCH PRN PRN Reason: For Extravasation Allergies Allergy/AdvReac Type Severity Reaction Status Date / Time No Known Allergies Allergy Unverified 12/21/17 23:11 Home Medications Medication Instructions Recorded Confirmed Type albuterol sulfate 1.25 mg INHALATION QID PRN 12/21/17 03/19/18 History oxycodone-acetaminophen 1 tab PO Q4H PRN 02/23/18 03/19/18 History budesonide-formoterol [Symbicort] 2 puff INHALATION Q12H 02/24/18 03/19/18 History rivaroxaban [Xarelto] 10 mg PO DAILY 02/24/18 03/19/18 History albuterol sulfate [ProAir HFA] 2 puff INHALATION Q4-6H PRN 03/19/18 03/19/18 History Advance Directives Living Will: No Healthcare Surrogate: Yes Health Care Surrogate Name and Number: Ignacia Torres, aunt: [phone] Today's verbally stated goals: Patient is not capacitated to make his own health care decisions. Family/friends goals: Desires continued aggressive care for now, but also verbalizes desire that patient be comfortable when it is his time to go with God. Physical Exam Vital Signs: Vital Signs - 24 hr 03/21/18 16:30 03/21/18 16:45 03/21/18 17:00 Temperature Pulse Rate 96 H 96 H 97 H Respiratory Rate Blood Pressure 91/57 L 93/60 L 94/60 L Pulse Oximetry 99 99 99 03/21/18 17:15 03/21/18 17:30 03/21/18 18:00 Temperature 98.4 F Pulse Rate 100 H 98 H 98 H Respiratory Rate Blood Pressure 92/61 L 94/60 L 97/63 L Pulse Oximetry 99 100 100 03/21/18 18:15 03/21/18 18:30 03/21/18 18:45 Temperature Pulse Rate 98 H 99 H 98 H Respiratory Rate Blood Pressure 95/61 L 95/64 L 93/63 L Pulse Oximetry 100 100 100 03/21/18 19:00 03/21/18 19:15 03/21/18 19:29 Temperature 98.1 F Pulse Rate 98 H 97 H 96 H Respiratory Rate 16 17 Blood Pressure 93/61 L 95/64 L Pulse Oximetry 100 100 100 03/21/18 19:30 03/21/18 19:45 03/21/18 20:00 Temperature Pulse Rate 96 H 94 H 92 H Respiratory Rate 16 Blood Pressure 99/65 L 97/61 L 90/56 L Pulse Oximetry 100 100 100 03/21/18 20:15 03/21/18 20:30 03/21/18 20:45 Temperature Pulse Rate 91 H 93 H 93 H Respiratory Rate Blood Pressure 95/61 L 87/55 L 86/57 L Pulse Oximetry 100 100 100 03/21/18 21:00 03/21/18 21:15 03/21/18 21:30 Temperature Pulse Rate 94 H 96 H 94 H Respiratory Rate 16 Blood Pressure 86/58 L 81/58 L 86/59 L Pulse Oximetry 100 100 100 03/21/18 21:45 03/21/18 22:00 03/21/18 22:15 Temperature Pulse Rate 93 H 92 H 90 Respiratory Rate Blood Pressure 88/58 L 88/56 L 91/59 L Pulse Oximetry 100 100 100 03/21/18 22:30 03/21/18 22:45 03/21/18 23:00 Temperature Pulse Rate 87 87 88 Respiratory Rate Blood Pressure 87/56 L 88/57 L 89/56 L Pulse Oximetry 100 100 100 03/21/18 23:05 03/21/18 23:15 03/21/18 23:30 Temperature Pulse Rate 88 90 86 Respiratory Rate 16 Blood Pressure 89/57 L 88/55 L Pulse Oximetry 100 100 100 03/21/18 23:45 03/22/18 00:00 03/22/18 00:15 Temperature Pulse Rate 86 87 86 Respiratory Rate Blood Pressure 87/55 L 88/56 L 90/57 L Pulse Oximetry 100 100 100 03/22/18 00:30 03/22/18 00:45 03/22/18 01:00 Temperature Pulse Rate 85 84 83 Respiratory Rate Blood Pressure 90/56 L 91/58 L 90/57 L Pulse Oximetry 100 100 100 03/22/18 01:15 03/22/18 01:30 03/22/18 01:45 Temperature Pulse Rate 84 84 83 Respiratory Rate Blood Pressure 92/57 L 93/58 L 93/58 L Pulse Oximetry 100 100 100 03/22/18 02:00 03/22/18 02:15 03/22/18 02:30 Temperature Pulse Rate 82 82 83 Respiratory Rate 16 Blood Pressure 92/58 L 91/57 L 91/57 L Pulse Oximetry 100 100 99 03/22/18 02:45 03/22/18 02:53 03/22/18 03:00 Temperature Pulse Rate 83 83 82 Respiratory Rate 16 Blood Pressure 92/58 L 91/58 L Pulse Oximetry 100 100 03/22/18 03:15 03/22/18 03:26 03/22/18 03:30 Temperature Pulse Rate 82 83 Respiratory Rate 16 Blood Pressure 92/58 L 91/58 L Pulse Oximetry 100 100 100 03/22/18 03:45 03/22/18 04:00 03/22/18 04:15 Temperature Pulse Rate 85 87 87 Respiratory Rate Blood Pressure 92/59 L 93/59 L 95/61 L Pulse Oximetry 99 99 100 03/22/18 04:30 03/22/18 04:45 03/22/18 05:00 Temperature Pulse Rate 87 87 94 H Respiratory Rate Blood Pressure 96/61 L 105/63 91/60 L Pulse Oximetry 98 100 94 L 03/22/18 05:15 03/22/18 05:30 03/22/18 05:45 Temperature Pulse Rate 91 H 90 91 H Respiratory Rate Blood Pressure 92/63 L 90/60 L 81/52 L Pulse Oximetry 100 100 100 03/22/18 06:00 03/22/18 06:15 03/22/18 06:30 Temperature Pulse Rate 91 H 93 H 96 H Respiratory Rate Blood Pressure 99/62 L 98/65 L 98/64 L Pulse Oximetry 100 100 100 03/22/18 06:45 03/22/18 07:00 03/22/18 07:15 Temperature Pulse Rate 95 H 93 H 93 H Respiratory Rate Blood Pressure 97/65 L 96/63 L 93/62 L Pulse Oximetry 100 100 100 03/22/18 07:58 03/22/18 08:00 03/22/18 10:00 Temperature 98.8 F Pulse Rate 96 H 96 H 116 H Respiratory Rate 18 20 Blood Pressure 88/60 L Pulse Oximetry 100 99 03/22/18 11:32 03/22/18 12:00 03/22/18 15:37 Temperature 98.3 F Pulse Rate 128 H 129 H 116 H Respiratory Rate 22 20 16 Blood Pressure 79/57 L Pulse Oximetry 100 92 L 95 I&O: Intake & Output 03/20/18 03/21/18 03/22/18 03/23/18 06:59 06:59 06:59 06:59 Intake Total 2100 / 2100 4100 / 4100 2772 / 2772 1949 Output Total 550 / 550 1595 / 1595 2160 / 2160 Balance 1550 / 1550 2505 / 2505 612 / 612 1949 Weight 70 kg 73 kg 73 kg Physical Exam: CONSTITUTIONAL/GENERAL: This is a thin, critically ill patient, sedated on mech vent. TUBES/LINES/DRAINS:ETT, OG, PIV, right pigtail chest tube, Major, bilateral soft wrist restraints. SKIN: No jaundice, rashes, or lesions. Ecchymoses on upper extremities. No wounds seen anteriorly. Skin temperature appropriate. Not diaphoretic. Extremities cool to touch. HEAD: Atraumatic. Normocephalic. EYES: Eyes closed. ENT: Unable to assess hearing. Nose without bleeding or purulent drainage. Throat difficult to visualize due to tubes. NECK: Trachea midline. CARDIOVASCULAR: tachycardic. RESPIRATORY/CHEST: Labored respirations on mech vent, using accessory muscles to breath. Coarse breath sounds. Right chest tube. GASTROINTESTINAL: Abdomen soft, nondistended. No guarding. Bowel sounds present. GENITOURINARY: Without palpable bladder distension. Major catheter in place, scant dark urine. MUSCULOSKELETAL: Extremities with 2+ edema. + mottling bilateral feet and knees. LYMPHATICS: not examined. NEUROLOGICAL: Sedated. PSYCHIATRIC: Sedated. Diagnostic Tests Laboratory: Laboratory Results - last 72 hr 03/19/18 03/19/18 03/19/18 16:00 17:15 17:20 WBC RBC Hgb Hct MCV MCH MCHC RDW Plt Count MPV Neut % (Auto) Lymph % (Auto) [place] % (Auto) Eos % (Auto) Baso % (Auto) Neut # (Auto) Lymph # (Auto) [place] # (Auto) Eos # (Auto) Baso # (Auto) WBC Differential Differential Comment PT INR APTT Fibrinogen Puncture Site Left radial Patient Temperature 98.6 O2 Saturation 97 ABG pH 7.29 L* ABG pCO2 53 H* ABG pO2 386 H ABG HCO3 25 ABG O2 Content 11.6 L ABG Base Excess -1.0 ABG Methemoglobin 1.3 Kimo Test Present Hemoglobin 7.7 L* Carboxyhemoglobin 1.4 O2 Delivery Device Ventilator Vent Setting Prvc16/350/0.9/+5 Inspired O2 50 Critical Value Yes Sodium Potassium Chloride Carbon Dioxide Anion Gap BUN Creatinine Estimated GFR POC Glucose Random Glucose Lactic Acid 2.5 H Calcium Phosphorus Magnesium Total Bilirubin AST ALT Alkaline Phosphatase Ammonia Troponin I Total Protein Albumin Lipase TSH Urine Color Yellow Urine Clarity Cloudy H Urine pH 6.0 Ur Specific [place] 1.021 Urine Protein 100 H Urine Glucose (UA) 50 Urine Ketones Negative Urine Occult Blood Negative Urine Nitrate Negative Urine Bilirubin Negative Urine Urobilinogen Less than 2 Ur Leukocyte Esterase Negative Urine WBC 1 Ur Squamous Epith Cells 1 Hyaline Casts 15 Granular Casts 4 Urine Mucus Few H Micro UA Comment Cath-culture not ind Ur Microscopic Review Not Reportable Urine Culture Comments Cath-cult not ind Pleural pH Pleural RBC Pleural Nuc Cells Pleural Neutrophils Pleural Lymphocytes Pleural Mesothelial Pleural Fluid Comment Pleural Total Protein Pleural LDH Pleural Glucose Pleural Amylase Nasal Screen MRSA (PCR) Vancomycin Trough 03/19/18 03/19/18 03/19/18 17:20 22:05 23:35 WBC RBC Hgb Hct MCV MCH MCHC RDW Plt Count MPV Neut % (Auto) Lymph % (Auto) [place] % (Auto) Eos % (Auto) Baso % (Auto) Neut # (Auto) Lymph # (Auto) [place] # (Auto) Eos # (Auto) Baso # (Auto) WBC Differential Differential Comment PT INR APTT Fibrinogen Puncture Site Patient Temperature O2 Saturation ABG pH ABG pCO2 ABG pO2 ABG HCO3 ABG O2 Content ABG Base Excess ABG Methemoglobin Kimo Test Hemoglobin Carboxyhemoglobin O2 Delivery Device Vent Setting Inspired O2 Critical Value Sodium Potassium Chloride Carbon Dioxide Anion Gap BUN Creatinine Estimated GFR POC Glucose Random Glucose Lactic Acid Calcium Phosphorus Magnesium Total Bilirubin AST ALT Alkaline Phosphatase Ammonia Troponin I 0.05 0.04 Total Protein Albumin Lipase TSH Urine Color Urine Clarity Urine pH Ur Specific [place] Urine Protein Urine Glucose (UA) Urine Ketones Urine Occult Blood Urine Nitrate Urine Bilirubin Urine Urobilinogen Ur Leukocyte Esterase Urine WBC Ur Squamous Epith Cells Hyaline Casts Granular Casts Urine Mucus Micro UA Comment Ur Microscopic Review Urine Culture Comments Pleural pH Pleural RBC Pleural Nuc Cells Pleural Neutrophils Pleural Lymphocytes Pleural Mesothelial Pleural Fluid Comment Pleural Total Protein Pleural LDH Pleural Glucose Pleural Amylase Nasal Screen MRSA (PCR) Not detected Vancomycin Trough 03/20/18 03/20/18 03/20/18 05:10 05:10 05:10 WBC 12.4 H RBC 3.37 L Hgb 8.1 L Hct 26.4 L MCV 78.3 L MCH 24.0 L MCHC 30.6 L RDW 21.6 H Plt Count 334 MPV 7.5 Neut % (Auto) 93.9 H Lymph % (Auto) 1.1 L [place] % (Auto) 5.0 Eos % (Auto) 0.0 Baso % (Auto) 0.0 Neut # (Auto) 11.6 H Lymph # (Auto) 0.1 L [place] # (Auto) 0.6 Eos # (Auto) 0.0 Baso # (Auto) 0.0 WBC Differential . Differential Comment Auto diff final PT INR APTT Fibrinogen Puncture Site Patient Temperature O2 Saturation ABG pH ABG pCO2 ABG pO2 ABG HCO3 ABG O2 Content ABG Base Excess ABG Methemoglobin Kimo Test Hemoglobin Carboxyhemoglobin O2 Delivery Device Vent Setting Inspired O2 Critical Value Sodium 137 Potassium 4.7 Chloride 102 Carbon Dioxide 26.1 Anion Gap 9 BUN 18 Creatinine 0.61 Estimated GFR Greater than 89 POC Glucose Random Glucose 124 H Lactic Acid 2.5 H Calcium 10.5 H D Phosphorus 3.2 Magnesium 2.4 Total Bilirubin AST ALT Alkaline Phosphatase Ammonia Troponin I Total Protein Albumin Lipase TSH Urine Color Urine Clarity Urine pH Ur Specific [place] Urine Protein Urine Glucose (UA) Urine Ketones Urine Occult Blood Urine Nitrate Urine Bilirubin Urine Urobilinogen Ur Leukocyte Esterase Urine WBC Ur Squamous Epith Cells Hyaline Casts Granular Casts Urine Mucus Micro UA Comment Ur Microscopic Review Urine Culture Comments Pleural pH Pleural RBC Pleural Nuc Cells Pleural Neutrophils Pleural Lymphocytes Pleural Mesothelial Pleural Fluid Comment Pleural Total Protein Pleural LDH Pleural Glucose Pleural Amylase Nasal Screen MRSA (PCR) Vancomycin Trough 03/20/18 03/20/18 03/21/18 14:15 14:15 04:41 WBC RBC Hgb Hct MCV MCH MCHC RDW Plt Count MPV Neut % (Auto) Lymph % (Auto) [place] % (Auto) Eos % (Auto) Baso % (Auto) Neut # (Auto) Lymph # (Auto) [place] # (Auto) Eos # (Auto) Baso # (Auto) WBC Differential Differential Comment PT INR APTT Fibrinogen Puncture Site Patient Temperature O2 Saturation ABG pH ABG pCO2 ABG pO2 ABG HCO3 ABG O2 Content ABG Base Excess ABG Methemoglobin Kimo Test Hemoglobin Carboxyhemoglobin O2 Delivery Device Vent Setting Inspired O2 Critical Value Sodium 137 Potassium 4.8 Chloride 104 Carbon Dioxide 22.7 Anion Gap 10 BUN 31 H Creatinine 1.02 Estimated GFR 78 L POC Glucose Random Glucose 148 H Lactic Acid Calcium 9.4 D Phosphorus Magnesium 2.4 Total Bilirubin 0.8 AST 793 H ALT 1228 H Alkaline Phosphatase 195 H Ammonia Troponin I Total Protein 5.9 L Albumin 1.8 L Lipase TSH Urine Color Urine Clarity Urine pH Ur Specific [place] Urine Protein Urine Glucose (UA) Urine Ketones Urine Occult Blood Urine Nitrate Urine Bilirubin Urine Urobilinogen Ur Leukocyte Esterase Urine WBC Ur Squamous Epith Cells Hyaline Casts Granular Casts Urine Mucus Micro UA Comment Ur Microscopic Review Urine Culture Comments Pleural pH 8.5 Pleural RBC 390 H Pleural Nuc Cells 55 H Pleural Neutrophils 42 Pleural Lymphocytes 40 Pleural Mesothelial 18 Pleural Fluid Comment Pleural Total Protein 2.1 Pleural LDH 170 Pleural Glucose 116 Pleural Amylase 9 Nasal Screen MRSA (PCR) Vancomycin Trough 18.0 H 03/21/18 03/22/18 03/22/18 04:41 05:40 05:40 WBC 12.5 H 12.8 H RBC 3.34 L 3.30 L Hgb 8.1 L 8.0 L Hct 25.6 L 25.3 L MCV 76.6 L 76.5 L MCH 24.1 L 24.4 L MCHC 31.4 L 31.9 L RDW 21.1 H 21.6 H Plt Count 366 305 MPV 7.5 7.2 Neut % (Auto) 90.4 H Lymph % (Auto) 0.9 L [place] % (Auto) 8.6 H Eos % (Auto) 0.0 Baso % (Auto) 0.1 Neut # (Auto) 11.6 H Lymph # (Auto) 0.1 L [place] # (Auto) 1.1 H Eos # (Auto) 0.0 Baso # (Auto) 0.0 WBC Differential . Differential Comment Auto diff final PT 15.4 H INR 1.5 APTT 29.2 Fibrinogen 528 H Puncture Site Patient Temperature O2 Saturation ABG pH ABG pCO2 ABG pO2 ABG HCO3 ABG O2 Content ABG Base Excess ABG Methemoglobin Kimo Test Hemoglobin Carboxyhemoglobin O2 Delivery Device Vent Setting Inspired O2 Critical Value Sodium Potassium Chloride Carbon Dioxide Anion Gap BUN Creatinine Estimated GFR POC Glucose Random Glucose Lactic Acid Calcium Phosphorus Magnesium Total Bilirubin AST ALT Alkaline Phosphatase Ammonia Troponin I Total Protein Albumin Lipase TSH Urine Color Urine Clarity Urine pH Ur Specific [place] Urine Protein Urine Glucose (UA) Urine Ketones Urine Occult Blood Urine Nitrate Urine Bilirubin Urine Urobilinogen Ur Leukocyte Esterase Urine WBC Ur Squamous Epith Cells Hyaline Casts Granular Casts Urine Mucus Micro UA Comment Ur Microscopic Review Urine Culture Comments Pleural pH Pleural RBC Pleural Nuc Cells Pleural Neutrophils Pleural Lymphocytes Pleural Mesothelial Pleural Fluid Comment Pleural Total Protein Pleural LDH Pleural Glucose Pleural Amylase Nasal Screen MRSA (PCR) Vancomycin Trough 03/22/18 03/22/18 03/22/18 05:40 05:40 09:14 WBC RBC Hgb Hct MCV MCH MCHC RDW Plt Count MPV Neut % (Auto) Lymph % (Auto) [place] % (Auto) Eos % (Auto) Baso % (Auto) Neut # (Auto) Lymph # (Auto) [place] # (Auto) Eos # (Auto) Baso # (Auto) WBC Differential Differential Comment PT INR APTT Fibrinogen Puncture Site Patient Temperature O2 Saturation ABG pH ABG pCO2 ABG pO2 ABG HCO3 ABG O2 Content ABG Base Excess ABG Methemoglobin Kimo Test Hemoglobin Carboxyhemoglobin O2 Delivery Device Vent Setting Inspired O2 Critical Value Sodium 137 Potassium 5.0 Chloride 105 Carbon Dioxide 20.9 L Anion Gap 11 BUN 44 H Creatinine 1.14 Estimated GFR 68 L POC Glucose 224 H Random Glucose 203 H Lactic Acid Calcium 9.2 Phosphorus 3.6 Magnesium 2.6 H Total Bilirubin 0.8 AST 494 H ALT 1163 H Alkaline Phosphatase 204 H Ammonia 46 H Troponin I 4.89 H* Total Protein 5.7 L Albumin 1.7 L Lipase 85 TSH 0.848 Urine Color Urine Clarity Urine pH Ur Specific [place] Urine Protein Urine Glucose (UA) Urine Ketones Urine Occult Blood Urine Nitrate Urine Bilirubin Urine Urobilinogen Ur Leukocyte Esterase Urine WBC Ur Squamous Epith Cells Hyaline Casts Granular Casts Urine Mucus Micro UA Comment Ur Microscopic Review Urine Culture Comments Pleural pH Pleural RBC Pleural Nuc Cells Pleural Neutrophils Pleural Lymphocytes Pleural Mesothelial Pleural Fluid Comment Pleural Total Protein Pleural LDH Pleural Glucose Pleural Amylase Nasal Screen MRSA (PCR) Vancomycin Trough Result Diagrams: 03/22/18 05:40 03/22/18 05:40 Microbiology: Microbiology 03/20/18 14:15 Acid Fast Bacilli Smear - Final Fluid - Pleural fluid No acid fast bacilli seen 03/19/18 17:00 Gram Stain - Final Sputum - Tracheal Aspirate Sputum Culture - Final Capnocytophaga species 03/19/18 13:30 Aerobic Blood Culture - Preliminary Blood - Peripheral Staphylococcus epidermidis Anaerobic Blood Culture - Preliminary No growth in 3 days 03/19/18 13:35 Aerobic Blood Culture - Preliminary Blood - Peripheral No growth in 3 days Anaerobic Blood Culture - Preliminary No growth in 3 days 03/20/18 14:15 Gram Stain - Final Fluid - Pleural fluid Body Fluid Culture - Preliminary No growth in 48 hours 03/20/18 14:15 Fungal Smear - Final Fluid - Pleural fluid No fungal elements seen 03/19/18 16:00 Urine Culture - Final Catheterized Urine No growth in 48 hours 03/19/18 16:00 Streptococcus pneumoniae Antigen (M - Final Urine - Catheterized Urine Presumptive negative for streptococcus pneumoniae antigen, suggesting no current or recent infection. Infection due to Streptococcus pneumoniae cannot be ruled out since the antigen present in the sample may be below the detection limit of the test. 03/19/18 16:00 Legionella Antigen - Final Urine - Catheterized Urine Presumptive negative for Legionella pneumophila serogroup 1 antigen in urine, suggesting no recent or recurrent infection. Infection due to Legionella cannot be ruled out since other serogroups and species may cause disease, antigen may not be present in urine in early infection, and the level of antigen present in the urine may be below the detection limit of the test. 03/19/18 13:45 Influenza Types A,B Antigen - Final Nasal Wash Negative for FLU A and B antigen Infection due to influenza A or B cannot be ruled out since the antigen present in the sample may be below the detection limit of the test. Imaging: Chest CTA 03/19/18 13:27 CONCLUSION: 1. Negative for central pulmonary emboli 2. Noted complete opacification of the left hemithorax. There is direct invasion of the mediastinum from apparent tumor. This Tumor is compressing the right ventricle Head CT 03/19/18 15:35 CONCLUSION: 1. Stable CT scan of the head without contrast with minimal periventricular presumed ischemic changes and encephalomalacia right frontal lobe. . Chest X-Ray 03/22/18 06:00 CONCLUSION: No significant interval change with near complete opacification of left hemithorax and patchy opacity on the right including confluent rounded opacity in the lateral right midlung. Procedures: * right pigtail chest tube * 03/19/18 - intubated Patient/Family Conference Issues Discussed: * Palliative care role, purpose, approach * Additional medical, psychosocial, and spiritual history * Patients general health, functional status, and cognitive changes in the months leading up to the current hospitalization * Patient/family understanding of the current medical problems * Patient/family understanding of prognosis * Patients goals of care as best understood from advance directives and/or conversations and/or values * Current medical treatment options and benefits/burdens of those options * Likely scenarios comparing ongoing aggressive care with a transition to comfort measures only * Questions answered to the best of my ability * Palliative care contact information provided Assessment and Plan - Disease Oriented Problem List (1) COPD (chronic obstructive pulmonary disease) (2) History of DVT (deep vein thrombosis) (3) Stage 4 lung cancer (4) A-fib - Symptom Scale (1) Pain 0-10 Scale: Unable to quantify (2) Dyspnea 0-10 Scale: Unable to quantify Pertinent Non-Medical Issues: Psychosocial: Patient was living with his aunt prior to coming to the hospital. She and her are his main caregivers. Aunt reports she is power of regulatory attorney, she will bring paperwork to the hospital. Spiritual: God plays an important role in the patient's life, he states he is ready to go be with God. Legal: Patient is not capacitated to make his own decisions at this time. Medical power of regulatory attorney is his aunt, Ignacia Torres, copies of paperwork requested. Ethical issues impacting care: None. . Important Contacts: * Ignacia Torres, aunt, ana maría POA: [phone] (cell) or [phone] (home) Prognosis: This is a 47-year-old male with widely metastatic squamous cell lung carcinoma, extensive tumor occupying most of the left hemithorax, invading the mediastinum and compressing the right ventricle, bilateral pleural effusions, adrenal and pancreatic metastasis. Patient has failed multiple treatments, no longer a candidate for surgery, chemotherapy, radiation, immunotherapy or other treatments. Admitted with respiratory failure on mechanical ventilation, not expected to survive this hospitalization, tachycardic, hypotensive despite aggressive care. Patient is terminal. Code Status: Alternative Code (Intubation only) Plan: * Patient is not capacitated to make his own healthcare decisions. Medical power of regulatory attorney is his aunt, Ignacia Torres, copies of paperwork requested. * Alternate Code: Intubation Only. * Patient seen and examined in ICU. No family present. Discussed with nurse and Dr. Wiley. Spoke with aunt, medical POA via telephone. Medical update provided. I explained patient is not expected to survive this hospitalization. Reviewed test results, cardiac and respiratory issues. Patient continues to have episodes of desaturation despite increasing oxygen on vent. Hypotensive despite pressors, tachycardic. We talked about options of continued aggressive care vs continued mech vent with no further escalation of care vs transition to comfort with compassionate withdrawal of life support. She "wants patient to be comfortable," though is having a hard time committing to comfort measures. She verbalizes understanding that he is dying and that we can not fix his heart or lungs due to worsening cancer. She is going to think about "things" and let me know if she makes any further decisions. * SYMPTOMS: apin due to mets lung cancer, intubation, bedbound status,etc. Currently on Fentanyl drip 200mcg/hr. Dyspnea: due to mets lung cancer, on mech vent, requiring higher oxygen needs. Right chest tube in place. Complete opacification of left lung. Not expected to be able to medically extubate due to tumor burden, failing CPAP trials. * Palliative care number provided. * Palliative care will continue to follow throughout hospital course to assist with symptom management further clarification of goals of medical treatment. Appreciation Thank you for the opportunity to participate in the care of Derrick Vigil. Attestation Attestation: To help prompt me to consider important information that might be impacting today's encounter and assessment, information from prior notes written by myself or my colleagues may have been "brought forward" into today's note. My signature on this note, however, is an attestation that I personally performed the exam, history, and/or decision-making noted today, and, unless otherwise indicated, the interactions with patient, family, and staff as well as the review of records all occurred today. I also attest that the listed assessment and stated plan reflect my best clinical judgment today based on the combination of historical information, prior notes, and today's exam/ interactions. When time spent is documented, it refers only to time spent today by the signer, or if indicated, combined time spent today by collaborating physician/nurse practitioner.
[2018-03-22] MEDS: Azithromycin Inj 250 MG in Sodium Chlor 0.9% Inj 250 ML IV.SIG SCH (20:47)
--- NOTE | 2018-03-22 21:03 | ECHRPT ---
Indication: CONCLUSIONS Technically very difficult study making assessment of left ventricular function and wall motion subo ptimal. Normal left ventricular size. Wall thickness is normal. Left ventricular systolic function may be lo w normal with an estimated ejection fraction of 50%. Small area of distal septal and apical akinesis. The right ventricle was not well visualized. The right ventricle may be mildly dilated. Right ventri cular systoilc function may be mildly decreased. The aortic valve is not well visualized. There is mild tricuspid valve regurgitation. The estimated pulmonary arterial pressure is 70 mmHg. BP: / HR: Rhythm: Sinus MEASUREMENTS (Male / Female) Normal Values Technical Quality:Fair 2D ECHO LV Diastolic Diameter PLAX 3.5 cm 4.2 - 5.9 / 3.9 - 5.3 cm LV Systolic Diameter PLAX 2.7 cm IVS Diastolic Thickness 0.8 cm 0.6 - 1.0 / 0.6 - 0.9 cm LVPW Diastolic Thickness 0.7 cm 0.6 - 1.0 / 0.6 - 0.9 cm LV Relative Wall Thickness 0.4 RV Internal Dim ED PLAX 2.3 cm LVOT Diameter 1.5 cm Aortic Root Diameter 2.2 cm LA Systolic Diameter LX 3.1 cm 3.0 - 4.0 / 2.7 - 3.8 cm M-MODE AV Cusp Separation MM 2.1 cm DOPPLER AV Peak Velocity 84.1 cm/s AV Peak Gradient 2.8 mmHg AV Mean Gradient 2.0 mmHg AV Velocity Time Integral 9.1 cm LVOT Peak Velocity 47.4 cm/s LVOT Peak Gradient 0.9 mmHg LVOT Velocity Time Integral 4.7 cm AV Area Cont Eq vti 0.9 cm AV Area Cont Eq pk 1.0 cm Mitral E Point Velocity 58.2 cm/s Mitral A Point Velocity 45.9 cm/s Mitral E to A Ratio 1.3 TR Peak Velocity 399.0 cm/s TR Peak Gradient 63.7 mmHg Right Atrial Pressure 10.0 mmHg Pulmonary Artery Systolic Pressu 73.7 mmHg Right Ventricular Systolic Press 73.7 mmHg PV Peak Velocity 89.5 cm/s PV Peak Gradient 3.2 mmHg FINDINGS LEFT VENTRICLE Technically very difficult study making assessment of left ventricular function and wall motion subo ptimal. Normal left ventricular size. Wall thickness is normal. Left ventricular systolic function may be lo w normal with an estimated ejection fraction of 50%. Small area of distal septal and apical akinesis. RIGHT VENTRICLE The right ventricle was not well visualized. The right ventricle may be mildly dilated. Right ventri cular systoilc function may be mildly decreased. LEFT ATRIUM The left atrial size is normal. RIGHT ATRIUM The right atrial size is normal. ATRIAL SEPTUM No atrial level shunt is demonstrated by color flow Doppler interrogation. AORTA The aortic root and proximal ascending aorta are not well visualized. MITRAL VALVE Structurally normal mitral valve. No mitral valve stenosis or regurgitation. AORTIC VALVE The aortic valve is not well visualized. TRICUSPID VALVE There is mild tricuspid valve regurgitation. The estimated pulmonary arterial pressure is 70 mmHg. PULMONARY VALVE The pulmonary valve is not well visualized. VESSELS There is less than 50% respiratory change in dimension of the inferior vena cava (abnormal). PERICARDIUM No pericardial effusion. Darnell Chilel MD (Electronically Signed) Final Date:22 March 2018 21:03
[2018-03-23] MEDS: Oral Hygiene Kit OROPHARYNG SCH ×3 (00:40→12:09)
[2018-03-23] MEDS: Piperacil/Tazo 3.375 GM Premix 50 ML IV.SIG SCH ×2 (03:38→08:25)
[2018-03-23] MEDS ORDERED: Pharmacy Ordered Lab Info OTHER ONE (03:45)
--- NOTE | 2018-03-23 05:36 | XR ---
EXAM DATE: 03/23/2018 5:30 AM EST AGE/SEX: 47 years / Male INDICATIONS: Short of breath. CLINICAL DATA: This is the patient's subsequent encounter. Patient reports that signs and symptoms h ave been present for 4 - 6 days and indicates a pain score of 0/10. MEDICAL/SURGICAL HISTORY: . Colostomy, AV Fistula, GJ, Left hip replacement, Partial Colectomy, Tracheostomy, PEG tube. . [id number]. COMPARISON: [facility] – [place], CHEST 1V SINGLE AP, 03/22/2018. . FINDINGS: Single AP view the chest. Endotracheal tube, nasogastric tube, right-sided [id number] remain in pl taylor. Right-sided chest tube remains in place. Persistent bilateral pulmonary opacity. Increased right mid to lower lung consolidation. Near complete opacification of the left hemithorax again seen. CONCLUSION: 1. Increased right lung opacity with most prominent consolidation in the right midlung. 2. Near complete opacification of the left hemithorax unchanged. Electronically signed by: William Georges MD 03/23/2018 5:34 AM EST
[2018-03-23] MEDS: Chlorhexidine Gluconate 2% 1 Pack (2 Cloths) TOPICAL SCH (05:42)
[2018-03-23] MEDS: Sod Chloride 0.9% Inj 1,000 ML IV.CONT SCH (05:43)
[2018-03-23] MEDS: Artificial Tears Opth Drops 15 ML Bottle EACH EYE SCH (05:44)
[2018-03-23] MEDS: MethylPREDNISolone Sod Succinate Inj 40 MG/ML Vial IV.PUSH SCH (05:46)
[2018-03-23 06:58] LABS: Baso % (Auto) 0.2 % (0.0-2.0); Eos # (Auto) 0.1 th/mm3 (0.0-0.4); Eos % (Auto) 0.4 % (0.0-4.0); Hematocrit 29.1 % (39.0-51.0); Hemoglobin 8.6 gm/dL (13.0-17.0); Lymph # (Auto) 0.1 th/mm3 (1.0-4.8); Lymph % (Auto) 0.6 % (9.0-44.0); Mean Corpuscular Hemoglobin 23.9 pg (27.0-34.0); Mean Corpuscular Volume 80.7 fL (80.0-100.0); Mean Platelet Volume 7.9 fL (7.0-11.0); Mono # (Auto) 0.6 th/mm3 (0.0-0.9); Mono % (Auto) 2.9 % (0.0-8.0); Neut # (Auto) 21.3 th/mm3 (1.8-7.7); Neut % (Auto) 95.9 % (16.0-70.0); Platelet Count 309 th/mm3 (150-450); Red Blood Count 3.61 mil/mm3 (4.50-5.90); White Blood Count 22.2 th/mm3 (4.0-11.0)
[2018-03-23 07:03] LABS: Mean Corpuscular HGB Conc 29.7 % (32.0-36.0)
[2018-03-23 07:22] LABS: Albumin 1.6 g/dL (3.4-5.0); Anion Gap 13 meq/L (5-15); Blood Urea Nitrogen 59 mg/dL (7-18); Calcium 8.6 mg/dL (8.5-10.1); Carbon Dioxide 18.6 meq/L (21.0-32.0); Chloride 103 meq/L (98-107); Glomerular Filtration Rate 38 mL/min (>89); Glucose,Random 236 mg/dL (74-106); Magnesium 2.9 mg/dL (1.5-2.5); Potassium 5.7 meq/L (3.5-5.1); Sodium 135 meq/L (136-145)
[2018-03-23 07:28] LABS: Alanine Aminotransferase 2029 U/L (12-78); Alkaline Phosphatase 286 U/L (45-117); Aspartate Aminotransferase 1959 U/L (15-37); Phosphorus 5.7 mg/dL (2.5-4.9); Total Protein 6.1 g/dL (6.4-8.2)
[2018-03-23 07:43] VITALS: RESP 22
[2018-03-23] MEDS: Budesonide-Formoterol 160/4.5 MCG 6 GM Inhaler INH SCH (08:02)
[2018-03-23] MEDS: Senna/Docusate Sodium 8.6/50 MG Tablet PO SCH (08:24)
[2018-03-23] MEDS: Rivaroxaban 10 MG Tablet PO SCH (08:24)
[2018-03-23] MEDS: Chlorhexidine 0.12% Oral Kit 15 ML UDC OROPHARYNG SCH (08:25)
[2018-03-23 08:52] LABS: Monocytes 4 % (0-8); Platelet Estimate Normal (Normal); Platelet Morphology Clumped (Normal); Tallied Nucleated RBC 1 (0-0)
[2018-03-23 08:53] LABS: Ovalocytes 1+
--- NOTE | 2018-03-23 09:34 | ECG ---
Date Performed: 03/22/2018 Time Performed: 14:22:25 PTAGE: 47 years EKG: SINUS TACHYCARDIA LOW QRS VOLTAGE POSSIBLE RIGHT VENTRICULAR CONDUCTION DELAY MARKED ST DIANA VATION, CONSIDER SEPTAL INJURY ACUTE [place] PREVIOUS TRACING : 03/19/2018 14.36 DOCTOR: Suhas Treadwell Interpretating Date/Time 03/23/2018 09:32:40
--- NOTE | 2018-03-23 10:20 | P.PNCC ---
Subjective Subjective Remarks/Hospital Course: This is a 47-year-old male that earlier this afternoon at home had increasing shortness of breath and a syncopal episode. Of note the patient is normally on 5 L nasal cannula but as he became short of breath O2 saturation remained in the 80s heart rate was in the 170s when EMS arrived. The patient received 20 mg of Cardizem IV and was placed on BiPAP and transported to [facility] emergency room. Upon arrival the patient was noted to still be in what appeared to be A. fib RVR and received 15 mg Cardizem IV and was placed on a Cardizem drip. In the ED ,the patient was noted to have 2 additional syncopal episodes and increased work of breathing and tiring out. The patient requested to be intubated. Of note ,the patient's past medical history is significant for non-small cell carcinoma being followed by Dr. Lorena green the patient subsequently has metastatic disease and failed palliative radiation 02/26/2018 on hospital discharge the patient had agreed to hospice care and was looking forward to it,however today the patient changed CODE STATUS from DNR to full code in the emergency room. The patient's past medical history is significant for stage IV lung cancer, pancreatic mass, hypercalcemia, COPD, and a history of DVT currently on Xarelto. Critical care medicine was consulted. 03/20: Patient remains intubated sedated. CT scan reviewed and discussed with tony Beth. I explained to her only benefit of draining the right large effusion would be this may help him wean off the ventilator. His overall condition is terminal with tumor appearing to be invading mediastinum and compressing the right ventricle. 03/21: Currently resting in bed in no acute distress. Attempting to wean off ventilator. Currently afebrile. Noted elevated transaminases. Right-sided pigtail catheter with 1375 cc output 03/22: Low-grade temperatures overnight. Will attempt CPAP trial today. Remains on low-dose norepinephrine drip. Off diltiazem drip. Subjective 03/23: Afebrile. Increasing vasopressor requirements. Worsening renal failure/ hepatic failure. Actively dying. Objective Vital Signs / I&O: Vital Signs 03/22/18 11:32 03/22/18 12:00 03/22/18 15:37 Temperature 98.3 F Pulse Rate 128 H 129 H 116 H Respiratory Rate 22 20 16 Blood Pressure 79/57 L Pulse Oximetry 100 92 L 95 03/22/18 16:00 03/22/18 16:30 03/22/18 16:45 Temperature 98.9 F Pulse Rate 113 H 113 H 115 H Respiratory Rate 17 Blood Pressure 90/55 L 86/52 L 83/52 L Pulse Oximetry 91 L 91 L 92 L 03/22/18 17:00 03/22/18 17:15 03/22/18 17:28 Temperature Pulse Rate 117 H 112 H Respiratory Rate Blood Pressure 87/54 L 90/56 L Pulse Oximetry 91 L 93 L 90 L 03/22/18 17:30 03/22/18 17:45 03/22/18 18:00 Temperature Pulse Rate 115 H 113 H 113 H Respiratory Rate Blood Pressure 91/53 L 87/52 L 85/52 L Pulse Oximetry 95 97 97 03/22/18 18:15 03/22/18 18:30 03/22/18 18:45 Temperature Pulse Rate 114 H 115 H 115 H Respiratory Rate Blood Pressure 84/54 L 90/51 L 83/52 L Pulse Oximetry 96 96 96 03/22/18 19:00 03/22/18 19:15 03/22/18 19:30 Temperature Pulse Rate 116 H 117 H 114 H Respiratory Rate Blood Pressure 78/53 L 88/52 L 94/61 L Pulse Oximetry 95 97 97 03/22/18 19:32 03/22/18 19:45 03/22/18 20:00 Temperature 98.2 F Pulse Rate 114 H 112 H 114 H Respiratory Rate 16 Blood Pressure 90/57 L 90/58 L Pulse Oximetry 97 98 97 03/22/18 20:15 03/22/18 20:30 03/22/18 20:45 Temperature Pulse Rate 112 H 113 H 112 H Respiratory Rate Blood Pressure 93/55 L 100/57 L 98/58 L Pulse Oximetry 98 95 96 03/22/18 21:00 03/22/18 21:15 03/22/18 21:30 Temperature Pulse Rate 112 H 112 H 111 H Respiratory Rate Blood Pressure 92/63 L 92/60 L 90/57 L Pulse Oximetry 95 95 95 03/22/18 21:45 03/22/18 22:00 03/22/18 22:15 Temperature Pulse Rate 111 H 115 H 117 H Respiratory Rate Blood Pressure 94/60 L 89/59 L 96/61 L Pulse Oximetry 95 94 L 93 L 03/22/18 22:30 03/22/18 22:46 03/22/18 23:00 Temperature Pulse Rate 117 H 118 H 117 H Respiratory Rate Blood Pressure 88/56 L 98/55 L 88/58 L Pulse Oximetry 93 L 93 L 93 L 03/22/18 23:15 03/22/18 23:19 03/22/18 23:30 Temperature Pulse Rate 117 H 117 H 117 H Respiratory Rate 18 Blood Pressure 87/57 L 83/57 L Pulse Oximetry 93 L 92 L 03/22/18 23:45 03/23/18 00:00 03/23/18 00:15 Temperature 98.8 F Pulse Rate 117 H 117 H 117 H Respiratory Rate Blood Pressure 87/56 L 88/60 L 85/60 L Pulse Oximetry 93 L 92 L 92 L 03/23/18 01:21 03/23/18 01:45 03/23/18 02:00 Temperature Pulse Rate 122 H 122 H Respiratory Rate 18 Blood Pressure Pulse Oximetry 90 L 93 L 92 L 03/23/18 02:01 03/23/18 02:15 03/23/18 02:31 Temperature Pulse Rate 122 H 122 H 122 H Respiratory Rate Blood Pressure 95/50 L 86/60 L 51/21 L Pulse Oximetry 92 L 92 L 92 L 03/23/18 02:32 03/23/18 02:37 03/23/18 02:40 Temperature Pulse Rate 122 H 122 H 122 H Respiratory Rate Blood Pressure 51/25 L 38/21 L 38/18 L Pulse Oximetry 92 L 92 L 92 L 03/23/18 02:42 03/23/18 02:45 03/23/18 02:50 Temperature Pulse Rate 123 H 125 H 123 H Respiratory Rate Blood Pressure 39/16 L 42/22 L 34/18 L Pulse Oximetry 93 L 93 L 93 L 03/23/18 03:00 03/23/18 03:09 03/23/18 03:10 Temperature Pulse Rate 121 H 121 H 121 H Respiratory Rate Blood Pressure 92/55 L 85/54 L Pulse Oximetry 92 L 92 L 92 L 03/23/18 03:20 03/23/18 03:30 03/23/18 03:47 Temperature Pulse Rate 120 H 118 H 119 H Respiratory Rate Blood Pressure 88/55 L 88/51 L 90/55 L Pulse Oximetry 92 L 93 L 93 L 03/23/18 04:00 03/23/18 04:18 03/23/18 04:31 Temperature 98.9 F Pulse Rate 118 H 117 H 116 H Respiratory Rate 18 Blood Pressure 84/54 L 89/55 L 100/63 Pulse Oximetry 94 L 93 L 94 L 03/23/18 04:45 03/23/18 04:47 03/23/18 04:58 Temperature Pulse Rate 117 H 117 H 118 H Respiratory Rate Blood Pressure 77/52 L 74/45 L 59/29 L Pulse Oximetry 93 L 94 L 93 L 03/23/18 05:00 03/23/18 05:01 03/23/18 05:15 Temperature Pulse Rate 118 H 117 H 118 H Respiratory Rate Blood Pressure 95/59 L 87/59 L Pulse Oximetry 92 L 92 L 93 L 03/23/18 05:30 03/23/18 07:40 03/23/18 08:00 Temperature 98.4 F Pulse Rate 117 H 114 H 115 H Respiratory Rate 22 Blood Pressure 87/59 L 86/55 L Pulse Oximetry 94 L 93 L 94 L 03/23/18 10:00 Temperature Pulse Rate 115 H Respiratory Rate Blood Pressure Pulse Oximetry Intake & Output 03/22/18 03/23/18 03/23/18 18:59 06:59 18:59 Intake Total 2882 / 2882 2306 / 2306 Output Total 725 / 725 75 / 75 Balance 2157 / 2157 2231 / 2231 Weight 78 kg Intake: IV 2250 / 2250 1800 / 1800 Diprivan 1000 mg/100 ml Inj 1, 100 / 100 000 mg In 100 ml @ 5 MCG/KG/MIN 2.041 mls/hr IV.CONT TITRATE PRN Rx#:[id number] NS Inj 1,000 ML @ 84 mls/hr IV. 1000 / 1000 1000 / 1000 CONT .[id number] [facility] Rx#:[id number] Azithromycin Inj 250 MG In NS 250 / 250 250 / 250 Inj 250 ML @ 250 mls/hr IV.SIG Q24H [facility] Rx#:[id number] Levophed-Dextrose 4 mg/250 ml 500 / 500 Drip 4 mg In 250 ml @ 2 MCG/MIN 7.5 mls/hr IV.SIG TITRATE PRN Rx#:[id number] Zosyn 3.375 GM Premix 50 ML @ 150 / 150 50 / 50 100 mls/hr IV.SIG Q6H [facility] Rx#: [id number] Vancomycin Inj 1,000 MG In NS 500 / 500 Inj 250 ML @ 250 mls/hr IV.SIG Q12H [facility] Rx#:[id number] fentaNYL 10 mcg/mL Premix Drip 250 / 250 2,500 mcg In 250 ml @ 50 MCG/HR 5 mls/hr IV.SIG TITRATE PRN Rx #:[id number] Tube Feeding 432 / 432 466 / 466 Tube Irrigant 40 / 40 Water Bolus Amount 200 / 200 Output: Urine 525 / 525 25 / 25 Chest Tube Drainage 200 / 200 50 / 50 Right Anterior 200 / 200 50 / 50 Result Diagrams: 03/23/18 05:00 03/23/18 05:00 Other Results: Microbiology 03/19/18 13:30 Blood - Peripheral Aerobic Blood Culture - Final Staphylococcus epidermidis 03/19/18 13:30 Blood - Peripheral Anaerobic Blood Culture - Preliminary No growth in 3 days 03/20/18 14:15 Fluid - Pleural fluid Gram Stain - Final 03/20/18 14:15 Fluid - Pleural fluid Body Fluid Culture - Final No growth in 72 hours (aerobically and anaerobically ) 03/20/18 14:15 Fluid - Pleural fluid Acid Fast Bacilli Smear - Final No acid fast bacilli seen 03/19/18 17:00 Sputum - Tracheal Aspirate Gram Stain - Final 03/19/18 17:00 Sputum - Tracheal Aspirate Sputum Culture - Final Capnocytophaga species 03/19/18 13:35 Blood - Peripheral Aerobic Blood Culture - Preliminary No growth in 3 days 03/19/18 13:35 Blood - Peripheral Anaerobic Blood Culture - Preliminary No growth in 3 days 03/20/18 14:15 Fluid - Pleural fluid Fungal Smear - Final No fungal elements seen 03/19/18 16:00 Catheterized Urine Urine Culture - Final No growth in 48 hours 03/19/18 16:00 Urine - Catheterized Urine Streptococcus pneumoniae Antigen ( M - Final Presumptive negative for streptococcus pneumoniae antigen, suggesting no current or recent infection. Infection due to Streptococcus pneumoniae cannot be ruled out since the antigen present in the sample may be below the detection limit of the test. 03/19/18 16:00 Urine - Catheterized Urine Legionella Antigen - Final Presumptive negative for Legionella pneumophila serogroup 1 antigen in urine, suggesting no recent or recurrent infection. Infection due to Legionella cannot be ruled out since other serogroups and species may cause disease, antigen may not be present in urine in early infection, and the level of antigen present in the urine may be below the detection limit of the test. 03/19/18 13:45 Nasal Wash Influenza Types A,B Antigen - Final Negative for FLU A and B antigen Infection due to influenza A or B cannot be ruled out since the antigen present in the sample may be below the detection limit of the test. Imaging: Chest CTA 03/19/18 13:27 CONCLUSION: 1. Negative for central pulmonary emboli 2. Noted complete opacification of the left hemithorax. There is direct invasion of the mediastinum from apparent tumor. This Tumor is compressing the right ventricle Chest X-Ray 03/19/18 13:27 CONCLUSION: 1. Stable chest x-ray with near complete opacification left hemithorax with left lung volume loss. 2. Stable right midlung zone pulmonary mass. Chest X-Ray 03/19/18 15:24 CONCLUSION: ET tube and NG tube both in good position. Again near-complete opacification left hemithorax with a large pleural effusion and volume loss. Diffuse perihilar vascular congestion with a stable infiltrate right midlung zone Head CT 03/19/18 15:35 CONCLUSION: 1. Stable CT scan of the head without contrast with minimal periventricular presumed ischemic changes and encephalomalacia right frontal lobe. . Chest X-Ray 03/20/18 00:00 CONCLUSION: 1. Right chest tube is in place with tip in the medial right hemithorax. No pneumothorax is present. There is decreased right pleural-based opacity likely representing decreased pleural fluid. 2. Stable near-complete opacification left hemithorax and stable right peripheral midlung zone mass. Chest X-Ray 03/21/18 06:00 CONCLUSION: Stable appearance of the chest. Chest X-Ray 03/22/18 06:00 CONCLUSION: No significant interval change with near complete opacification of left hemithorax and patchy opacity on the right including confluent rounded opacity in the lateral right midlung. Chest X-Ray 03/23/18 06:00 CONCLUSION: 1. Increased right lung opacity with most prominent consolidation in the right midlung. 2. Near complete opacification of the left hemithorax unchanged. Objective Remarks: Constitutional 47-year-old chronically ill appearing male, intubated sedated on the [facility] Exam Head: normocephalic Eye: PERRL ENT: Orotracheally intubated Respiratory Exam patient mechanically ventilated, decreased breath sounds bilaterally with coarse rhonchi bilaterally. Breath sounds are markedly diminished on the left Cardiovascular Exam No murmur present: S1, S2, irregularly irregular Abdominal Exam soft, normoactive bowel sounds Extremities Exam Present: pulses intact Skin Exam Present: intact, normal turgor Neuro: Intubated sedated for ventilator synchrony. On sedation lightening moves all 4 extremities appears to have no focal deficits Assessment and Plan - Problem List (1) Pleural effusion Code(s): J90 - Pleural effusion, not elsewhere classified Status: Acute (2) Protein-calorie malnutrition Code(s): E46 - Unspecified protein-calorie malnutrition Status: Acute (3) Hypoxia Code(s): R09.02 - Hypoxemia Status: Acute (4) Lung cancer Code(s): C34.90 - Malignant neoplasm of unspecified part of unspecified bronchus or lung Status: Acute (5) Lactic acid blood increased Code(s): R79.89 - Other specified abnormal findings of blood chemistry Status : Acute (6) COPD exacerbation Code(s): J44.1 - Chronic obstructive pulmonary disease with (acute) exacerbation Status: Acute (7) Atrial fibrillation with RVR Code(s): I48.91 - Unspecified atrial fibrillation Status: Acute - Assessment and Plan Plan: Neuro/Psych: Chronic malignant pain Continue fentanyl currently 100 mcg an hour and propofol infusions currently at 20 mg/kg/min to maintain ventilator synchrony and analgesia Neuro checks per ICU protocol Daily sedation vacation Holding acetaminophen 650 mg every 6 hours as needed for fever with elevated transaminases Respiratory: Acute hypoxemic respiratory failure Metastatic lung cancer Large right pleural effusion COPD exacerbation Stage IV non-small cell lung cancer with metastasis S/P XRT Patient emergently intubated in the ED Follow-up chest x-ray in a.m. 03/24 [facility] ventilation Ventilator bundle Head of bed at 30 degrees Albuterol/ipratropium aerosols every 4 hours scheduled with albuterol aerosols every 2 hours as needed Patient has large right pleural effusion status post pigtail placement for malignant effusion 03/20. Dr. Gonzalez explained to ERIN Beth that only benefit of draining is a possibility of weaning of the ventilator, we will not change overall prognosis CPap trials daily Cardiovascular: Mediastinal tumor invasion Metastatic tumor compression right ventricle History of DVT A. fib RVR F/U echo 03/22 EF around 50%. Right ventricle and aortic valve not well visualized. PAP 70 mmHg Norepinephrine gtt at 12 mcg/min maintain MAP > 65 mmHg Noted port right chest-utilize for access Maintain MAP > 65mmH Cardizem infusion for rate control as needed 03/19 chest x-raydiffuse perihilar vascular congestion with a stable infiltrate right midlung 03/19 CT angiogram-negative for pulmonary embolus. Direct invasion of mediastinum from tumor. Tumor is compressing the right ventricle appear near complete opacification of left hemothorax combination with drown lung tumor in the fluid. Large right pleural effusion is evident team parenchymal mass seen anterior in the right lung. Left adrenal metastasis. Renal: Acute kidney injury - Strict I/Os FEN/GI: Hyperkalemia Pancreatic mass Adrenal mass Elevated transaminases Hypoalbuminemia Start tube feedings with neutral hep goal 60 cc an hour Monitor BMP OG tube Lansoprazole for GI prophylaxis Calcium chloride, D50/insulin/bicarbonate, Kayexalate x1 now. Recheck potassium at 1500 hrs. Heme/ID: Anemia of chronic disease/microcytic Leukocytosis Lactic acidemia Chronic rivaroxaban use Squamous cell carcinoma of the lung Continue normal saline IV 84 cc an hour Follow-up blood sputum and urine cultures Began prophylactic antibiotics vancomycin , piperacillin/tazobactam and azithromycin Heme-Onc-Dr. Christian Continue with rivaroxaban 10 mg daily Endocrine: Hyperglycemia critically illness Glucose monitoring per ICU protocol -- SSI Prophylaxis: GI Prophylaxis Lansoprazole DVT Prophylaxis -- SCDs. Rivaroxaban will provide pharmacological prophylaxis Lines: Peripheral IVs providing adequate access. Right port cath in situ. Central line if indicated Level 3 follow-up (2) Protein-calorie malnutrition Qualifiers: Protein-calorie malnutrition severity: unspecified severity Qualified Code(s) : E46 - Unspecified protein-calorie malnutrition (4) Lung cancer Qualifiers: Laterality: right Lung location: unspecified part of lung Qualified Code(s) : C34.91 - Malignant neoplasm of unspecified part of right bronchus or lung
[2018-03-23 11:24] VITALS: O2SAT 88
[2018-03-23] MEDS ORDERED: RESP: Albuterol Concentrated 2.5 MG/0.5 ML Neb NEB ONE (12:00)
[2018-03-23] MEDS ORDERED: Dextrose 50% in Water 50 ML Vial IV.PUSH ONE (12:00)
[2018-03-23] MEDS ORDERED: Calcium Chloride Inj 1 GM in Sodium Chlor 0.9% Inj 100 ML IV.SIG ONE (12:30)
[2018-03-23 13:03] VITALS: BP 93/58; PULSE 0; TEMP 97.5
[2018-03-23] MEDS ORDERED: Sodium Polystyrene Sulfonate/Sorbitol Liq 15 GM/60 ML UDC PO ONE (13:15)
--- NOTE | 2018-03-23 13:18 | P.PNPAL ---
Reason for Visit Reason for visit: a. To assist with evaluation and management of symptoms including: dyspnea, pain. b. To assist medical decision maker(s) with: better understanding of current medical conditions; weighing benefits/burdens of medical treatment options; making medical treatment decisions. Subjective Subjective/Interval History: Patient seen and examined in ICU. No family at bedside. Upon my arrival patient was tachycardic rate 120s, on mech vent FiO2 100%, unable to obtain oxygen saturation. Skin cool to touch, mottling to bilateral LEs and face. Increasing peripheral edema. No urine output today. Hypotensive BP 90 systolic on Levophed 20mcg. Shortly after I left the room, I was notified of significant clinical change. Pupils now fixed and dilated. Bradycardic rate dropping from 120's to 60s. Called auntIgnacia to notify of clinical change. I advised patient appears to be actively dying with likely minutes to hours to live. I explained she should come back to the hospital and advised he may not survive until he arrives. She verbalized understanding, reviewed clinical findings and she asked if we would restart the Fentanyl drip to ensure his last moments are comfortable, which we did. Fentanyl drip restarted at 100mcg. Silverio, and I were present at time of . Patient peacefully. Dr. Wiley in to pronounce 12:32pm. Awaiting arrival of family. Fire Chief Deputy called to present when family arrives. Family/Friend Interactions: See interval note. Advance Directives Health Care Surrogate Name and Number: Ignacia Torres, suresht: [phone] Significant change in goals:: Intubation only. Family understands patient is dying now, wants him to be comfortable. Objective Vital Signs: Vital Signs 03/22/18 15:37 03/22/18 16:00 03/22/18 16:30 Temperature 98.9 F Pulse Rate 116 H 113 H 113 H Respiratory Rate 16 17 Blood Pressure 90/55 L 86/52 L Pulse Oximetry 95 91 L 91 L 03/22/18 16:45 03/22/18 17:00 03/22/18 17:15 Temperature Pulse Rate 115 H 117 H 112 H Respiratory Rate Blood Pressure 83/52 L 87/54 L 90/56 L Pulse Oximetry 92 L 91 L 93 L 03/22/18 17:28 03/22/18 17:30 12/10/18 17:45 Temperature Pulse Rate 115 H 113 H Respiratory Rate Blood Pressure 91/53 L 87/52 L Pulse Oximetry 90 L 95 97 03/22/18 18:00 03/22/18 18:15 03/22/18 18:30 Temperature Pulse Rate 113 H 114 H 115 H Respiratory Rate Blood Pressure 85/52 L 84/54 L 90/51 L Pulse Oximetry 97 96 96 03/22/18 18:45 03/22/18 19:00 03/22/18 19:15 Temperature Pulse Rate 115 H 116 H 117 H Respiratory Rate Blood Pressure 83/52 L 78/53 L 88/52 L Pulse Oximetry 96 95 97 03/22/18 19:30 03/22/18 19:32 03/22/18 19:45 Temperature Pulse Rate 114 H 114 H 112 H Respiratory Rate 16 Blood Pressure 94/61 L 90/57 L Pulse Oximetry 97 97 98 03/22/18 20:00 03/22/18 20:15 03/22/18 20:30 Temperature 98.2 F Pulse Rate 114 H 112 H 113 H Respiratory Rate Blood Pressure 90/58 L 93/55 L 100/57 L Pulse Oximetry 97 98 95 03/22/18 20:45 03/22/18 21:00 03/22/18 21:15 Temperature Pulse Rate 112 H 112 H 112 H Respiratory Rate Blood Pressure 98/58 L 92/63 L 92/60 L Pulse Oximetry 96 95 95 03/22/18 21:30 03/22/18 21:45 03/22/18 22:00 Temperature Pulse Rate 111 H 111 H 115 H Respiratory Rate Blood Pressure 90/57 L 94/60 L 89/59 L Pulse Oximetry 95 95 94 L 03/22/18 22:15 03/22/18 22:30 03/22/18 22:46 Temperature Pulse Rate 117 H 117 H 118 H Respiratory Rate Blood Pressure 96/61 L 88/56 L 98/55 L Pulse Oximetry 93 L 93 L 93 L 03/22/18 23:00 03/22/18 23:15 03/22/18 23:19 Temperature Pulse Rate 117 H 117 H 117 H Respiratory Rate 18 Blood Pressure 88/58 L 87/57 L Pulse Oximetry 93 L 93 L 03/22/18 23:30 03/22/18 23:45 03/23/18 00:00 Temperature 98.8 F Pulse Rate 117 H 117 H 117 H Respiratory Rate Blood Pressure 83/57 L 87/56 L 88/60 L Pulse Oximetry 92 L 93 L 92 L 03/23/18 00:15 03/23/18 01:21 03/23/18 01:45 Temperature Pulse Rate 117 H 122 H Respiratory Rate 18 Blood Pressure 85/60 L Pulse Oximetry 92 L 90 L 93 L 03/23/18 02:00 03/23/18 02:01 03/23/18 02:15 Temperature Pulse Rate 122 H 122 H 122 H Respiratory Rate Blood Pressure 95/50 L 86/60 L Pulse Oximetry 92 L 92 L 92 L 03/23/18 02:31 03/23/18 02:32 03/23/18 02:37 Temperature Pulse Rate 122 H 122 H 122 H Respiratory Rate Blood Pressure 51/21 L 51/25 L 38/21 L Pulse Oximetry 92 L 92 L 92 L 03/23/18 02:40 03/23/18 02:42 03/23/18 02:45 Temperature Pulse Rate 122 H 123 H 125 H Respiratory Rate Blood Pressure 38/18 L 39/16 L 42/22 L Pulse Oximetry 92 L 93 L 93 L 03/23/18 02:50 03/23/18 03:00 03/23/18 03:09 Temperature Pulse Rate 123 H 121 H 121 H Respiratory Rate Blood Pressure 34/18 L 92/55 L Pulse Oximetry 93 L 92 L 92 L 03/23/18 03:10 03/23/18 03:20 03/23/18 03:30 Temperature Pulse Rate 121 H 120 H 118 H Respiratory Rate Blood Pressure 85/54 L 88/55 L 88/51 L Pulse Oximetry 92 L 92 L 93 L 03/23/18 03:47 03/23/18 04:00 03/23/18 04:18 Temperature 98.9 F Pulse Rate 119 H 118 H 117 H Respiratory Rate 18 Blood Pressure 90/55 L 84/54 L 89/55 L Pulse Oximetry 93 L 94 L 93 L 03/23/18 04:31 03/23/18 04:45 03/23/18 04:47 Temperature Pulse Rate 116 H 117 H 117 H Respiratory Rate Blood Pressure 100/63 77/52 L 74/45 L Pulse Oximetry 94 L 93 L 94 L 03/23/18 04:58 03/23/18 05:00 03/23/18 05:01 Temperature Pulse Rate 118 H 118 H 117 H Respiratory Rate Blood Pressure 59/29 L 95/59 L Pulse Oximetry 93 L 92 L 92 L 03/23/18 05:15 03/23/18 05:30 03/23/18 07:40 Temperature Pulse Rate 118 H 117 H 114 H Respiratory Rate 22 Blood Pressure 87/59 L 87/59 L Pulse Oximetry 93 L 94 L 93 L 03/23/18 08:00 03/23/18 10:00 03/23/18 11:21 Temperature 98.4 F Pulse Rate 115 H 115 H 118 H Respiratory Rate 22 Blood Pressure 86/55 L Pulse Oximetry 94 L 88 L Intake & Output 03/22/18 03/23/18 03/23/18 18:59 06:59 18:59 Intake Total 2882 / 2882 2306 / 2306 Output Total 725 / 725 75 / 75 Balance 2157 / 2157 2231 / 2231 Weight 78 kg Intake: IV 2250 / 2250 1800 / 1800 Diprivan 1000 mg/100 ml Inj 1, 100 / 100 000 mg In 100 ml @ 5 MCG/KG/MIN 2.041 mls/hr IV.CONT TITRATE PRN Rx#:[id number] NS Inj 1,000 ML @ 84 mls/hr IV. 1000 / 1000 1000 / 1000 CONT .[id number] NBA Rx#:[id number] Azithromycin Inj 250 MG In NS 250 / 250 250 / 250 Inj 250 ML @ 250 mls/hr IV.SIG Q24H NBA Rx#:[id number] Levophed-Dextrose 4 mg/250 ml 500 / 500 Drip 4 mg In 250 ml @ 2 MCG/MIN 7.5 mls/hr IV.SIG TITRATE PRN Rx#:[id number] Zosyn 3.375 GM Premix 50 ML @ 150 / 150 50 / 50 100 mls/hr IV.SIG Q6H NBA Rx#: [id number] Vancomycin Inj 1,000 MG In NS 500 / 500 Inj 250 ML @ 250 mls/hr IV.SIG Q12H NBA Rx#:[id number] fentaNYL 10 mcg/mL Premix Drip 250 / 250 2,500 mcg In 250 ml @ 50 MCG/HR 5 mls/hr IV.SIG TITRATE PRN Rx #:[id number] Tube Feeding 432 / 432 466 / 466 Tube Irrigant 40 / 40 Water Bolus Amount 200 / 200 Output: Urine 525 / 525 25 / 25 Chest Tube Drainage 200 / 200 50 / 50 Right Anterior 200 / 200 50 / 50 Physical Exam: CONSTITUTIONAL/GENERAL: This is a thin, critically ill patient, sedated on mech vent. TUBES/LINES/DRAINS:ETT, OG, PIV, right pigtail chest tube, Major, bilateral soft wrist restraints, SCDS. SKIN: No jaundice, rashes, or lesions. Ecchymoses on upper extremities. Extremities cool to touch, mottling extremities and face and neck. EYES: Pupils fixed and dilated. ENT: Unable to assess hearing. Nose without bleeding or purulent drainage. Throat difficult to visualize due to tubes. CARDIOVASCULAR: tachycardic initially became bradycardic during my visit. RESPIRATORY/CHEST: Labored respirations on mech vent, using accessory muscles to breath. Coarse breath sounds. Right chest tube. GASTROINTESTINAL: Abdomen soft, nondistended. No guarding. Bowel sounds present. GENITOURINARY: Without palpable bladder distension. Major catheter in place, no urine output. MUSCULOSKELETAL: Extremities with 2+ edema. + mottling bilateral feet and knees. NEUROLOGICAL: unresponsive. Diagnostic Tests Laboratory: Laboratory Results - last 72 hr 03/20/18 03/20/18 03/21/18 14:15 14:15 04:41 WBC RBC Hgb Hct MCV MCH MCHC RDW Plt Count MPV Prelim Diff (Auto) Neut % (Auto) Lymph % (Auto) Harris % (Auto) Eos % (Auto) Baso % (Auto) Neut # (Auto) Lymph # (Auto) Harris # (Auto) Eos # (Auto) Baso # (Auto) WBC Differential Seg Neuts % (Manual) Band Neuts % (Manual) Monocytes % (Manual) Abs Neuts (Manual) Nucleated RBCs/100 WBC Differential Comment Platelet Estimate Platelet Morphology Ovalocytes PT INR APTT Fibrinogen Sodium 137 Potassium 4.8 Chloride 104 Carbon Dioxide 22.7 Anion Gap 10 BUN 31 H Creatinine 1.02 Estimated GFR 78 L POC Glucose Random Glucose 148 H Calcium 9.4 D Phosphorus Magnesium 2.4 Total Bilirubin 0.8 AST 793 H ALT 1228 H Alkaline Phosphatase 195 H Ammonia Troponin I Total Protein 5.9 L Albumin 1.8 L Lipase TSH Pleural pH 8.5 Pleural RBC 390 H Pleural Nuc Cells 55 H Pleural Neutrophils 42 Pleural Lymphocytes 40 Pleural Mesothelial 18 Pleural Fluid Comment Pleural Total Protein 2.1 Pleural LDH 170 Pleural Glucose 116 Pleural Amylase 9 Vancomycin Trough 18.0 H 03/21/18 03/22/18 03/22/18 04:41 05:40 05:40 WBC 12.5 H 12.8 H RBC 3.34 L 3.30 L Hgb 8.1 L 8.0 L Hct 25.6 L 25.3 L MCV 76.6 L 76.5 L MCH 24.1 L 24.4 L MCHC 31.4 L 31.9 L RDW 21.1 H 21.6 H Plt Count 366 305 MPV 7.5 7.2 Prelim Diff (Auto) Neut % (Auto) 90.4 H Lymph % (Auto) 0.9 L Harris % (Auto) 8.6 H Eos % (Auto) 0.0 Baso % (Auto) 0.1 Neut # (Auto) 11.6 H Lymph # (Auto) 0.1 L Harris # (Auto) 1.1 H Eos # (Auto) 0.0 Baso # (Auto) 0.0 WBC Differential . Seg Neuts % (Manual) Band Neuts % (Manual) Monocytes % (Manual) Abs Neuts (Manual) Nucleated RBCs/100 WBC Differential Comment Auto diff final Platelet Estimate Platelet Morphology Ovalocytes PT 15.4 H INR 1.5 APTT 29.2 Fibrinogen 528 H Sodium Potassium Chloride Carbon Dioxide Anion Gap BUN Creatinine Estimated GFR POC Glucose Random Glucose Calcium Phosphorus Magnesium Total Bilirubin AST ALT Alkaline Phosphatase Ammonia Troponin I Total Protein Albumin Lipase TSH Pleural pH Pleural RBC Pleural Nuc Cells Pleural Neutrophils Pleural Lymphocytes Pleural Mesothelial Pleural Fluid Comment Pleural Total Protein Pleural LDH Pleural Glucose Pleural Amylase Vancomycin Trough 03/22/18 03/22/18 03/22/18 05:40 05:40 09:14 WBC RBC Hgb Hct MCV MCH MCHC RDW Plt Count MPV Prelim Diff (Auto) Neut % (Auto) Lymph % (Auto) Harris % (Auto) Eos % (Auto) Baso % (Auto) Neut # (Auto) Lymph # (Auto) Harris # (Auto) Eos # (Auto) Baso # (Auto) WBC Differential Seg Neuts % (Manual) Band Neuts % (Manual) Monocytes % (Manual) Abs Neuts (Manual) Nucleated RBCs/100 WBC Differential Comment Platelet Estimate Platelet Morphology Ovalocytes PT INR APTT Fibrinogen Sodium 137 Potassium 5.0 Chloride 105 Carbon Dioxide 20.9 L Anion Gap 11 BUN 44 H Creatinine 1.14 Estimated GFR 68 L POC Glucose 224 H Random Glucose 203 H Calcium 9.2 Phosphorus 3.6 Magnesium 2.6 H Total Bilirubin 0.8 AST 494 H ALT 1163 H Alkaline Phosphatase 204 H Ammonia 46 H Troponin I 4.89 H* Total Protein 5.7 L Albumin 1.7 L Lipase 85 TSH 0.848 Pleural pH Pleural RBC Pleural Nuc Cells Pleural Neutrophils Pleural Lymphocytes Pleural Mesothelial Pleural Fluid Comment Pleural Total Protein Pleural LDH Pleural Glucose Pleural Amylase Vancomycin Trough 03/23/18 03/23/18 03/23/18 05:00 05:00 06:00 WBC 22.2 H D RBC 3.61 L Hgb 8.6 L Hct 29.1 L MCV 80.7 D MCH 23.9 L MCHC 29.7 L RDW 22.0 H Plt Count 309 MPV 7.9 Prelim Diff (Auto) Slide review pending Neut % (Auto) 95.9 H Lymph % (Auto) 0.6 L Harris % (Auto) 2.9 Eos % (Auto) 0.4 Baso % (Auto) 0.2 Neut # (Auto) 21.3 H Lymph # (Auto) 0.1 L Harris # (Auto) 0.6 Eos # (Auto) 0.1 Baso # (Auto) 0.0 WBC Differential Manual diff final Seg Neuts % (Manual) 90 H Band Neuts % (Manual) 6 Monocytes % (Manual) 4 Abs Neuts (Manual) 21.3 H Nucleated RBCs/100 WBC 1 H Differential Comment . Platelet Estimate Normal Platelet Morphology Clumped H Ovalocytes 1+ H PT INR APTT Fibrinogen Sodium 135 L Potassium 5.7 H Chloride 103 Carbon Dioxide 18.6 L Anion Gap 13 BUN 59 H Creatinine 1.90 H Estimated GFR 38 L POC Glucose Random Glucose 236 H Calcium 8.6 Phosphorus 5.7 H D Magnesium 2.9 H Total Bilirubin 1.0 AST 1959 H ALT 2029 H Alkaline Phosphatase 286 H Ammonia Troponin I Total Protein 6.1 L Albumin 1.6 L Lipase TSH Pleural pH Pleural RBC Pleural Nuc Cells Pleural Neutrophils Pleural Lymphocytes Pleural Mesothelial Pleural Fluid Comment Pleural Total Protein Pleural LDH Pleural Glucose Pleural Amylase Vancomycin Trough 46.2 H Result Diagrams: 03/23/18 05:00 03/23/18 05:00 Microbiology: Microbiology 03/19/18 13:30 Aerobic Blood Culture - Final Blood - Peripheral Staphylococcus epidermidis Anaerobic Blood Culture - Preliminary No growth in 4 days 03/19/18 13:35 Aerobic Blood Culture - Preliminary Blood - Peripheral No growth in 4 days Anaerobic Blood Culture - Preliminary No growth in 4 days 03/20/18 14:15 Gram Stain - Final Fluid - Pleural fluid Body Fluid Culture - Final No growth in 72 hours (aerobically and anaerobically) 03/20/18 14:15 Acid Fast Bacilli Smear - Final Fluid - Pleural fluid No acid fast bacilli seen 03/19/18 17:00 Gram Stain - Final Sputum - Tracheal Aspirate Sputum Culture - Final Capnocytophaga species 03/20/18 14:15 Fungal Smear - Final Fluid - Pleural fluid No fungal elements seen 03/19/18 16:00 Urine Culture - Final Catheterized Urine No growth in 48 hours 03/19/18 16:00 Streptococcus pneumoniae Antigen (M - Final Urine - Catheterized Urine Presumptive negative for streptococcus pneumoniae antigen, suggesting no current or recent infection. Infection due to Streptococcus pneumoniae cannot be ruled out since the antigen present in the sample may be below the detection limit of the test. 03/19/18 16:00 Legionella Antigen - Final Urine - Catheterized Urine Presumptive negative for Legionella pneumophila serogroup 1 antigen in urine, suggesting no recent or recurrent infection. Infection due to Legionella cannot be ruled out since other serogroups and species may cause disease, antigen may not be present in urine in early infection, and the level of antigen present in the urine may be below the detection limit of the test. Imaging: Chest CTA 03/19/18 13:27 CONCLUSION: 1. Negative for central pulmonary emboli 2. Noted complete opacification of the left hemithorax. There is direct invasion of the mediastinum from apparent tumor. This Tumor is compressing the right ventricle Head CT 03/19/18 15:35 CONCLUSION: 1. Stable CT scan of the head without contrast with minimal periventricular presumed ischemic changes and encephalomalacia right frontal lobe. . Chest X-Ray 03/23/18 06:00 CONCLUSION: 1. Increased right lung opacity with most prominent consolidation in the right midlung. 2. Near complete opacification of the left hemithorax unchanged. Procedures: * right pigtail chest tube * 03/19/18 - intubated Assessment and Plan - Disease Oriented Problem List (1) COPD (chronic obstructive pulmonary disease) (2) History of DVT (deep vein thrombosis) (3) Stage 4 lung cancer (4) A-fib - Symptom Scale (1) Pain 0-10 Scale: Unable to quantify (2) Dyspnea 0-10 Scale: Unable to quantify Pertinent Non-Medical Issues: Psychosocial: Patient was living with his aunt prior to coming to the hospital. She and her are his main caregivers. Aunt reports she is power of estate planning attorney, she will bring paperwork to the hospital. Spiritual: God plays an important role in the patient's life, he states he is ready to go be with God. Legal: Patient is not capacitated to make his own decisions at this time. Medical power of estate planning attorney is his aunt, Ignacia Torres, copies of paperwork requested. Ethical issues impacting care: None. . Important Contacts: * Ignacia Torres, aunt, medical POA: [phone] (cell) or [phone] (home) Prognosis: This is a 47-year-old male with widely metastatic squamous cell lung carcinoma, extensive tumor occupying most of the left hemithorax, invading the mediastinum and compressing the right ventricle, bilateral pleural effusions, adrenal and pancreatic metastasis. Patient has failed multiple treatments, no longer a candidate for surgery, chemotherapy, radiation, immunotherapy or other treatments. Admitted with respiratory failure on mechanical ventilation, not expected to survive this hospitalization, tachycardic, hypotensive despite aggressive care. Patient is terminal, actively dying today. Code Status: Alternative Code (Intubation only) Plan: * Patient is not capacitated to make his own healthcare decisions. Medical power of estate planning attorney is his aunt, Ignacia Torres, copies of paperwork requested. * Alternate Code: Intubation Only. * Called auntIgnacia to notify of clinical change. I advised patient appears to be actively dying with likely minutes to hours to live. I explained she should come back to the hospital and advised he may not survive until he arrives. She verbalized understanding, reviewed clinical findings and she asked if we would restart the Fentanyl drip to ensure his last moments are comfortable, which we did. Fentanyl drip restarted at 100mcg. * SYMPTOMS: apin due to mets lung cancer, intubation, bedbound status,etc. Currently on Fentanyl drip 200mcg/hr. Dyspnea: due to mets lung cancer, on mech vent, requiring higher oxygen needs. Right chest tube in place. Complete opacification of left lung. Not expected to be able to medically extubate due to tumor burden, failing CPAP trials. * Palliative care will continue to follow throughout hospital course to assist with symptom management further clarification of goals of medical treatment. Attestation Attestation: To help prompt me to consider important information that might be impacting today's encounter and assessment, information from prior notes written by myself or my colleagues may have been "brought forward" into today's note. My signature on this note, however, is an attestation that I personally performed the exam, history, and/or decision-making noted today, and, unless otherwise indicated, the interactions with patient, family, and staff as well as the review of records all occurred today. I also attest that the listed assessment and stated plan reflect my best clinical judgment today based on the combination of historical information, prior notes, and today's exam/ interactions. When time spent is documented, it refers only to time spent today by the signer, or if indicated, combined time spent today by collaborating physician/nurse practitioner.
--- NOTE | 2018-03-23 13:48 | P.DN ---
Pronouncement Note - Date and Time of Date of : 03/23/18 Time of : 12:32 - Contributing Factors (1) Pleural effusion (2) Protein-calorie malnutrition (3) Hypoxia (4) Lung cancer (5) Lactic acid blood increased (6) COPD exacerbation (7) Atrial fibrillation with RVR - Summary Additional details: Examined patient. Patient with no palpable pulses carotid or radial bilaterally. No heart tones are appreciated. Eyes are fixed and dilated. Patient is currently on the ventilator with chest rise appreciated. Does not withdraw to noxious stimulus. No gag or cough.
--- NOTE | 2018-03-23 13:49 | P.DN ---
- Provider Primary care physician: Chepe Gastelum MD Admitting clinician: Nohelia Spangler Attending physician on admission: UNKNOWN Consults: 03/19/18 16:02 Consult to Palliative Care Routine Consulting Provider: Juarez Brown Reason for Consultation: Define goals of care. Metastatic non-small cell carcinoma Notified:: Service Spoke with:: MERVAT Date Notified:: 03/19/18 Time Notified:: 16:15 Ordering Provider: VÍCTOR 03/19/18 16:13 Consult to Oncology Routine Consulting Provider: Boo Carvalho Coating Inspector:: Ramone Carrillo Patient known to:: Ramone Carrillo Reason for Consultation: Patient with non-small cell carcinoma of the lung with metastasis. Failed palliative radiation. Now intubated sedated CODE STATUS changed to full code. Notified:: Office Date Notified:: 03/19/18 Time Notified:: 16:21 Comments:: PER DR. CARRILLO, PT KNOWN TO DR. CARVALHO Ordering Provider: VÍCTOR Pronouncing clinician: Kareem Wiley - Admitting Diagnosis (1) COPD exacerbation (2) Lactic acid blood increased (3) Lung cancer (4) Pancreatic mass (5) Pneumonia - Diagnosis at Time of (1) Acidosis, lactic Diagnosis: Principal (2) COPD with acute exacerbation Diagnosis: Principal (3) Lung cancer Diagnosis: Principal (4) Pancreatic mass Diagnosis: Secondary (5) Pneumonia Diagnosis: Principal - Date and Time Date of admission: 03/19/18 15:43 Date of : 03/23/18 Time of : 12:32 - Summary Details: This is a 47-year-old male that earlier this afternoon at home had increasing shortness of breath and a syncopal episode. Of note the patient is normally on 5 L nasal cannula but as he became short of breath O2 saturation remained in the 80s heart rate was in the 170s when EMS arrived. The patient received 20 mg of Cardizem IV and was placed on BiPAP and transported to [facility] emergency room. Upon arrival the patient was noted to still be in what appeared to be A. fib RVR and received 15 mg Cardizem IV and was placed on a Cardizem drip. In the ED ,the patient was noted to have 2 additional syncopal episodes and increased work of breathing and tiring out. The patient requested to be intubated. Of note ,the patient's past medical history is significant for non-small cell carcinoma being followed by Dr. Lorena green the patient subsequently has metastatic disease and failed palliative radiation 02/26/2018 on hospital discharge the patient had agreed to hospice care and was looking forward to it,however today the patient changed CODE STATUS from DNR to full code in the emergency room. The patient's past medical history is significant for stage IV lung cancer, pancreatic mass, hypercalcemia, COPD, and a history of DVT currently on Xarelto. Critical care medicine was consulted. 03/20: Patient remains intubated sedated. CT scan reviewed and discussed with tony Beth. I explained to her only benefit of draining the right large effusion would be this may help him wean off the ventilator. His overall condition is terminal with tumor appearing to be invading mediastinum and compressing the right ventricle. 03/21: Currently resting in bed in no acute distress. Attempting to wean off ventilator. Currently afebrile. Noted elevated transaminases. Right-sided pigtail catheter with 1375 cc output 03/22: Low-grade temperatures overnight. Will attempt CPAP trial today. Remains on low-dose norepinephrine drip. Off diltiazem drip. 03/23: Afebrile. Increasing vasopressor requirements. Worsening renal failure/ hepatic failure. Actively dying. Procedures: Right Pigtail chest catheter placed for pleural effusion Brief History: This is a 47-year-old male that earlier this afternoon at home had increasing shortness of breath and a syncopal episode. Of note the patient is normally on 5 L nasal cannula but as he became short of breath O2 saturation remained in the 80s heart rate was in the 170s when EMS arrived. The patient received 20 mg of Cardizem IV and was placed on BiPAP and transported to [facility] emergency room. Upon arrival the patient was noted to still be in what appeared to be A. fib RVR and received 15 mg Cardizem IV and was placed on a Cardizem drip. In the ED ,the patient was noted to have 2 additional syncopal episodes and increased work of breathing and tiring out. The patient requested to be intubated. Of note ,the patient's past medical history is significant for non-small cell carcinoma being followed by Dr. Lorena green the patient subsequently has metastatic disease and failed palliative radiation 02/26/2018 on hospital discharge the patient had agreed to hospice care and was looking forward to it,however today the patient changed CODE STATUS from DNR to full code in the emergency room. The patient's past medical history is significant for stage IV lung cancer, pancreatic mass, hypercalcemia, COPD, and a history of DVT currently on Xarelto. Critical care medicine was consulted. Result Diagrams: 03/23/18 05:00 03/23/18 05:00 Significant Findings: Abnormal Lab Results 03/23/18 03/23/18 03/23/18 05:00 05:00 06:00 WBC 22.2 H D RBC 3.61 L Hgb 8.6 L Hct 29.1 L MCV 80.7 D MCH 23.9 L MCHC 29.7 L RDW 22.0 H Plt Count 309 MPV 7.9 Prelim Diff (Auto) Slide review pending Neut % (Auto) 95.9 H Lymph % (Auto) 0.6 L Ada % (Auto) 2.9 Eos % (Auto) 0.4 Baso % (Auto) 0.2 Neut # (Auto) 21.3 H Lymph # (Auto) 0.1 L Ada # (Auto) 0.6 Eos # (Auto) 0.1 Baso # (Auto) 0.0 WBC Differential Manual diff final Seg Neuts % (Manual) 90 H Band Neuts % (Manual) 6 Monocytes % (Manual) 4 Abs Neuts (Manual) 21.3 H Nucleated RBCs/100 WBC 1 H Differential Comment . Platelet Estimate Normal Platelet Morphology Clumped H Ovalocytes 1+ H Sodium 135 L Potassium 5.7 H Chloride 103 Carbon Dioxide 18.6 L Anion Gap 13 BUN 59 H Creatinine 1.90 H Estimated GFR 38 L Random Glucose 236 H Calcium 8.6 Phosphorus 5.7 H D Magnesium 2.9 H Total Bilirubin 1.0 AST 1959 H ALT 2029 H Alkaline Phosphatase 286 H Total Protein 6.1 L Albumin 1.6 L Vancomycin Trough 46.2 H Imaging: Chest CTA 03/19/18 13:27 CONCLUSION: 1. Negative for central pulmonary emboli 2. Noted complete opacification of the left hemithorax. There is direct invasion of the mediastinum from apparent tumor. This Tumor is compressing the right ventricle Chest X-Ray 03/19/18 13:27 CONCLUSION: 1. Stable chest x-ray with near complete opacification left hemithorax with left lung volume loss. 2. Stable right midlung zone pulmonary mass. Chest X-Ray 03/19/18 15:24 CONCLUSION: ET tube and NG tube both in good position. Again near-complete opacification left hemithorax with a large pleural effusion and volume loss. Diffuse perihilar vascular congestion with a stable infiltrate right midlung zone Head CT 03/19/18 15:35 CONCLUSION: 1. Stable CT scan of the head without contrast with minimal periventricular presumed ischemic changes and encephalomalacia right frontal lobe. . Chest X-Ray 03/20/18 00:00 CONCLUSION: 1. Right chest tube is in place with tip in the medial right hemithorax. No pneumothorax is present. There is decreased right pleural-based opacity likely representing decreased pleural fluid. 2. Stable near-complete opacification left hemithorax and stable right peripheral midlung zone mass. Chest X-Ray 03/21/18 06:00 CONCLUSION: Stable appearance of the chest. Chest X-Ray 03/22/18 06:00 CONCLUSION: No significant interval change with near complete opacification of left hemithorax and patchy opacity on the right including confluent rounded opacity in the lateral right midlung. Chest X-Ray 03/23/18 06:00 CONCLUSION: 1. Increased right lung opacity with most prominent consolidation in the right midlung. 2. Near complete opacification of the left hemithorax unchanged. Hospital Course: Neuro/Psych: Chronic malignant pain Continue fentanyl currently 100 mcg an hour and propofol infusions currently at 20 mg/kg/min to maintain ventilator synchrony and analgesia Neuro checks per ICU protocol Daily sedation vacation Holding acetaminophen 650 mg every 6 hours as needed for fever with elevated transaminases Respiratory: Acute hypoxemic respiratory failure Metastatic lung cancer Large right pleural effusion COPD exacerbation Stage IV non-small cell lung cancer with metastasis S/P XRT Patient emergently intubated in the ED Follow-up chest x-ray in a.m. 03/24 [facility] ventilation Ventilator bundle Head of bed at 30 degrees Albuterol/ipratropium aerosols every 4 hours scheduled with albuterol aerosols every 2 hours as needed Patient has large right pleural effusion status post pigtail placement for malignant effusion 03/20. Dr. Gonzalez explained to ERIN Beth that only benefit of draining is a possibility of weaning of the ventilator, we will not change overall prognosis CPap trials daily Cardiovascular: Mediastinal tumor invasion Metastatic tumor compression right ventricle History of DVT A. fib RVR F/U echo 03/22 EF around 50%. Right ventricle and aortic valve not well visualized. PAP 70 mmHg Norepinephrine gtt at 12 mcg/min maintain MAP > 65 mmHg Noted port right chest-utilize for access Maintain MAP > 65mmH Cardizem infusion for rate control as needed 03/19 chest x-raydiffuse perihilar vascular congestion with a stable infiltrate right midlung 03/19 CT angiogram-negative for pulmonary embolus. Direct invasion of mediastinum from tumor. Tumor is compressing the right ventricle appear near complete opacification of left hemothorax combination with drown lung tumor in the fluid. Large right pleural effusion is evident team parenchymal mass seen anterior in the right lung. Left adrenal metastasis. Renal: Acute kidney injury - Strict I/Os FEN/GI: Hyperkalemia Pancreatic mass Adrenal mass Elevated transaminases Hypoalbuminemia Start tube feedings with neutral hep goal 60 cc an hour Monitor BMP OG tube Lansoprazole for GI prophylaxis Calcium chloride, D50/insulin/bicarbonate, Kayexalate x1 now. Recheck potassium at 1500 hrs. Heme/ID: Anemia of chronic disease/microcytic Leukocytosis Lactic acidemia Chronic rivaroxaban use Squamous cell carcinoma of the lung Continue normal saline IV 84 cc an hour Follow-up blood sputum and urine cultures Began prophylactic antibiotics vancomycin , piperacillin/tazobactam and azithromycin Heme-Onc-Dr. Carvalho Continue with rivaroxaban 10 mg daily Endocrine: Hyperglycemia critically illness Glucose monitoring per ICU protocol -- SSI Prophylaxis: GI Prophylaxis Lansoprazole DVT Prophylaxis -- SCDs. Rivaroxaban will provide pharmacological prophylaxis Lines: Peripheral IVs providing adequate access. Right port cath in situ. Central line if indicated
== END 2018-03-23 12:32 | disposition expired ==
LOC: NEPC 13:14 → NEDA 15:43 → HIMC 16:30
PROVIDERS: ADMIT Anesthesiology; ATTEND Anesthesiology